=== PATIENT | female | born 1950 | race Caucasian/White ===

== ENCOUNTER → 2017-04-08 | Outpatient (CLI) | payer MEDICARE, OTHER ==
--- NOTE | 2017-04-12 07:10 | MM ---
Reason for exam: screening (asymptomatic). Last mammogram was performed 7 years and 8 months ago. History: Patient is postmenopausal. Family history of breast cancer in 2 aunts, breast cancer in grandmother, and breast cancer in mother at age 69. Benign right mammotome panel of the right breast, February 12, 2009. Benign excisional biopsy of the left breast, June 24, 2006. Took estrogen for 17 years beginning at age 35. Physical Findings: A clinical breast exam by your physician is recommended on an annual basis and results should be correlated with mammographic findings. MG 3D Screening Mammo W/Cad Bilateral CC and MLO view(s) were taken. Prior study comparison: August 15, 2009, bilateral diagnostic digital mammog. February 06, 2009, right breast diagnostic digital alyse. There are scattered fibroglandular densities. No significant changes when compared with prior studies. ASSESSMENT: Benign, BI-RAD 2 RECOMMENDATION: Routine screening mammogram of both breasts in 1 year.
== END | disposition home or self-care (01) ==
LOC: RADMAMWWP 09:29
PROVIDERS: ATTEND Family Medicine
DX: Z12.31 Encounter for screening mammogram for malignant neoplasm of breast (principal)
CPT/HCPCS: 77063; G0202

== ENCOUNTER → 2017-11-07 | Outpatient (CLI) | payer MEDICARE, OTHER | END | disposition home or self-care (01) | LOC: LABPAT 16:06 | PROVIDERS: ATTEND Surgery Plastic and Reconstructive Surgery | DX: Z01.812 Encounter for preprocedural laboratory examination (principal) | CPT/HCPCS: 36415; 84132; 86850; 86900; 86901 ==

== ENCOUNTER 2017-11-11 07:46 | Day surgery (SDC) | payer MEDICARE, OTHER ==
[2017-11-02 23:30] VITALS: BMI 41.0
[~2017-11-11 07:46] MED LIST: ACETAMINOPHEN IV (For NPO) 1,000 MG in EMPTY BAG 1 BAG IVPB ONE; DEXAMETHASONE SOD PHOSPHATE 10 MG/ML 1 ML VIAL IV ONE; HEPARIN SODIUM,PORCINE 5,000 UNIT/ML 1 ML VIAL SQ ONE; MIDAZOLAM 2 MG/2 ML VIAL IV PRN; MORPHINE SULFATE 4 MG/ML SYRINGE IV PRN; SCOPOLAMINE 1.5MG/72HR PATCH TRANSDERM ONE; ceFAZolin IN SWFI 2 GM/20 ML SYRINGE IVP ONE
--- NOTE | 2017-11-11 07:56 | P.GSHP ---
History of Present Illness H&P Date: 11/11/17 CHIEF COMPLAINT: History of intra-abdominal adhesions HISTORY OF PRESENT ILLNESS: Kala Mock is a 67 years-old female who had a protracted hospital course following an attempted ventral hernia repair, robotic, which was performed on March 11, 2016. She was hospitalized approximately 2.5 to 3 weeks, where she had to go back to the operating room for fear of bowel obstruction. The family reported that there was a potential of complete removal of all mesh, as she had a complete bowel obstruction. Since then, she has been in and out of the hospital several times in the past 12 months. She has baseline morbid obesity including COPD, as well as gastroesophageal reflux disease. She is a diet controlled diabetic. She is at least 100+ pounds over weight. Secondary to the chronic abdominal pain of the bilateral lower abdomen, she now presents for further evaluation and management. PAST MEDICAL HISTORY: Please see list. PAST SURGICAL HISTORY: Please see list. MEDICATIONS: Please see list. ALLERGIES: Please see list. SOCIAL HISTORY: No illicit drug use FAMILY HISTORY: No reports of Crohn disease or ulcerative colitis. REVIEW OF ORGAN SYSTEMS: Additionally reports: GI: Reports diarrhea verses constipation. There are no reports of blood in stools. History of gastroesophageal reflux disease. Constitutional: She is over 100+ pounds over weight. Respiratory: Dyspnea on exertion, including asthmatic. Musculoskeletal: Diffuse osteoarthritis. HEENT: Denies any trouble with vision, hearing or nosebleeds. No difficulty swallowing. LYMPHATIC: The patient denies any lumps and bumps around the neck. ENDOCRINE: Denies any thyroid disorders. Denies any blood sugar glucose intolerance. CARDIOVASCULAR: Denies any chest pain, palpitations, or recent heart attacks. GENITOURINARY: Denies any blood in urine or increased urinary frequency. NEUROLOGIC: Denies any numbness or tingling along the distal extremities. No seizure disorders or headaches. PSYCHIATRIC: Denies any depression or suicidal ideation. HEMATOLOGIC: Denies any abnormal bleeding or bruising. BREASTS: Denies any breast lumps, pain or nipple discharge. SKIN: No current skin cancer. No rash. PHYSICAL EXAM: VITAL SIGNS: Stable GENERAL: Well-developed pleasant and in no acute distress. HEENT: No scleral icterus. Extraocular movements grossly intact. Moist buccal mucosa. NECK: Supple without lymphadenopathy. CHEST: Unlabored respirations. Equal bilateral excursions. CARDIOVASCULAR: Regular rate and rhythm. Distal 2+ pulses. MUSCULOSKELETAL: No clubbing, cyanosis, or edema. Abdomen: Protuberant abdomen. Well-healed midline incision. Reducible umbilical hernia. She points to the bilateral lower abdomen without any palpable hernias. STUDIES: CT of the abdomen/pelvis was obtained on August of 2017, and compared to her January of 2016 films, were reviewed in detail along side the patient including family members. An approximately 3 cm wide mouth ventral hernia was identified, however repaired and resolved along with her more recent CT scan. A umbilical hernia is however identified, fat containing, without involvement of bowel. ASSESSMENT: 1. Diffuse abdominal pain. 2. History of multiple abdominal surgeries. 3. Intra-abdominal adhesions. PLAN: 1. Diagnostic laparoscopy with lysis of adhesions were described in detail including risk of injury to the intestine, need for further surgery, and open technique. 2. DVT prophylaxis. 3. Antibiotic prophylaxis. Past Medical History Past Medical History: Diabetes Mellitus, GERD/Reflux, Hyperlipidemia, Hypertension, Osteoarthritis (OA) Additional Past Medical History / Comment(s): DIET CONTROLLED DIABETES (CHECKS CBG DAILY), STATES ALLERGIES., BACK PAIN., STATES RECENT COLD SYMPTOMS ANTIBIOTIC AND STEROIDS TAKEN. History of Any Multi-Drug Resistant Organisms: None Reported Past Surgical History: Appendectomy, Breast Surgery, Section, Hernia Repair, Hysterectomy, Joint Replacement, Tonsillectomy Additional Past Surgical History / Comment(s): 06/17/15 Total L knee arthroplasty. Other SX: LT BREAST BIOPSY, POLYPS REMOVED FROM THROAT, ROBOTIC INCISIONAL HERNIA REPAIR, LYSIS OF ADHESIONS. Past Anesthesia/Blood Transfusion Reactions: No Reported Reaction Past Psychological History: Anxiety, Depression Additional Psychological History / Comment(s): . Smoking Status: Never smoker Past Alcohol Use History: Daily Additional Past Alcohol Use History / Comment(s): states drinks 24ounce can of beer per day. Past Drug Use History: Marijuana Additional Drug Use History / Comment(s): OCCASIONAL MARIJUANA USE. - Past Family History Father Family Medical History: Deep Vein Thrombosis (DVT), Pulmonary Embolus Mother Family Medical History: Cancer Medications and Allergies Home Medications Medication Instructions Recorded Confirmed Type Atorvastatin [Lipitor] 10 mg PO QAM 10/04/14 11/02/17 History FLUoxetine HCL 40 mg PO QAM 10/04/14 11/02/17 History Gabapentin 400 mg PO TID 10/04/14 11/02/17 History LORazepam [Lorazepam] 0.5 mg PO BID 10/04/14 11/02/17 History Loratadine 10 mg PO QAM 10/04/14 11/02/17 History Omeprazole 20 mg PO BID 10/04/14 11/02/17 History Cholecalciferol [Vitamin D3] 5,000 unit PO DAILY 06/12/15 11/02/17 History Folic Acid 1 mg PO DAILY 06/12/15 11/02/17 History Thiamine [Vitamin B-1] 100 mg PO DAILY 06/12/15 11/02/17 History Vitamin B Complex 1 cap PO DAILY 06/12/15 11/02/17 History Furosemide [Lasix] 20 mg PO Q48H 04/09/16 11/02/17 History Albuterol Nebulizer 1 dose INHALATION DAILY 11/02/17 History Albuterol Nebulizer 1 dose INHALATION Q4HR PRN 11/02/17 History Budesonide [Pulmicort Flexhaler] 2 puff INHALATION BID 11/02/17 11/02/17 History HYDROcodone/APAP 10-325MG [[place] 1 tab PO Q6H PRN 11/02/17 11/02/17 History 10-325] Potassium Chloride [Klor-Con 10] 10 meq PO Q48H 11/02/17 11/02/17 History amLODIPine BESYLATE [Norvasc] 10 mg PO DAILY 11/02/17 11/02/17 History Allergies Allergy/AdvReac Type Severity Reaction Status Date / Time codeine Allergy Rash/Hives Verified 11/02/17 15:51 nicotine Allergy Swelling Verified 11/02/17 15:51 Tetracyclines Allergy Rash/Hives Verified 11/02/17 15:51 venom-honey bee Allergy Anaphylaxis Verified 11/02/17 15:51 [bee venom (honey bee)]
[2017-11-11] MEDS: LACTATED RINGERS 1,000 ML IV SCH ×2 (08:16→08:42)
[2017-11-11 08:29] LABS: Glucose,Whole Blood 112 mg/dL (75-99)
[2017-11-11] MEDS ORDERED: LIDOCAINE 1% 20 ML VIAL (10MG/ML) FOR IV START INTRADERMA ONE ×2 (08:42→08:43)
[2017-11-11] MEDS: ONDANSETRON 4 MG/2 ML VIAL IVP ONE ×2 (08:57→12:30)
[2017-11-11] MEDS ORDERED: fentaNYL (PF) 50 MCG/ML 2 ML AMP ONE (09:30)
[2017-11-11] MEDS ORDERED: LIDOCAINE 1% INJ 10MG/ML (20 ML MDV) ONE (09:30)
[2017-11-11] MEDS ORDERED: GLYCOPYRROLATE 0.2 MG/ML 2 ML VIAL ONE (09:30)
[2017-11-11] MEDS ORDERED: PROPOFOL 10 MG/ML 20 ML VIAL IV ONE (09:30)
[2017-11-11] MEDS ORDERED: MIDAZOLAM 2 MG/2 ML VIAL ONE (09:30)
[2017-11-11] MEDS ORDERED: PHENYLEPHRINE-0.9% NACL SYG 1 MG/10 ML SYRINGE ONE (09:30)
[2017-11-11] MEDS ORDERED: ROCURONIUM BROMIDE 10 MG/ML 10 ML VIAL IV ONE (09:30)
[2017-11-11] MEDS ORDERED: SUCCINYLCHOLINE CHLORIDE VIAL 200 MG/10 ML VIAL IV ONE (09:30)
[2017-11-11] MEDS ORDERED: NEOSTIGMINE 1 MG/ML 10 ML VIAL ONE (09:30)
[2017-11-11] MEDS ORDERED: BUPIVACAINE (PF) 0.25% 30 ML VIAL SQ ONE ×2 (10:03→10:15)
[2017-11-11] MEDS ORDERED: LACTATED RINGERS 1,000 ML IV ONE (12:04)
[2017-11-11] MEDS ORDERED: ONDANSETRON 4 MG/2 ML VIAL IVP PRN (12:11)
[2017-11-11] MEDS ORDERED: HYDROcodone/APAP 5-325MG 1 EACH TAB PO PRN (12:11)
[2017-11-11] MEDS ORDERED: NALOXONE 0.4 MG/ML 1 ML VIAL IV PRN (12:11)
[2017-11-11 12:22] VITALS: TEMP 98.2
--- NOTE | 2017-11-11 12:45 | P.PCN ---
Date of Procedure: 11/11/17 Preoperative Diagnosis: Diffuse abdominal pain, history of multiple abdominal wall hernias Postoperative Diagnosis: Same, severe intra-abdominal adhesions diffuse, incarcerated hernia right upper abdomen Procedure(s) Performed: Robotic-assisted laparoscopic lysis of adhesions 2 hours, reduction and repair of incarcerated ventral hernia without mesh, 2 cm at right upper abdomen Anesthesia: AMINA, local Surgeon: Jadyn Correa Estimated Blood Loss (ml): 25 Pathology: none sent Condition: stable Disposition: observation Operative Findings: Diffuse intra-abdominal adhesions, area of pain was marked in the presurgical area. Left upper abdomen, incarcerated hernia 2 cm reduced and oversewn without mesh. Adhesions involving small bowel at the left upper abdomen address for pain. No enterotomies identified throughout the case.
[2017-11-11] MEDS ORDERED: HYDROcodone/APAP 10-325MG 1 EACH TAB PO ONE (13:52)
[2017-11-11 13:55] VITALS: RESP 20
[2017-11-11 14:36] VITALS: BP 128/71; PULSE 93
== END 2017-11-11 15:12 | disposition home or self-care (01) ==
LOC: OR 07:46
PROVIDERS: ATTEND Surgery Plastic and Reconstructive Surgery
DX: K43.6 Other and unspecified ventral hernia with obstruction, without gangrene (principal); K66.0 Peritoneal adhesions (postprocedural) (postinfection); I10 Essential (primary) hypertension; K21.9 Gastro-esophageal reflux disease without esophagitis; E78.5 Hyperlipidemia, unspecified; E11.9 Type 2 diabetes mellitus without complications; M19.90 Unspecified osteoarthritis, unspecified site; F41.9 Anxiety disorder, unspecified; F32.9 Major depressive disorder, single episode, unspecified; Z79.899 Other long term (current) drug therapy; Z79.51 Long term (current) use of inhaled steroids; Z88.1 Allergy status to other antibiotic agents; Z91.030 Bee allergy status; Z88.5 Allergy status to narcotic agent; Z91.09 Other allergy status, other than to drugs and biological substances
CPT/HCPCS: 49653; J2250; J0330; J2270; J1644; J1100; J2710; J0690; J2405; J2001; J3010; J0131; J2370; J2704; 86850; 86900; 86901

== ENCOUNTER 2018-10-26 09:50 | Day surgery (SDC) | payer MEDICARE, OTHER ==
[2018-10-25 09:22] VITALS: BMI 41.6
[~2018-10-26 09:50] MED LIST changes: -ACETAMINOPHEN IV (For NPO) 1,000 MG in EMPTY BAG 1 BAG IVPB ONE; -DEXAMETHASONE SOD PHOSPHATE 10 MG/ML 1 ML VIAL IV ONE; -MIDAZOLAM 2 MG/2 ML VIAL IV PRN; -MORPHINE SULFATE 4 MG/ML SYRINGE IV PRN; -SCOPOLAMINE 1.5MG/72HR PATCH TRANSDERM ONE
[2018-10-26] MEDS ORDERED: INDOCYANINE GREEN 25 MG VIAL IV STA (10:16)
[2018-10-26] MEDS ORDERED: ACETAMINOPHEN IV (For NPO) 1,000 MG in EMPTY BAG 1 BAG IVPB ONE (10:18)
--- NOTE | 2018-10-26 10:18 | P.GSHP ---
History of Present Illness H&P Date: 10/26/18 CHIEF COMPLAINT: Cholecystitis HISTORY OF PRESENT ILLNESS: The patient is a 68-year-old female who presents with history of epigastric including right upper quadrant abdominal pain. She underwent diagnostic studies for her gallbladder. Separately her clinical picture was consistent with cholecystitis. Now she presents for surgical intervention. PAST MEDICAL HISTORY: Please see list PAST SURGICAL HISTORY: Please see list MEDICATIONS: Please see list ALLERGIES: Denies. SOCIAL HISTORY: No illicit drug use or recent tobacco use FAMILY HISTORY: Pertinent for gallbladder disease REVIEW OF ORGAN SYSTEMS: CONSTITUTIONAL: No reports of fevers or chills. HEENT: Denies any troubles with the vision or hearing. RESPIRATORY: Recent pneumonias. CARDIOVASCULAR: Denies chest pain or palpitations GI: No blood in stools or constipation. MUSCULOSKELETAL: Has occasional joint pain including back pain. HEMATOLOGIC: No personal or family history of DVTs or pulmonary emboli. SKIN: No skin cancer. PHYSICAL EXAM: VITAL SIGNS: Afebrile vital signs stable GENERAL: Well-developed pleasant in no acute distress. HEENT: No scleral icterus. Extraocular movements grossly intact. Moist buccal mucosa. NECK: Supple without lymphadenopathy. CHEST: Unlabored respirations. Equal bilateral excursions. CARDIOVASCULAR: Regular rate regular rhythm rhythm. Distal 2+ pulses. ABDOMEN: Soft, nondistended. Tender along the epigastrium and right upper quadrant. MUSCULOSKELETAL: No clubbing, cyanosis, or edema. NEURO: Cranial nerves II to XII within normal limits. No focal or lateralizing signs. PSYCH: Alert and oriented to person, place and time. SKIN: Well-perfused good skin turgor. ASSESSMENT: 1. Epigastric and right upper quadrant abdominal pain 2. Chronic cholecystitis 3. Symptomatic gallstones. PLAN: 1. Will need a robotic cholecystectomy possible open. Benefits and risks were described. 2. Heparin for DVT prophylaxis 5000 units. 3. Antibiotic prophylaxis. Past Medical History Past Medical History: Asthma, Heart Failure, Diabetes Mellitus, GERD/Reflux, Hyperlipidemia, Hypertension, Osteoarthritis (OA) Additional Past Medical History / Comment(s): DIET CONTROLLED DIABETES, ALLERGIES., BACK PAIN., no longer needs BP med anymore per pt., recent stay @ [facility] for UTI, diverticulitis,colitis History of Any Multi-Drug Resistant Organisms: ESBL Date of last positivie culture/infection: 11/9/18 ESBL-E.coli MDRO Source:: Urine Past Surgical History: Appendectomy, Breast Surgery, Section, Hernia Repair, Hysterectomy, Joint Replacement, Tonsillectomy Additional Past Surgical History / Comment(s): 06/17/15 Total L knee arthroplasty & right knee replaced, left hip replaced, Other SX: LT BREAST BIOPSY, POLYPS REMOVED FROM THROAT, ROBOTIC INCISIONAL HERNIA REPAIR, LYSIS OF ADHESIONS. Past Anesthesia/Blood Transfusion Reactions: No Reported Reaction Smoking Status: Never smoker - Past Family History Father Family Medical History: Deep Vein Thrombosis (DVT), Pulmonary Embolus Mother Family Medical History: Cancer Medications and Allergies Home Medications Medication Instructions Recorded Confirmed Type FLUoxetine HCL 40 mg PO QAM 10/04/14 10/25/18 History Gabapentin 400 mg PO TID 10/04/14 10/25/18 History Loratadine 10 mg PO QAM 10/04/14 10/25/18 History Omeprazole 40 mg PO DAILY 10/04/14 10/25/18 History Folic Acid 1 mg PO DAILY 06/12/15 10/25/18 History Thiamine [Vitamin B-1] 100 mg PO DAILY 06/12/15 10/25/18 History Vitamin B Complex 1 cap PO DAILY 06/12/15 10/25/18 History Furosemide [Lasix] 20 mg PO DAILY 04/09/16 10/25/18 History HYDROcodone/APAP 10-325MG [[place] 1 tab PO Q6H PRN 11/02/17 10/25/18 History 10-325] Potassium Chloride [Klor-Con 10] 10 meq PO DAILY 11/02/17 10/25/18 History Acetaminophen [Tylenol Arthritis] 650 mg PO Q4H PRN 10/25/18 10/25/18 History Budesonide 1 mg INHALATION BID 10/25/18 10/25/18 History Ferrous Sulfate [Feosol] 325 mg PO DAILY 10/25/18 10/25/18 History Loperamide [Imodium] 2 mg PO Q6H 10/25/18 10/25/18 History Menthol [Biofreeze] 1 applic TOPICAL Q6H PRN 10/25/18 10/25/18 History Allergies Allergy/AdvReac Type Severity Reaction Status Date / Time codeine Allergy Rash/Hives Verified 10/25/18 08:32 nicotine Allergy Swelling Verified 10/25/18 08:32 Tetracyclines Allergy Rash/Hives Verified 10/25/18 08:32 venom-honey bee Allergy Anaphylaxis Verified 10/25/18 08:32 [bee venom (honey bee)]
[2018-10-26] MEDS ORDERED: ONDANSETRON 4 MG/2 ML VIAL IVP ONE (12:04)
[2018-10-26] MEDS ORDERED: LACTATED RINGERS 1,000 ML IV ONE ×2 (12:05→13:56)
[2018-10-26] MEDS ORDERED: DEXAMETHASONE SOD PHOSPHATE 10 MG/ML 1 ML VIAL IV ONE (12:05)
[2018-10-26 12:12] LABS: Anisocytosis Slight; Basophils % (A) 0 %; Eosinophils # (A) 0.3 k/uL (0-0.7); Eosinophils % (A) 4 %; HCT 33.3 % (34.0-46.0); HGB 10.6 gm/dL (11.4-16.0); Lymphocytes # (A) 2.8 k/uL (1.0-4.8); Lymphocytes % (A) 34 %; MCH 32.4 pg (25.0-35.0); MCHC 31.9 g/dL (31.0-37.0); MCV 101.6 fL (80.0-100.0); Macrocytosis Moderate; Mean Platelet Volume 6.8; Monocytes # (A) 0.3 k/uL (0-1.0); Monocytes % (A) 4 %; Neutrophils # (A) 4.6 k/uL (1.3-7.7); Neutrophils % (A) 56 %; Platelet Count 264 k/uL (150-450); RBC 3.28 m/uL (3.80-5.40); RDW 17.1 % (11.5-15.5); WBC 8.2 k/uL (3.8-10.6)
[2018-10-26] MEDS ORDERED: MIDAZOLAM 2 MG/2 ML VIAL IV ONE (12:18)
[2018-10-26 12:24] LABS: Albumin 3.1 g/dL (3.5-5.0); Anion Gap 7 mmol/L; Blood Urea Nitrogen 3 mg/dL (7-17); Calcium 8.8 mg/dL (8.4-10.2); Carbon Dioxide 24 mmol/L (22-30); Chloride 109 mmol/L (98-107); Glucose 92 mg/dL (74-99); Sodium 140 mmol/L (137-145); Total Bilirubin 1.3 mg/dL (0.2-1.3); Total Protein 8.2 g/dL (6.3-8.2)
[2018-10-26 12:34] LABS: ALT 21 U/L (9-52); AST 50 U/L (14-36); Alkaline Phosphatase 92 U/L (38-126); Potassium 3.1 mmol/L (3.5-5.1)
[2018-10-26] MEDS ORDERED: BUPIVACAIN-EPI 0.25%-1:200,000 30 ML VIAL SQ ONE ×2 (12:40→13:25)
[2018-10-26] MEDS ORDERED: GLYCOPYRROLATE 0.2 MG/ML 2 ML VIAL ONE (12:45)
[2018-10-26] MEDS ORDERED: MIDAZOLAM 2 MG/2 ML VIAL ONE (12:45)
[2018-10-26] MEDS ORDERED: SUCCINYLCHOLINE CHLORIDE 100 MG/5 ML SYR IV ONE (12:45)
[2018-10-26] MEDS ORDERED: HYDROmorphone (PF) 1 MG/ML ONE (12:45)
[2018-10-26] MEDS ORDERED: LIDOCAINE 1% INJ 10MG/ML (20 ML MDV) ONE (12:45)
[2018-10-26] MEDS ORDERED: KETOROLAC 30 MG/ML 1 ML VIAL ONE (12:45)
[2018-10-26] MEDS ORDERED: ROCURONIUM BROMIDE 10 MG/ML 10 ML VIAL IV ONE (12:45)
[2018-10-26] MEDS ORDERED: fentaNYL (PF) 50 MCG/ML 2 ML AMP ONE (12:45)
[2018-10-26] MEDS ORDERED: PROPOFOL 10 MG/ML 20 ML VIAL IV ONE (12:45)
[2018-10-26] MEDS ORDERED: NEOSTIGMINE 1 MG/ML 10 ML VIAL ONE (12:45)
[2018-10-26] MEDS ORDERED: SODIUM CHLORIDE 0.9% 50 ML with ceFAZolin 3,000 MG IV ONE ×2 (13:07)
--- NOTE | 2018-10-26 14:37 | P.OP ---
Date of Procedure: 10/26/18 Description of Procedure: SURGEON: JADYN CORREA MD PREOPERATIVE DIAGNOSES: 1. History of gallbladder sludge 2. Epigastric abdominal pain 3. Right upper quadrant abdominal pain 4. Chronic right-sided congestive heart failure 5. History of severe peritoneal adhesions 6. Morbid obesity due to excess calories, BMI 41.8 7. Chronic pain syndrome 8. Diabetes type 2, [id number] 9. Chronic obstructive pulmonary disease 10. Past history of alcohol abuse 11. Depressive disorder POSTOPERATIVE DIAGNOSES: 1. History of gallbladder sludge 2. Epigastric abdominal pain 3. Right upper quadrant abdominal pain 4. Chronic right-sided congestive heart failure 5. History of severe peritoneal adhesions 6. Morbid obesity due to excess calories, BMI 41.8 7. Chronic pain syndrome 8. Diabetes type 2, [id number] 9. Chronic obstructive pulmonary disease 10. Past history of alcohol abuse 11. Depressive disorder 12. Severe extensive peritoneal adhesions right-sided abdomen 13. Macronodular cirrhosis of the liver OPERATION: 1. Robotic-assisted da Dinorah Xi laparoscopic with lysis of adhesions ESTIMATED BLOOD LOSS: 5 mL. SPECIMENS REMOVED: None COMPLICATIONS: None. OPERATIVE FINDINGS: 1. Malignant severe peritoneal adhesions with frozen abdomen involving right upper and right lower quadrant of small bowel to abdominal wall 2. No evidence of bowel obstruction 3. Macronodular cirrhosis of the liver 4. Diffuse vascularization involving peritoneal adhesions and high risk of bleeding INDICATIONS: The patient is a 68-year-old female who presents with history of chronic abdominal pain including ultrasound findings of gallbladder sludge. Surgical intervention with cholecystectomy were described. Informed consent was obtained. Robotic assisted laparoscopic approach was described. Benefits and risks of the procedure including but not limited to bleeding, infection was described. Informed consent was obtained. DESCRIPTION OF PROCEDURE: Patient was brought to the operating room, placed in supine position. After general induction, the abdomen had been prepped and draped in standard sterile fashion. The robotic da Dinorah XI system was primed. After a timeout protocol was performed, the patient had been prepped and draped in standard sterile fashion. Along the left upper quadrant, 0 5 mmlaparoscopic trocar entry was performed and dense peritoneal adhesions were found involving the midline of the abdomen including complete obscurity of the right side of the abdominal wall. The small intestine was adherent to the abdominal wall prohibiting any view of the right side of the abdomen. The liver was cirrhotic with macronodular cirrhosis. With this finding, initial lysis of adhesions was opposed from left lateral abdominal wall. Next, two 8 mm robotic ports were placed along the left lateral abdominal wall. The camera 8-mm port was maintained along right mid-lateral abdomen. The 8 mm port was placed along the left upper abdominal wall was exchanged from the 5 mm port. Please note that the ports were placed at least 10 to 15 cm away from the target anatomy. The robot was docked along the left lateral abdomen. The patient was repositioned in with left side up. Using a grasper for arm 2, including scissor for arm 1, the robotic system was docked and primed as described. Instruments were interchanged by the political science research assistant. I had sat at the console. Carefully, a window was searched for at the adhesions of the right including lower quadrant of the abdomen. The adhesions were easily friable and well vascularized. The small bowel was cemented to the abdominal wall prohibiting any successful release of the small bowel from the abdominal wall. No evidence of small bowel obstruction was found. As a result of the malignant peritoneal adhesions including increased harm from progressing with the procedure as well as severe cirrhosis of the liver, cholecystectomy was abandoned. The risk of opening her abdomen for outweighs the benefit as she has known history of chronic abdominal pain despite the finding of gallbladder sludge. The robot was undocked. All pneumoperitoneum instruments were evacuated from the abdominal cavity. The incisions were reapproximated using 4-0 Monocryl in an interrupted subcuticular fashion. Please note along the trocar sites, local anesthetic was placed as a field block prior to insertion of all instruments. Exofin was applied to the rest of the incisions. At the end of the procedure needle, sponge, and instrument count had been verified correct by the roof service technician. The patient was transferred to postanesthesia care unit in stable condition. Plan - Discharge Summary New Discharge Prescriptions: No Action Omeprazole 40 mg PO DAILY Loratadine 10 mg PO QAM Gabapentin 400 mg PO TID FLUoxetine HCL 40 mg PO QAM Thiamine [Vitamin B-1] 100 mg PO DAILY Folic Acid 1 mg PO DAILY Vitamin B Complex 1 cap PO DAILY Furosemide [Lasix] 20 mg PO DAILY HYDROcodone/APAP 10-325MG [[place] 10-325] 1 tab PO Q6H PRN PRN Reason: Pain Potassium Chloride [Klor-Con 10] 10 meq PO DAILY Ferrous Sulfate [Feosol] 325 mg PO DAILY Menthol [Biofreeze] 1 applic TOPICAL Q6H PRN PRN Reason: right shoulder pain Loperamide [Imodium] 2 mg PO Q6H Budesonide 1 mg INHALATION BID Acetaminophen [Tylenol Arthritis] 650 mg PO Q4H PRN PRN Reason: Pain Discharge Medication List FLUoxetine HCL 40 mg PO QAM 10/04/14 [History] Gabapentin 400 mg PO TID 10/04/14 [History] Loratadine 10 mg PO QAM 10/04/14 [History] Omeprazole 40 mg PO DAILY 10/04/14 [History] Folic Acid 1 mg PO DAILY 06/12/15 [History] Thiamine [Vitamin B-1] 100 mg PO DAILY 06/12/15 [History] Vitamin B Complex 1 cap PO DAILY 06/12/15 [History] Furosemide [Lasix] 20 mg PO DAILY 04/09/16 [History] HYDROcodone/APAP 10-325MG [[place] 10-325] 1 tab PO Q6H PRN 11/02/17 [History] Potassium Chloride [Klor-Con 10] 10 meq PO DAILY 11/02/17 [History] Acetaminophen [Tylenol Arthritis] 650 mg PO Q4H PRN 10/25/18 [History] Budesonide 1 mg INHALATION BID 10/25/18 [History] Ferrous Sulfate [Feosol] 325 mg PO DAILY 10/25/18 [History] Loperamide [Imodium] 2 mg PO Q6H 10/25/18 [History] Menthol [Biofreeze] 1 applic TOPICAL Q6H PRN 10/25/18 [History] Follow up Appointment(s)/Referral(s): Jadyn Correa MD [STAFF PHYSICIAN] - 11/01/18 Patient Instructions/Handouts: Cirrhosis (DC), Lysis of Abdominal Adhesions (IP ), Liver Fibrosis (DC) Activity/Diet/Wound Care/Special Instructions: May shower. No bathtub soaks. No lifting over 4 pounds for 1 week. Take Tylenol for pain. Discharge Disposition: HOME SELF-CARE
[2018-10-26] MEDS ORDERED: HYDROmorphone 1 MG/ML 1 ML SYRINGE IVP ONE (14:39)
[2018-10-26] MEDS ORDERED: ALBUTEROL NEBULIZED 2.5 MG/3 ML INHALATION STA (15:24)
[2018-10-26] MEDS ORDERED: HYDROcodone/APAP 10-325MG 1 EACH TAB PO ONE (15:30)
[2018-10-26 15:52] VITALS: RESP 14
[2018-10-26] MEDS: FUROSEMIDE 10 MG/ML 2 ML VIAL IV ONE ×2 (16:00→16:06)
[2018-10-26 16:05] VITALS: PULSE 93; TEMP 9
[2018-10-26 16:22] LABS: Glucose,Whole Blood 154 mg/dL (75-99)
[2018-10-26 16:58] VITALS: BP 131/83
== END 2018-10-26 17:27 | disposition home or self-care (01) ==
LOC: OR 09:50
PROVIDERS: ATTEND Surgery Plastic and Reconstructive Surgery
DX: K66.0 Peritoneal adhesions (postprocedural) (postinfection) (principal); K74.69 Other cirrhosis of liver; E11.9 Type 2 diabetes mellitus without complications; I11.0 Hypertensive heart disease with heart failure; I50.9 Heart failure, unspecified; K21.9 Gastro-esophageal reflux disease without esophagitis; E78.5 Hyperlipidemia, unspecified; Z16.12 Extended spectrum beta lactamase (ESBL) resistance; I50.814 Right heart failure due to left heart failure; G89.4 Chronic pain syndrome; M17.10 Unilateral primary osteoarthritis, unspecified knee; R54 Age-related physical debility; F32.9 Major depressive disorder, single episode, unspecified; E66.01 Morbid (severe) obesity due to excess calories; Z68.41 Body mass index [BMI] 40.0-44.9, adult; J44.9 Chronic obstructive pulmonary disease, unspecified; Z88.1 Allergy status to other antibiotic agents; Z79.51 Long term (current) use of inhaled steroids; Z79.899 Other long term (current) drug therapy; Z91.030 Bee allergy status; Z88.5 Allergy status to narcotic agent; Z91.09 Other allergy status, other than to drugs and biological substances
CPT/HCPCS: 44180; 94640; 80053; 85025; J2250; J1644; J1100; J1940; J2710; J2405; J2001; J3010; J1885; J1170; J0690; J0131; J0330; J2704; 93005

== ENCOUNTER → 2019-01-11 | Outpatient (CLI) | payer MEDICARE, OTHER ==
--- NOTE | 2019-01-11 11:54 | BD ---
EXAMINATION TYPE: Axial Bone Density DATE OF EXAM: 01/11/2019 COMPARISON: 05.25.2006 CLINICAL HISTORY: 68 YR OLD FEMALE....ICD-10 CODE: M89.9 DISORDER OF BONE Height: 60.5 Weight: 210 FRAX RISK QUESTIONS: Glucocorticoids (More than 3mos): YES (Ex: prednisone, prednisolone, methylprednisolone, dexamethasone, and hydrocortisone). Secondary Osteoporosis: YES 3. Menopause before 45: YES IN HER 30's Rheumatoid Arthritis: YES RISK FACTORS HISTORY OF: Surgery LT HIP.....TOTAL HIP REPLACEMENT Family History of Osteoporosis: YES, HER MOTHER Diet low in dairy products/other sources of calcium: YES, LOW Postmenopausal woman: YES, TOTAL HYST IN HER 30'S Lost more than 2 inches in height since high school: YES Frequent falls: USES WALKER , TKR'S AND TOTAL LT HIP MEDICATIONS: Prednisone or other steroids: ALLERGIES AND BREATHING PROBLEMS, YES, STEROIDS How Long: FOR MANY YRS Additional Medications: BP MEDS, PROZAC, LORAZEPAM, REFLUX MEDS, STATINS FOR CHOLESTEROL, VIT D , CRISTINA N MEDS AND NSAIDS Additional History: DIET CONTROLLED DIABETIC AND HYPOGLYCEMIC?, [place] MANNER PATIENT, BILAT TOTAL K NEES, OSTEO AND RHEUMATOID ARTHRITIS, SLOW MOVING, USING WALKER, EXAM MEASUREMENTS: Bone mineral densitometry was performed using the Sonocine System. Bone mineral density as measured about the Lumbar spine is: ----- L1-L4(G/cm2): 1.094 T Score Values are as follows: ----- L1: -0.9 ----- L2: -1.3 ----- L3: -0.5 ----- L4: -0.5 ----- L1-L4: -0.7 Bone mineral density has: Increased 11.5% since study of: 05.25.2006 Bone mineral density about the R hip (g/cm2): 0.986 T Score values are as follows: -----R Neck: -1.0 -----R Total: -0.2 Bone mineral density has: Decreased -3.0% since study of: 05.25.2006 FRAX%s: THERE IS A 5.1% CHANCE FOR A MAJOR OSTEOPOROTIC FX AND A 04.% FOR HIP....PROBABILITY OF FX IN 10 YRS TIME IMPRESSION: Normal (Values between +1 and -1 indicate normal bone mass). Consider repeating this study in 5 year s or sooner if there is some new clinical indication. NOTE: T-SCORE=SD OF THE YOUNG ADULT MEAN.
== END | disposition home or self-care (01) ==
LOC: RADBDWWP 09:36
PROVIDERS: ATTEND Family Medicine
DX: M89.9 Disorder of bone, unspecified (principal)
CPT/HCPCS: 77080

== ENCOUNTER → 2019-02-22 | Day surgery (SDC) | payer MEDICARE, OTHER ==
[2019-02-19 11:11] VITALS: BMI 37.1
[~2019-02-22] MED LIST changes: +GLYCOPYRROLATE 0.2 MG/ML 2 ML VIAL ONE; -HEPARIN SODIUM,PORCINE 5,000 UNIT/ML 1 ML VIAL SQ ONE; +KETAMINE 10 MG/ML 20 ML VIAL ONE; +LACTATED RINGERS 1,000 ML IV SCH; +LIDOCAINE 1% 20 ML VIAL (10MG/ML) FOR IV START INTRADERMA PRN; +LIDOCAINE 1% INJ 10MG/ML (20 ML MDV) ONE; +PROPOFOL 10 MG/ML 20 ML VIAL IV ONE; -ceFAZolin IN SWFI 2 GM/20 ML SYRINGE IVP ONE
[2019-02-22 08:38] VITALS: TEMP 97.6
[2019-02-22 08:43] LABS: Glucose,Whole Blood 75 mg/dL (75-99)
--- NOTE | 2019-02-22 10:35 | P.PCN ---
Date of Procedure: 02/22/19 Description of Procedure: Brief history: 68-year-old female with multiple medical comorbidities including COPD, CHF, hypertension and recently diagnosed cirrhosis who was recently hospitalized with complaints of chest pain. At that time the patient had complained of pill- induced dysphagia. The patient also reports a remote history of colonoscopy approximately 7 years ago. Labs significant for iron deficiency anemia. Procedure performed: Esophagogastroduodenoscopy with biopsy Colonoscopy Estimated blood loss: Minimal. Preoperative diagnosis: Iron deficiency anemia, esophageal dysphagia Anesthesia: MAC Procedure: After informed consent was obtained from the patient was brought into the endoscopy unit and IV sedation was administered by anesthesia under continuous monitoring. Initially upper endoscopy was done. The Olympus GF 190 video endoscope was inserted inserted into the mouth and esophagus intubated which was difficult due to external compression of the proximal esophagus this was carefully traversed and the scope was then gradually advanced into the stomach and duodenum and carefully examined. The bulb and second part of the duodenum appeared normal. The scope was then withdrawn into the stomach adequately insufflated with air and upon careful examination the antrum and body, cardia and fundus appeared normal except for some mild scattered erythema in the antrum and body suggestive of mild gastritis which was biopsied. A large hiatal hernia was noted. The scope was then withdrawn into the esophagus. The GE junction was located at 37 cm to the incisors. There was a small area of ulceration in the distal esophagus which was not bleeding when initially seen however was then noted to be oozing a small amount of blood after manipulation of the scope. However on reexamination the bleeding had stopped on its own. Patient tolerated the procedure well. At this time the patient continued to remain sedation. Initial digital rectal examination was normal. Olympus CF 190 video colonoscope was then inserted into the rectum and gradually advanced to the cecum without any difficulty. Careful examination was performed as the scope was gradually being withdrawn. The prep was excellent. The cecum, ascending colon, transverse colon, descending colon, sigmoid colon and rectum appeared normal. Mild scattered diverticulosis was noted in the left colon. Moderate internal hemorrhoids were noted. Retroflexion was performed in the rectum and no lesions were noted. Patient tolerated the procedure well. Impression: 1. Narrowing of the proximal esophagus. Distal esophageal ulcer. Mild gastritis antrum and body, biopsied. Duodenal biopsies. Hiatal hernia. 2. Mild diverticulosis. Moderate internal hemorrhoids. Recommendations: Findings of this examination were discussed with the patient as well as her sister. At this time would recommend continuing twice daily omeprazole therapy. Continue to monitor hemoglobin and iron supplementation as needed. Low-sodium diet. Will discuss initiation of Inderal therapy with patient on follow-up appointment. Patient and sister told to return to the hospital if any signs or symptoms of GI bleeding occur.
[2019-02-22 11:01] VITALS: RESP 18
[2019-02-22 11:18] VITALS: BP 113/77; PULSE 89
== END | disposition home or self-care (01) ==
LOC: ORWHC2ENDO 08:05
PROVIDERS: ATTEND Internal Medicine
DX: K22.10 Ulcer of esophagus without bleeding (principal); K29.50 Unspecified chronic gastritis without bleeding; R13.14 Dysphagia, pharyngoesophageal phase; K29.70 Gastritis, unspecified, without bleeding; K44.9 Diaphragmatic hernia without obstruction or gangrene; K57.90 Diverticulosis of intestine, part unspecified, without perforation or abscess without bleeding; K64.8 Other hemorrhoids; Z88.1 Allergy status to other antibiotic agents; Z88.5 Allergy status to narcotic agent; Z88.8 Allergy status to other drugs, medicaments and biological substances; I11.0 Hypertensive heart disease with heart failure; I50.9 Heart failure, unspecified; E78.5 Hyperlipidemia, unspecified; J44.9 Chronic obstructive pulmonary disease, unspecified; Z79.899 Other long term (current) drug therapy
CPT/HCPCS: 88305; 45378; 43239; J2001; J2704

== ENCOUNTER 2019-08-21 09:06 | Emergency (ER) | payer MEDICARE, OTHER ==
[2019-08-21 09:14] VITALS: TEMP 99
[2019-08-21] MEDS ORDERED: LORazepam 2 MG/ML INJ IV STA (10:28)
[2019-08-21] MEDS ORDERED: ONDANSETRON 4 MG/2 ML VIAL IVP STA (10:28)
[2019-08-21] MEDS ORDERED: SODIUM CHLORIDE 0.9% 1,000 ML IV STA ×2 (10:28)
--- NOTE | 2019-08-21 10:31 | ED ---
Anxiety HPI - General Chief Complaint: Anxiety Stated Complaint: Anxiety Time Seen by Provider: 08/21/19 09:41 Source: EMS, RN notes reviewed, old records reviewed - History of Present Illness Initial Comments: Patient is a 69-year-old female with a history of anxiety. She states that she has been out of her anxiety and pain medicine she's been taking more frequently due to worsening anxiety attacks over the past month. Patient states that she also is having some chronic abdominal pain. She states that today. She also complains of sinus congestion. Patient denies any specific fevers or chills. - Related Data Home Medications: Home Medications Medication Instructions Recorded Confirmed FLUoxetine HCL 40 mg PO QAM 10/04/14 08/21/19 Gabapentin 400 mg PO TID 10/04/14 08/21/19 Loratadine 10 mg PO QAM 10/04/14 08/21/19 Omeprazole 20 mg PO BID 10/04/14 08/21/19 Folic Acid 1 mg PO DAILY 06/12/15 08/21/19 Vitamin B Complex 1 cap PO DAILY 06/12/15 08/21/19 HYDROcodone/APAP 10-325MG [[place] 1 tab PO Q8H PRN 11/02/17 08/21/19 10-325] Acetaminophen [Tylenol Arthritis] 1,300 mg PO Q8H PRN 10/25/18 08/21/19 Ferrous Sulfate [Feosol] 325 mg PO DAILY 10/25/18 08/21/19 Atorvastatin [Lipitor] 10 mg PO HS 02/19/19 08/21/19 Magnesium Oxide [Mag-Ox] 400 mg PO DAILY 02/19/19 08/21/19 Azelastine HCl 2 spray EA NOSTRIL BID 08/21/19 08/21/19 Dicyclomine [Bentyl] 20 mg PO QID 08/21/19 08/21/19 Furosemide [Lasix] 20 mg PO DAILY 08/21/19 08/21/19 LORazepam [Ativan] 0.5 mg PO BID PRN 08/21/19 08/21/19 Lisinopril [Zestril] 10 mg PO DAILY 08/21/19 08/21/19 Loperamide [Imodium] 2 mg PO QID PRN 08/21/19 08/21/19 Nystatin 100,000 Unit/gm Powd 1 applic TOPICAL BID 08/21/19 08/21/19 [Mycostatin Powder] Potassium Chloride [Klor-Con 10] 10 meq PO BID 08/21/19 08/21/19 Sodium Bicarbonate Tab 650 mg PO DAILY 08/21/19 08/21/19 amLODIPine [Norvasc] 10 mg PO DAILY 08/21/19 08/21/19 Previous Rx's Medication Instructions Recorded Acetaminophen Tab [Tylenol Tab] 500 mg PO Q4H #20 tablet 08/21/19 Nystatin [Nystop] 1 applic TOPICAL BID #60 gm 08/21/19 Allergies/Adverse Reactions: Allergies Allergy/AdvReac Type Severity Reaction Status Date / Time codeine Allergy Rash/Hives Verified 08/21/19 11:34 nicotine Allergy Swelling Verified 08/21/19 11:34 Tetracyclines Allergy Rash/Hives Verified 08/21/19 11:34 venom-honey bee Allergy Anaphylaxis Verified 08/21/19 11:34 [bee venom (honey bee)] Review of Systems ROS Statement: Those systems with pertinent positive or pertinent negative responses have been documented in the HPI. ROS Other: All systems not noted in ROS Statement are negative. Past Medical History Past Medical History: Asthma, Chest Pain / Angina, Heart Failure, COPD, Diabetes Mellitus, GERD/Reflux, Hyperlipidemia, Hypertension, Osteoarthritis (OA) Additional Past Medical History / Comment(s): DIET CONTROLLED DIABETES, BACK PAIN, diverticulitis,colitis, just d/c Tuesday from [facility] for CP that pt. says is "muscle around heart", had low magnesium & potassium also, dysphagia w/meds, diarrhea for 4 months-started on cholestyramine-now constipation History of Any Multi-Drug Resistant Organisms: ESBL Date of last positivie culture/infection: 09/08/18 ESBL-E.coli MDRO Source:: Urine Past Surgical History: Appendectomy, Bowel Resection, Breast Surgery, Section, Hernia Repair, Hysterectomy, Joint Replacement, Tonsillectomy Additional Past Surgical History / Comment(s): 06/17/15 Total L knee arthroplasty & right knee replaced, left hip replaced, Other SX: LT BREAST BIOPSY, POLYPS REMOVED FROM THROAT, ROBOTIC INCISIONAL HERNIA REPAIR, LYSIS OF ADHESIONS. Past Anesthesia/Blood Transfusion Reactions: No Reported Reaction Past Psychological History: Anxiety, Depression Smoking Status: Never smoker Past Alcohol Use History: Daily Past Drug Use History: Marijuana - Past Family History Father Family Medical History: Deep Vein Thrombosis (DVT), Pulmonary Embolus Mother Family Medical History: Cancer General Exam Limitations: no limitations Course Vital Signs 08/21/19 09:08 Temperature 99.0 F Pulse Rate 61 Respiratory 20 Rate Blood Pressure 142/63 O2 Sat by Pulse 97 Oximetry Medical Decision Making - Medical Decision Making Patient's a 69-year-old female multiple complaints, main complaint of being out of her anxiety and pain medicine. Complaining of chronic abdominal pain. Patient appeared to be quite anxious, having a panic attack upon my entering the room. She is given 1 mg of Ativan, complains of abdominal pain. Patient's labwork was reviewed and unremarkable. Did check a TSH is mildly low. I discussed the Patient is have this reevaluated by her primary care doctor. Vital signs are stable. She also complains of a small rash on her bottom. There is evidence of an Nilda intertrigo. We'll put the Patient on nystatin cream. She also requested a prescription for Tylenol. I discussed the Patient is follow-up with her primary care doctor and return parameters were discussed. Patient is agreeable to this plan. She will have her anxiety and narcotic pain medicines filled by her PCP. - Lab Data Result diagrams: 08/21/19 10:13 08/21/19 10:13 Lab Results 08/21/19 08/21/19 08/21/19 Range/Units 10:13 10:13 10:13 WBC 4.6 (3.8-10.6) k/uL RBC 3.82 (3.80-5.40) m/uL Hgb 12.4 (11.4-16.0) gm/dL Hct 38.7 (34.0-46.0) % MCV 101.3 H (80.0-100.0) fL MCH 32.4 (25.0-35.0) pg MCHC 31.9 (31.0-37.0) g/dL RDW 18.6 H (11.5-15.5) % Plt Count 236 (150-450) k/uL Neutrophils % 61 % Lymphocytes % 26 % Monocytes % 7 % Eosinophils % 2 % Basophils % 1 % Neutrophils # 2.8 (1.3-7.7) k/uL Lymphocytes # 1.2 (1.0-4.8) k/uL Monocytes # 0.3 (0-1.0) k/uL Eosinophils # 0.1 (0-0.7) k/uL Basophils # 0.0 (0-0.2) k/uL Hypochromasia Slight Anisocytosis Slight Macrocytosis Moderate Sodium 139 (137-145) mmol/L Potassium 5.3 H (3.5-5.1) mmol/L Chloride 107 (98-107) mmol/L Carbon Dioxide 22 (22-30) mmol/L Anion Gap 10 mmol/L BUN 7 (7-17) mg/dL Creatinine 0.62 (0.52-1.04) mg/dL Est GFR (CKD-EPI)AfAm >90 (>60 ml/min/1.73 sqM) Est GFR (CKD-EPI)NonAf >90 (>60 ml/min/1.73 sqM) Glucose 98 (74-99) mg/dL Calcium 10.2 (8.4-10.2) mg/dL Total Bilirubin 1.2 (0.2-1.3) mg/dL AST 59 H (14-36) U/L ALT 24 (9-52) U/L Alkaline Phosphatase 159 H (38-126) U/L Troponin I <0.012 (0.000-0.034) ng/mL Total Protein 9.3 H (6.3-8.2) g/dL Albumin 4.4 (3.5-5.0) g/dL TSH 0.193 L (0.465-4.680) mIU/L Urine Color Urine Appearance (Clear) Urine pH (5.0-8.0) Ur Specific [place] (1.001-1.035) Urine Protein (Negative) Urine Glucose (UA) (Negative) Urine Ketones (Negative) Urine Blood (Negative) Urine Nitrite (Negative) Urine Bilirubin (Negative) Urine Urobilinogen (<2.0) mg/dL Ur Leukocyte Esterase (Negative) 08/21/19 Range/Units 11:16 WBC (3.8-10.6) k/uL RBC (3.80-5.40) m/uL Hgb (11.4-16.0) gm/dL Hct (34.0-46.0) % MCV (80.0-100.0) fL MCH (25.0-35.0) pg MCHC (31.0-37.0) g/dL RDW (11.5-15.5) % Plt Count (150-450) k/uL Neutrophils % % Lymphocytes % % Monocytes % % Eosinophils % % Basophils % % Neutrophils # (1.3-7.7) k/uL Lymphocytes # (1.0-4.8) k/uL Monocytes # (0-1.0) k/uL Eosinophils # (0-0.7) k/uL Basophils # (0-0.2) k/uL Hypochromasia Anisocytosis Macrocytosis Sodium (137-145) mmol/L Potassium (3.5-5.1) mmol/L Chloride (98-107) mmol/L Carbon Dioxide (22-30) mmol/L Anion Gap mmol/L BUN (7-17) mg/dL Creatinine (0.52-1.04) mg/dL Est GFR (CKD-EPI)AfAm (>60 ml/min/1.73 sqM) Est GFR (CKD-EPI)NonAf (>60 ml/min/1.73 sqM) Glucose (74-99) mg/dL Calcium (8.4-10.2) mg/dL Total Bilirubin (0.2-1.3) mg/dL AST (14-36) U/L ALT (9-52) U/L Alkaline Phosphatase (38-126) U/L Troponin I (0.000-0.034) ng/mL Total Protein (6.3-8.2) g/dL Albumin (3.5-5.0) g/dL TSH (0.465-4.680) mIU/L Urine Color Light Yellow Urine Appearance Clear (Clear) Urine pH 8.5 H (5.0-8.0) Ur Specific [place] 1.008 (1.001-1.035) Urine Protein Negative (Negative) Urine Glucose (UA) Negative (Negative) Urine Ketones Trace H (Negative) Urine Blood Negative (Negative) Urine Nitrite Negative (Negative) Urine Bilirubin Negative (Negative) Urine Urobilinogen <2.0 (<2.0) mg/dL Ur Leukocyte Esterase Negative (Negative) 08/21/19 12:12 EKG shows sinus bradycardia with sinus arrhythmia otherwise normal EKG. Ventricular rate 49 bpm. Verbal 164 ms. Frustration is 80 ms. QT QTc is 454/410 ms. - Radiology Data Radiology results: report reviewed X-ray shows chronic changes without any acute cardiopulmonary process. Abdominal x-ray shows non obstructive instructed bowel gas pattern. Disposition Clinical Impression: Anxiety, Chronic abdominal pain, Candidal intertrigo, Abnormal TSH Disposition: HOME SELF-CARE Condition: Good Instructions (If sedation given, give patient instructions): Generalized Anxiety Disorder (ED), Skin Yeast Infection (ED) Additional Instructions: Patient advised to follow-up with your primary care doctor. Recommending getting her TSH level rechecked. Patient can use the outer between the buttocks to help heal the sore. Patient should return to the emergency department if any alarming signs or symptoms occur. Patient should have anxiety and pain medications refilled by PCP. Prescriptions: Nystatin [Nystop] 1 applic TOPICAL BID #60 gm Acetaminophen Tab [Tylenol Tab] 500 mg PO Q4H #20 tablet Is patient prescribed a controlled substance at d/c from ED?: No Referrals: Inocencio Hoyt DO [Primary Care Provider] - 1-2 days Time of Disposition: 12:24
[2019-08-21 11:06] LABS: Anisocytosis Slight; Basophils % (A) 1 %; Eosinophils # (A) 0.1 k/uL (0-0.7); Eosinophils % (A) 2 %; HCT 38.7 % (34.0-46.0); HGB 12.4 gm/dL (11.4-16.0); Hypochromasia Slight; Lymphocytes # (A) 1.2 k/uL (1.0-4.8); Lymphocytes % (A) 26 %; MCH 32.4 pg (25.0-35.0); MCHC 31.9 g/dL (31.0-37.0); MCV 101.3 fL (80.0-100.0); Macrocytosis Moderate; Mean Platelet Volume 5.7; Monocytes # (A) 0.3 k/uL (0-1.0); Monocytes % (A) 7 %; Neutrophils # (A) 2.8 k/uL (1.3-7.7); Neutrophils % (A) 61 %; Platelet Count 236 k/uL (150-450); RBC 3.82 m/uL (3.80-5.40); RDW 18.6 % (11.5-15.5); WBC 4.6 k/uL (3.8-10.6)
[2019-08-21 11:20] LABS: ALT 24 U/L (9-52); AST 59 U/L (14-36); African American GFR (CKD) >90 (>60 ml/min/1.73 sqM); Albumin 4.4 g/dL (3.5-5.0); Alkaline Phosphatase 159 U/L (38-126); Anion Gap 10 mmol/L; Blood Urea Nitrogen 7 mg/dL (7-17); Calcium 10.2 mg/dL (8.4-10.2); Carbon Dioxide 22 mmol/L (22-30); Chloride 107 mmol/L (98-107); Glucose 98 mg/dL (74-99); Sodium 139 mmol/L (137-145); Total Bilirubin 1.2 mg/dL (0.2-1.3); Total Protein 9.3 g/dL (6.3-8.2)
[2019-08-21 11:21] LABS: Potassium 5.3 mmol/L (3.5-5.1)
[2019-08-21 11:25] LABS: Appearance,Urine Clear (Clear); Bilirubin,Urine Negative (Negative); Blood,Urine Negative (Negative); Color,Urine Light Yellow; Glucose,Urine (UA) Negative (Negative); Ketones,Urine Trace (Negative); Leukocyte Esterase,Urine Negative (Negative); Nitrite,Urine Negative (Negative); PH, Urine 8.5 (5.0-8.0); Protein,Urine Negative (Negative); Specific Gravity,Urine 1.008 (1.001-1.035); Urobilinogen,Urine <2.0 mg/dL (<2.0)
--- NOTE | 2019-08-21 11:37 | XR ---
EXAMINATION TYPE: XR chest 2V DATE OF EXAM: 08/21/2019 COMPARISON: 04/09/2016 HISTORY: Chest pain TECHNIQUE: Frontal and lateral views of the chest are obtained. FINDINGS: There is no focal air space opacity, pleural effusion, or pneumothorax seen. Slight right hemidiaphragm elevation is similar to the prior. The cardiac silhouette size is upper limits of norm al and stable. The osseous structures are intact. IMPRESSION: Chronic changes with no acute process.
--- NOTE | 2019-08-21 11:39 | XR ---
EXAMINATION TYPE: XR KUB DATE OF EXAM: 08/21/2019 11:23 AM CLINICAL HISTORY: Abdominal pain and cough TECHNIQUE: Single upright image of the abdomen is obtained. COMPARISON: 03/17/2016. FINDINGS: Left hip arthroplasty is present. Air and stool are seen within the nondilated large bowel. Air is seen within nondilated small bowel. No pneumoperitoneum. Lung bases are well aerated. No susp icious ossification in the abdomen or pelvis. IMPRESSION: Nonobstructive bowel gas pattern.
[2019-08-21] MEDS ORDERED: ACETAMINOPHEN TAB 500 MG TAB PO STA (12:25)
[2019-08-21 13:22] VITALS: BP 140/69; PULSE 81; RESP 18
== END 2019-08-21 13:21 | disposition home or self-care (01) ==
LOC: EC 09:06
DX: F41.9 Anxiety disorder, unspecified (principal); B37.2 Candidiasis of skin and nail; R79.89 Other specified abnormal findings of blood chemistry; G89.29 Other chronic pain; R10.9 Unspecified abdominal pain; F41.0 Panic disorder [episodic paroxysmal anxiety]; R71.8 Other abnormality of red blood cells; D75.89 Other specified diseases of blood and blood-forming organs; F32.9 Major depressive disorder, single episode, unspecified; I25.2 Old myocardial infarction; E11.9 Type 2 diabetes mellitus without complications; E78.5 Hyperlipidemia, unspecified; I11.0 Hypertensive heart disease with heart failure; I50.9 Heart failure, unspecified; K21.9 Gastro-esophageal reflux disease without esophagitis; M19.90 Unspecified osteoarthritis, unspecified site; Z79.899 Other long term (current) drug therapy; Z88.5 Allergy status to narcotic agent; Z88.1 Allergy status to other antibiotic agents; Z91.030 Bee allergy status; Z91.048 Other nonmedicinal substance allergy status; Z87.19 Personal history of other diseases of the digestive system; Z96.653 Presence of artificial knee joint, bilateral; Z96.642 Presence of left artificial hip joint
CPT/HCPCS: 99284; 96374; 96375; 96361 ×2; 36415; 93005; 80053; 84443; 84484; 85025; 81003; 71046; 74018; J2060; J2405

== ENCOUNTER 2019-12-25 16:44 | Inpatient (IN) | payer MEDICARE, OTHER ==
[2019-12-25] MEDS: LACTATED RINGERS 1,000 ML IV SCH (21:15)
[2019-12-25] MEDS: ACETAMINOPHEN TAB 500 MG TAB PO SCH (22:36)
[2019-12-25] MEDS: POTASSIUM CHLORIDE ER 10 MEQ TAB.ER.PRT PO SCH (22:37)
[2019-12-25] MEDS: DICYCLOMINE 20 MG TAB PO SCH (22:37)
[2019-12-25] MEDS: AZELASTINE 137MCG/SPRAY EA NOSTRIL SCH (22:37)
[2019-12-26] MEDS: HYDROcodone/APAP 10-325MG 1 EACH TAB PO PRN ×3 (06:44→21:04)
[2019-12-26] MEDS ORDERED: PANTOPRAZOLE 40 MG TABLET PO SCH (07:30)
[2019-12-26] MEDS: LISINOPRIL 10 MG TAB PO SCH (07:43)
[2019-12-26] MEDS: POTASSIUM CHLORIDE ER 10 MEQ TAB.ER.PRT PO SCH ×2 (07:43→17:23)
[2019-12-26] MEDS: ATORVASTATIN 10 MG TAB PO SCH (07:43)
[2019-12-26] MEDS: ACETAMINOPHEN TAB 500 MG TAB PO SCH ×2 (07:44→21:02)
[2019-12-26] MEDS: FERROUS SULFATE 325 MG TAB PO SCH (07:44)
[2019-12-26] MEDS: FOLIC ACID 1 MG TAB PO SCH (07:44)
[2019-12-26] MEDS: DICYCLOMINE 20 MG TAB PO SCH ×4 (07:45→21:04)
[2019-12-26] MEDS: MAGNESIUM OXIDE 400 MG TAB PO SCH (07:45)
[2019-12-26] MEDS: ALBUTEROL NEBULIZED 2.5 MG/3 ML INHALATION SCH ×2 (08:44→08:52)
[2019-12-26] MEDS ORDERED: FLUoxetine HCL 20 MG CAP PO SCH (09:00)
[2019-12-26] MEDS ORDERED: NON FORMULARY DRUG (Vitamin B Complex [Vitamin B Complex] 1 CAP) PO SCH (09:00)
[2019-12-26] MEDS ORDERED: LORATADINE 10 MG TAB PO SCH (09:00)
[2019-12-26] MEDS: AZELASTINE 137MCG/SPRAY EA NOSTRIL SCH ×2 (09:53→21:09)
[2019-12-26] MEDS: FUROSEMIDE 20 MG TAB PO SCH (09:56)
[2019-12-26] MEDS: SODIUM BICARBONATE TAB 650 MG TAB PO SCH (09:57)
[2019-12-26] MEDS: ALBUTEROL NEBULIZED 2.5 MG/3 ML INHALATION PRN ×2 (11:56→16:41)
[2019-12-26 12:58] LABS: ALT 47 U/L (4-34); African American GFR (CKD) >90 (>60 ml/min/1.73 sqM); Albumin 4.1 g/dL (3.5-5.0); Amylase 78 U/L (30-110); Anion Gap 9 mmol/L; Blood Urea Nitrogen 9 mg/dL (7-17); Calcium 9.1 mg/dL (8.4-10.2); Carbon Dioxide 20 mmol/L (22-30); Chloride 100 mmol/L (98-107); Glucose 83 mg/dL (74-99); Non-African American GFR(CKD) >90 (>60 ml/min/1.73 sqM); Sodium 129 mmol/L (137-145); Total Protein 8.2 g/dL (6.3-8.2)
[2019-12-26 13:04] LABS: AST 108 U/L (14-36); Alkaline Phosphatase 140 U/L (38-126); Potassium 4.4 mmol/L (3.5-5.1)
[2019-12-26 13:12] LABS: Basophils % (A) 0 %; Eosinophils # (A) 0.3 k/uL (0-0.7); Eosinophils % (A) 5 %; HCT 34.6 % (34.0-46.0); HGB 11.7 gm/dL (11.4-16.0); Lymphocytes # (A) 1.7 k/uL (1.0-4.8); Lymphocytes % (A) 28 %; MCHC 33.8 g/dL (31.0-37.0); MCV 106.5 fL (80.0-100.0); Macrocytosis Moderate; Mean Platelet Volume 7.5; Monocytes # (A) 0.4 k/uL (0-1.0); Monocytes % (A) 6 %; Neutrophils # (A) 3.7 k/uL (1.3-7.7); Neutrophils % (A) 59 %; Platelet Count 223 k/uL (150-450); RBC 3.25 m/uL (3.80-5.40); RDW 15.1 % (11.5-15.5); WBC 6.3 k/uL (3.8-10.6)
--- NOTE | 2019-12-26 13:49 | P.GSCN ---
<Zaira Lopez - Last Filed: 12/26/19 13:49> History of Present Illness Consult date: 12/26/19 Reason for Consult: abdominal pain Requesting physician: Irish Coles History of present illness: CHIEF COMPLAINT: Abdominal pain HISTORY OF PRESENT ILLNESS: 69 year old female who presented to the ER with a chief complaint of abdominal pain. Patient is a history of EGD and colonoscopy performed in January [address] Jones revealing narrowing of the proximal esophagus. Distal esophageal ulcer. Mild gastritis antrum and body. Hiatal hernia. Mild diverticulosis. Moderate internal hemorrhoids. Patient also has a history of gallbladder sludge. She underwent attempted cholecystectomy with Dr. 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 Patient reports shortly after her attempted cholecystectomy she was evaluated by Dr. Sheehan at [facility] who also told her he would be unable to perform her surgery. She states she has been managing her pain with [place]. She states her PCP has been weaning her down on her [place] and is currently prescribed to [place] tablets a day. She states she was having days where 2 tablets was not enough and was taking an extra pain pill. She reports running out of her prescription before she was due for a another refill which increased the severity of her pain over the past few days. She reports an episode of diarrhea at home. She also reports having some nausea and vomiting which has resolved at the time of my examination. PAST MEDICAL HISTORY: See list. PAST SURGICAL HISTORY: See list. MEDICATIONS: See list. ALLERGIES: See list. SOCIAL HISTORY: No illicit drug use. REVIEW OF SYSTEMS: CONSTITUTIONAL: Denies fever or chills. HEENT: Denies blurred vision, vision changes, or eye pain. Denies hemoptysis ENDOCRINE: Denies heat or cold intolerance. CARDIOVASCULAR: Denies chest pain or pressure. RESPIRATORY: No shortness of breath. GASTROINTESTINAL: See HPI for pertinent findings NEURO: Denies history of seizures. PSYCH: Reports depression and suicidal ideation HEMATOLOGIC: Denies bleeding disorders. LYMPHATIC: The patient denies any lumps and bumps around the neck. GENITOURINARY: Denies any blood in urine or increased urinary frequency. MUSCULOSKELETAL: Denies myalgias. Denies joint swelling. Denies decreased range of motion beyond patients baseline. SKIN: Denies pruitis. Denies rash. PHYSICAL EXAM: VITAL SIGNS: Reviewed GENERAL: Well-developed in no acute distress. HEENT: No sclera icterus. Extraocular movements grossly intact. Moist buccal mucosa. Head is atraumatic, normocephalic. Hears conversational speech. No nasal drainage. NECK: Supple without lymphadenopathy. CHEST: Non-labored respirations and equal bilateral excursions. CARDIOVASCULAR: Regular rate with regular rhythm. Palpable 2+ radial pulses. ABDOMEN: Soft. Nondistended. Mild diffuse tenderness, worse on the right. Old healed scars noted. MUSCULOSKELETAL: No clubbing, cyanosis or edema. NEUROLOGIC: No focal or lateralizing signs. Cranial nerves II through XII grossly intact. PSYCH: Appropriate affect. Alert and oriented to person, place and time. SKIN: Well perfused. Good skin turgor. LABORATORY DATA: WBC 6.3. Hemoglobin 11.7. Platelet count 223. Sodium 129. Potassium 4.4. BUN 9. Creatinine 0.54. Bilirubin 1.0. AST 108. ALT 647. Alkaline phosphatase 140. IMAGING: CT abdomen and pelvis completed at outside facility revealing gastric wall thickening that could relate to hypertrophic gastritis which is a change compared to last exam. Gallbladder is normal size. Bile ducts are nondilated. Colonic diverticulosis without diverticulitis. ASSESSMENT: 1. Abdominal pain 2. Suicidal ideation 3. Nausea and vomiting, possible withdrawal from [place] as patient reports taking more than prescribed daily and running out early 4. 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 5. History of EGD and colonoscopy performed in January [address] Jones revealing narrowing of the proximal esophagus. Distal esophageal ulcer. Mild gastritis antrum and body. Hiatal hernia. Mild diverticulosis. Moderate internal hemorrhoids PLAN: -GI on consult. Abdominal US ordered per GI service. Await results -Advance diet to full liquid/low fat -No surgical intervention recommended at this time. We will continue to follow and make recommendations pending patient clinical course Nurse practitioner note has been reviewed by physician. Signing provider agrees with the documented findings, assessment, and plan of care. Past Medical History Past Medical History: Asthma, Chest Pain / Angina, Heart Failure, COPD, Diabetes Mellitus, GERD/Reflux, Hyperlipidemia, Hypertension, Osteoarthritis (OA), Rheumatoid Arthritis (RA) Additional Past Medical History / Comment(s): DIET CONTROLLED DIABETES, BACK PAIN, diverticulitis,colitis, just d/c Tuesday from [facility] for CP that pt. 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 Past Anesthesia/Blood Transfusion Reactions: No Reported Reaction Past Psychological History: Anxiety, Depression Additional Psychological History / Comment(s): . Smoking Status: Never smoker Past Alcohol Use History: Daily Additional Past Alcohol Use History / Comment(s): used to drink 24ounce can of beer per day, hasn't drank in several months Past Drug Use History: Marijuana Additional Drug Use History / Comment(s): doesn't use anymore-quit several years ago - Past Family History Father Family Medical History: Deep Vein Thrombosis (DVT), Pulmonary Embolus Mother Family Medical History: Cancer Medications and Allergies Home Medications Medication Instructions Recorded Confirmed Type FLUoxetine HCL 40 mg PO DAILY 10/04/14 12/25/19 History Loratadine 10 mg PO DAILY 10/04/14 12/25/19 History Omeprazole 20 mg PO BID 10/04/14 12/25/19 History Folic Acid 1 mg PO DAILY 06/12/15 12/25/19 History Vitamin B Complex 1 cap PO DAILY 06/12/15 12/25/19 History HYDROcodone/APAP 10-325MG [[place] 1 tab PO Q8H PRN 11/02/17 12/25/19 History 10-325] Ferrous Sulfate [Feosol] 325 mg PO DAILY 10/25/18 12/25/19 History Atorvastatin [Lipitor] 10 mg PO DAILY 02/19/19 12/25/19 History Magnesium Oxide [Mag-Ox] 400 mg PO DAILY 02/19/19 12/25/19 History Azelastine HCl 2 spray EA NOSTRIL BID 08/21/19 12/25/19 History Dicyclomine [Bentyl] 20 mg PO TID 08/21/19 12/26/19 History Furosemide [Lasix] 20 mg PO DAILY 08/21/19 12/25/19 History LORazepam [Ativan] 0.5 mg PO BID PRN 08/21/19 12/25/19 History Lisinopril [Zestril] 10 mg PO DAILY 08/21/19 12/25/19 History Potassium Chloride [Klor-Con 10] 10 meq PO BID-W/MEALS 08/21/19 12/25/19 History Sodium Bicarbonate Tab 650 mg PO DAILY 08/21/19 12/25/19 History Acetaminophen [Tylenol Extra 1,000 mg PO BID 12/25/19 12/25/19 History Strength] Albuterol Nebulized [Ventolin 2.5 mg INHALATION RT-TID 12/25/19 12/26/19 History Nebulized] Budesonide [Pulmicort] 0.5 mg INHALATION Q48H 12/26/19 12/26/19 History Allergies Allergy/AdvReac Type Severity Reaction Status Date / Time codeine Allergy Rash/Hives Verified 12/25/19 20:35 nicotine Allergy Swelling Verified 12/25/19 20:35 Tetracyclines Allergy Rash/Hives Verified 12/25/19 20:35 venom-honey bee Allergy Anaphylaxis Verified 12/25/19 20:35 [bee venom (honey bee)] Surgical - Exam Vital Signs Temp Pulse Resp BP Pulse Ox 97.9 F 103 H 17 115/69 97 12/25/19 18:59 12/25/19 18:59 12/25/19 18:59 12/25/19 18:59 12/25/19 18:59 Results - Labs 12/26/19 12:20 12/26/19 12:20 <Jadyn Correa N - Last Filed: 12/26/19 18:38> History of Present Illness History of present illness: Patient is seen and evaluated. She reports doing well for the past year without any abdominal pain until she had Meals on Wheels and had mash potatoes and gravy. After having mashed potatoes and gravy she then had an acute onset right upper quadrant abdominal pain. 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 Separately, patient was deemed high risk for any surgical intervention. I personally reviewed her ultrasound of the gallbladder without features of acute cholecystitis. Gallbladder wall within normal limits less than 3 mm in size. Small amount of sludge identified. Overall, recommend conservative management. Her abdominal pain has improved. Low-fat diet advised. Should her abdominal pain worsened, recommend HIDA scan to evaluate for acute cholecystitis. Separately, with features of liver cirrhosis, would recommend transfer to tertiary care center for acute cholecystitis with cirrhosis. Surgical - Exam Vital Signs Temp Pulse Resp BP Pulse Ox 97.9 F 103 H 17 115/69 97 12/25/19 18:59 12/25/19 18:59 12/25/19 18:59 12/25/19 18:59 12/25/19 18:59 Results - Labs 12/26/19 12:20 12/26/19 12:20 Abnormal Lab Results - Last 24 Hours (Table) 12/26/19 12/26/19 Range/Units 12:20 12:20 RBC 3.25 L (3.80-5.40) m/uL MCV 106.5 H (80.0-100.0) fL MCH 36.0 H (25.0-35.0) pg Sodium 129 L (137-145) mmol/L Carbon Dioxide 20 L (22-30) mmol/L AST 108 H (14-36) U/L ALT 47 H (4-34) U/L Alkaline Phosphatase 140 H (38-126) U/L Diabetes panel 12/26/19 Range/Units 12:20 Sodium 129 L (137-145) mmol/L Potassium 4.4 (3.5-5.1) mmol/L Chloride 100 (98-107) mmol/L Carbon Dioxide 20 L (22-30) mmol/L BUN 9 (7-17) mg/dL Creatinine 0.54 (0.52-1.04) mg/dL Glucose 83 (74-99) mg/dL Calcium 9.1 (8.4-10.2) mg/dL AST 108 H (14-36) U/L ALT 47 H (4-34) U/L Alkaline Phosphatase 140 H (38-126) U/L Total Protein 8.2 (6.3-8.2) g/dL Albumin 4.1 (3.5-5.0) g/dL Calcium panel 12/26/19 Range/Units 12:20 Calcium 9.1 (8.4-10.2) mg/dL Albumin 4.1 (3.5-5.0) g/dL Pituitary panel 12/26/19 Range/Units 12:20 Sodium 129 L (137-145) mmol/L Potassium 4.4 (3.5-5.1) mmol/L Chloride 100 (98-107) mmol/L Carbon Dioxide 20 L (22-30) mmol/L BUN 9 (7-17) mg/dL Creatinine 0.54 (0.52-1.04) mg/dL Glucose 83 (74-99) mg/dL Calcium 9.1 (8.4-10.2) mg/dL Adrenal panel 12/26/19 Range/Units 12:20 Sodium 129 L (137-145) mmol/L Potassium 4.4 (3.5-5.1) mmol/L Chloride 100 (98-107) mmol/L Carbon Dioxide 20 L (22-30) mmol/L BUN 9 (7-17) mg/dL Creatinine 0.54 (0.52-1.04) mg/dL Glucose 83 (74-99) mg/dL Calcium 9.1 (8.4-10.2) mg/dL Total Bilirubin 1.0 (0.2-1.3) mg/dL AST 108 H (14-36) U/L ALT 47 H (4-34) U/L Alkaline Phosphatase 140 H (38-126) U/L Total Protein 8.2 (6.3-8.2) g/dL Albumin 4.1 (3.5-5.0) g/dL Assessment and Plan (1) Right upper quadrant abdominal pain Current Visit: Yes Status: Acute Code(s): R10.11 - RIGHT UPPER QUADRANT PAIN SNOMED Code(s): 097753221 (2) Gallbladder disorder Current Visit: Yes Status: Acute Code(s): K82.9 - DISEASE OF GALLBLADDER, UNSPECIFIED SNOMED Code(s): 81445501 (3) Depression with suicidal ideation Current Visit: Yes Status: Acute Code(s): F32.9 - MAJOR DEPRESSIVE DISORDER, SINGLE EPISODE, UNSPECIFIED; R45.851 - SUICIDAL IDEATIONS SNOMED Code(s): 96244290 (4) History of cirrhosis Current Visit: Yes Status: Acute Code(s): Z87.19 - PERSONAL HISTORY OF OTHER DISEASES OF THE DIGESTIVE SYSTEM SNOMED Code(s): 009138500 (5) Peritoneal adhesions Current Visit: Yes Status: Acute Code(s): K66.0 - PERITONEAL ADHESIONS (POSTPROCEDURAL) (POSTINFECTION) SNOMED Code(s): 62653043 (6) Diabetes mellitus type 2 in obese Current Visit: No Status: Chronic Code(s): E11.9 - TYPE 2 DIABETES MELLITUS WITHOUT COMPLICATIONS SNOMED Code(s): 90312838
--- NOTE | 2019-12-26 13:56 | US ---
EXAMINATION TYPE: US abdomen complete DATE OF EXAM: 12/26/2019 COMPARISON: CLINICAL HISTORY: abdominal pain. Pain. EXAM MEASUREMENTS: Liver Length: 16.7 cm Gallbladder Wall: 0.2 cm CBD: 0.3 cm Spleen: 10.2 cm Right Kidney: 8.1 x 4.7 x 4.1 cm Left Kidney: 9.4 x 3.9 x 4.3 cm Limited due to overlying bowel gas Pancreas: Main pancreatic duct = 1.9 mm Liver: wnl Gallbladder: Sludge visualized Evidence for sonographic Mac's sign: neg CBD: wnl Spleen: wnl Right Kidney: No hydronephrosis or masses seen Left Kidney: No hydronephrosis or masses seen, suboptimal visualization of mid pole Upper IVC: wnl Abd Aorta: Distal obscured by overlying bowel gas The liver is homogenous. The intrahepatic portion of the IVC and proximal abdominal aorta are within normal limits. There is no evidence of cholelithiasis. Common bile duct is unremarkable. The visu alized portions of the pancreas are homogenous. The spleen is unremarkable. Kidneys are symmetric a nd free of hydronephrosis. No renal lesions are seen. IMPRESSION: #1 gallbladder sludge otherwise unremarkable study
[2019-12-26] MEDS: LORazepam 0.5 MG TAB PO PRN (14:21)
--- NOTE | 2019-12-26 15:01 | P.CN ---
Psychiatric Consult - . Consult date: 12/26/19 Consult:: 12/26/19 14:47 IDENTIFYING DATA: This patient is a 69-year-old -[place] female who currently lives alone has 1 son and 3 grandkids and lives in a retirement apartment. HISTORY OF PRESENT ILLNESS: The patient presented to the hospital as a transfer from [facility] for decrease in appetite nausea vomiting. Patient was found to be depressed anxious and having suicidal ideations. Patient had a ultrasound of her abdomen And It Showed Gallbladder Sludge and surgery has been following. Psychiatry was consulted for suicidal ideations and depression. Patient was seen at the bedside and appeared to be anxious and trembling at times with her hands. Patient was complaining of ongoing pain in her abdomen feeling sick and taking "too many meds". Patient spoke about the difficulties in finding a surgeon that will help her with her gallbladder. Patient had racing thoughts with tangential/circumstantial and appeared to be anxious/nervous during conversation. She endorsed ongoing depression and suicidal ideations for the past 2 weeks. She states that she is struggling with her latter-day and claims that suicide is a "sin". She admits to elevated anxiety and poor sleep. At this time patient admits to fleeting thoughts of suicidal ideations however no intent or plan and denies any homical ideations, intent or plan. Patient denies any auditory, visual hallucinations and denies any paranoia or delusions. Patients denies any recreational substance use and denies any cigarette use. PAST PSYCHIATRIC HISTORY: Patient admits to history of depression and anxiety and has been on Prozac 40 mg. She denies any outpatient psychiatric follow-up. She admits to one suicide attempt in the 70s claiming that she almost jumped off a bridge.. PAST MEDICAL HISTORY: Asthma, chest pain, COPD, diabetes mellitus, GERD, hy perlipidemia, hypertension, prostatitis, rule out rheumatoid arthritis. ALLERGIES: as per EMR. CHEMICAL DEPENDENCY HISTORY: as per HPI. FAMILY PSYCHIATRIC/SUBSTANCE USE HISTORY: denies SOCIAL HISTORY: That she is born and raised in [facility] and has one son and 3 grandkids. 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 She currently lives alone in a retirement apartment. MENTAL STATUS EXAM: General Appearance: Patient appears to be stated age is alert, anxious and attempt to cooperate. Patient appears to have fair hygiene and grooming wearing hospital gown with intense eye contact. Behavior: Patient is calmly lying in bed without any agitated behavior. Appears to be anxious. Speech: Patient's speech is fluent and nonpressured. Hesitant Mood/Affect: Patient reports their mood is "depressed", affect is congruent and anxious Suicidality/Homicidality: Patient denies having any suicidal or homicidal ideation intent or plan. Perceptions: Patient denies any visual hallucinations and denies any auditory hallucinations Though content/process: Patient rambles and is tangential/circumstantial. Rac ing thoughts. Memory and concentration: AOX3, grossly intact for the purposes of this session. Can spell "WORLD" backwards Judgment and insight: Limited IMPRESSIONS: Depressive disorder unspecified Anxiety disorder unspecified rule out generalized anxiety disorder PLAN: -At this time we'll continue to follow patient's case to see if patient will meet criteria for inpatient psychiatric admission. -Continue with adequate pain control and medical management of underlying comorbidities as this is liekly contributing to patient's anxiety and likely depression. -Would recommend the following medication changes/additions: Discontinue Prozac at this time and switched to Effexor XR 37.5 mg daily for mood/anxiety. Started patient on melatonin 3 mg daily at bedtime for sleep. -Continue 1:1 sitter for safety -Will continue to follow along -please contact with any questions. 12/26/19 14:49 12/26/19 14:53
[2019-12-26] MEDS: VENLAFAXINE HCL ER 37.5 MG CAP PO SCH (15:23)
--- NOTE | 2019-12-26 16:06 | P.HPIM ---
History of Present Illness H&P Date: 12/26/19 Chief Complaint: Severe depression and suicidal History of presenting complaint: This is a pleasant 69-year-old patient of Dr. luna. Chronic stable medical conditions include asthma, diabetes, hypertension, Jerry arthritis, rheumatoid arthritis, chronic low back pain, chronic diarrhea anywhere from 4-6 bowel movements a day. Patient's gradually being weaned off her narcotics by her family doctor. Patient has chronic abdominal pain. In September 2018 she had a attempted gallbladder removal by Dr. Herrera. Found to have severe adhesions hence procedure was abandoned. Patient continues to have chronic abdominal pain. Patient had presented to [facility] with the same abdominal pain nausea. Patient also had been becoming very anxious depressed suicidal. Very tearful. Because no psychiatry care was available at the hospital patient was transferred here by me. Patient has a sitter. We'll GI and Dr. Herrera were consulted. So psychiatry. Today patient feels a bit better. The still very depressed. Patient's daughter is visiting. Review of systems: GEN.: Tired EYES: None HEENT: None NECK: None RESPIRATORY: None CARDIOVASCULAR: None GASTROINTESTINAL: As above GENITOURINARY: None MUSCULOSKELETAL: Chronic low back pain LYMPHATICS: None HEMATOLOGICAL: None PSYCHIATRY: Very depressed anxious NEUROLOGICAL: None Past medical history to include: Asthma, severe intra-abdominal adhesions, cirrhosis, asthma, diabetes, GERD, hyperlipidemia, hypertension, osteoarthritis, chronic diarrhea chronic abdominal pain, depression and anxiety Social history: No smoking. Was drinking a 24 ounce can appear per day up to several months ago. Marijuana occasionally. Lives in a intermediate. Uses a walker Physical examination: VITAL SIGNS: 97.9, 103, 17, 115/69, 97% room air GENERAL: BMI 30.8, sitting up in a chair, awake anxious. EYES: Pupils equal. Conjunctiva normal. HEENT: External appearance of nose and ears normal, oral cavity grossly normal. NECK: JVD not raised; masses not palpable. HEART: First and second heart sounds are normal; no edema. LUNGS: Respiratory rate normal; decreased breath sounds. ABDOMEN: Soft, tender, no guarding or rigidity, liver spleen not palpable, no masses palpable. PSYCH: Alert and oriented x3; mood and affect anxiousl. NEUROLOGICAL: Cranial nerves grossly intact; no facial asymmetry, power and sensation grossly intact. LYMPHATICS: No lymph nodes palpable in the axilla and neck INVESTIGATIONS, reviewed in the clinical context: White count 6.3 hemoglobin 11.7 platelets 223 Sodium 129 potassium 4.4 creatinine 0.54 AST ALT 47 Assessment: -Major depression recurrent with suicidal ideation and severe anxiety and controlled -Intubated asthma -Obesity BMI 30.8 -Chronic medical debility uses a walker -Cirrhosis, idiopathic -Chronic abdominal pain from severe adhesions -Chronic gallbladder dyskinesia causing chronic diarrhea -Essential hypertension -Hyperlipidemia -Primary Jerry arthritis Plan: Consultation suspected GI, Dr. Herrera and psychiatry. Home medications r esumed. It seems patient's most of the problems are acute on chronic including her GI symptoms. Will use Tums and PPI. Keep the patient on a soft 4 liquid diet. Care was discussed with the patient. Consider the bedside. Discussed with GI. Past Medical History Past Medical History: Asthma, Chest Pain / Angina, Heart Failure, COPD, Diabetes Mellitus, GERD/Reflux, Hyperlipidemia, Hypertension, Osteoarthritis (OA), Rheumatoid Arthritis (RA) Additional Past Medical History / Comment(s): DIET CONTROLLED DIABETES, BACK PAIN, diverticulitis,colitis, just d/c Tuesday from [facility] for CP that pt. says is "muscle around heart", had low magnesium & potassium also, dysphagia w/meds, diarrhea for 4 months-started on cholestyramine-now constipation History of Any Multi-Drug Resistant Organisms: ESBL Date of last positivie culture/infection: 09/08/18 ESBL-E.coli MDRO Source:: Urine Past Surgical History: Appendectomy, Bowel Resection, Breast Surgery, Section, Hernia Repair, Hysterectomy, Joint Replacement, Tonsillectomy Additional Past Surgical History / Comment(s): 06/17/15 Total L knee art hroplasty & right knee replaced, left hip replaced, Other SX: LT BREAST BIOPSY, POLYPS REMOVED FROM THROAT, ROBOTIC INCISIONAL HERNIA REPAIR, LYSIS OF ADHESIONS. Past Anesthesia/Blood Transfusion Reactions: No Reported Reaction Past Psychological History: Anxiety, Depression Additional Psychological History / Comment(s): . Smoking Status: Never smoker Past Alcohol Use History: Daily Additional Past Alcohol Use History / Comment(s): used to drink 24ounce can of beer per day, hasn't drank in several months Past Drug Use History: Marijuana Additional Drug Use History / Comment(s): doesn't use anymore-quit several years ago - Past Family History Father Family Medical History: Deep Vein Thrombosis (DVT), Pulmonary Embolus Mother Family Medical History: Cancer Medications and Allergies Home Medications Medication Instructions Recorded Confirmed Type FLUoxetine HCL 40 mg PO DAILY 10/04/14 12/25/19 History Loratadine 10 mg PO DAILY 10/04/14 12/25/19 History Omeprazole 20 mg PO BID 10/04/14 12/25/19 History Folic Acid 1 mg PO DAILY 06/12/15 12/25/19 History Vitamin B Complex 1 cap PO DAILY 06/12/15 12/25/19 History HYDROcodone/APAP 10-325MG [[place] 1 tab PO Q8H PRN 11/02/17 12/25/19 History 10-325] Ferrous Sulfate [Feosol] 325 mg PO DAILY 10/25/18 12/25/19 History Atorvastatin [Lipitor] 10 mg PO DAILY 02/19/19 12/25/19 History Magnesium Oxide [Mag-Ox] 400 mg PO DAILY 02/19/19 12/25/19 History Azelastine HCl 2 spray EA NOSTRIL BID 08/21/19 12/25/19 History Dicyclomine [Bentyl] 20 mg PO TID 08/21/19 12/26/19 History Furosemide [Lasix] 20 mg PO DAILY 08/21/19 12/25/19 History LORazepam [Ativan] 0.5 mg PO BID PRN 08/21/19 12/25/19 History Lisinopril [Zestril] 10 mg PO DAILY 08/21/19 12/25/19 History Potassium Chloride [Klor-Con 10] 10 meq PO BID-W/MEALS 08/21/19 12/25/19 History Sodium Bicarbonate Tab 650 mg PO DAILY 08/21/19 12/25/19 History Acetaminophen [Tylenol Extra 1,000 mg PO BID 12/25/19 12/25/19 History Strength] Albuterol Nebulized [Ventolin 2.5 mg INHALATION RT-TID 12/25/19 12/26/19 History Nebulized] Budesonide [Pulmicort] 0.5 mg INHALATION Q48H 12/26/19 12/26/19 History Allergies Allergy/AdvReac Type Severity Reaction Status Date / Time codeine Allergy Rash/Hives Verified 12/25/19 20:35 nicotine Allergy Swelling Verified 12/25/19 20:35 Tetracyclines Allergy Rash/Hives Verified 12/25/19 20:35 venom-honey bee Allergy Anaphylaxis Verified 12/25/19 20:35 [bee venom (honey bee)] Physical Exam Vitals: Vital Signs Temp Pulse Resp BP Pulse Ox 12/26/19 05:00 98.3 F 71 18 105/70 99 12/25/19 20:56 98.0 F 97 16 116/70 95 12/25/19 18:59 97.9 F 103 H 17 115/69 97 Intake and Output 12/25/19 12/26/19 12/26/19 22:59 06:59 14:59 Intake Total 35 870 Balance 35 870 Intake: Intake, IV Titration 35 280 Amount Lactated Ringers 1,000 ml 35 280 @ 35 mls/hr IV .Q24H [facility] Rx#:[id number] Oral 590 Other: Voiding Method Bedside Commode Bedside Commode # Voids 2 2 Weight 73 kg 74 kg Results CBC & Chem 7: 12/26/19 12:20 12/26/19 12:20 Thrombosis Risk Factor Assmnt - Choose All That Apply Any of the Below Risk Factors Present?: Yes Each Factor Represents 1 point: Abnormal pulmonary function (COPD), Obesity (BMI >25) Each Risk Factor Represents 2 Points: Age 61-74 years Other congenital or acquired thrombophilia - If yes, enter type in comment: No Thrombosis Risk Factor Assessment Total Risk Factor Score: 4 Thrombosis Risk Factor Assessment Level: Moderate Risk
[2019-12-26] MEDS: PANTOPRAZOLE 40 MG TABLET PO SCH (17:23)
[2019-12-26] MEDS: ENOXAPARIN 40 MG/0.4 ML SYRINGE SQ SCH (17:23)
[2019-12-26] MEDS: CALCIUM CARBONATE LIQUID 500 MG/5 ML CUP PO SCH (20:59)
[2019-12-26] MEDS: MELATONIN 3 MG TABLET PO SCH (21:04)
[2019-12-27] MEDS ORDERED: LORazepam 0.5 MG TAB ONE (05:00)
[2019-12-27] MEDS ORDERED: HYDROcodone/APAP 10-325MG 1 EACH TAB ONE (05:00)
[2019-12-27] MEDS: ALBUTEROL NEBULIZED 2.5 MG/3 ML INHALATION PRN ×2 (07:52→11:11)
[2019-12-27] MEDS ORDERED: BUDESONIDE 0.5 MG/2 ML NEBU INHALATION SCH (08:00)
--- NOTE | 2019-12-27 08:30 | P.CONS ---
History of Present Illness - Reason for Consult Consult date: 12/27/19 Abdominal pain Requesting physician: Dion Foster - Chief Complaint Suicidal ideation - History of Present Illness 69-year-old female with multiple medical comorbidities including asthma, diabetes mellitus, hypertension, osteoarthritis, rheumatoid arthritis, chronic lower back pain, chronic diarrhea who was transferred from [facility] due to evaluation of suicidal ideation. The patient has a history of chronic abdominal pain. Previously she had been taken for cholecystectomy in September 2018 which was abandoned due to severe adhesions. She has followed up with [facility] but was not deemed a good surgical candidate. She continues to have epigastric and right upper quadrant abdominal pain with associated nausea and vomiting. She reports alternating constipation and diarrhea. No NSAID use but the patient does take omeprazole for GERD as well as Bentyl for abdominal pain. No change in the quality of her bowel movements which have been dark while she has been on iron therapy. She underwent EGD and colonoscopy for investigation in 01/2019 with findings of gastritis, esophageal narrowing and diverticulosis and hemorrhoids on colonoscopy. Review of Systems REVIEW OF SYSTEMS: CONSTITUTIONAL: Denies any fevers, chills, weight change or fatigue. CARDIOVASCULAR: Denies any chest pain, palpitations high or low blood pressures RESPIRATORY: Denies any shortness of breath, hemoptysis or cough. GENITOURINARY: No dysuria or hematuria. MUSCULOSKELETAL: No weakness reported. SKIN: Denies any new rashes or lesions, jaundice or pallor. PSYCHIATRIC: Depression and suicidal ideation, currently under the care of a psychiatrist. NEUROLOGY: Denies headache, denies any new focal deficits. EARS/NOSE/THROAT: No recent hearing change, congestion, nasal discharge or sore throat. EYES: No pain in eyes, discharge or change in vision. GASTROINTESTINAL: As per HPI. Past Medical History Past Medical History: Asthma, Chest Pain / Angina, Heart Failure, COPD, Diabetes Mellitus, GERD/Reflux, Hyperlipidemia, Hypertension, Osteoarthritis (OA), Rheumatoid Arthritis (RA) Additional Past Medical History / Comment(s): DIET CONTROLLED DIABETES, BACK PAIN, diverticulitis,colitis, just d/c Tuesday from [facility] for CP that pt. says is "muscle around heart", had low magnesium & potassium also, dysphagia w/meds, diarrhea for 4 months-started on cholestyramine-now constipation History of Any Multi-Drug Resistant Organisms: ESBL Year Discovered:: 09/08/18 ESBL-E.coli MDRO Source:: Urine Past Surgical History: Appendectomy, Bowel Resection, Breast Surgery, Section, Hernia Repair, Hysterectomy, Joint Replacement, Tonsillectomy Additional Past Surgical History / Comment(s): 06/17/15 Total L knee arthroplasty & right knee replaced, left hip replaced, Other SX: LT BREAST BIOPSY, POLYPS REMOVED FROM THROAT, ROBOTIC INCISIONAL HERNIA REPAIR, LYSIS OF ADHESIONS. Past Anesthesia/Blood Transfusion Reactions: No Reported Reaction Past Psychological History: Anxiety, Depression Additional Psychological History / Comment(s): . Smoking Status: Never smoker Past Alcohol Use History: Daily Additional Past Alcohol Use History / Comment(s): used to drink 24ounce can of beer per day, hasn't drank in several months Past Drug Use History: Marijuana Additional Drug Use History / Comment(s): doesn't use anymore-quit several years ago - Past Family History Father Family Medical History: Deep Vein Thrombosis (DVT), Pulmonary Embolus Mother Family Medical History: Cancer Medications and Allergies Home Medications Medication Instructions Recorded Confirmed Type FLUoxetine HCL 40 mg PO DAILY 10/04/14 12/25/19 History Loratadine 10 mg PO DAILY 10/04/14 12/25/19 History Omeprazole 20 mg PO BID 10/04/14 12/25/19 History Folic Acid 1 mg PO DAILY 06/12/15 12/25/19 History Vitamin B Complex 1 cap PO DAILY 06/12/15 12/25/19 History HYDROcodone/APAP 10-325MG [[place] 1 tab PO Q8H PRN 11/02/17 12/25/19 History 10-325] Ferrous Sulfate [Feosol] 325 mg PO DAILY 10/25/18 12/25/19 History Atorvastatin [Lipitor] 10 mg PO DAILY 02/19/19 12/25/19 History Magnesium Oxide [Mag-Ox] 400 mg PO DAILY 02/19/19 12/25/19 History Azelastine HCl 2 spray EA NOSTRIL BID 08/21/19 12/25/19 History Dicyclomine [Bentyl] 20 mg PO TID 08/21/19 12/26/19 History Furosemide [Lasix] 20 mg PO DAILY 08/21/19 12/25/19 History LORazepam [Ativan] 0.5 mg PO BID PRN 08/21/19 12/25/19 History Lisinopril [Zestril] 10 mg PO DAILY 08/21/19 12/25/19 History Potassium Chloride [Klor-Con 10] 10 meq PO BID-W/MEALS 08/21/19 12/25/19 History Sodium Bicarbonate Tab 650 mg PO DAILY 08/21/19 12/25/19 History Acetaminophen [Tylenol Extra 1,000 mg PO BID 12/25/19 12/25/19 History Strength] Albuterol Nebulized [Ventolin 2.5 mg INHALATION RT-TID 12/25/19 12/26/19 History Nebulized] Budesonide [Pulmicort] 0.5 mg INHALATION Q48H 12/26/19 12/26/19 History Allergies Allergy/AdvReac Type Severity Reaction Status Date / Time codeine Allergy Rash/Hives Verified 12/25/19 20:35 nicotine Allergy Swelling Verified 12/25/19 20:35 Tetracyclines Allergy Rash/Hives Verified 12/25/19 20:35 venom-honey bee Allergy Anaphylaxis Verified 12/25/19 20:35 [bee venom (honey bee)] Physical Exam Vitals: Vital Signs Temp Pulse Pulse Resp BP Pulse Ox 12/26/19 12:05 76 12/26/19 11:59 68 12/26/19 11:40 97.7 F 68 18 113/71 98 12/26/19 05:00 98.3 F 71 18 105/70 99 12/25/19 20:56 98.0 F 97 16 116/70 95 12/25/19 18:59 97.9 F 103 H 17 115/69 97 Intake and Output 12/25/19 12/26/19 12/26/19 22:59 06:59 14:59 Intake Total 35 870 900 Balance 35 870 900 Intake: Intake, IV Titration 35 280 420 Amount Lactated Ringers 1,000 ml 35 280 420 @ 35 mls/hr IV .Q24H [facility] Rx#:[id number] Oral 590 480 Other: Voiding Method Bedside Commode Bedside Commode # Voids 2 1 Weight 73 kg 74 kg On physical examination, patient appears comfortable in no apparent distress. HEAD: Normocephalic, atraumatic. EYES: No scleral icterus. No conjunctival injection. MOUTH: No lesions, tongue midline. NECK: Trachea midline, no gross abnormalities. CHEST: Clear to auscultation with no wheezing or rhonchi appreciated. HEART: Regular rate and rhythm. ABDOMEN: Soft, obese. Bowel sounds are positive. No organomegaly. No guarding or rigidity. EXTREMITIES: No pedal edema. SKIN: No rashes, no jaundice. NEUROLOGIC: Alert and oriented x3. No focal deficits. Results CBC & Chem 7: 12/26/19 12:20 12/26/19 12:20 Labs: Abnormal Lab Results - Last 24 Hours (Table) 12/26/19 12/26/19 Range/Units 12:20 12:20 RBC 3.25 L (3.80-5.40) m/uL MCV 106.5 H (80.0-100.0) fL MCH 36.0 H (25.0-35.0) pg Sodium 129 L (137-145) mmol/L Carbon Dioxide 20 L (22-30) mmol/L AST 108 H (14-36) U/L ALT 47 H (4-34) U/L Alkaline Phosphatase 140 H (38-126) U/L US - abdomen: report reviewed (Ultrasound of the abdomen significant for gallbladder sludge) Assessment and Plan (1) Abdominal pain Narrative/Plan: 69-year-old female with multiple medical comorbidities transferred to [facility] from [facility] due to depression and suicidal ideations. The patient has chronic epigastric and right upper quadrant abdominal pain. She has a known history of gallbladder disorder and slightly previously cholecystectomy was attempted but abandoned due to severe adhesions. The patient suffers from alternating constipation and diarrhea. She uses Bentyl 3 times a day as needed for her abdominal pain and control of her diarrhea. She has undergone colonoscopic evaluation in 01/2019 with findings of diverticulosis and hemorrhoids as well as EGD which showed gastritis, esophagitis with ulceration and an esophageal narrowing from external compression. Current Visit: Yes Status: Acute Code(s): R10.9 - UNSPECIFIED ABDOMINAL PAIN SNOMED Code(s): 71093098 (2) GERD (gastroesophageal reflux disease) Current Visit: Yes Status: Acute Code(s): K21.9 - GASTRO-ESOPHAGEAL REFLUX DISEASE WITHOUT ESOPHAGITIS SNOMED Code(s): 798864156 (3) Gallbladder disorder Current Visit: Yes Status: Acute Code(s): K82.9 - DISEASE OF GALLBLADDER, UNSPECIFIED SNOMED Code(s): 44504851 Plan: Supportive care Soft diet as tolerated Continue Bentyl therapy and Protonix 40 mg twice daily added Ultrasound abdomen ordered Surgical consult placed Continue to manage medically Thank you for allowing us to participate in the care of this patient
[2019-12-27] MEDS ORDERED: VENLAFAXINE HCL ER 37.5 MG CAP PO SCH (09:00)
[2019-12-27] MEDS: ENOXAPARIN 40 MG/0.4 ML SYRINGE SQ SCH (09:25)
[2019-12-27] MEDS: FUROSEMIDE 20 MG TAB PO SCH (09:26)
[2019-12-27] MEDS: DICYCLOMINE 20 MG TAB PO SCH ×4 (09:26→21:45)
[2019-12-27] MEDS: PANTOPRAZOLE 40 MG TABLET PO SCH ×2 (09:26→17:29)
[2019-12-27] MEDS: SODIUM BICARBONATE TAB 650 MG TAB PO SCH (09:26)
[2019-12-27] MEDS: POTASSIUM CHLORIDE ER 10 MEQ TAB.ER.PRT PO SCH ×2 (09:26→17:29)
[2019-12-27] MEDS: CALCIUM CARBONATE LIQUID 500 MG/5 ML CUP PO SCH ×3 (09:26→17:29)
[2019-12-27] MEDS: ACETAMINOPHEN TAB 500 MG TAB PO SCH ×2 (09:27→21:45)
[2019-12-27] MEDS: LISINOPRIL 10 MG TAB PO SCH (09:28)
[2019-12-27] MEDS: MAGNESIUM OXIDE 400 MG TAB PO SCH (09:28)
[2019-12-27] MEDS: FOLIC ACID 1 MG TAB PO SCH (09:28)
[2019-12-27] MEDS: FERROUS SULFATE 325 MG TAB PO SCH (09:28)
[2019-12-27] MEDS: VENLAFAXINE HCL ER 37.5 MG CAP PO SCH (09:29)
[2019-12-27] MEDS: ATORVASTATIN 10 MG TAB PO SCH (09:30)
[2019-12-27] MEDS: AZELASTINE 137MCG/SPRAY EA NOSTRIL SCH ×2 (09:30→21:44)
--- NOTE | 2019-12-27 10:20 | CDI ---
Documentation Clarification Form Date: 12/27/2019 09:58:38 AM From: Liliam Engle RN CCDS Admit Date: 12/25/2019 06:59:00 PM Patient Name: Kala Mock Visit Number: [id number] Discharge Date: ATTENTION: The Clinical Documentation Specialists (CDI) and [facility] Coding Staff appreciate your assistance in clarifying documentation. Please respond to the clarification below the line at the bottom and electronically sign. The CDI & [facility] Coding staff will review the response and follow-up if needed. Please note: Queries are made part of the Legal Health Record. If you have any questions, please contact the author of this message via ITS. Dr. Dion Foster Heart Failure is documented in the past medical history in the H & P 12/26 History/Risk Factors: 69-year-old female presents to [facility] with suicidal ideation with abdominal pain as a transfer from [facility]. In 2017 she had an attempted gallbladder removal but was found to have severe adhesions and the procedure was abandoned. Medical History Asthma, HTN, DM, Anxiety and Depression. Clinical Indicators: VS/Pulse OX: 115/69 103 97.9 17 97% ra Echocardiogram Results: No recent Echo available Treatment: 12/26 Lasix 20mg po Daily. Lisinopril 10mg po Daily In your professional opinion, can you please clarify the acuity and type of CHF if known? * Chronic Systolic Heart Failure * Chronic Diastolic Heart Failure * Chronic Systolic & Diastolic Heart Failure * Heart Failure Ruled Out * Unable to Determine * Other, please specify (Last Revision: January 2018) No-congestive heart failure MTDD
[2019-12-27 11:43] LABS: ALT 39 U/L (4-34); AST 74 U/L (14-36); African American GFR (CKD) >90 (>60 ml/min/1.73 sqM); Albumin 3.5 g/dL (3.5-5.0); Alkaline Phosphatase 140 U/L (38-126); Anion Gap 7 mmol/L; Blood Urea Nitrogen 8 mg/dL (7-17); Carbon Dioxide 21 mmol/L (22-30); Chloride 100 mmol/L (98-107); Glucose 98 mg/dL (74-99); Non-African American GFR(CKD) >90 (>60 ml/min/1.73 sqM); Potassium 4.1 mmol/L (3.5-5.1); Sodium 128 mmol/L (137-145); Total Bilirubin 0.5 mg/dL (0.2-1.3); Total Protein 7.3 g/dL (6.3-8.2)
[2019-12-27] MEDS: LACTATED RINGERS 1,000 ML IV SCH ×2 (11:43→21:45)
[2019-12-27] MEDS: LORazepam 0.5 MG TAB PO PRN (12:33)
--- NOTE | 2019-12-27 13:49 | P.PN ---
<Zaira Lopez - Last Filed: 12/27/19 13:49> Subjective Progress Note Date: 12/27/19 CHIEF COMPLAINT: Abdominal pain HISTORY OF PRESENT ILLNESS: Patient examined this morning at the bedside. She reports abdominal pain during examination. She states her IV went bad this morning and she feels that contributed to her abdominal pain. She also reports getting a pill stuck in her throat this morning and had an episode of emesis. She believes she threw up her [place] as well, which is the reason she states she is having so much abdominal pain. She denies further episodes of vomiting since this morning. She is passing flatus. Tolerating diet. PHYSICAL EXAM: VITAL SIGNS: Reviewed GENERAL: Well-developed in no acute distress. HEENT: No sclera icterus. Extraocular movements grossly intact. Moist buccal mucosa. Head is atraumatic, normocephalic. Hears conversational speech. No nasal drainage. NECK: Supple without lymphadenopathy. CHEST: Non-labored respirations and equal bilateral excursions. CARDIOVASCULAR: Regular rate with regular rhythm. Palpable 2+ radial pulses. ABDOMEN: Soft. Nondistended. Mild diffuse tenderness, worse on the right. Old healed scars noted. MUSCULOSKELETAL: No clubbing, cyanosis or edema. NEUROLOGIC: No focal or lateralizing signs. Cranial nerves II through XII grossly intact. PSYCH: Appropriate affect. Alert and oriented to person, place and time. SKIN: Well perfused. Good skin turgor. ASSESSMENT: 1. Abdominal pain 2. Suicidal ideation 3. Nausea and vomiting, possible withdrawal from [place] as patient reports taking more than prescribed daily and running out early 4. 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 5. History of EGD and colonoscopy performed in January [address] Jones revealing narrowing of the proximal esophagus. Distal esophageal ulcer. Mild gastritis antrum and body. Hiatal hernia. Mild diverticulosis. Moderate internal hemorrhoids PLAN: -GI on consult and following patient during hospitalization. CT ordered per GI secondary to dysphagia -Continue diet as tolerated. Continue low fat diet -Continue antiemetics -Pain management per internal medicine -Continue with conservative management. No surgical intervention recommended at this time. If patient requires any surgical intervention, recommend transfer to tertiary care center Nurse practitioner note has been reviewed by physician. Signing provider agrees with the documented findings, assessment, and plan of care. Objective - Vital Signs Vital signs: Vital Signs Temp 97.9 F 12/27/19 11:16 Pulse 84 12/27/19 11:22 Resp 16 12/27/19 11:16 BP 109/69 12/27/19 11:16 Pulse Ox 100 12/27/19 11:16 Intake & Output 12/26/19 12/27/19 12/27/19 18:59 06:59 18:59 Intake Total 900 310 Balance 900 310 Weight 83.1 kg Intake: Intake, IV Titration 420 70 Amount Lactated Ringers 1,000 ml 420 70 @ 35 mls/hr IV .Q24H [facility] Rx#:[id number] Oral 480 240 Other: Voiding Method Bedside Commode Toilet Toilet Diaper Diaper # Voids 1 1 1 - Labs CBC & Chem 7: 12/26/19 12:20 12/27/19 10:58 Labs: Abnormal Lab Results - Last 24 Hours (Table) 12/27/19 Range/Units 10:58 Sodium 128 L (137-145) mmol/L Carbon Dioxide 21 L (22-30) mmol/L AST 74 H (14-36) U/L ALT 39 H (4-34) U/L Alkaline Phosphatase 140 H (38-126) U/L <Jadyn Correa N - Last Filed: 12/27/19 20:33> Subjective Patient seen and evaluated. Patient very high risk for any surgical intervention. At this time, recommend low fat diet. Should she have any other abdominal pain, HIDA scan advised. For any surgical intervention, recommend transfer to tertiary care center. Objective - Vital Signs Vital signs: Vital Signs Temp 97.9 F 12/27/19 11:16 Pulse 84 12/27/19 11:22 Resp 12/27/19 11:16 BP 109/69 12/27/19 11:16 Pulse Ox 100 12/27/19 11:16 Intake & Output 12/27/19 12/27/19 12/28/19 06:59 18:59 06:59 Intake Total 310 Balance 310 Weight 83.1 kg Intake: Intake, IV Titration 70 Amount Lactated Ringers 1,000 ml 70 @ 35 mls/hr IV .Q24H [facility] Rx#:[id number] Oral 240 Other: Voiding Method Toilet Toilet Diaper Diaper # Voids 1 2 - Labs CBC & Chem 7: 12/26/19 12:20 12/27/19 10:58 Labs: Abnormal Lab Results - Last 24 Hours (Table) 12/27/19 Range/Units 10:58 Sodium 128 L (137-145) mmol/L Carbon Dioxide 21 L (22-30) mmol/L AST 74 H (14-36) U/L ALT 39 H (4-34) U/L Alkaline Phosphatase 140 H (38-126) U/L Assessment and Plan (1) Right upper quadrant abdominal pain Current Visit: Yes Status: Acute Code(s): R10.11 - RIGHT UPPER QUADRANT PAIN SNOMED Code(s): 943933454 (2) Gallbladder disorder Current Visit: Yes Status: Acute Code(s): K82.9 - DISEASE OF GALLBLADDER, UNSPECIFIED SNOMED Code(s): 01558776 (3) Depression with suicidal ideation Current Visit: Yes Status: Acute Code(s): F32.9 - MAJOR DEPRESSIVE DISORDER, SINGLE EPISODE, UNSPECIFIED; R45.851 - SUICIDAL IDEATIONS SNOMED Code(s): 24777634 (4) History of cirrhosis Current Visit: Yes Status: Acute Code(s): Z87.19 - PERSONAL HISTORY OF OTHER DISEASES OF THE DIGESTIVE SYSTEM SNOMED Code(s): 444325758 (5) Peritoneal adhesions Current Visit: Yes Status: Acute Code(s): K66.0 - PERITONEAL ADHESIONS (POSTPROCEDURAL) (POSTINFECTION) SNOMED Code(s): 60791631 (6) Diabetes mellitus type 2 in obese Current Visit: No Status: Chronic Code(s): E11.9 - TYPE 2 DIABETES MELLITUS WITHOUT COMPLICATIONS SNOMED Code(s): 13471304
[2019-12-27] MEDS: HYDROcodone/APAP 10-325MG 1 EACH TAB PO PRN ×2 (14:04→21:54)
--- NOTE | 2019-12-27 14:49 | P.PN ---
Progress Note - Text Progress Note Date: 12/27/19 Interval History: Patient was seen today for follow-up regarding suicidal ideations and depression along with anxiety. Patient was started on Effexor 37.5 mg yesterday and received dose today. Patient continues to be anxious and was somatically preoccupied during conversation with mortgage underwriter. She spoke about having troubles with her IV and also having significant pain and appeared to be easily frustrated with everything. She spoke about having to do a scope either today or tomorrow as she was having dysphagia and trouble swallowing her pills. She claims that she was disappointed and feels depressed today and does not know if she actually swallowed her pills. She claims to on going suicidal ideations however no intent and states "I'm tired of fighting this bottle". She did endorse sleeping well last night on the melatonin. At this time patient denies any homical ideations, intent or plan. Patient denies any auditory, visual hallucinations and denies any paranoia or delusions. Patient denies any side effects from the medications and has been compliant with meds. Mental Status Exam: General Appearance: Patient appears to be stated age is alert, anxious and attempts to cooperate. Patient appears to have fair hygiene and grooming wearing hospital gown with intense eye contact. Behavior: Patient is calmly lying in bed without any agitated behavior. Appears to be anxious. Speech: Patient's speech is fluent and nonpressured. Mood/Affect: Patient reports their mood is "depressed", affect is congruent and anxious Suicidality/Homicidality: Patient denies having any suicidal or homicidal ideation intent or plan. Perceptions: Patient denies any visual hallucinations and denies any auditory hallucinations Though content/process: Patient rambles and is tangential/circumstantial. Racing thoughts, mildly improving. Memory and concentration: AOX3, grossly intact for the purposes of this session. Judgment and insight: Limited Assessment Depressive disorder unspecified Anxiety disorder unspecified rule out generalized anxiety disorder PLAN: -At this time we'll continue to follow patient's case to see if patient will meet criteria for inpatient psychiatric admission. At this time patient is not medically cleared and having trouble swallowing her pills and will be undergoing a EGD. Primary team to continue working on pain control and medical management of underlying comorbidities. Patient's sodium decreased. -Patient's medical condition and pain are liekly contributing significantly to patient's anxiety and depression. -Would recommend the following medication changes/additions: Increased Effexor XR 75 mg daily for mood/anxiety. Continue with melatonin 3 mg daily at bedtime for sleep. -Continue 1:1 sitter for safety -Will continue to follow along -please contact with any questions.
--- NOTE | 2019-12-27 15:36 | CT ---
EXAMINATION TYPE: CT brain wo con DATE OF EXAM: 12/27/2019 COMPARISON: None INDICATION: Dysphagia. DLP: 936.6 mGycm, Automated exposure control for dose reduction was used. CONTRAST: None CT of the brain is performed utilizing 3 mm thick sections through the posterior fossa and 3 mm thick sections through the remaining calvarium. Study is performed within 24 hours of arrival to the hosp [facility]. No abnormal hyperdensity is present to suggest an acute intracranial hemorrhage. No mass lesion is evident. No acute infarcts are evident. Ventricles and sulci are appropriate for the patient age. Paranasal sinuses and mastoid air cells within the [id number] are clear. IMPRESSIONS: 1. Normal CT Brain
--- NOTE | 2019-12-27 15:53 | CT ---
EXAMINATION TYPE: CT soft tissue neck w con DATE OF EXAM: 12/27/2019 HISTORY: Dysphagia. COMPARISON: NONE CT DLP: 368.4 mGycm. Automated Exposure Control for Dose Reduction was Utilized. TECHNIQUE: CT scan of the neck is performed with IV Contrast, patient injected with 100ml mL of Isov ue 300, axial images are obtained, coronal and sagittal reformatted images are reviewed. FINDINGS: Airway: Nasopharyngeal and oropharyngeal airways are patent. Some epiglottis and valleculae following within normal limits. Hypopharyngeal airway hyoid bone shows nonaerated area could reflect product o f swallowing. No obvious mass. Proximal trachea appears within normal limits. Thyroid gland upper kelly its of normal in size. Visualized upper lungs are clear. Parotid/submandibular glands: No gross abnormality seen. Carotid/Vascular Structures: Tortuous medial course to the mid to distal common carotid arteries is i dentified bilaterally. There is prominent calcified plaque right carotid bulb extending into proximal internal carotid artery likely causing stenosis greater than 50% axial image 42 where courses horizo ntally. Osseous Structures: Levoconvex scoliotic curvature centered upper thoracic spine. Grade 1 anterolisth esis C3 on C4. Moderate multilevel disc space narrowing mid to lower cervical levels greatest at C7-T 1 level. Other: No definitive greater than 1 cm neck adenopathy. IMPRESSION: 1. Source of dysphagia not clearly identified. No obvious mass or adenopathy noted. 2. Tortuous course to the carotid vessels bilaterally with prominent calcified focal plaque right car otid bulb into proximal internal carotid artery causing stenosis measured 60-70%. Consider carotid ul trasound follow-up to confirm.
--- NOTE | 2019-12-27 19:07 | P.PN ---
Progress Note - Text Progress Note Date: 12/27/19 Chief Complaint: Severe depression and suicidal History of presenting complaint: This is a pleasant 69-year-old patient of Dr. luna. Chronic stable medical conditions include asthma, diabetes, hypertension, Jerry arthritis, rheumatoid arthritis, chronic low back pain, chronic diarrhea anywhere from 4-6 bowel movements a day. Patient's gradually being weaned off her narcotics by her family doctor. Patient has chronic abdominal pain. In September 2018 she had a attempted gallbladder removal by Dr. Herrera. Found to have severe adhesions hence procedure was abandoned. Patient continues to have chronic abdominal pain. Patient had presented to [facility] with the same abdominal pain nausea. Patient also had been becoming very anxious depressed suicidal. Very tearful. Because no psychiatry care was available at the hospital patient was transferred here by me. Patient has a sitter. We'll GI and Dr. Herrera were consulted. So psychiatry. Today patient feels a bit better. The still very depressed. Patient's daughter is visiting. Admitted with-major depression with suicidal ideation. Acute on chronic GI symptoms. Patient has chronic gallbladder dyskinesia and chronic diarrhea. Today-this morning patient's IV came out and she was bleeding she started having a panic attack. Was given a pleasant not able to swallow the same. Feeling more settled when I saw her. Bit more relaxed. She has been reading a Bible feeling stronger. Review of systems: Was done for constitutional, cardiovascular, GI, pulmonary. relevant finding as above Active Medications Acetaminophen (Tylenol Tab) 1,000 mg PO BID [facility] Last Admin: 12/27/19 09:27 Dose: 1,000 mg Documented by: Hydrocodone Bitart/Acetaminophen ([place] 10) 1 each PO Q8H PRN PRN Reason: Pain Last Admin: 12/27/19 14:04 Dose: 1 each Documented by: Albuterol Sulfate (Ventolin Nebulized) 2.5 mg INHALATION RT-Q4H PRN PRN Reason: Shortness Of Breath Or Wheezing Last Admin: 12/27/19 11:11 Dose: 2.5 mg Documented by: Atorvastatin Calcium (Lipitor) 10 mg PO DAILY [facility] Last Admin: 12/27/19 09:30 Dose: 10 mg Documented by: Azelastine HCl (Astepro) 2 spray EA NOSTRIL BID [facility] Last Admin: 12/27/19 09:30 Dose: 2 spray Documented by: Budesonide (Pulmicort) 0.5 mg INHALATION Q48H [facility] Last Admin: 12/27/19 07:52 Dose: 0.5 mg Documented by: Calcium Carbonate/Glycine (Tums Liquid) 500 mg PO TID-W/MEALS [facility] Last Admin: 12/27/19 17:29 Dose: 500 mg Documented by: Dicyclomine HCl (Bentyl) 20 mg PO QID [facility] Last Admin: 12/27/19 17:29 Dose: 20 mg Documented by: Enoxaparin Sodium (Lovenox) 40 mg SQ DAILY [facility] Last Admin: 12/27/19 09:25 Dose: 40 mg Documented by: Ferrous Sulfate (Feosol) 325 mg PO DAILY [facility] Last Admin: 12/27/19 09:28 Dose: 325 mg Documented by: Folic Acid (Folic Acid) 1 mg PO DAILY [facility] Last Admin: 12/27/19 09:28 Dose: 1 mg Documented by: Furosemide (Lasix) 20 mg PO DAILY [facility] Last Admin: 12/27/19 09:26 Dose: 20 mg Documented by: Lactated Ringer's (Lactated Ringers) 1,000 mls @ 35 mls/hr IV .Q24H [facility] Last Admin: 12/27/19 11:43 Dose: Not Given Documented by: Lisinopril (Zestril) 10 mg PO DAILY [facility] Last Admin: 12/27/19 09:28 Dose: 10 mg Documented by: Lorazepam (Ativan) 0.5 mg PO BID PRN PRN Reason: Anxiety Last Admin: 12/27/19 12:33 Dose: 0.5 mg Documented by: Magnesium Oxide (Mag-Ox) 400 mg PO DAILY [facility] Last Admin: 12/27/19 09:28 Dose: 400 mg Documented by: Melatonin (Melatonin) 3 mg PO HS [facility] Last Admin: 12/26/19 21:04 Dose: 3 mg Documented by: Pantoprazole Sodium (Protonix) 40 mg PO AC-BID [facility] Last Admin: 12/27/19 17:29 Dose: 40 mg Documented by: Potassium Chloride (K-Dur 10) 10 meq PO BID-W/MEALS [facility] Last Admin: 12/27/19 17:29 Dose: 10 meq Documented by: Sodium Bicarbonate (Sodium Bicarbonate Tab) 650 mg PO DAILY [facility] Last Admin: 12/27/19 09:26 Dose: 650 mg Documented by: Venlafaxine HCl (Effexor Xr) 75 mg PO DAILY [facility] Physical examination: VITAL SIGNS: 97.9, 66, 16, 109/69, 100% on room air GENERAL: BMI 30.8, propped up in bed, but anxious EYES: Pupils equal. Conjunctiva normal. HEENT: External appearance of nose and ears normal, oral cavity grossly normal. NECK: JVD not raised; masses not palpable. HEART: First and second heart sounds are normal; no edema. LUNGS: Respiratory rate normal; decreased breath sounds. ABDOMEN: Soft, tender, no guarding or rigidity, liver spleen not palpable, no masses palpable. PSYCH: Alert and oriented x3; mood and affect anxiousl. INVESTIGATIONS, reviewed in the clinical context: Sodium 128 potassium 4.1 creatinine 0.[address]-unremarkable Computed tomography scan brain-negative Previous testing White count 6.3 hemoglobin 11.7 platelets 223 Sodium 129 potassium 4.4 creatinine 0.54 AST ALT 47 Assessment: -Major depression recurrent with suicidal ideation and severe anxiety and controlled -This morning episode of panic attack from seeing bleeding from of arms leading to temporary dysphagia with the medication pills -Intermittent asthma -Obesity BMI 30.8 -Chronic medical debility uses a walker -Cirrhosis, idiopathic -Chronic abdominal pain from severe adhesions -Chronic gallbladder dyskinesia causing chronic diarrhea -Essential hypertension -Hyperlipidemia -Primary Jerry arthritis Plan: Patient not in any further testing the present time. Her GI symptoms are chronic. She definitely needs her psychiatry condition to be better controlled. We'll check with psychiatrist about the same. Will discuss with GI and surgery.
[2019-12-27] MEDS: MELATONIN 3 MG TABLET PO SCH (21:44)
--- NOTE | 2019-12-28 00:01 | P.PN ---
Subjective Progress Note Date: 12/27/19 Principal diagnosis: Abdominal pain, esophageal dysphagia Patient is seen lying in bed. She reports difficulty swallowing a pill today. No nausea or vomiting. Continues to report abdominal pain. Objective - Vital Signs Vital signs: Vital Signs Temp 97.9 F 12/27/19 11:16 Pulse 84 12/27/19 11:22 Resp 16 12/27/19 11:16 BP 109/69 12/27/19 11:16 Pulse Ox 100 12/27/19 11:16 Intake & Output 12/27/19 12/27/19 12/28/19 06:59 18:59 06:59 Intake Total 310 Balance 310 Weight 83.1 kg Intake: Intake, IV Titration 70 Amount Lactated Ringers 1,000 ml 70 @ 35 mls/hr IV .Q24H [facility] Rx#:[id number] Oral 240 Other: Voiding Method Toilet Toilet Diaper Diaper # Voids 1 2 - Exam On physical examination, patient appears comfortable in no apparent distress. HEAD: Normocephalic, atraumatic. EYES: No scleral icterus. No conjunctival injection. MOUTH: No lesions, tongue midline. NECK: Trachea midline, no gross abnormalities. ABDOMEN: Soft, obese and mildly tender to palpation. Bowel sounds are positive. No organomegaly. No guarding or rigidity. EXTREMITIES: No pedal edema. SKIN: No rashes, no jaundice. NEUROLOGIC: Alert and oriented x3. No focal deficits. - Labs CBC & Chem 7: 12/26/19 12:20 12/27/19 10:58 Labs: Abnormal Lab Results - Last 24 Hours (Table) 12/27/19 Range/Units 10:58 Sodium 128 L (137-145) mmol/L Carbon Dioxide 21 L (22-30) mmol/L AST 74 H (14-36) U/L ALT 39 H (4-34) U/L Alkaline Phosphatase 140 H (38-126) U/L Assessment and Plan (1) Abdominal pain Narrative/Plan: 69-year-old female with multiple medical comorbidities transferred to [facility] from [facility] due to depression and suicidal ideations. The patient has chronic epigastric and right upper quadrant abdominal pain. She has a known history of gallbladder disorder and slightly previously cholecystectomy was attempted but abandoned due to severe adhesions. The patient suffers from alternating constipation and diarrhea. She uses Bentyl 3 times a day as needed for her abdominal pain and control of her diarrhea. She has undergone colonoscopic evaluation in 01/2019 with findings of diverticulosis and h emorrhoids as well as EGD which showed gastritis, esophagitis with ulceration and an esophageal narrowing from external compression. Current Visit: Yes Status: Acute Code(s): R10.9 - UNSPECIFIED ABDOMINAL PAIN SNOMED Code(s): 16134573 (2) GERD (gastroesophageal reflux disease) Current Visit: Yes Status: Acute Code(s): K21.9 - GASTRO-ESOPHAGEAL REFLUX DISEASE WITHOUT ESOPHAGITIS SNOMED Code(s): 727697757 (3) Gallbladder disorder Current Visit: Yes Status: Acute Code(s): K82.9 - DISEASE OF GALLBLADDER, UNSPECIFIED SNOMED Code(s): 96368243 Plan: Supportive care Soft diet as tolerated Continue Bentyl therapy and Protonix 40 mg twice daily added Continue to manage medically Thank you for allowing us to participate in the care of this patient
[2019-12-28] MEDS: LORazepam 0.5 MG TAB PO PRN (04:16)
[2019-12-28] MEDS: HYDROcodone/APAP 10-325MG 1 EACH TAB PO PRN ×2 (06:03→15:03)
[2019-12-28] MEDS: ACETAMINOPHEN TAB 500 MG TAB PO SCH (07:16)
[2019-12-28] MEDS: SODIUM BICARBONATE TAB 650 MG TAB PO SCH (07:16)
[2019-12-28] MEDS: FERROUS SULFATE 325 MG TAB PO SCH (07:17)
[2019-12-28] MEDS: ATORVASTATIN 10 MG TAB PO SCH (07:17)
[2019-12-28] MEDS: AZELASTINE 137MCG/SPRAY EA NOSTRIL SCH (07:18)
[2019-12-28] MEDS: CALCIUM CARBONATE LIQUID 500 MG/5 ML CUP PO SCH ×2 (07:18→12:16)
[2019-12-28] MEDS: MAGNESIUM OXIDE 400 MG TAB PO SCH (07:18)
[2019-12-28] MEDS: LISINOPRIL 10 MG TAB PO SCH (07:18)
[2019-12-28] MEDS: PANTOPRAZOLE 40 MG TABLET PO SCH (07:18)
[2019-12-28] MEDS: FOLIC ACID 1 MG TAB PO SCH (07:18)
[2019-12-28] MEDS: DICYCLOMINE 20 MG TAB PO SCH ×2 (07:18→12:15)
[2019-12-28] MEDS: ENOXAPARIN 40 MG/0.4 ML SYRINGE SQ SCH (07:19)
[2019-12-28] MEDS: FUROSEMIDE 20 MG TAB PO SCH (07:22)
[2019-12-28] MEDS: POTASSIUM CHLORIDE ER 10 MEQ TAB.ER.PRT PO SCH (07:22)
[2019-12-28] MEDS ORDERED: VENLAFAXINE HCL ER 75 MG CAP PO SCH (09:00)
[2019-12-28] MEDS ORDERED: POLYETHYLENE GLYCOL 3350 17 GM POWD.PACK PO SCH (10:00)
[2019-12-28] MEDS ORDERED: busPIRone HCl 10 MG TAB PO SCH (12:00)
--- NOTE | 2019-12-28 12:01 | P.PN ---
Progress Note - Text Progress Note Date: 12/28/19 Psychiatric progress note: Interval History: Patient was seen today for follow-up regarding depression along with anxiety. Patient's Effexor was increased to 75 mg daily starting today and patient states that she took her medication this morning. Was seen at the bedside sitting on the chair with her sister in the room and conversation happily. Patient states that she is feeling better and has been taking her medications and swallowing the pills okay this morning. She states that she needed to take the pills with applesauce in order for it to go down. She claims that her mood has gotten better and also states that her anxiety is improved as well on the medications. She spoke about her support of her sister who lives close to her. Patient also spoke about having to deal with the divorce from her ex- and spoke about how he is back in the [place] and has remarried. Patient also spoke about wanting to go to [facility] before going back home. Patient also spoke about possibly not going back home as she is having difficulty caring for herself. Patient was less tearful today and did not endorse any suicidal ideations intent or plan. She mentioned wanting to live for her grandchildren and her children and also for God. She claims that she reads the Bible regularly which is helping her. She did endorse sleeping well last night on the melatonin. At this time patient denies any homical ideations, intent or plan. Patient denies any au ditory, visual hallucinations and denies any paranoia or delusions. Patient denies any side effects from the medications and has been compliant with meds. Mental Status Exam: General Appearance: Patient appears to be stated age is alert, more directable and attempts to cooperate. Patient appears to have fair hygiene and grooming wearing hospital gown. Behavior: Patient is calmly lying in bed without any agitated behavior. Less anxious today. Speech: Patient's speech is fluent and nonpressured. Mood/Affect: Patient reports their mood is "better", affect is congruent Suicidality/Homicidality: Patient denies having any suicidal or homicidal ideation intent or plan. Perceptions: Patient denies any visual hallucinations and denies any auditory hallucinations Though content/process: Patient rambles and is tangential/circumstantial. Memory and concentration: AOX3, grossly intact for the purposes of this session. Judgment and insight: Improving Assessment Depressive disorder unspecified Anxiety disorder unspecified rule out generalized anxiety disorder PLAN: -At this time patient does not meet criteria for inpatient psychiatric admission. Patient would be more suitable for discharge to subacute rehab. -Patient's medical condition and pain are liekly contributing significantly to patient's anxiety and depression. -Final medication changes/additions: Continue with Effexor XR 75 mg daily for mood/anxiety. Increased melatonin 5 mg daily at bedtime for sleep. Added BuSpar 10 mg twice a day for anxiety with 1 dose given now prior to discharge. -Can discontinue 1:1 sitter at this time. -Psychiatry will sign off at this time
[2019-12-28 12:06] VITALS: BP 114/74; PULSE 69; RESP 16; TEMP 98.1
--- NOTE | 2019-12-28 13:55 | P.DS ---
Providers Date of admission: 12/25/19 18:59 Expected date of discharge: 12/28/19 Attending physician: Dion Jarviskash Consults: 12/25/19 21:05 Consult Physician Routine Consulting Provider: Inocencio Givens Consult Reason/Comments: suicidal ideation Do you want consulting provider notified?: Yes 12/26/19 11:17 Consult Physician Routine Consulting Provider: Jas Jones Consult Reason/Comments: abdominal pain Do you want consulting provider notified?: Yes Primary care physician: [facility] Course: Chief Complaint: Severe depression and suicidal History of presenting complaint: This is a pleasant 69-year-old patient of Dr. hoyt. Chronic stable medical conditions include asthma, diabetes, hypertension, Jerry arthritis, rheumatoid arthritis, chronic low back pain, chronic diarrhea anywhere from 4-6 bowel movements a day. Patient's gradually being weaned off her narcotics by her family doctor. Patient has chronic abdominal pain. In September 2018 she had a attempted gallbladder removal by Dr. Herrera. Found to have severe adhesions hence procedure was abandoned. Patient continues to have chronic abdominal pain. Patient had presented to [facility] with the same abdominal pain nausea. Patient also had been becoming very anxious depressed suicidal. Very tearful. Because no psychiatry care was available at the hospital patient was transferred here by me. Patient has a sitter. We'll GI and Dr. Herrera were consulted. So psychiatry. Today patient feels a bit better. The still very depressed. Patient's daughter is visiting. Admitted with-major depression with suicidal ideation. Acute on chronic GI symptoms. Patient has chronic gallbladder dyskinesia and chronic diarrhea. Patient was seen both by GI Dr. Plaza and Dr. Herrera from surgery. Patient's symptoms are chronic. Sometimes the symptoms are worsened but anxiety. She was also seen by psychiatrist . Medication adjusted. Today-overall feeling much better. Smiling. Looking for to go to rehab. Cleared by psychiatry and GI. Tolerating diet. Consultation: Dr. Givens from psychiatry Dr. Herrera from general surgery Dr. Plaza from GI Physical examination: VITAL SIGNS: 98.3, 56, 18, 105/68, 99% on room air GENERAL: BMI 30.8, propped up in bed, but anxious EYES: Pupils equal. Conjunctiva normal. HEENT: External appearance of nose and ears normal, oral cavity grossly normal. NECK: JVD not raised; masses not palpable. HEART: First and second heart sounds are normal; no edema. LUNGS: Respiratory rate normal; decreased breath sounds. ABDOMEN: Soft, tender, no guarding or rigidity, liver spleen not palpable, no masses palpable. PSYCH: Alert and oriented x3; mood and affect normal. INVESTIGATIONS, reviewed in the clinical context: Sodium 128 potassium 4.1 creatinine 0.[address]-unremarkable Computed tomography scan brain-negative Previous testing White count 6.3 hemoglobin 11.7 platelets 223 Sodium 129 potassium 4.4 creatinine 0.54 AST ALT 47 Assessment: -Major depression recurrent with suicidal ideation and severe anxiety and controlled -This morning episode of panic attack from seeing bleeding from of arms leading to temporary dysphagia with the medication pills -Intermittent asthma -Obesity BMI 30.8 -Chronic medical debility uses a walker -Cirrhosis, idiopathic -Acute on Chronic abdominal pain from severe adhesions -Chronic gallbladder dyskinesia causing chronic diarrhea -Essential hypertension -Hyperlipidemia -Primary osteoarthritis Disposition: ECF/[facility] off [place] Patient Condition at Discharge: Stable Plan - Discharge Summary New Discharge Prescriptions: New busPIRone HCl [Buspar] 10 mg PO BID tab Venlafaxine HCl ER [Effexor XR] 75 mg PO DAILY cap.er.24h Melatonin 5 mg PO HS tablet Psyllium Husk (with Sugar) [Metamucil Powder] 0 gm PO DAILY #30 gm Continue Omeprazole 20 mg PO BID Folic Acid 1 mg PO DAILY Vitamin B Complex 1 cap PO DAILY Ferrous Sulfate [Iron (65 MG Elemental)] 325 mg PO DAILY Atorvastatin [Lipitor] 10 mg PO DAILY Magnesium Oxide [Mag-Ox] 400 mg PO DAILY Furosemide [Lasix] 20 mg PO DAILY Potassium Chloride [Klor-Con 10] 10 meq PO BID-W/MEALS Azelastine HCl 2 spray EA NOSTRIL BID Sodium Bicarbonate Tab 650 mg PO DAILY Lisinopril [Zestril] 10 mg PO DAILY Dicyclomine [Bentyl] 20 mg PO TID Acetaminophen [Tylenol Extra Strength] 1,000 mg PO BID Albuterol Nebulized [Ventolin Nebulized] 2.5 mg INHALATION RT-TID Budesonide [Pulmicort] 0.5 mg INHALATION Q48H LORazepam [Ativan] 0.5 mg PO BID PRN #6 tab PRN Reason: Anxiety HYDROcodone/APAP 10-325MG [[place] 10-325] 1 tab PO Q8H PRN #9 tab PRN Reason: Pain Discontinued Loratadine 10 mg PO DAILY FLUoxetine HCL 40 mg PO DAILY Discharge Medication List Omeprazole 20 mg PO BID 10/04/14 [History] Folic Acid 1 mg PO DAILY 06/12/15 [History] Vitamin B Complex 1 cap PO DAILY 06/12/15 [History] Ferrous Sulfate [Iron (65 MG Elemental)] 325 mg PO DAILY 10/25/18 [History] Atorvastatin [Lipitor] 10 mg PO DAILY 02/19/19 [History] Magnesium Oxide [Mag-Ox] 400 mg PO DAILY 02/19/19 [History] Azelastine HCl 2 spray EA NOSTRIL BID 08/21/19 [History] Dicyclomine [Bentyl] 20 mg PO TID 08/21/19 [History] Furosemide [Lasix] 20 mg PO DAILY 08/21/19 [History] Lisinopril [Zestril] 10 mg PO DAILY 08/21/19 [History] Potassium Chloride [Klor-Con 10] 10 meq PO BID-W/MEALS 08/21/19 [History] Sodium Bicarbonate Tab 650 mg PO DAILY 08/21/19 [History] Acetaminophen [Tylenol Extra Strength] 1,000 mg PO BID 12/25/19 [History] Albuterol Nebulized [Ventolin Nebulized] 2.5 mg INHALATION RT-TID 12/25/19 [History] Budesonide [Pulmicort] 0.5 mg INHALATION Q48H 12/26/19 [History] HYDROcodone/APAP 10-325MG [[place] 10-325] 1 tab PO Q8H PRN #9 tab 12/28/19 [Rx] LORazepam [Ativan] 0.5 mg PO BID PRN #6 tab 12/28/19 [Rx] Melatonin 5 mg PO HS tablet 12/28/19 [Rx] Psyllium Husk (with Sugar) [Metamucil Powder] 0 gm PO DAILY #30 gm 12/28/19 [Rx] Venlafaxine HCl ER [Effexor XR] 75 mg PO DAILY cap.er.24h 12/28/19 [Rx] busPIRone HCl [Buspar] 10 mg PO BID tab 12/28/19 [Rx] Follow up Appointment(s)/Referral(s): Inocencio Hoyt DO [STAFF PHYSICIAN] - 1 Week
[2019-12-28] MEDS ORDERED: MELATONIN 5 MG TABLET PO SCH (21:00)
--- NOTE | 2019-12-29 15:44 | P.PN ---
Subjective Progress Note Date: 12/29/19 Principal diagnosis: Abdominal pain, esophageal dysphagia Patient is seen sitting bedside today. If she is tolerated diet. Results of her computed tomography scan discussed. Objective - Vital Signs Vital signs: Vital Signs Temp 98.1 F 12/28/19 12:06 Pulse 69 12/28/19 12:06 Resp 16 12/28/19 12:06 BP 114/74 12/28/19 12:06 Pulse Ox 97 12/28/19 12:06 Intake & Output 12/27/19 12/28/19 12/28/19 18:59 06:59 18:59 Intake Total 1999 Balance 1999 Weight 83.1 kg 83 kg Intake: Intake, IV Titration 420 Amount Lactated Ringers 1,000 ml 420 @ 35 mls/hr IV .Q24H [facility] Rx#:[id number] Oral 1580 Other: Voiding Method Toilet Toilet Toilet Diaper Diaper Diaper Incontinent # Voids 2 3 3 - Exam On physical examination, patient appears comfortable in no apparent distress. HEAD: Normocephalic, atraumatic. EYES: No scleral icterus. No conjunctival injection. MOUTH: No lesions, tongue midline. NECK: Trachea midline, no gross abnormalities. ABDOMEN: Soft, obese and mildly tender to palpation. Bowel sounds are positive. No organomegaly. No guarding or rigidity. EXTREMITIES: No pedal edema. SKIN: No rashes, no jaundice. NEUROLOGIC: Alert and oriented x3. No focal deficits. - Labs CBC & Chem 7: 12/26/19 12:20 12/27/19 10:58 Assessment and Plan (1) Abdominal pain Narrative/Plan: 69-year-old female with multiple medical comorbidities transferred to [facility] from [facility] due to depression and suicidal ideations. The patient has chronic epigastric and right upper quadrant abdominal pain. She has a known history of gallbladder disorder and slightly previously cholecystectomy was attempted but abandoned due to severe adhesions. The patient suffers from alternating constipation and diarrhea. She uses Bentyl 3 times a day as needed for her abdominal pain and control of her diarrhea. She has undergone colonoscopic evaluation in 01/2019 with findings of diverticulosis and hemorrhoids as well as EGD which showed gastritis, esophagitis with ulceration and an esophageal narrowing from external compression although no abnormalities noted on computed tomography scan of the head and neck. Status: Acute Code(s): R10.9 - UNSPECIFIED ABDOMINAL PAIN SNOMED Code(s): 65365667 (2) GERD (gastroesophageal reflux disease) Status: Acute Code(s): K21.9 - GASTRO-ESOPHAGEAL REFLUX DISEASE WITHOUT ESOPHAGITIS SNOMED Code(s): 808115203 (3) Gallbladder disorder Status: Acute Code(s): K82.9 - DISEASE OF GALLBLADDER, UNSPECIFIED SNOMED Code(s): 80224489 Plan: Supportive care Soft diet as tolerated Continue Bentyl therapy and Protonix 40 mg twice daily added Continue to manage medically Results of computed tomography scan of the head and neck discussed with the patient and essentially normal Thank you for allowing us to participate in the care of this patient
== END 2019-12-28 15:55 | DRG 880 ==
LOC: 5NMEDONC 18:59
PROVIDERS: ADMIT Hospitalist; ATTEND Hospitalist
DX: F41.1 Generalized anxiety disorder (principal); F33.9 Major depressive disorder, recurrent, unspecified; R45.851 Suicidal ideations; K22.10 Ulcer of esophagus without bleeding; R13.14 Dysphagia, pharyngoesophageal phase; K76.0 Fatty (change of) liver, not elsewhere classified; K74.69 Other cirrhosis of liver; K57.30 Diverticulosis of large intestine without perforation or abscess without bleeding; K66.0 Peritoneal adhesions (postprocedural) (postinfection); K82.8 Other specified diseases of gallbladder; K29.70 Gastritis, unspecified, without bleeding; E66.9 Obesity, unspecified; G89.29 Other chronic pain; I10 Essential (primary) hypertension; E78.5 Hyperlipidemia, unspecified; M19.91 Primary osteoarthritis, unspecified site; M06.9 Rheumatoid arthritis, unspecified; K21.9 Gastro-esophageal reflux disease without esophagitis; J44.9 Chronic obstructive pulmonary disease, unspecified; E11.9 Type 2 diabetes mellitus without complications; K44.9 Diaphragmatic hernia without obstruction or gangrene; K64.8 Other hemorrhoids; K52.9 Noninfective gastroenteritis and colitis, unspecified; J45.20 Mild intermittent asthma, uncomplicated; K59.00 Constipation, unspecified; F45.41 Pain disorder exclusively related to psychological factors; Z68.30 Body mass index [BMI] 30.0-30.9, adult; Z79.899 Other long term (current) drug therapy; Z87.19 Personal history of other diseases of the digestive system; Z90.49 Acquired absence of other specified parts of digestive tract; Z98.890 Other specified postprocedural states; Z90.710 Acquired absence of both cervix and uterus; Z96.653 Presence of artificial knee joint, bilateral; Z96.642 Presence of left artificial hip joint; Z88.1 Allergy status to other antibiotic agents; Z91.030 Bee allergy status; Z88.5 Allergy status to narcotic agent; Z91.048 Other nonmedicinal substance allergy status; Z83.2 Family history of diseases of the blood and blood-forming organs and certain disorders involving the immune mechanism; Z80.9 Family history of malignant neoplasm, unspecified
CPT/HCPCS: 70450; 70491; 76700; 80053; 82150; 83690; 85025; 94640

== ENCOUNTER 2020-02-06 17:51 | Emergency (ER) | payer MEDICARE, OTHER ==
[2020-02-06 18:18] VITALS: BP 149/89; PULSE 85; RESP 18; TEMP 98.7
--- NOTE | 2020-02-06 19:36 | ED ---
General Adult HPI - General Source: patient, police, EMS, RN notes reviewed, old records reviewed Mode of arrival: EMS Limitations: no limitations <Pedrito Ellington - Last Filed: 02/06/20 19:47> <Phan Mathew - Last Filed: 02/06/20 22:08> - General Chief complaint: Psychiatric Symptoms Stated complaint: SOB/Cough Time Seen by Provider: 02/06/20 17:56 - History of Present Illness Initial comments: 69-year-old female patient past history significant for asthma, hypertension hyperlipidemia type 2 diabetes this ED for psychiatric evaluation. Patient was seen at [facility] for cough and shortness of breath last 3 weeks. States that some or sputum was dark possibly dark blood. Patient had extensive investigations at this facility, prior to her discharge patient camps out with nursing, eloped from the emergency department. Patient did leave with a needle in her arm. Patient reportedly then called her family making suicidal statements. Patient reports that she wishes that she was not alive anymore. Denies anything to hurt herself. Denies any other acute complaints. Systemic: Pt denies fatigue, fever/chills, rash. Pt denies weakness, night sweats, weight loss. Neuro: Pt denies headache, visual disturbances, syncope or pre-syncope. HEENT: Pt denies ocular discharge or irritation, otalgia, rhinorrhea, pharyngitis or notable lymphadenopathy. Cardiopulmonary: Pt denies heart palpitations, dyspnea on exertion. Abdominal/GI: Pt denies abdominal pain, n/v/d. : Pt denies dysuria, burning w/ urination, frequency/urgency. Denies new onset urinary or bowel incontinence. MSK: Pt denies myalgia, loss of strength or function in extremities. Neuro: Pt denies new onset weakness, paresthesias. (Pedrito Ellington) - Related Data Home Medications Medication Instructions Recorded Confirmed Omeprazole 20 mg PO BID 10/04/14 12/25/19 Folic Acid 1 mg PO DAILY 06/12/15 12/25/19 Vitamin B Complex 1 cap PO DAILY 06/12/15 12/25/19 Ferrous Sulfate [Iron (65 MG 325 mg PO DAILY 10/25/18 12/25/19 Elemental)] Atorvastatin [Lipitor] 10 mg PO DAILY 02/19/19 12/25/19 Magnesium Oxide [Mag-Ox] 400 mg PO DAILY 02/19/19 12/25/19 Azelastine HCl 2 spray EA NOSTRIL BID 08/21/19 12/25/19 Dicyclomine [Bentyl] 20 mg PO TID 08/21/19 12/26/19 Furosemide [Lasix] 20 mg PO DAILY 08/21/19 12/25/19 Lisinopril [Zestril] 10 mg PO DAILY 08/21/19 12/25/19 Potassium Chloride [Klor-Con 10] 10 meq PO BID-W/MEALS 08/21/19 12/25/19 Sodium Bicarbonate Tab 650 mg PO DAILY 08/21/19 12/25/19 Acetaminophen [Tylenol Extra 1,000 mg PO BID 12/25/19 12/25/19 Strength] Albuterol Nebulized [Ventolin 2.5 mg INHALATION RT-TID 12/25/19 12/26/19 Nebulized] Budesonide [Pulmicort] 0.5 mg INHALATION Q48H 12/26/19 12/26/19 Previous Rx's Medication Instructions Recorded HYDROcodone/APAP 10-325MG [[place] 1 tab PO Q8H PRN #9 tab 12/28/19 10-325] LORazepam [Ativan] 0.5 mg PO BID PRN #6 tab 12/28/19 Melatonin 5 mg PO HS tablet 12/28/19 Psyllium Husk (with Sugar) 0 gm PO DAILY #30 gm 12/28/19 [Metamucil Powder] Venlafaxine HCl ER [Effexor XR] 75 mg PO DAILY cap.er.24h 12/28/19 busPIRone HCl [Buspar] 10 mg PO BID tab 12/28/19 Allergies Allergy/AdvReac Type Severity Reaction Status Date / Time codeine Allergy Rash/Hives Verified 12/25/19 20:35 nicotine Allergy Swelling Verified 12/25/19 20:35 Tetracyclines Allergy Rash/Hives Verified 12/25/19 20:35 venom-honey bee Allergy Anaphylaxis Verified 12/25/19 20:35 [bee venom (honey bee)] Review of Systems ROS Other: All systems not noted in ROS Statement are negative. <Pedrito Ellington - Last Filed: 02/06/20 19:47> ROS Other: All systems not noted in ROS Statement are negative. <Helmreich,Phan N - Last Filed: 02/06/20 22:08> ROS Statement: Those systems with pertinent positive or pertinent negative responses have been documented in the HPI. Past Medical History Past Medical History: Asthma, Chest Pain / Angina, Heart Failure, COPD, Diabetes Mellitus, GERD/Reflux, Hyperlipidemia, Hypertension, Osteoarthritis (OA), Rheumatoid Arthritis (RA) Additional Past Medical History / Comment(s): DIET CONTROLLED DIABETES, BACK PAIN, diverticulitis,colitis, just d/c Tuesday from [facility] for CP that pt. says is "muscle around heart", had low magnesium & potassium also, dysphagia w/meds, diarrhea for 4 months-started on cholestyramine-now constipation History of Any Multi-Drug Resistant Organisms: ESBL Date of last positivie culture/infection: 09/08/18 ESBL-E.coli MDRO Source:: Urine Past Surgical History: Appendectomy, Bowel Resection, Breast Surgery, Section, Hernia Repair, Hysterectomy, Joint Replacement, Tonsillectomy Additional Past Surgical History / Comment(s): 06/17/15 Total L knee arthroplasty & right knee replaced, left hip replaced, Other SX: LT BREAST BIOPSY, POLYPS REMOVED FROM THROAT, ROBOTIC INCISIONAL HERNIA REPAIR, LYSIS OF ADHESIONS. Past Anesthesia/Blood Transfusion Reactions: No Reported Reaction Past Psychological History: Anxiety, Depression, PTSD Smoking Status: Never smoker Past Alcohol Use History: Daily Past Drug Use History: Marijuana - Past Family History Father Family Medical History: Deep Vein Thrombosis (DVT), Pulmonary Embolus Mother Family Medical History: Cancer <Pedrito Ellington - Last Filed: 02/06/20 19:47> General Exam Limitations: no limitations <Pedrito Ellington - Last Filed: 02/06/20 19:47> - General Exam Comments Initial Comments: Constitutional: NAD, AOX3, Pt has pleasant affect. HEENT: NC/AT, trachea midline, neck supple, no lymphadenopathy. Posterior pharynx non erythematous, without exudates. External ears appear normal, without discharge. Mucous membranes moist. Eyes PERRLA, EOM intact. There is no scleral icterus. No pallor noted. Cardiopulmonary: RRR, no murmurs, rubs or gallops, no JVD noted. Lungs CTAB in anterior and posterior cevallos. No peripheral edema. Neuro: CN II-XII grossly intact. No nuchal rigidity. No raccon eyes, no lindsey sign, no hemotympanum. No cervical spinal tenderness. MSK: No posterior calf tenderness bilaterally, homans sign negative bilaterally. Posterior tibialis and radial pulse +2 bilaterally. Sensation intact in upper and lower extremities. Full active ROM in upper and lower extremities, 5/5 stregnth. (Pedrito Ellington) Course Vital Signs 02/06/20 18:04 Temperature 98.7 F Pulse Rate 85 Respiratory 18 Rate Blood Pressure 149/89 O2 Sat by Pulse 95 Oximetry Medical Decision Making - EKG Data -: EKG Interpreted by Me (and Dr Mathew ) <Pedrito Ellington - Last Filed: 02/06/20 19:47> <Phan Mathew - Last Filed: 02/06/20 22:08> - Medical Decision Making Patient has ED for psychiatric evaluation after making suicidal statements. Patient had extensive investigations at [facility]. These are reviewed. The troponin is negative. BNP is within normal limits. LDH is within normal limits. Ferritin is within normal limits. Free T4 within normal limits. Mild hyponatremia 130. Lactic acid was 2.3. CRP negative. Troponin negative. Correlation says within normal limits. White blood cell count of 5.2. Hemoglobin of 10.8. Chest x-ray correlate for bronchitis. Patient alcohol level is elevated, pending psychiatric evaluation. Physical exam did not display acute pathology. Case signed out to Dr. Mathew. (Pedrito Ellington) Patient presenting with chief complaint of suicidal statements and suicidal thoughts. She had just been seen at outside hospital had a workup for cough and dyspnea which was essentially normal. Patient is well-appearing with stable vitals. She is evaluated by EPS and cleared for discharge. She is no longer suicidal. She has signed a safety plan and has close outpatient follow-up. Patient agreeable with discharge. (Phan Mathew) - Lab Data Lab Results 02/06/20 Range/Units Unknown Urine Opiates Screen Detected H (NotDetected) Ur Oxycodone Screen Not Detected (NotDetected) Urine Methadone Screen Not Detected (NotDetected) Ur Propoxyphene Screen Not Detected (NotDetected) Ur Barbiturates Screen Not Detected (NotDetected) U Tricyclic Antidepress Not Detected (NotDetected) Ur Phencyclidine Scrn Not Detected (NotDetected) Ur Amphetamines Screen Not Detected (NotDetected) U Methamphetamines Scrn Not Detected (NotDetected) U Benzodiazepines Scrn Not Detected (NotDetected) Urine Cocaine Screen Not Detected (NotDetected) U Marijuana (THC) Screen Not Detected (NotDetected) - EKG Data EKG Comments: Ventricular headache Actually 166, QRS 84, QT/QTC 366/442. NSR Normal EKG, no concern for acute ischemia. (Pedrito Ellington) Disposition <Pedrito Ellington - Last Filed: 02/06/20 19:47> Is patient prescribed a controlled substance at d/c from ED?: No Time of Disposition: 22:08 <Phan Mathew - Last Filed: 02/06/20 22:08> Clinical Impression: Depression Disposition: HOME SELF-CARE Condition: Good Instructions (If sedation given, give patient instructions): Depression (ED) Additional Instructions: Please follow up with community mental health, please return with worsening or changing symptoms. Referrals: Inocencio Hoyt DO [Primary Care Provider] - 1-2 days
[2020-02-06 20:09] LABS: Amphetamine Screen,Urine Not Detected (NotDetected); Barbiturate Screen,Urine Not Detected (NotDetected); Benzodiazepines Screen,Urine Not Detected (NotDetected); Cocaine Screen,Urine Not Detected (NotDetected); Methadone Screen, Urine Not Detected (NotDetected); Opiate Screen,Urine Detected (NotDetected); Oxycodone Screen, Urine Not Detected (NotDetected); Phencyclidine Screen,Urine Not Detected (NotDetected); Tricyclic Antidepressant,Urine Not Detected (NotDetected); Urn Cannabinoid Scrn Not Detected (NotDetected)
== END 2020-02-06 22:13 | disposition home or self-care (01) ==
LOC: EC 17:51
DX: F32.9 Major depressive disorder, single episode, unspecified (principal); E87.1 Hypo-osmolality and hyponatremia; I11.0 Hypertensive heart disease with heart failure; I50.9 Heart failure, unspecified; E11.9 Type 2 diabetes mellitus without complications; E78.5 Hyperlipidemia, unspecified; J44.9 Chronic obstructive pulmonary disease, unspecified; K21.9 Gastro-esophageal reflux disease without esophagitis; M19.90 Unspecified osteoarthritis, unspecified site; Z79.899 Other long term (current) drug therapy; Z79.51 Long term (current) use of inhaled steroids; Z88.5 Allergy status to narcotic agent; Z88.8 Allergy status to other drugs, medicaments and biological substances; Z88.1 Allergy status to other antibiotic agents; Z91.030 Bee allergy status; Z96.653 Presence of artificial knee joint, bilateral; Z96.642 Presence of left artificial hip joint
CPT/HCPCS: 80306; 82075; 93005; 99285

== ENCOUNTER → 2020-05-23 | Outpatient (CLI) | payer MEDICARE, OTHER ==
[2020-05-23 14:01] LABS: Basophils # (A) 0.1 k/uL (0-0.2); Basophils % (A) 1 %; Eosinophils # (A) 0.2 k/uL (0-0.7); Eosinophils % (A) 3 %; HCT 40.3 % (34.0-46.0); HGB 12.6 gm/dL (11.4-16.0); Lymphocytes # (A) 2.1 k/uL (1.0-4.8); Lymphocytes % (A) 35 %; MCH 35.5 pg (25.0-35.0); MCHC 31.2 g/dL (31.0-37.0); MCV 113.6 fL (80.0-100.0); Macrocytosis Marked; Mean Platelet Volume 7.1; Monocytes # (A) 0.3 k/uL (0-1.0); Monocytes % (A) 5 %; Neutrophils # (A) 3.2 k/uL (1.3-7.7); Neutrophils % (A) 54 %; Platelet Count 228 k/uL (150-450); RBC 3.55 m/uL (3.80-5.40); RDW 14.5 % (11.5-15.5)
[2020-05-23 19:46] LABS: Hepatitis C IgG Antibody Reactive (Non-Reactive)
[2020-05-23 20:05] LABS: ALT 39 U/L (8-44); AST 91 U/L (13-35); African American GFR (CKD) 109.3 (60.0-200.0); Albumin/Globulin Ratio 1.05 (1.60-3.17); Alkaline Phosphatase 177 U/L (41-126); BUN/Creat Ratio 13.33 Ratio (12.00-20.00); C Reactive Protein <0.4 mg/dL (0.0-0.8); Calcium 9.6 mg/dL (8.7-10.3); Carbon Dioxide 24.6 mmol/L (21.6-31.8); Chloride 93 mmol/L (96-109); Chol/HDL Ratio 1.64; Cholesterol 172 mg/dL (0-200); Glucose 88 mg/dL (70-110); LDL Cholesterol,Calculated 55.8 mg/dL (0.0-131.0); Non-African American GFR(CKD) 94.3 (60.0-200.0); Potassium 4.7 mmol/L (3.5-5.5); Rheumatoid Factor, Qnt 7 IU/mL (0-15); Sodium 127 mmol/L (135-145); Total Bilirubin 0.9 mg/dL (0.3-1.2); Total Protein 8.2 g/dL (6.2-8.2)
[2020-05-23 20:56] LABS: Erythrocyte Sedimentation Rate 44 mm/Hr (0-30)
[2020-05-23 22:09] LABS: Hemoglobin A1C 4.9 % (4.0-6.0)
== END | disposition home or self-care (01) ==
LOC: LABWHC1 11:28
PROVIDERS: ATTEND Nurse Practitioner Family
DX: I10 Essential (primary) hypertension (principal); E11.9 Type 2 diabetes mellitus without complications; M25.511 Pain in right shoulder; G89.29 Other chronic pain
CPT/HCPCS: 36415; 80053; 80061; 82306; 83036; 84436; 84443; 85025; 85652; 86038; 86039; 86140; 86431; 86803

== ENCOUNTER → 2020-11-26 | Outpatient (CLI) | payer MEDICARE, OTHER | END | disposition home or self-care (01) | LOC: LABWHC1 10:27 | PROVIDERS: ATTEND Nurse Practitioner | DX: K74.60 Unspecified cirrhosis of liver (principal); Z86.19 Personal history of other infectious and parasitic diseases | CPT/HCPCS: 36415; 87522 ==

== ENCOUNTER → 2021-03-20 | Outpatient (CLI) | payer MEDICARE, OTHER ==
--- NOTE | 2021-03-20 15:35 | US ---
EXAMINATION TYPE: US liver DATE OF EXAM: 03/20/2021 COMPARISON: 12/26/2019 CLINICAL HISTORY: B18.2 CHR VIRAL HEP C. Hep C EXAM MEASUREMENTS: Liver Length: 13.6 cm Gallbladder Wall: .2 cm CBD: .3 cm Right Kidney: 8.5 x 3.9 x 4.3 cm Pancreas: Tail obscured by overlying bowel gas Liver: wnl Gallbladder: Possible sludge vs. Small stones Evidence for sonographic Mac's sign: No CBD: wnl Right Kidney: wnl IMPRESSION: 1. Possible sludge versus small gallstones within the gallbladder. No gallbladder wall thickening or pericholecystic fluid. Mac's sign is negative. 2. The pancreatic tail is obscured by overlying bowel gas.
== END | disposition home or self-care (01) ==
LOC: RADUSWWP 08:48
PROVIDERS: ATTEND Internal Medicine Gastroenterology
DX: B18.2 Chronic viral hepatitis C (principal)
CPT/HCPCS: 76705

== ENCOUNTER 2021-11-11 11:52 | Inpatient (IN) | payer MEDICARE, OTHER ==
[2021-11-11] MEDS ORDERED: MORPHINE SULFATE 4 MG/ML SYRINGE IV STA (12:05)
[2021-11-11] MEDS: SODIUM CHLORIDE 0.9% 1,000 ML IV STA ×2 (12:40→15:15)
[2021-11-11 12:48] LABS: ALT 21 U/L (4-34); AST 66 U/L (14-36); African American GFR (CKD) >90 (>60 ml/min/1.73 sqM); Albumin 2.9 g/dL (3.5-5.0); Alkaline Phosphatase 143 U/L (38-126); Amylase 43 U/L (30-110); Anion Gap 15 mmol/L; Blood Urea Nitrogen 3 mg/dL (7-17); Calcium 8.3 mg/dL (8.4-10.2); Carbon Dioxide 17 mmol/L (22-30); Chloride 96 mmol/L (98-107); Glucose 101 mg/dL (74-99); Lipase 30 U/L (23-300); Non-African American GFR(CKD) >90 (>60 ml/min/1.73 sqM); Potassium 3.2 mmol/L (3.5-5.1); Sodium 128 mmol/L (137-145); Total Bilirubin 2.6 mg/dL (0.2-1.3); Total Protein 7.5 g/dL (6.3-8.2)
[2021-11-11 13:15] LABS: Anisocytosis Slight; Basophils % (A) 0 %; Eosinophils # (A) 0.1 k/uL (0-0.7); Eosinophils % (A) 1 %; HCT 30.3 % (34.0-46.0); HGB 9.9 gm/dL (11.4-16.0); Lymphocytes # (A) 3.7 k/uL (1.0-4.8); Lymphocytes % (A) 37 %; MCH 32.5 pg (25.0-35.0); MCHC 32.8 g/dL (31.0-37.0); MCV 99.1 fL (80.0-100.0); Macrocytosis Slight; Mean Platelet Volume 6.6; Monocytes # (A) 0.4 k/uL (0-1.0); Monocytes % (A) 4 %; Neutrophils # (A) 5.7 k/uL (1.3-7.7); Neutrophils % (A) 56 %; Platelet Count 156 k/uL (150-450); RBC 3.06 m/uL (3.80-5.40); RDW 17.3 % (11.5-15.5); WBC 10.1 k/uL (3.8-10.6)
[2021-11-11 14:00] LABS: Appearance,Urine Clear (Clear); Bacteria,Urine Rare /hpf; Bilirubin,Urine Negative (Negative); Blood,Urine Negative (Negative); Color,Urine Yellow; Glucose,Urine (UA) Negative (Negative); Ketones,Urine Negative (Negative); Leukocyte Esterase,Urine Trace (Negative); Mucus,Urine Occasional /hpf; Nitrite,Urine Negative (Negative); PH, Urine 5.5 (5.0-8.0); Protein,Urine Negative (Negative); RBC,Urine <1 /hpf (0-5); Specific Gravity,Urine 1.013 (1.001-1.035); Squamous Epithelial Cell,Urine 4 /hpf (0-4); Urobilinogen,Urine <2.0 mg/dL (<2.0); WBC,Urine 2 /hpf (0-5)
--- NOTE | 2021-11-11 14:04 | CT ---
EXAMINATION TYPE: CT abdomen pelvis w con DATE OF EXAM: 11/11/2021 COMPARISON: 09/02/2017 HISTORY: Abdominal pain CT DLP: 1011.2 mGycm Automated exposure control for dose reduction was used. CONTRAST: CT scan of the abdomen pelvis is performed with IV Contrast, patient injected with 100 ml mL of Isovu e 300. FINDINGS- LUNG BASES-subsegmental consolidation the lungs suggestive of atelectasis. 5 mm peripheral left lung nodule left lung base stable.. LIVER/DT-idj-tqyinqqzdlp of the liver can be associated with hepatic steatosis or hepatocellular dise ase. Multiple gallstones are seen.. PANCREAS- No gross abnormality is seen. SPLEEN- No gross abnormality is seen. ADRENALS- No gross abnormality is seen. KIDNEYS/BLADDER- no hydronephrosis nephrolithiasis or renal mass. BOWEL-diverticulosis. Small segment of small bowel contained within the anterior abdominal wall herni a. No obstruction.. Normal appendix. Stomach is nondistended and limited in evaluation. Small hiatal hernia noted. A few mildly prominent fluid-filled small bowel loops. LYMPH NODES- No greater than 1cm abdominal or pelvic lymph nodes areappreciated. OSSEOUS STRUCTURES-postsurgical change left hip. Arthropathy right hip with multilevel hypertrophic a nd degenerative changes of the spine. Severe compression deformity T12. Sclerosis of the bilateral pa rs of L5 without evidence of discrete defect. OTHER- there is a anterior abdominal wall hernia containing segment of bowel but no evidence of stru ctural. Moderate ascites is seen. There is evidence of intra-abdominal varices. Soft tissue calcifica tions incidentally noted. Mild subcutaneous edema. Correlate for mild anasarca. IMPRESSION- 1. Heterogeneous enhancement of the liver with the findings suggestive of hepatocellular disease. Int ra-abdominal varices also suggestive of hepatocellular disease correlate clinically. There is a moder ate amount of ascites. 2. There is a small anterior abdominal wall hernia containing a segment of small bowel but no obstruc tion. 3. Cholelithiasis. 4. Pancreas is somewhat low in attenuation recommend correlation with serum pancreatic enzymes studie s to exclude pancreatitis. Intra-abdominal fluid limits assessment for peripancreatic inflammation. 5. Chronic is nondistended but there does appear to be wall thickening. This could be related to inco mplete distention rather than gastritis however correlation clinically is suggested. 6. There are couple small bowel fluid-filled prominent loops in mid to left abdomen. No definite porras sition suspected ileus rather than an enteritis or partial obstruction correlate clinically 7. Age-indeterminate compression deformity which
[2021-11-11] MEDS ORDERED: NALOXONE 0.4 MG/ML 1 ML VIAL IV PRN ×2 (14:20→14:58)
--- NOTE | 2021-11-11 14:27 | ED ---
GI Bleed HPI - General Chief complaint: GI Bleed Stated complaint: Abd Pain, poss GI BLeed Source: patient, RN notes reviewed Mode of arrival: EMS Limitations: no limitations - History of Present Illness Initial comments: She is a 71-year-old female that presents to the emergency department complaining of bright red blood per rectum and abdominal distention. She notes she does have a pretty significant past history involving several abdominal procedures. She notes she does have congestive heart failure. Patient otherwise stated that her abdomen is tender to the touch in distended with one usual. Patient was otherwise in good spirits in no apparent distress. She noted that she had 3 bouts of diarrhea with bright red blood. She denied any chest pain shortness of breath headache nausea vomiting constipation fever fatigue chills. - Related Data Home Medications Medication Instructions Recorded Confirmed Omeprazole 20 mg PO BID 10/04/14 12/25/19 Folic Acid 1 mg PO DAILY 06/12/15 12/25/19 Vitamin B Complex 1 cap PO DAILY 06/12/15 12/25/19 Ferrous Sulfate [Iron (65 MG 325 mg PO DAILY 10/25/18 12/25/19 Elemental)] Atorvastatin [Lipitor] 10 mg PO DAILY 02/19/19 12/25/19 Magnesium Oxide [Mag-Ox] 400 mg PO DAILY 02/19/19 12/25/19 Azelastine HCl 2 spray EA NOSTRIL BID 08/21/19 12/25/19 Dicyclomine [Bentyl] 20 mg PO TID 08/21/19 12/26/19 Furosemide [Lasix] 20 mg PO DAILY 08/21/19 12/25/19 Potassium Chloride [Klor-Con 10 ER] 10 meq PO BID-W/MEALS 08/21/19 12/25/19 Sodium Bicarbonate Tab 650 mg PO DAILY 08/21/19 12/25/19 lisinopriL [Zestril] 10 mg PO DAILY 08/21/19 12/25/19 Acetaminophen [Tylenol Extra 1,000 mg PO BID 12/25/19 12/25/19 Strength] Albuterol Nebulized [Ventolin 2.5 mg INHALATION RT-TID 12/25/19 12/26/19 Nebulized] Budesonide [Pulmicort] 0.5 mg INHALATION Q48H 12/26/19 12/26/19 Previous Rx's Medication Instructions Recorded HYDROcodone/APAP 10-325MG [[place] 1 tab PO Q8H PRN #9 tab 12/28/19 10-325] LORazepam [Ativan] 0.5 mg PO BID PRN #6 tab 12/28/19 Melatonin 5 mg PO HS tablet 12/28/19 Psyllium Husk (with Sugar) 0 gm PO DAILY #30 gm 12/28/19 [Metamucil Powder] Venlafaxine HCl ER [Effexor XR] 75 mg PO DAILY cap.er.24h 12/28/19 busPIRone HCl [Buspar] 10 mg PO BID tab 12/28/19 Allergies Allergy/AdvReac Type Severity Reaction Status Date / Time codeine Allergy Rash/Hives Verified 11/11/21 12:11 nicotine Allergy Swelling Verified 11/11/21 12:11 Tetracyclines Allergy Rash/Hives Verified 11/11/21 12:11 venom-honey bee Allergy Anaphylaxis Verified 11/11/21 12:11 [bee venom (honey bee)] Review of Systems ROS Statement: Those systems with pertinent positive or pertinent negative responses have been documented in the HPI. ROS Other: All systems not noted in ROS Statement are negative. Past Medical History Past Medical History: Asthma, Chest Pain / Angina, Heart Failure, COPD, Diabetes Mellitus, GERD/Reflux, Hyperlipidemia, Hypertension, Osteoarthritis (OA), Rheumatoid Arthritis (RA) Additional Past Medical History / Comment(s): DIET CONTROLLED DIABETES, BACK PAIN, diverticulitis,colitis, just d/c Tuesday from [facility] for CP that pt. says is "muscle around heart", had low magnesium & potassium also, dysphagia w/ meds, diarrhea for 4 months-started on cholestyramine-now constipation History of Any Multi-Drug Resistant Organisms: ESBL Date of last positivie culture/infection: 09/08/18 ESBL-E.coli MDRO Source:: Urine Past Surgical History: Appendectomy, Bowel Resection, Breast Surgery, Section, Hernia Repair, Hysterectomy, Joint Replacement, Tonsillectomy Additional Past Surgical History / Comment(s): 06/17/15 Total L knee arthroplasty & right knee replaced, left hip replaced, Other SX: LT BREAST BIOPSY, POLYPS REMOVED FROM THROAT, ROBOTIC INCISIONAL HERNIA REPAIR, LYSIS OF ADHESIONS. Past Anesthesia/Blood Transfusion Reactions: No Reported Reaction Past Psychological History: Anxiety, Depression, PTSD Past Alcohol Use History: Daily Past Drug Use History: Marijuana - Past Family History Father Family Medical History: Deep Vein Thrombosis (DVT), Pulmonary Embolus Mother Family Medical History: Cancer General Exam Limitations: no limitations General appearance: alert, in no apparent distress Head exam: Present: atraumatic, normocephalic, normal inspection Eye exam: Present: normal appearance, PERRL, EOMI. Absent: scleral icterus, conjunctival injection, periorbital swelling ENT exam: Present: normal exam, mucous membranes moist Neck exam: Present: normal inspection Respiratory exam: Present: normal lung sounds bilaterally. Absent: respiratory distress, wheezes, rales, rhonchi, stridor Cardiovascular Exam: Present: regular rate, normal rhythm, normal heart sounds. Absent: systolic murmur, diastolic murmur, rubs, gallop, clicks GI/Abdominal exam: Present: soft, distended, tenderness (Exquisitely), normal bowel sounds. Absent: guarding, rebound, rigid Rectal exam: Present: hemorrhoids (external) Extremities exam: Present: normal inspection, full ROM, normal capillary refill. Absent: tenderness, pedal edema, joint swelling, calf tenderness Neurological exam: Present: alert, oriented X3 Psychiatric exam: Present: normal affect, normal mood Skin exam: Present: warm, dry, intact, normal color. Absent: rash Course Vital Signs 11/11/21 12:03 Temperature 98.3 F Pulse Rate 93 Respiratory 18 Rate Blood Pressure 130/69 Procedures - [place] Protocol (Time Out) Nurse: Anam Gonzales Medical Decision Making - Medical Decision Making 71-year-old female complaining of abdominal distention and GI bleed. Labs, occult blood test, CT of the abdomen and pelvis, 4 mg of morphine ordered. Labs: CBC unremarkable, CMP shows hyponatremia, lactic acid of 4.4. Urinalysis negative. Computed tomography scan shows moderate amount of ascites, cholelithiasis. Given patient's labs and imaging findings patient be admitted with interventional radiology and a GI on consult. Case discussed with Dr. Iniguez. Dr. Mantilla consulted and will accept the admit. - Lab Data Result diagrams: 11/11/21 12:12 11/11/21 12:12 Lab Results 11/11/21 11/11/21 11/11/21 Range/Units 12:12 12:12 12:12 WBC 10.1 (3.8-10.6) k/uL RBC 3.06 L (3.80-5.40) m/uL Hgb 9.9 L (11.4-16.0) gm/dL Hct 30.3 L (34.0-46.0) % MCV 99.1 (80.0-100.0) fL MCH 32.5 (25.0-35.0) pg MCHC 32.8 (31.0-37.0) g/dL RDW 17.3 H (11.5-15.5) % Plt Count 156 (150-450) k/uL MPV 6.6 Neutrophils % 56 % Lymphocytes % 37 % Monocytes % 4 % Eosinophils % 1 % Basophils % 0 % Neutrophils # 5.7 (1.3-7.7) k/uL Lymphocytes # 3.7 (1.0-4.8) k/uL Monocytes # 0.4 (0-1.0) k/uL Eosinophils # 0.1 (0-0.7) k/uL Basophils # 0.0 (0-0.2) k/uL Anisocytosis Slight Macrocytosis Slight Sodium 128 L (137-145) mmol/L Potassium 3.2 L (3.5-5.1) mmol/L Chloride 96 L (98-107) mmol/L Carbon Dioxide 17 L (22-30) mmol/L Anion Gap 15 mmol/L BUN 3 L (7-17) mg/dL Creatinine 0.48 L (0.52-1.04) mg/dL Est GFR (CKD-EPI)AfAm >90 (>60 ml/min/1.73 sqM) Est GFR (CKD-EPI)NonAf >90 (>60 ml/min/1.73 sqM) Glucose 101 H (74-99) mg/dL Plasma Lactic Acid Walt 4.4 H* (0.7-2.0) mmol/L Calcium 8.3 L (8.4-10.2) mg/dL Total Bilirubin 2.6 H (0.2-1.3) mg/dL AST 66 H (14-36) U/L ALT 21 (4-34) U/L Alkaline Phosphatase 143 H (38-126) U/L Total Protein 7.5 (6.3-8.2) g/dL Albumin 2.9 L (3.5-5.0) g/dL Amylase 43 (30-110) U/L Lipase 30 (23-300) U/L Urine Color Urine Appearance (Clear) Urine pH (5.0-8.0) Ur Specific [place] (1.001-1.035) Urine Protein (Negative) Urine Glucose (UA) (Negative) Urine Ketones (Negative) Urine Blood (Negative) Urine Nitrite (Negative) Urine Bilirubin (Negative) Urine Urobilinogen (<2.0) mg/dL Ur Leukocyte Esterase (Negative) Urine RBC (0-5) /hpf Urine WBC (0-5) /hpf Ur Squamous Epith Cells (0-4) /hpf Urine Bacteria (None) /hpf Urine Mucus (None) /hpf 11/11/21 Range/Units 13:21 WBC (3.8-10.6) k/uL RBC (3.80-5.40) m/uL Hgb (11.4-16.0) gm/dL Hct (34.0-46.0) % MCV (80.0-100.0) fL MCH (25.0-35.0) pg MCHC (31.0-37.0) g/dL RDW (11.5-15.5) % Plt Count (150-450) k/uL MPV Neutrophils % % Lymphocytes % % Monocytes % % Eosinophils % % Basophils % % Neutrophils # (1.3-7.7) k/uL Lymphocytes # (1.0-4.8) k/uL Monocytes # (0-1.0) k/uL Eosinophils # (0-0.7) k/uL Basophils # (0-0.2) k/uL Anisocytosis Macrocytosis Sodium (137-145) mmol/L Potassium (3.5-5.1) mmol/L Chloride (98-107) mmol/L Carbon Dioxide (22-30) mmol/L Anion Gap mmol/L BUN (7-17) mg/dL Creatinine (0.52-1.04) mg/dL Est GFR (CKD-EPI)AfAm (>60 ml/min/1.73 sqM) Est GFR (CKD-EPI)NonAf (>60 ml/min/1.73 sqM) Glucose (74-99) mg/dL Plasma Lactic Acid Walt (0.7-2.0) mmol/L Calcium (8.4-10.2) mg/dL Total Bilirubin (0.2-1.3) mg/dL AST (14-36) U/L ALT (4-34) U/L Alkaline Phosphatase (38-126) U/L Total Protein (6.3-8.2) g/dL Albumin (3.5-5.0) g/dL Amylase (30-110) U/L Lipase (23-300) U/L Urine Color Yellow Urine Appearance Clear (Clear) Urine pH 5.5 (5.0-8.0) Ur Specific [place] 1.013 (1.001-1.035) Urine Protein Negative (Negative) Urine Glucose (UA) Negative (Negative) Urine Ketones Negative (Negative) Urine Blood Negative (Negative) Urine Nitrite Negative (Negative) Urine Bilirubin Negative (Negative) Urine Urobilinogen <2.0 (<2.0) mg/dL Ur Leukocyte Esterase Trace H (Negative) Urine RBC <1 (0-5) /hpf Urine WBC 2 (0-5) /hpf Ur Squamous Epith Cells 4 (0-4) /hpf Urine Bacteria Rare H (None) /hpf Urine Mucus Occasional H (None) /hpf - Radiology Data Radiology results: report reviewed, image reviewed CT of the abdomen and pelvis: Heterogeneous enhancement of the liver with findings suggestive of hepatocellular disease. Intra-abdominal varices also suggestive of hepatocellular disease. There is a moderate amount of ascites. There is a small anterior abdominal wall hernia containing a segment of small bowel but no obstruction. Cholelithiasis. Pancreas is somewhat low in attenuation recommend correlation with serum pancreatic enzymes. Chronic nondistended but there does appear to be wall thickening. This could be related incomplete distention rather than gastritis. There are couple small bowel fluid filled prominent loops in the mid to left upper abdomen. Disposition Clinical Impression: Hematochezia, Hyponatremia, Ascites Disposition: ADMITTED IP TO THIS HOSP Condition: Stable Is patient prescribed a controlled substance at d/c from ED?: No Referrals: Shahla Lambert MD [Primary Care Provider] - 1-2 days Time of Disposition: 14:29
[2021-11-11] MEDS ORDERED: SODIUM CHLORIDE 0.9% 1,000 ML IV SCH (14:30)
--- NOTE | 2021-11-11 14:31 | XR ---
EXAMINATION TYPE: XR chest 2V DATE OF EXAM: 11/11/2021 COMPARISON: Chest x-ray August 21, 2019 HISTORY: CHF and pain. TECHNIQUE: Frontal and lateral views of the chest are obtained. FINDINGS: There is elevated right hemidiaphragm with anterior right basilar linear scarring and/or a telectasis redemonstrated. Diminished inspiration on current study. Left lung remains clear. The car diac silhouette size remains upper limits of normal. The osseous structures are intact. IMPRESSION: Chronic changes and diminished inspiration without new suspicious acute process.
[2021-11-11] MEDS ORDERED: POTASSIUM CHLORIDE ER 20 MEQ TAB.ER PO STA (15:01)
[2021-11-11] MEDS ORDERED: ACETAMINOPHEN TAB 325 MG TAB PO PRN (16:55)
[2021-11-11] MEDS ORDERED: ALBUTEROL HFA INHALER INHALATION PRN (16:55)
[2021-11-11 17:14] LABS: INR 1.4 (<1.2); Prothrombin Time 14.5 sec (9.0-12.0)
[2021-11-11] MEDS: ATORVASTATIN 10 MG TAB PO SCH (18:12)
--- NOTE | 2021-11-11 18:17 | HP ---
HISTORY AND PHYSICAL DATE OF SERVICE: 11/11/2021 CHIEF COMPLAINTS: Abdominal pain and distention as well as possible GI bleed. HISTORY OF PRESENT ILLNESS: This 71-year-old woman with a past medical history of multiple medical problems, including asthma, chest pain, history of CHF, COPD, diabetes mellitus, GERD, hypertension, hyperlipidemia, history of DJD, history of rheumatoid arthritis, being followed by Dr. Shahla Lambert in the outpatient setting, is complaining of abdominal pain, suspected to have some lower GI bleeding also. The patient had multiple abdominal procedures, including section. The patient also has some CHF. The patient was taking alcohol in large quantities again, one beer, according to her. There is no history of any fever, rigors or chills. No history of headache, loss of consciousness. The patient also had 3 bouts of diarrhea with some bright red blood. Patient is admitted for further evaluation and treatment. Hemoglobin showed 9.9 and sodium is 128, potassium 3.2. The patient has multiple other laboratory abnormalities: Lactic acid 4.4, bilirubin is 2.6 and albumin is 2.9. Chronic liver disease is strongly suspected. COVID-19 is negative. Stool OB was found to be negative. The patient also had a CT scan of the abdomen and pelvis that was reviewed personally and showed a couple of fluid-filled prominent bowel loops. The patient is admitted for further evaluation and treatment. There is no history of any fever, rigors or chills. No history of headache, loss of consciousness, seizures. PAST MEDICAL HISTORY: History of asthma, COPD, CHF, diabetes mellitus, GERD, hypertension, hyperlipidemia. HOME MEDICATIONS: Albuterol, supplement, Ultram, Protonix, Cozaar, B complex, Metamucil, Lipitor, BuSpar, Lasix. Doses and other medications are reviewed. ALLERGIES: CODEINE, ECOTRIN, TETRACYCLINE, LISINOPRIL, FAMILY HISTORY: History of DVT and pulmonary embolism in the family. SOCIAL HISTORY: History of alcohol, as mentioned earlier. No history of smoking, but history of THC. REVIEW OF SYSTEMS: ENT: No diminished hearing. No diminished vision. CARDIOVASCULAR SYSTEM: No angina, palpitations. RESPIRATORY SYSTEM: As mentioned earlier. GI: As mentioned earlier. : No dysuria. NERVOUS SYSTEM: No numbness, weakness. ALLERGY/IMMUNOLOGY: As mentioned earlier. MUSCULOSKELETAL: As mentioned earlier. HEMATOLOGY/ONCOLOGY: No history of anemia. ENDOCRINE: As mentioned earlier. CONSTITUTIONAL: As mentioned earlier. DERMATOLOGY: Negative. RHEUMATOLOGY: Negative. PSYCHIATRY: As mentioned earlier. PHYSICAL EXAMINATION: Patient alert and oriented x3. Pulse is 93, blood pressure 130/69, respiration 18, temperature 98.3, pulse ox 98% on room air. HEENT: Conjunctivae pale. NECK: No jugular venous distention. CARDIOVASCULAR: S1, S2 muffled. RESPIRATION: Breath sounds diminished at the bases. A few scattered rhonchi. ABDOMEN: Soft. Tense. Diffuse distention and ascites present. Fluid thrill present. section in the midline. LEGS: Minimal bilateral leg edema. NERVOUS SYSTEM: Higher functions as mentioned earlier. Moves all 4 limbs. No focal motor or sensory deficit. LYMPHATICS: No lymph node palpable in neck, axillae or groin. SKIN: No ulcer, rash, bleeding. JOINTS: No active deforming arthropathy. LABS: WBC is 10.3, hemoglobin 9.9, sodium 128, potassium 3.2. Other labs are noted. ASSESSMENT: 1. Abdominal pain and lower gastrointestinal bleeding for evaluation. 2. Tense ascites, possibly secondary to cirrhosis of the liver. 3. Cirrhosis of the liver and chronic liver disease secondary to alcoholic cirrhosis. 4. Hyponatremia. 5. Hypokalemia. 6. Acute metabolic acidosis. 7. Elevated plasma lactic acid. Rule out sepsis and spontaneous bacterial peritonitis. 8. Elevated bilirubin and AST, possibly alcoholic hepatitis and cirrhosis of the liver. 9. Hypoalbuminemia with mild protein-calorie malnutrition. 10.Anemia, normocytic anemia secondary to cirrhosis of the liver. 11.History of asthma, chronic intermittent. 12.History of chest pain. 13.History of congestive heart failure. 14.Chronic obstructive pulmonary disease. 15.Diabetes mellitus, type 2. 16.Gastroesophageal reflux disease. 17.Hypertension. 18.Hyperlipidemia. 19.History of degenerative joint disease. 20.History of rheumatoid arthritis. 21.History of diet-controlled diabetes mellitus. 22.History of diverticulitis. 23.History of colitis. 24.History of diarrhea. 25.History of ESBL Escherichia coli. 26.History of bowel resection. 27.Anxiety, depression, posttraumatic stress disorder. 28.History of ETOH. 29.History of marijuana. 30.Mild protein-calorie malnutrition. 31.FULL CODE. RECOMMENDATIONS AND DISCUSSION: In this 71-year-old woman who presented with multiple complex medical issues, we will monitor the patient closely, continue symptomatic treatment. Otherwise, we will consult Gastroenterology for further evaluation. Also recommend interventional radiology for possible ascitic tap. Other than that, I would also recommend symptomatic treatment. Resume the home medications. Empiric antibiotics. Follow the cultures. Closely follow. Prognosis extremely guarded because of multiple complex medical conditions. Further recommendations to follow. A copy of this dictation is being forwarded to Dr. Shahla Lambert, who is the primary physician. MMODL / IJN: [id number] / MTDD
[2021-11-11] MEDS: traMADol 50 MG TAB PO PRN (18:19)
[2021-11-11] MEDS: BUDESONIDE 0.5 MG/2 ML NEBU INHALATION SCH (20:27)
[2021-11-11] MEDS: MORPHINE SULFATE 4 MG/ML SYRINGE IV PRN (21:04)
[2021-11-11] MEDS: DICYCLOMINE 20 MG TAB PO SCH (21:05)
[2021-11-11] MEDS: MELATONIN 5 MG TABLET PO PRN (21:05)
[2021-11-11] MEDS: busPIRone HCl 10 MG TAB PO SCH (21:05)
[2021-11-11] MEDS: AZELASTINE 137MCG/SPRAY EA NOSTRIL SCH (21:11)
[2021-11-12] MEDS: ONDANSETRON 4 MG/2 ML VIAL IVP PRN (04:12)
[2021-11-12] MEDS: MORPHINE SULFATE 4 MG/ML SYRINGE IV PRN (04:12)
[2021-11-12] MEDS: ATORVASTATIN 10 MG TAB PO SCH (07:43)
[2021-11-12] MEDS: PANTOPRAZOLE 40 MG TABLET PO SCH (07:43)
[2021-11-12] MEDS: VENLAFAXINE HCL ER 75 MG CAP PO SCH (07:44)
[2021-11-12] MEDS: DICYCLOMINE 20 MG TAB PO SCH ×2 (07:44→20:51)
[2021-11-12] MEDS: MAGNESIUM OXIDE 400 MG TAB PO SCH (07:44)
[2021-11-12] MEDS: FOLIC ACID 1 MG TAB PO SCH (07:44)
[2021-11-12] MEDS: busPIRone HCl 10 MG TAB PO SCH ×2 (07:44→20:51)
[2021-11-12] MEDS: FERROUS SULFATE 325 MG TAB PO SCH (07:44)
[2021-11-12] MEDS: LOSARTAN 50 MG TAB PO SCH (07:45)
[2021-11-12] MEDS: SODIUM BICARBONATE TAB 650 MG TAB PO SCH (07:45)
[2021-11-12] MEDS: AZELASTINE 137MCG/SPRAY EA NOSTRIL SCH ×2 (07:56→20:52)
[2021-11-12] MEDS: BUDESONIDE 0.5 MG/2 ML NEBU INHALATION SCH ×2 (07:59→20:19)
[2021-11-12] MEDS ORDERED: NON FORMULARY DRUG (Vitamin B Complex [Vitamin B Complex] 1 EACH Capsule) PO SCH (09:00)
--- NOTE | 2021-11-12 12:01 | US ---
Ultrasound-guided paracentesis. DATE OF EXAM: 11/12/2021 CLINICAL HISTORY: Ascites The procedure was discussed with the patient. The risks, complications, benefits, and alternatives we re discussed and any questions were answered. Informed consent was obtained. The patient was placed s upine on the ultrasound table and prepped and draped in the usual sterile fashion. All elements of maximal barrier technique were utilized. Under ultrasound guidance, access into the right lower quadrant was obtained, via the paracentesis catheter system and direct ultrasound guidanc e. Approximately 1.8 liters of straw-colored fluid was removed. The patient was stable throughout the pr ocedure and remained stable upon discharge from Department of Radiology. IMPRESSION: Successful paracentesis under ultrasound guidance.
[2021-11-12 12:50] LABS: Anisocytosis Slight; Basophils % (A) 0 %; Eosinophils # (A) 0.1 k/uL (0-0.7); Eosinophils % (A) 2 %; HCT 32.1 % (34.0-46.0); HGB 10.2 gm/dL (11.4-16.0); Hypochromasia Slight; Lymphocytes # (A) 1.6 k/uL (1.0-4.8); Lymphocytes % (A) 26 %; MCH 32.7 pg (25.0-35.0); MCHC 31.6 g/dL (31.0-37.0); MCV 103.4 fL (80.0-100.0); Macrocytosis Moderate; Monocytes # (A) 0.2 k/uL (0-1.0); Monocytes % (A) 3 %; Neutrophils # (A) 4.3 k/uL (1.3-7.7); Neutrophils % (A) 67 %; Platelet Count 160 k/uL (150-450); RBC 3.11 m/uL (3.80-5.40); RDW 17.4 % (11.5-15.5); WBC 6.4 k/uL (3.8-10.6)
[2021-11-12] MEDS: SPIRONOLACTONE 25 MG TAB PO SCH ×2 (12:51→20:51)
[2021-11-12] MEDS: FUROSEMIDE 10 MG/ML 4 ML VIAL IV SCH ×2 (12:51→20:50)
[2021-11-12 13:00] LABS: African American GFR (CKD) >90 (>60 ml/min/1.73 sqM); Anion Gap 5 mmol/L; Blood Urea Nitrogen 5 mg/dL (7-17); Calcium 8.4 mg/dL (8.4-10.2); Carbon Dioxide 24 mmol/L (22-30); Chloride 100 mmol/L (98-107); Glucose 111 mg/dL (74-99); Non-African American GFR(CKD) >90 (>60 ml/min/1.73 sqM); Potassium 3.8 mmol/L (3.5-5.1); Sodium 129 mmol/L (137-145)
[2021-11-12] MEDS: traMADol 50 MG TAB PO PRN ×2 (13:05→20:50)
--- NOTE | 2021-11-12 14:54 | P.CONS ---
History of Present Illness - Reason for Consult Consult date: 11/12/21 Acities, GI bleed Requesting physician: Renny Dukes - Chief Complaint Rectal bleeding - History of Present Illness This is 71-year-old female with multiple comorbidities and multiple abdominal surgeries in the past. Past medical history includes asthma, heart failure C OPD, diabetes mellitus GERD, hyperlipidemia, hypertension, osteoarthritis, rheumatoid arthritis and diverticulitis. She is status post appendectomy, bowel resection, section hernia repair hysterectomy and attempted cholecystectomy however had too many adhesions and the procedure was aborted. The patient presented to the emergency department yesterday afternoon with complaints of bright red blood per rectum following a bowel movement as well as abdominal distention. Patient has a long-standing history of chronic constipation alternating with diarrhea. States she was straining yesterday having a bowel movement a few solid letha when she noticed that she had some preliminary blood on the toilet tissue as well as in the toilet. She denied any further bleeding after that. Denied any associated abdominal pain or cramping. She is having some abdominal discomfort however related to distention. Patient does have a history of alcoholic cirrhosis of the liver but does not follow up with gastroenterology. The patient is not on any anticoagulation. She's had history of iron deficiency anemia in the past with some bleeding and underwent an EGD and colonoscopy on 02/22/2019 with with findings of narrowing of the proximal esophagus, esophageal ulcer without any active bleeding, mild gastritis in the antrum and a hiatal hernia. Colonoscopy revealed mild divertic ulosis and moderate internal hemorrhoids. A CT of the abdomen and pelvis revealed heterogeneous enhancement of the liver with findings suggestive of hepatocellular disease. Intra-abdominal varices also suggestive of hepatocellular disease correlate clinically. There is moderate amount of ascites. There is a small anterior abdominal hernia containing segment of small bowel but no obstruction. Cholelithiasis. Pancreas somewhat low in attenuation recommend correlation with serum pancreatic enzymes to exclude pancreatitis. A couple small bowel fluid filled prominent loops in mid to left abdomen no definite transition suspected ileus rather than enteritis or partial obstruction. Patient denies any previous history of ascites or paracentesis. Patient was on Lasix 20 mg daily at home. WBC 6.4 hemoglobin 10.2 hematocrit 32 platelet count 160,000 total bilirubin 2.6 AST 66 ALT 21 alkaline phosphatase 143 amylase 43 lipase 30 stool occult blood negative Strange virus PCR not detected. Patient states that she has a long-standing history of alcohol use in her past. States that she started drinking wine at the age of 15. That she often drinks beer daily. States that she was recently told that she was not supposed to be drinking anymore in the last 2-3 months by her PCP. However she states she did have a beer the other day. Review of Systems REVIEW OF SYSTEMS: CARDIOPULMONARY: No chest pain or shortness of breath. Gastrointestinal: Abdominal distention. No nausea or vomiting. No hematemesis, coffee-ground emesis. Constipation with straining. Bright red blood per rectum with bowel movement. GENITOURINARY: No dysuria or hematuria. MUSCULOSKELETAL: Reports normal range of motion., Joint pain. SKIN: No rashes. No jaundice. ENDOCRINE: No chills, fevers. No excessive weight gain or loss. No polydipsia or polyuria. PSYCHIATRIC: Unremarkable. NEUROLOGY: No change in mental status. Denies dizziness, headache. ENT: Vision unremarkable. CONSTITUTIONAL: No recent weight loss. No fever, chills, night sweats. Past Medical History Past Medical History: Asthma, Chest Pain / Angina, Heart Failure, COPD, Diabetes Mellitus, GERD/Reflux, Hyperlipidemia, Hypertension, Osteoarthritis (OA), Rheumatoid Arthritis (RA) Additional Past Medical History / Comment(s): DIET CONTROLLED DIABETES, BACK PAIN, diverticulitis,colitis, just d/c Tuesday from [facility] for CP that pt. says is "muscle around heart", had low magnesium & potassium also, dysphagia w/meds, diarrhea for 4 months-started on cholestyramine-now constipation History of Any Multi-Drug Resistant Organisms: ESBL Year Discovered:: 09/08/18 ESBL-E.coli MDRO Source:: Urine Past Surgical History: Appendectomy, Bowel Resection, Breast Surgery, Section, Hernia Repair, Hysterectomy, Joint Replacement, Tonsillectomy Additional Past Surgical History / Comment(s): 06/17/15 Total L knee arthroplasty & right knee replaced, left hip replaced, Other SX: LT BREAST BIOPSY, POLYPS REMOVED FROM THROAT, ROBOTIC INCISIONAL HERNIA REPAIR, LYSIS OF ADHESIONS. Past Anesthesia/Blood Transfusion Reactions: No Reported Reaction Past Psychological History: Anxiety, Depression, PTSD Additional Psychological History / Comment(s): . Smoking Status: Never smoker Past Alcohol Use History: Daily Additional Past Alcohol Use History / Comment(s): used to drink 24ounce can of beer per day, hasn't drank in several months Past Drug Use History: Marijuana Additional Drug Use History / Comment(s): doesn't use anymore-quit several years ago - Past Family History Father Family Medical History: Deep Vein Thrombosis (DVT), Pulmonary Embolus Mother Family Medical History: Cancer Medications and Allergies Home Medications Medication Instructions Recorded Confirmed Type Folic Acid 1 mg PO DAILY 06/12/15 11/11/21 History Vitamin B Complex 1 cap PO DAILY 06/12/15 11/11/21 History Ferrous Sulfate [Iron (65 MG 325 mg PO DAILY 10/25/18 11/11/21 History Elemental)] Atorvastatin [Lipitor] 10 mg PO DAILY 02/19/19 11/11/21 History Magnesium Oxide [Mag-Ox] 400 mg PO DAILY 02/19/19 11/11/21 History Azelastine HCl 2 spray EA NOSTRIL BID 08/21/19 11/11/21 History Dicyclomine [Bentyl] 20 mg PO BID 08/21/19 11/11/21 History Furosemide [Lasix] 20 mg PO DAILY 08/21/19 11/11/21 History Budesonide [Pulmicort] 0.5 mg INHALATION RT-BID 12/26/19 11/11/21 History Venlafaxine HCl ER [Effexor XR] 75 mg PO DAILY cap.er.24h 12/28/19 11/11/21 Rx busPIRone HCl [Buspar] 10 mg PO BID tab 12/28/19 11/11/21 Rx Acetaminophen Tab [Tylenol] 650 mg PO Q4H PRN 11/11/21 11/11/21 History Albuterol Sulfate [Albuterol 2 puff INHALATION RT-Q6H PRN 11/11/21 11/11/21 History Sulfate Hfa] Losartan [Cozaar] 50 mg PO DAILY 11/11/21 11/11/21 History Melatonin 5 mg PO HS PRN 11/11/21 11/11/21 History Pantoprazole Sodium [Protonix] 40 mg PO DAILY 11/11/21 11/11/21 History Psyllium Husk (with Sugar) 1 dose PO DAILY 11/11/21 11/11/21 History [Metamucil Powder] Sodium Bicarbonate 325 mg PO DAILY 11/11/21 11/11/21 History traMADol HCL [Ultram] 50 mg PO TID PRN 11/11/21 11/11/21 History Allergies Allergy/AdvReac Type Severity Reaction Status Date / Time codeine Allergy Rash/Hives Verified 11/11/21 15:23 nicotine Allergy Swelling Verified 11/11/21 15:23 Tetracyclines Allergy Rash/Hives Verified 11/11/21 15:23 venom-honey bee Allergy Anaphylaxis Verified 11/11/21 15:23 [bee venom (honey bee)] lisinopril AdvReac Cough Verified 11/11/21 15:23 oxycodone AdvReac gi upset Verified 11/11/21 15:23 Physical Exam Vitals: Vital Signs Temp Pulse Pulse Resp BP Pulse Ox 11/12/21 12:00 97.7 F 70 24 121/68 100 11/12/21 11:05 81 16 111/61 97 11/12/21 10:45 83 16 115/60 98 11/12/21 10:15 86 18 118/56 98 11/12/21 08:10 76 11/12/21 08:00 76 11/12/21 04:17 97.9 F 79 16 100/57 96 11/11/21 21:30 98.1 F 86 20 106/68 98 11/11/21 20:35 78 11/11/21 20:27 77 11/11/21 18:20 98.4 F 77 16 124/76 98 Intake and Output 11/11/21 11/12/21 11/12/21 22:59 06:59 14:59 Intake Total 100 Output Total 600 Balance -500 Intake: Oral 100 Output: Urine 600 Other: Weight 66.678 kg General appearance: The patient is alert, oriented, appears in no acute distress. HET: Head is normocephalic and atraumatic. Conjunctiva pink. Sclera anicteric. Neck: Supple without lymphadenopathy. Trachea midline. Heart: S1 S2. Regular rate and rhythm. Lungs: Clear to auscultation. Abdomen: Soft, mild tenderness to palpation, distended. Abdominal scarring noted No guarding or rigidity. Skin: No rashes. No jaundice. Extremities: Normal skin color and turgor. No pedal edema. Neurological: No focal deficits. Alert and oriented x3. Results CBC & Chem 7: 11/12/21 12:09 01/13/22 12:09 Labs: Abnormal Lab Results - Last 24 Hours (Table) 11/11/21 11/11/21 11/11/21 Range/Units 12:12 13:21 14:58 RBC 3.06 L (3.80-5.40) m/uL Hgb 9.9 L (11.4-16.0) gm/dL Hct 30.3 L (34.0-46.0) % MCV (80.0-100.0) fL RDW 17.3 H (11.5-15.5) % PT (9.0-12.0) sec INR (<1.2) Sodium (137-145) mmol/L BUN (7-17) mg/dL Glucose (74-99) mg/dL Plasma Lactic Acid Walt 4.1 H* (0.7-2.0) mmol/L Ur Leukocyte Esterase Trace H (Negative) Urine Bacteria Rare H (None) /hpf Urine Mucus Occasional H (None) /hpf 11/11/21 11/11/21 11/12/21 Range/Units 15:32 19:33 12:09 RBC 3.11 L (3.80-5.40) m/uL Hgb 10.2 L (11.4-16.0) gm/dL Hct 32.1 L (34.0-46.0) % MCV 103.4 H (80.0-100.0) fL RDW 17.4 H (11.5-15.5) % PT 14.5 H (9.0-12.0) sec INR 1.4 H (<1.2) Sodium (137-145) mmol/L BUN (7-17) mg/dL Glucose (74-99) mg/dL Plasma Lactic Acid Walt 3.4 H* (0.7-2.0) mmol/L Ur Leukocyte Esterase (Negative) Urine Bacteria (None) /hpf Urine Mucus (None) /hpf 11/12/21 Range/Units 12:09 RBC (3.80-5.40) m/uL Hgb (11.4-16.0) gm/dL Hct (34.0-46.0) % MCV (80.0-100.0) fL RDW (11.5-15.5) % PT (9.0-12.0) sec INR (<1.2) Sodium 129 L (137-145) mmol/L BUN 5 L (7-17) mg/dL Glucose 111 H (74-99) mg/dL Plasma Lactic Acid Walt (0.7-2.0) mmol/L Ur Leukocyte Esterase (Negative) Urine Bacteria (None) /hpf Urine Mucus (None) /hpf Comments: A CT of the abdomen and pelvis revealed heterogeneous enhancement of the liver with findings suggestive of hepatocellular disease. Intra-abdominal varices also suggestive of hepatocellular disease correlate clinically. There is moderate amount of ascites. There is a small anterior abdominal hernia containing segment of small bowel but no obstruction. Cholelithiasis. Pancreas somewhat low in attenuation recommend correlation with serum pancreatic enzymes to exclude pancreatitis. CT scan - abdomen: report reviewed Assessment and Plan (1) Alcoholic cirrhosis of liver with ascites Narrative/Plan: 11-year-old female with a history of alcoholic cirrhosis of the liver who presented to the emergency department with complaints of rectal bleeding. Patient does have a history of iron deficiency anemia and constipation. She underwent an EGD and colonoscopy in 2019 as part of workup for GI bleed and iron deficiency anemia. Findings included narrowing of the esophagus with a distal esophageal ulcer. Colonoscopy revealed mild diverticulosis with moderate internal hemorrhoids. The patient states she was having a hard small "pellet" all movement and following she noticed some bright red blood on the toilet tissue and some in the toilet. She had no further bleeding. She also was complaining of some abdominal distention. She was noted to have a CT of the abdomen and pelvis with ascites. She underwent a paracentesis with 1.8 L of fluid removed today. States she does have some improvement in her distention. She denies any previous history of ascites. She did not follow with anybody for her cirrhosis of the liver. Patient states she was told to 3 months ago to quit drinking and states that she did have a period recently. Paracentesis completed with fluid studies. Will continue on Lasix and Aldactone ordered by primary medicine team. Current Visit: Yes Status: Acute Code(s): K70.31 - ALCOHOLIC CIRRHOSIS OF LIVER WITH ASCITES SNOMED Code(s): 603674898 (2) Rectal bleeding Narrative/Plan: Patient with history of constipation with moderate internal hemorrhoids as seen on colonoscopy in 2019. Likely we are dealing with hemorrhoidal bleeding. Hemoglobin is stable at 10.2. No plans on endoscopic evaluation. Current Visit: Yes Status: Acute Code(s): K62.5 - HEMORRHAGE OF ANUS AND RECTUM SNOMED Code(s): 85220688 (3) Internal hemorrhoid Current Visit: Yes Status: Acute Code(s): K64.8 - OTHER HEMORRHOIDS SNOMED Code(s): 18843309 (4) Ascites Current Visit: Yes Status: Acute Code(s): R18.8 - OTHER ASCITES SNOMED Code(s): 973020761 (5) History of gastroesophageal reflux (GERD) Current Visit: No Status: Chronic Code(s): Z87.19 - PERSONAL HISTORY OF OTHER DISEASES OF THE DIGESTIVE SYSTEM SNOMED Code(s): 37077619678229 Plan: 1. Continue symptomatic and supportive care 2. Low-sodium diet, this was discussed with patient 3. Agree with increasing Lasix to 20 mg twice a day and adding Aldactone 4. Agree with paracentesis with fluid studies 5. Recommend Alcohol abstinence 6. Recommend MiraLAX daily 7. Hemorrhoidal suppositories ordered 8. No plans on endoscopic evaluation 9. Recommend outpatient follow-up with gastroenterology, discussed importance of this with the patient, and she has decompensated cirrhosis of the liver. Thank you for this consultation, we will continue to follow. Dr. Ioana Gaviria I agree with the dictator's note, documented as a scribe by Irish Gaona.
[2021-11-12 16:06] VITALS: BMI 27.8
--- NOTE | 2021-11-12 16:17 | P.PN ---
Subjective Progress Note Date: 11/12/21 This is a 71-year-old female who was recently admitted with terminal pain with possible suspected lower GI bleeding and is being closely monitored. GI evaluated the patient with no plans for endoscopic intervention at this time. Most likely dealing with hemorrhoids and has ordered Anusol cream and will continue to monitor for any further signs of worsening bleeding and continue with close monitoring of labs. Hemoglobin is 10.2 today with no bleeding noted. Patient has history of drinking and underwent ultrasound-guided paracentesis with approximately 1.8 L removed and fluid was sent for analysis. Patient will be started on IV Lasix along with Aldactone being resumed and continued on fluid restrictions 1000 mL's per day and repeat labs. PT/OT to evaluate the patient and social work also consulted for possible ECF. She denies any chest pain or palpitations. Patient is afebrile. Patient is tolerating diet and will continue with low-sodium fluid restrictions. labs: WBC is 6.4, hemoglobin is 10.2, platelets are 160, sodium is 129, potassium is 3.8, BUN is 5, creatinine is 0.61, calcium is 8.4 Review of systems: Constitutional: no reports of fatigue, no reports of fever, or chills Cardiovascular: No reports of chest pain or palpitations Respiratory: No reports of shortness of breath or cough GI: No reports of nausea, vomiting, or diarrhea : No reports of dysuria or retention Neurovascular: Reports generalized weakness All medications have been reviewed Active Medications Acetaminophen (Acetaminophen Tab 325 Mg Tab) 650 mg PO Q4H PRN PRN Reason: Pain or Fever > 100.5 Albuterol Sulfate (Albuterol Hfa Inhaler) 2 puff INHALATION RT-Q6H PRN PRN Reason: Shortness Of Breath Last Admin: 11/12/21 08:00 Dose: 2 puff Documented by: Atorvastatin Calcium (Atorvastatin 10 Mg Tab) 10 mg PO DAILY [facility] Last Admin: 11/12/21 07:43 Dose: 10 mg Documented by: Azelastine HCl (Azelastine 137mcg/[place]) 2 spray EA NOSTRIL BID [facility] Last Admin: 11/12/21 07:56 Dose: 2 spray Documented by: Budesonide (Budesonide 0.5 Mg/2 Ml Nebu) 0.5 mg INHALATION RT-BID [facility] Last Admin: 11/12/21 07:59 Dose: 0.5 mg Documented by: Buspirone HCl (Buspirone Hcl 10 Mg Tab) 10 mg PO BID [facility] Last Admin: 11/12/21 07:44 Dose: 10 mg Documented by: Dicyclomine HCl (Dicyclomine 20 Mg Tab) 20 mg PO BID [facility] Last Admin: 11/12/21 07:44 Dose: 20 mg Documented by: Ferrous Sulfate (Ferrous Sulfate 325 Mg Tab) 325 mg PO DAILY [facility] Last Admin: 11/12/21 07:44 Dose: 325 mg Documented by: Folic Acid (Folic Acid 1 Mg Tab) 1 mg PO DAILY [facility] Last Admin: 11/12/21 07:44 Dose: 1 mg Documented by: Furosemide (Furosemide 10 Mg/Ml 4 Ml Vial) 40 mg IV Q12HR [facility] Last Admin: 11/12/21 12:51 Dose: 40 mg Documented by: Hydrocortisone Acetate (Hydrocortisone Suppository 25 Mg Supp) 25 mg RECTAL DAILY [facility] Ceftriaxone Sodium 1 gm/ (Sodium Chloride) 50 mls @ 100 mls/hr IVPB Q24HR [facility] Last Admin: 11/12/21 07:44 Dose: 100 mls/hr Documented by: Losartan Potassium (Losartan 50 Mg Tab) 50 mg PO DAILY [facility] Last Admin: 11/12/21 07:45 Dose: 50 mg Documented by: Magnesium Oxide (Magnesium Oxide 400 Mg Tab) 400 mg PO DAILY [facility] Last Admin: 11/12/21 07:44 Dose: 400 mg Documented by: Melatonin (Melatonin 5 Mg Tablet) 5 mg PO HS PRN PRN Reason: Insomnia Last Admin: 11/11/21 21:05 Dose: 5 mg Documented by: Morphine Sulfate (Morphine Sulfate 4 Mg/Ml Syringe) 4 mg IV Q4HR PRN PRN Reason: Severe Pain Last Admin: 11/12/21 04:12 Dose: 4 mg Documented by: Naloxone HCl (Naloxone 0.4 Mg/Ml 1 Ml Vial) 0.2 mg IV Q2M PRN PRN Reason: Opioid Reversal Ondansetron HCl (Ondansetron 4 Mg/2 Ml Vial) 4 mg IVP Q8HR PRN PRN Reason: Nausea And Vomiting Last Admin: 11/12/21 04:12 Dose: 4 mg Documented by: Pantoprazole Sodium (Pantoprazole 40 Mg Tablet) 40 mg PO DAILY@0730 [facility] Last Admin: 11/12/21 07:43 Dose: 40 mg Documented by: Polyethylene Glycol (Polyethylene Glycol 3350 17 Gm Powd.Pack) 17 gm PO DAILY [facility] Sodium Bicarbonate (Sodium Bicarbonate Tab 650 Mg Tab) 325 mg PO DAILY [facility] Last Admin: 11/12/21 07:45 Dose: 325 mg Documented by: Spironolactone (Spironolactone 25 Mg Tab) 50 mg PO BID [facility] Last Admin: 11/12/21 12:51 Dose: 50 mg Documented by: Tramadol HCl (Tramadol 50 Mg Tab) 50 mg PO TID PRN PRN Reason: Pain Last Admin: 11/12/21 13:05 Dose: 50 mg Documented by: Venlafaxine HCl (Venlafaxine Hcl Er 75 Mg Cap) 75 mg PO DAILY [facility] Last Admin: 11/12/21 07:44 Dose: 75 mg Documented by: Physical exam: Gen: This is a 40-year-old male awake, and oriented 3. Temp is 97.7F, pulse is 70, respirations are 24, blood pressure is 121/68, oxygen saturation is 100% on room air HEENT: Head is atraumatic, normocephalic. Pupils equal, round. Sclerae is anicteric. NECK: Supple. No JVD. No lymphadenopathy. No thyromegaly. LUNGS: Diminished breath sounds bilaterally with a few scattered rhonchi and crackles noted. No intercostal retractions. HEART: S1, S2 are muffled ABDOMEN: Soft. Bowel sounds are present. No masses. No tenderness. EXTREMITIES: No pedal edema. No calf tenderness. NEUROLOGICAL: Patient is awake, alert and oriented 3, diffuse weakness noted skin: No rashes or lesions noted Assessment: Abdominal pain and lower gastrointestinal bleeding for evaluation Tense ascites, possibly secondary to cirrhosis of the liver Cirrhosis of the liver and chronic liver disease secondary to alcoholic cirrhosis Hyponatremia Hypokalemia acute metabolic acidosis Elevated plasma lactic acid. rule out sepsis and spontaneous bacterial peritonitis Elevated bilirubin and AST, possibly alcoholic hepatitis and cirrhosis of the liver Hypoalbuminemia with mild protein calorie malnutrition Anemia, normocytic anemia secondary to cirrhosis of the liver history of asthma, chronic intermittent History chest pain history of congestive heart failure Chronic obstructive pulmonary disease Diabetes mellitus type 2 Gastroesophageal reflux disease Hypertension Hyperlipidemia history of degenerative joint disease History of rheumatoid arthritis History of diet controlled diabetes mellitus History of diverticulitis history of colitis history of diarrhea history of ESBL E. coli History of bowel resection Anxiety, depression, post traumatic stress disorder History of EtOH history of marijuana Mild protein calorie malnutrition Full code Plan: Recommend to continue with current medications and management. GI following the patient recently underwent ultrasound-guided paracentesis with approximately 1.8 L removed and fluid analysis was sent. Will Add IV Lasix twice a day and Aldactone and repeat a.m. labs. Patient to continue with fluid restrictions of 1000 mL's per day and will repeat labs. Recommend continue with low-sodium diet as well. Patient is weak and will have physical therapy evaluate patient and social work consulted as ECF is being planned. Patient is to continue Due to multiple complex medical issues, prognosis is guarded. Objective - Vital Signs Vital signs: Vital Signs Temp 97.7 F 11/12/21 12:00 Pulse 70 11/12/21 12:00 Resp 24 11/12/21 12:00 BP 121/68 11/12/21 12:00 Pulse Ox 100 11/12/21 12:00 Intake & Output 11/11/21 11/12/21 11/12/21 18:59 06:59 18:59 Intake Total 100 Output Total 600 Balance -500 Weight 66.678 kg Intake: Oral 100 Output: Urine 600 - Labs CBC & Chem 7: 11/12/21 12:09 11/12/21 12:09 Labs: Abnormal Lab Results - Last 24 Hours (Table) 11/11/21 11/11/21 11/11/21 Range/Units 14:58 15:32 19:33 RBC (3.80-5.40) m/uL Hgb (11.4-16.0) gm/dL Hct (34.0-46.0) % MCV (80.0-100.0) fL RDW (11.5-15.5) % PT 14.5 H (9.0-12.0) sec INR 1.4 H (<1.2) Sodium (137-145) mmol/L BUN (7-17) mg/dL Glucose (74-99) mg/dL Plasma Lactic Acid Walt 4.1 H* 3.4 H* (0.7-2.0) mmol/L 11/12/21 11/12/21 Range/Units 12:09 12:09 RBC 3.11 L (3.80-5.40) m/uL Hgb 10.2 L (11.4-16.0) gm/dL Hct 32.1 L (34.0-46.0) % MCV 103.4 H (80.0-100.0) fL RDW 17.4 H (11.5-15.5) % PT (9.0-12.0) sec INR (<1.2) Sodium 129 L (137-145) mmol/L BUN 5 L (7-17) mg/dL Glucose 111 H (74-99) mg/dL Plasma Lactic Acid Walt (0.7-2.0) mmol/L
[2021-11-12 19:58] LABS: Appearance,BF Clear
[2021-11-12] MEDS: MELATONIN 5 MG TABLET PO PRN (20:50)
[2021-11-13 06:31] LABS: Total Protein, Body Fluid 727 mg/dL
[2021-11-13] MEDS: SODIUM BICARBONATE TAB 650 MG TAB PO SCH (07:18)
[2021-11-13] MEDS: ATORVASTATIN 10 MG TAB PO SCH (07:18)
[2021-11-13] MEDS: VENLAFAXINE HCL ER 75 MG CAP PO SCH (07:18)
[2021-11-13] MEDS: FERROUS SULFATE 325 MG TAB PO SCH (07:18)
[2021-11-13] MEDS: SPIRONOLACTONE 25 MG TAB PO SCH (07:19)
[2021-11-13] MEDS: MAGNESIUM OXIDE 400 MG TAB PO SCH (07:19)
[2021-11-13] MEDS: AZELASTINE 137MCG/SPRAY EA NOSTRIL SCH (07:20)
[2021-11-13] MEDS: DICYCLOMINE 20 MG TAB PO SCH (07:20)
[2021-11-13] MEDS: PANTOPRAZOLE 40 MG TABLET PO SCH (07:20)
[2021-11-13] MEDS: busPIRone HCl 10 MG TAB PO SCH (07:20)
[2021-11-13] MEDS: FOLIC ACID 1 MG TAB PO SCH (07:20)
[2021-11-13] MEDS: LOSARTAN 50 MG TAB PO SCH (07:20)
[2021-11-13] MEDS: FUROSEMIDE 10 MG/ML 4 ML VIAL IV SCH (07:21)
[2021-11-13] MEDS: traMADol 50 MG TAB PO PRN (07:31)
[2021-11-13 07:34] LABS: Albumin, Fluid Source Ascites
[2021-11-13] MEDS: BUDESONIDE 0.5 MG/2 ML NEBU INHALATION SCH (07:44)
[2021-11-13 08:26] LABS: Anisocytosis Slight; HCT 30.3 % (34.0-46.0); HGB 9.7 gm/dL (11.4-16.0); Hypochromasia Slight; MCH 32.9 pg (25.0-35.0); MCHC 31.8 g/dL (31.0-37.0); MCV 103.3 fL (80.0-100.0); Macrocytosis Moderate; Mean Platelet Volume 7.4; Platelet Count 127 k/uL (150-450); RBC 2.94 m/uL (3.80-5.40); RDW 16.7 % (11.5-15.5); WBC 5.7 k/uL (3.8-10.6)
[2021-11-13] MEDS ORDERED: HYDROCORTISONE SUPPOSITORY 25 MG SUPP RECTAL SCH (09:00)
[2021-11-13] MEDS ORDERED: polyethylene glycoL 3350 17 GM POWD.PACK PO SCH (09:00)
[2021-11-13 10:46] LABS: African American GFR (CKD) 107.8 (60.0-200.0); Albumin 2.4 g/dL (3.8-4.9); Albumin/Globulin Ratio 0.69 (1.60-3.17); BUN/Creat Ratio 8.67 Ratio (12.00-20.00); Blood Urea Nitrogen 5.2 mg/dL (9.0-27.0); Calcium 7.9 mg/dL (8.7-10.3); Globulin 3.5 g/dL (1.6-3.3); Potassium 3.5 mmol/L (3.5-5.5); Total Bilirubin 1.3 mg/dL (0.30-1.20); Total Protein 5.9 g/dL (6.2-8.2)
[2021-11-13] MEDS: MORPHINE SULFATE 4 MG/ML SYRINGE IV PRN (11:07)
[2021-11-13] MEDS: ONDANSETRON 4 MG/2 ML VIAL IVP PRN (11:08)
[2021-11-13 12:43] VITALS: BP 88/52; PULSE 82; RESP 16; TEMP 97.5
[2021-11-13] MEDS ORDERED: LACTULOSE 20 GM/30 ML CUP PO SCH (13:00)
--- NOTE | 2021-11-13 13:09 | P.DS ---
Providers Date of admission: 11/11/21 15:24 Expected date of discharge: 11/13/21 Attending physician: Gabino Mantilla Consults: 11/11/21 14:21 Consult Physician Urgent Consulting Provider: Juana Gaviria Consult Reason/Comments: ascites/GI bleed Do you want consulting provider notified?: Yes Primary care physician: [facility] Course: Final diagnosis Abdominal pain and lower gastrointestinal bleeding for evaluation Internal and external hemorrhoids Tense ascites, possibly secondary to cirrhosis of the liver Cirrhosis of the liver and chronic liver disease secondary to alcoholic cirrhosis Hyponatremia Hypokalemia acute metabolic acidosis Elevated plasma lactic acid. rule out sepsis and spontaneous bacterial peritonitis Elevated bilirubin and AST, possibly alcoholic hepatitis and cirrhosis of the liver Hypoalbuminemia with mild protein calorie malnutrition Anemia, normocytic anemia secondary to cirrhosis of the liver history of asthma, chronic intermittent History chest pain history of congestive heart failure Chronic obstructive pulmonary disease Diabetes mellitus type 2 Gastroesophageal reflux disease Hypertension Hyperlipidemia history of degenerative joint disease History of rheumatoid arthritis History of diet controlled diabetes mellitus History of diverticulitis history of colitis history of diarrhea history of ESBL E. coli History of bowel resection Anxiety, depression, post traumatic stress disorder History of EtOH history of marijuana Mild protein calorie malnutrition Full code Discharge disposition Patient is being discharged in a stable condition with guarded prognosis to [facility] for continued PT/OT therapy. Patient will follow-up with Dr. Lambert in the outpatient setting upon discharge. Patient is to follow-up [facility] GI in one week as discussed. Recommend repeat labs in 2-3 days to monitor CBC and BMP. Total time taken is greater than 35 minutes. Hospital course This is a 71-year-old female who was recently admitted with abdominal pain with possible suspected lower GI bleeding and being closely monitored. Patient was evaluated by GI and underwent ultrasound-guided paracentesis with approximately 1.8 L removed and specimen was sent for analysis and pending at this time. Patient is to follow-up with GI in the outpatient setting in 1 week to discuss results. Patient with internal and extra no hemorrhoids and has been started on Anusol suppositories may continue and also use Anusol cream twice daily. Patient will continue on Lasix 40 mg twice daily along with Aldactone 50 mg twice daily upon discharge. Patient with continued abdominal discomfort and constipation and started on lactulose 3-4 times daily until bowel movement and then make continue with twice daily as needed for constipation. Patient's sodium on the lower side although improving and recommend fluid restriction to 1000 mL per day and follow low-sodium 2000 mg consistent carb heart healthy diet. She continues with weakness and evaluated by physical therapy recommending rehab for continued strength and mobility. Currently no reports of chest pain, shortness of breath, or palpitations. Patient is afebrile. No reports of nausea or vomiting and patient is tolerating diet. Patient will be discharged today to [facility]. Guarded prognosis. On exam vital signs are stable. Cardio S1, S2 are muffled. Respiratory system shows diminished breath sounds at the bases with no wheezing or rhonchi noted. Abdomen is soft and obese, and nontender. Nervous system shows diffuse weakness. Please refer to medication reconciliation sheet for a list of medications. Patient Condition at Discharge: Stable Plan - Discharge Summary Discharge Rx Participant: Yes New Discharge Prescriptions: New Hydrocortisone Suppository [Anusol-Hc] 25 mg RECTAL DAILY #30 supp Lactulose [Cephulac] 30 gm PO QID ml Ondansetron [Zofran] 4 mg PO Q8HR PRN #4 tab PRN Reason: Nausea Spironolactone [Aldactone] 50 mg PO BID 30 Days #60 tab Continue Folic Acid 1 mg PO DAILY Vitamin B Complex 1 cap PO DAILY Ferrous Sulfate [Iron (65 MG Elemental)] 325 mg PO DAILY Atorvastatin [Lipitor] 10 mg PO DAILY Magnesium Oxide [Mag-Ox] 400 mg PO DAILY Azelastine HCl 2 spray EA NOSTRIL BID Dicyclomine [Bentyl] 20 mg PO BID Budesonide [Pulmicort] 0.5 mg INHALATION RT-BID busPIRone HCl [Buspar] 10 mg PO BID tab Melatonin 5 mg PO HS PRN PRN Reason: Insomnia Losartan [Cozaar] 50 mg PO DAILY Venlafaxine HCl ER [Effexor XR] 75 mg PO DAILY #3 cap traMADol HCL [Ultram] 50 mg PO TID PRN #6 tab PRN Reason: Pain Albuterol Sulfate [Albuterol Sulfate Hfa] 2 puff INHALATION RT-Q6H PRN PRN Reason: Shortness Of Breath Psyllium Husk (with Sugar) [Metamucil Powder] 1 dose PO DAILY Acetaminophen Tab [Tylenol] 650 mg PO Q4H PRN PRN Reason: Pain Or Fever > 100.5 Sodium Bicarbonate 325 mg PO DAILY Pantoprazole Sodium [Protonix] 40 mg PO DAILY Changed Furosemide [Lasix] 40 mg PO BID #0 Discharge Medication List Folic Acid 1 mg PO DAILY 06/12/15 [History] Vitamin B Complex 1 cap PO DAILY 06/12/15 [History] Ferrous Sulfate [Iron (65 MG Elemental)] 325 mg PO DAILY 10/25/18 [History] Atorvastatin [Lipitor] 10 mg PO DAILY 02/19/19 [History] Magnesium Oxide [Mag-Ox] 400 mg PO DAILY 02/19/19 [History] Azelastine HCl 2 spray EA NOSTRIL BID 08/21/19 [History] Dicyclomine [Bentyl] 20 mg PO BID 08/21/19 [History] Budesonide [Pulmicort] 0.5 mg INHALATION RT-BID 12/26/19 [History] busPIRone HCl [Buspar] 10 mg PO BID tab 12/28/19 [Rx] Acetaminophen Tab [Tylenol] 650 mg PO Q4H PRN 11/11/21 [History] Albuterol Sulfate [Albuterol Sulfate Hfa] 2 puff INHALATION RT-Q6H PRN 11/11/21 [History] Losartan [Cozaar] 50 mg PO DAILY 11/11/21 [History] Melatonin 5 mg PO HS PRN 11/11/21 [History] Pantoprazole Sodium [Protonix] 40 mg PO DAILY 11/11/21 [History] Psyllium Husk (with Sugar) [Metamucil Powder] 1 dose PO DAILY 11/11/21 [History] Sodium Bicarbonate 325 mg PO DAILY 11/11/21 [History] Furosemide [Lasix] 40 mg PO BID #0 11/13/21 [Rx] Hydrocortisone Suppository [Anusol-Hc] 25 mg RECTAL DAILY #30 supp 11/13/21 [Rx] Lactulose [Cephulac] 30 gm PO QID ml 11/13/21 [Rx] Ondansetron [Zofran] 4 mg PO Q8HR PRN #4 tab 11/13/21 [Rx] Spironolactone [Aldactone] 50 mg PO BID 30 Days #60 tab 11/13/21 [Rx] Venlafaxine HCl ER [Effexor XR] 75 mg PO DAILY #3 cap 11/13/21 [Rx] traMADol HCL [Ultram] 50 mg PO TID PRN #6 tab 11/13/21 [Rx] Follow up Appointment(s)/Referral(s): Shahla Lambert MD [Primary Care Provider] - 1-2 days Rosa Maria Lazar FNPBC [REFERRING] - 1 Week Ambulatory/Diagnostic Orders: Complete Blood Count w/diff [LAB.AMB] Time Frame: 3 Days, Location: None Selected Activity/Diet/Wound Care/Special Instructions: She is going to [facility] Activity as tolerated Continue taking medications as prescribed Follow-up outpatient with GI for test results Continue with fluid restrictions of 1000 mL per day Recommend repeat labs of CBC and BMP in 2-3 days Follow-up primary care provider on discharge Continue heart healthy fluid restriction and low sodium 2000 mg daily diet Continue ensure compact chocolate with breakfast Continue with lactulose 3-4 times daily until bowel movement and then continue twice daily as needed for constipation Discharge Disposition: TRANSFER TO SNF/ECF
--- NOTE | 2021-11-13 15:01 | P.PN ---
Subjective Progress Note Date: 11/13/21 Principal diagnosis: GI bleed, cirrhosis of the liver This is 71-year-old female with multiple comorbidities and multiple abdominal surgeries in the past. Past medical history includes asthma, heart failure COPD, diabetes mellitus GERD, hyperlipidemia, hypertension, osteoarthritis, rheumatoid arthritis and diverticulitis. She is status post appendectomy, bowel resection, section hernia repair hysterectomy and attempted cholecystectomy however had too many adhesions and the procedure was aborted. The patient presented to the emergency department yesterday afternoon with complaints of bright red blood per rectum following a bowel movement as well as abdominal distention. Patient has a long-standing history of chronic constipation alternating with diarrhea. States she was straining yesterday having a bowel movement a few solid letha when she noticed that she had some preliminary blood on the toilet tissue as well as in the toilet. She denied any further bleeding after that. Denied any associated abdominal pain or cramping. She is having some abdominal discomfort however related to distention. Patient does have a history of alcoholic cirrhosis of the liver but does not follow up with gastroenterology. The patient is not on any anticoagulation. She's had history of iron deficiency anemia in the past with some bleeding and underwent an EGD and colonoscopy on 02/22/2019 with with findings of narrowing of the proximal esophagus, esophageal ulcer without any active bleeding, mild gastritis in the antrum and a hiatal hernia. Colonoscopy revealed mild diverticulosis and moderate internal hemorrhoids. A CT of the abdomen and pel vis revealed heterogeneous enhancement of the liver with findings suggestive of hepatocellular disease. Intra-abdominal varices also suggestive of hepatocellular disease correlate clinically. There is moderate amount of ascites. There is a small anterior abdominal hernia containing segment of small bowel but no obstruction. Cholelithiasis. Pancreas somewhat low in attenuation recommend correlation with serum pancreatic enzymes to exclude pancreatitis. A couple small bowel fluid filled prominent loops in mid to left abdomen no definite transition suspected ileus rather than enteritis or partial obstruction. Patient denies any previous history of ascites or paracentesis. Patient was on Lasix 20 mg daily at home. WBC 6.4 hemoglobin 10.2 hematocrit 32 platelet count 160,000 total bilirubin 2.6 AST 66 ALT 21 alkaline phosphatase 143 amylase 43 lipase 30 stool occult blood negative Strange virus PCR not detected. Patient states that she has a long-standing history of alcohol use in her past. States that she started drinking wine at the age of 15. That she often drinks beer daily. States that she was recently told that she was not supposed to be drinking anymore in the last 2-3 months by her PCP. However she states she did have a beer the other day. 11/13/2021 patient is seen and evaluated as follow-up. She denies any further bowel movement or rectal bleeding. States abdominal distention has improved. She is status post paracentesis yesterday 1.8 L of fluid removed. She denies any nausea, vomiting, abdominal pain, fevers or chills. WBC 5.7 hemoglobin 9.7 hematocrit 30 platelet count 127,000 total bilirubin 1.3 AST 37 ALT 16 alkaline phosphatase 117. Objective - Vital Signs Vital signs: Vital Signs Temp 97.7 F 11/13/21 04:49 Pulse 68 11/13/21 07:51 Resp 18 11/13/21 04:49 BP 111/71 11/13/21 04:49 Pulse Ox 99 11/13/21 04:49 Intake & Output 11/12/21 11/13/21 11/13/21 18:59 06:59 18:59 Intake Total 110 Output Total 900 Balance 110 -900 Weight 66.678 kg Intake: Intake, IV Titration 50 Amount cefTRIAXone 1 gm In 50 Sodium Chloride 0.9% 50 ml @ 100 mls/hr IVPB Q24HR [facility] Rx#:[id number] Oral 60 Output: Urine 900 Other: Voiding Method Bedside Commode External Catheter # Voids 5 1 - Exam General appearance: The patient is alert, oriented, appears in no acute distress. HET: Head is normocephalic and atraumatic. Conjunctiva pink. Sclera anicteric. Neck: Supple without lymphadenopathy. Abdomen: Soft, nontender, nondistended with bowel sounds. No guarding or rigidity. Extremities: Normal skin color and turgor. No pedal edema Skin: No rashes, no jaundice Neurological: No focal deficits. Alert and oriented -3. - Labs CBC & Chem 7: 11/13/21 07:03 11/13/21 07:03 Labs: Abnormal Lab Results - Last 24 Hours (Table) 11/12/21 11/12/21 11/13/21 Range/Units 12:09 12:09 07:03 RBC 3.11 L 2.94 L (3.80-5.40) m/uL Hgb 10.2 L 9.7 L (11.4-16.0) gm/dL Hct 32.1 L 30.3 L (34.0-46.0) % MCV 103.4 H 103.3 H (80.0-100.0) fL RDW 17.4 H 16.7 H (11.5-15.5) % Plt Count 127 L (150-450) k/uL Sodium 129 L (137-145) mmol/L BUN 5 L (7-17) mg/dL Glucose 111 H (74-99) mg/dL Microbiology - Last 24 Hours (Table) 11/11/21 17:05 Blood Culture - Preliminary Blood No Growth after 24 hours Assessment and Plan (1) Alcoholic cirrhosis of liver with ascites Narrative/Plan: 11-year-old female with a history of alcoholic cirrhosis of the liver who presented to the emergency department with complaints of rectal bleeding. Patient does have a history of iron deficiency anemia and constipation. She underwent an EGD and colonoscopy in 2019 as part of workup for GI bleed and iron deficiency anemia. Findings included narrowing of the esophagus with a distal esophageal ulcer. Colonoscopy revealed mild diverticulosis with moderate internal hemorrhoids. The patient states she was having a hard small "pellet" all movement and following she noticed some bright red blood on the toilet tissue and some in the toilet. She had no further bleeding. She also was complaining of some abdominal distention. She was noted to have a CT of the abdomen and pelvis with ascites. She underwent a paracentesis with 1.8 L of fluid removed today. States she does have some improvement in her distention. She denies any previous history of ascites. She did not follow with anybody for her cirrhosis of the liver. Patient states she was told to 3 months ago to quit drinking and states that she did have a period recently. Paracentesis completed with fluid studies. Will continue on Lasix and Aldactone ordered by primary medicine team. Patient is status post paracentesis with 1.8 L of fluid removed. Current Visit: Yes Status: Acute Code(s): K70.31 - ALCOHOLIC CIRRHOSIS OF LIVER WITH ASCITES SNOMED Code(s): 676981178 (2) Rectal bleeding Narrative/Plan: Patient with history of constipation with moderate internal hemorrhoids as seen on colonoscopy in 2019. Likely we are dealing with hemorrhoidal bleeding. Hemoglobin is stable at 10.2. No plans on endoscopic evaluation. Current Visit: Yes Status: Acute Code(s): K62.5 - HEMORRHAGE OF ANUS AND RECTUM SNOMED Code(s): 51781969 (3) Internal hemorrhoid Current Visit: Yes Status: Acute Code(s): K64.8 - OTHER HEMORRHOIDS SNOMED Code(s): 50503055 (4) Ascites Current Visit: Yes Status: Acute Code(s): R18.8 - OTHER ASCITES SNOMED Code(s): 817677246 (5) History of gastroesophageal reflux (GERD) Current Visit: No Status: Chronic Code(s): Z87.19 - PERSONAL HISTORY OF OTHER DISEASES OF THE DIGESTIVE SYSTEM SNOMED Code(s): 19714185259459 Plan: 1. Continue symptomatic and supportive care 2. Low-sodium diet, this was discussed with patient 3. Lasix 40 mg and Aldactone 100 mg daily 4. Recommend Alcohol abstinence 5. Recommend MiraLAX daily to make titrate as needed for daily bowel movement 6. Hemorrhoidal suppositories as needed 7. No plans on endoscopic evaluation 8. Recommend outpatient follow-up with gastroenterology, discussed importance of this with the patient, and she has decompensated cirrhosis of the liver. The patient is cleared by gastroenterology for discharge. We will sign off at this time. Dr. Ioana Gaviria I agree with the dictator's note, documented as a scribe by Irish Gaona.
== END 2021-11-13 16:00 | DRG 433 ==
LOC: EC 11:52 → 5NMEDONC 15:24
PROVIDERS: ADMIT Hospitalist; ATTEND Hospitalist
PROC: 0W9G3ZZ Drainage of Peritoneal Cavity, Percutaneous Approach (ICD-10-PCS; principal; 2021-11-12)
DX: K70.31 Alcoholic cirrhosis of liver with ascites (principal); K92.2 Gastrointestinal hemorrhage, unspecified; E44.1 Mild protein-calorie malnutrition; E87.1 Hypo-osmolality and hyponatremia; E87.2 Acidosis; D53.9 Nutritional anemia, unspecified; D63.8 Anemia in other chronic diseases classified elsewhere; Z20.822 Contact with and (suspected) exposure to COVID-19; E11.9 Type 2 diabetes mellitus without complications; E78.5 Hyperlipidemia, unspecified; Z96.653 Presence of artificial knee joint, bilateral; Z90.710 Acquired absence of both cervix and uterus; Z90.49 Acquired absence of other specified parts of digestive tract; Z87.19 Personal history of other diseases of the digestive system; Z86.19 Personal history of other infectious and parasitic diseases; Z79.899 Other long term (current) drug therapy; E66.9 Obesity, unspecified; E87.6 Hypokalemia; F32.A Depression, unspecified; F43.10 Post-traumatic stress disorder, unspecified; I11.0 Hypertensive heart disease with heart failure; I50.9 Heart failure, unspecified; J44.9 Chronic obstructive pulmonary disease, unspecified; K21.9 Gastro-esophageal reflux disease without esophagitis; K57.90 Diverticulosis of intestine, part unspecified, without perforation or abscess without bleeding; K46.9 Unspecified abdominal hernia without obstruction or gangrene; K64.4 Residual hemorrhoidal skin tags; K64.8 Other hemorrhoids; Z96.642 Presence of left artificial hip joint; M06.9 Rheumatoid arthritis, unspecified; K80.20 Calculus of gallbladder without cholecystitis without obstruction
CPT/HCPCS: 36415; 49083; 71046; 74177; 80048; 80053; 81001; 82042; 82150; 82272; 83605; 83690; 84157; 85025; 85027; 85610; 85730; 87040; 87635; 88108; 88305; 89050; 94640; 96374; 99285

== ENCOUNTER → 2022-04-05 | Outpatient (CLI) | payer MEDICARE, OTHER ==
--- NOTE | 2022-04-05 18:53 | US ---
EXAMINATION TYPE: US thyroid st tissue head/neck DATE OF EXAM: 04/05/2022 COMPARISON: None CLINICAL HISTORY: 71-year-old female R22.1 LUMP ON NECK. Visible bulge and junction of left neck and medial shoulder/upper chest. No palpable- soft to touch. Patient states sometimes it gets hard and painful. Technique: Area of concern scanned at the patient's palpable site in the area of visible bulge, junct ion of the left neck and upper neck. FINDINGS: Door Frame Builder notes: No prominent masses or lesions identified by ultrasound. Contralateral images karine en. IMPRESSION: No discrete sonographic abnormality of the superficial tissues at the patient's palpable site.
--- NOTE | 2022-04-06 19:36 | MM ---
Reason for Exam: Screening (asymptomatic). Last mammogram was performed 5 year(s) and 0 month(s) ago. Patient History: Menarche at age 17. First Full-Term at age 21. Left ovary removed at age 35. Right ovary removed at age 35. Hysterectomy at age 35. Postmenopausal. Estrogen for 17 years from age 35 until age 52. 06/24/2006, Benign Excisional Biopsy on the left side. 02/12/2009, Benign Core Biopsy on the right side. Maternal grandmother had breast cancer. Maternal aunt had breast cancer. Maternal aunt had breast cancer. Mother had breast cancer, age 69. Risk Values: Cristina 5 year model risk: 4.4%. NCI Lifetime model risk: 13.0%. Prior Study Comparison: 02/06/2009 Right Diagnostic Mammogram, [facility]. 08/15/2009 Bilateral Diagnostic Mammogram, [facility]. 04/08/2017 Bilateral Screening Mammogram, [facility]. Tissue Density: There are scattered fibroglandular densities. Findings: Analyzed By CAD. Benign bilateral vascular calcifications. Microclip lateral right breast from previous biopsy. Low axillary tail lymph node on the left is unchanged. No significant change from prior exams. Overall Assessment: Benign, BI-RAD 2 Management: Screening Mammogram of both breasts in 1 year. A clinical breast exam by your physician is recommended on an annual basis and results should be correlated with mammographic findings. Also, the patient should continue monthly self breast exams. Electronically signed and approved by: Elena Malik M.D. Radiologist
== END | disposition home or self-care (01) ==
LOC: RADMAMWWP 11:25
PROVIDERS: ATTEND Family Medicine
DX: Z12.31 Encounter for screening mammogram for malignant neoplasm of breast (principal); R22.1 Localized swelling, mass and lump, neck; Z78.0 Asymptomatic menopausal state; Z80.3 Family history of malignant neoplasm of breast
CPT/HCPCS: 76536; 77063; 77067

== ENCOUNTER → 2022-06-17 | Outpatient (CLI) | payer MEDICARE, OTHER ==
--- NOTE | 2022-06-17 10:59 | USB ---
Reason for Exam: Clinical finding. Patient History: Menarche at age 17. First Full-Term at age 21. Left ovary removed at age 35. Right ovary removed at age 35. Hysterectomy at age 35. Postmenopausal. Estrogen for 17 years from age 35 until age 52. 06/24/2006, Benign Excisional Biopsy on the left side. 02/12/2009, Benign Core Biopsy on the right side. Maternal grandmother had breast cancer. Maternal aunt had breast cancer. Maternal aunt had breast cancer. Mother had breast cancer, age 69. Risk Values: Cristina 5 year model risk: 4.4%. NCI Lifetime model risk: 12.4%. Prior Study Comparison: 08/15/2009 Bilateral Diagnostic Mammogram, [facility]. 04/08/2017 Bilateral Screening Mammogram, [facility]. 04/05/2022 Bilateral MG 3D screening mammo w/cad, [facility]. Findings: The whole breast of the right breast, the axilla of the right breast and the retroareolar of the right breast were scanned. Right breast 1100 5 cfn palpable= 1.4 x 1.0 x 0.9 cm Right breast 1100 5 cfn= 0.5 x 0.5 x 0.5 cm Right breast 1000 5 cfn = 0.7 x 0.7 x 0.2 cm These areas likely reflect a hematoma. Short-term follow-up study is recommended. . Overall Assessment: Probably benign, BI-RAD 3 Management: Diagnostic Breast Ultrasound of the right breast in 3 months. A clinical breast exam by your physician is recommended on an annual basis and results should be correlated with mammographic findings. Electronically signed and approved by: Wally Yip M.D. Radiologis
== END | disposition home or self-care (01) ==
LOC: RADUSWWP 10:17
PROVIDERS: ATTEND Family Medicine
DX: N63.13 Unspecified lump in the right breast, lower outer quadrant (principal); Z80.3 Family history of malignant neoplasm of breast

== ENCOUNTER → 2022-09-20 | Outpatient (CLI) | payer MEDICARE, OTHER ==
--- NOTE | 2022-09-21 09:26 | USB ---
Reason for Exam: Follow-up at short interval from prior study. Patient History: Menarche at age 17. First Full-Term at age 21. Left ovary removed at age 35. Right ovary removed at age 35. Hysterectomy at age 35. Postmenopausal. Estrogen for 17 years from age 35 until age 52. 06/24/2006, Benign Excisional Biopsy on the left side. 02/12/2009, Benign Core Biopsy on the right side. Maternal grandmother had breast cancer. Maternal aunt had breast cancer. Maternal aunt had breast cancer. Mother had breast cancer, age 69. Risk Values: Cristina 5 year model risk: 4.4%. NCI Lifetime model risk: 12.4%. Technique: Method: Whole Breast Handheld. Prior Study Comparison: 08/15/2009 Bilateral Diagnostic Mammogram, [facility]. 04/08/2017 Bilateral Screening Mammogram, [facility]. 04/05/2022 Bilateral MG 3D screening mammo w/cad, [facility]. Findings: The whole breast of the right breast, the axilla of the right breast and the retroareolar of the right breast were scanned. A single simple cyst remains at this time at the 10:00 position measuring 6 x 6 mm. Overall Assessment: Benign, BI-RAD 2 Management: Special View Mammogram of both breasts in 8 months. A clinical breast exam by your physician is recommended on an annual basis and results should be correlated with mammographic findings. This exam should not preclude additional follow-up of suspicious palpable abnormalities. Results were given to the patient verbally at the time of exam. Electronically signed and approved by: Wally Yip M.D. Radiologis
== END | disposition home or self-care (01) ==
LOC: RADUSWWP 09:34
PROVIDERS: ATTEND Family Medicine
DX: N63.14 Unspecified lump in the right breast, lower inner quadrant (principal); N64.4 Mastodynia; Z78.0 Asymptomatic menopausal state; Z80.3 Family history of malignant neoplasm of breast; Z90.721 Acquired absence of ovaries, unilateral

== ENCOUNTER 2023-06-17 06:58 | Day surgery (SDC) | payer MEDICARE, OTHER ==
[2023-06-17] MEDS ORDERED: LACTATED RINGERS 1,000 ML IV SCH (07:25)
[2023-06-17] MEDS ORDERED: LIDOCAINE 1% (10MG/ML) FOR IV START INTRADERMA PRN (07:25)
[2023-06-17 07:33] VITALS: TEMP 97.3
[2023-06-17 07:49] LABS: Glucose,Whole Blood 92 mg/dL (70-110)
[2023-06-17] MEDS ORDERED: LIDOCAINE 2% INJ 20 MG/ML (2 ML VIAL) ONE (08:23)
[2023-06-17] MEDS ORDERED: PROPOFOL 10 MG/ML 20 ML VIAL IV ONE (08:23)
--- NOTE | 2023-06-17 08:33 | P.PCN ---
Date of Procedure: 06/17/23 Procedure(s) Performed: BRIEF HISTORY: Patient is a 73-year-old, pleasant, white female with history of liver cirrhosis related to chronic hepatitis C and alcohol use in the past is scheduled for an upper endoscopy as a part of screening for esophageal varices. PROCEDURE PERFORMED: Esophagogastroduodenoscopy. PREOPERATIVE DIAGNOSIS: History of liver cirrhosis/screening for esophageal varices. IV sedation per anesthesia. PROCEDURE: After informed consent was obtained, the patient was brought into the endoscopy unit. IV sedation was administered by Anesthesia under continuous monitoring. Initially the Olympus GIF-140 video endoscope was inserted into the mouth. Esophagus intubated without any difficulty. It was gradually advanced into the stomach and duodenum and carefully examined. The bulb and the second part of the duodenum appeared normal. The scope at this time was withdrawn to the stomach, adequately insufflated with air, and upon careful examination, mucosa of the antrum, appeared normal. Mucosa of the body, cardia and the fundus had changes consistent with mild to moderate portal hypertensive gastropathy. No gastric varices identified. The scope was then withdrawn into the esophagus. Small hiatal hernia. The GE junction was located at 39 cm from the incisors. There was small distal esophageal varices identified. The esophagus appeared normal. There were no erosions or ulcerations seen and the patient tolerated the procedure well. IMPRESSION: 1. Mild portal hypertensive gastropathy 2. Small distal esophageal varices but no evidence of gastric varices 3. small hiatal hernia. RECOMMENDATIONS: The findings of this examination were discussed with the patient as well as a family. She was advised to have a repeat upper endoscopy in 2-3 years.
[2023-06-17] MEDS ORDERED: IV FLUID CONTINUATION 1,000 ML IV ONE ×2 (08:39)
[2023-06-17 08:47] VITALS: RESP 18
[2023-06-17 09:07] VITALS: BP 162/97; PULSE 72
== END 2023-06-17 09:24 | disposition home or self-care (01) ==
LOC: ORWHC2ENDO 06:58
PROVIDERS: ATTEND Internal Medicine Gastroenterology
DX: K76.6 Portal hypertension (principal); K31.89 Other diseases of stomach and duodenum; K44.9 Diaphragmatic hernia without obstruction or gangrene; I85.00 Esophageal varices without bleeding; I11.0 Hypertensive heart disease with heart failure; I50.9 Heart failure, unspecified; M06.9 Rheumatoid arthritis, unspecified; M19.90 Unspecified osteoarthritis, unspecified site; I25.10 Atherosclerotic heart disease of native coronary artery without angina pectoris; E78.5 Hyperlipidemia, unspecified; J44.9 Chronic obstructive pulmonary disease, unspecified; E11.9 Type 2 diabetes mellitus without complications; Z79.84 Long term (current) use of oral hypoglycemic drugs; Z79.899 Other long term (current) drug therapy; Z87.19 Personal history of other diseases of the digestive system; Z79.51 Long term (current) use of inhaled steroids; Z88.1 Allergy status to other antibiotic agents; Z88.8 Allergy status to other drugs, medicaments and biological substances
CPT/HCPCS: 43235; J2704; J2001

== ENCOUNTER → 2023-12-13 | Outpatient (CLI) | payer MEDICARE, OTHER ==
--- NOTE | 2023-12-13 14:44 | US ---
EXAMINATION TYPE: US liver DATE OF EXAM: 12/13/2023 COMPARISON: None CLINICAL INDICATION: Female, 73 years old with history of K74.60 UNSPECIFIED CIRRHOSIS OF LIVER; Cons umed multiple alcoholic beverages when she was younger. Hx GB stones. TECHNIQUE: Multiple sonographic images of the right upper quadrant are obtained. FINDINGS: EXAM MEASUREMENTS: Liver Length: 14.1 cm Gallbladder Wall: 0.1 cm CBD: 0.3 cm Right Kidney: 8.1 x 4.4 x 5.0 cm Pancreas: Echogenic in appearance, tail obscured by overlying bowel gas Liver: Coarse, nodular and echogenic. No focal lesion seen. Gallbladder: Tiny layering, mobile stones, no wall thickening Evidence for sonographic Mac's sign: neg CBD: wnl, limited visualization Right Kidney: No hydronephrosis or masses seen IMPRESSION: 1. Cirrhotic morphology of the liver. No sonographic evidence for hepatoma. 2. Small layering gallstones. 3. No biliary ductal dilatation.
== END | disposition home or self-care (01) ==
LOC: RADUSWWP 08:07
PROVIDERS: ATTEND Internal Medicine Gastroenterology
DX: K74.60 Unspecified cirrhosis of liver (principal); K80.20 Calculus of gallbladder without cholecystitis without obstruction
CPT/HCPCS: 76705

== ENCOUNTER → 2024-05-18 | Outpatient (CLI) | payer MEDICARE, OTHER ==
--- NOTE | 2024-05-18 20:18 | BD ---
EXAMINATION TYPE: Axial Bone Density DATE OF EXAM: 05/18/2024 CLINICAL HISTORY: 73 years old Female. ICD-10 CODE: Z78.0 ASYMPTOMATIC MENOPAUSAL Height: 60.25 Weight: 169.0 FRAX RISK QUESTIONS: Alcohol (3 or more units per day): no Family History (Parent hip fracture): no Glucocorticoids (More than 3mos): no (Ex: prednisone, prednisolone, methylprednisolone, dexamethasone, and hydrocortisone). History of Fracture in Adulthood: no Secondary Osteoporosis: 1. Type 1 Diabetes: no 2. Hyperthyroidism: no 3. Menopause before 45: yes 4. Malnutrition: no 5. Chronic liver disease: yes Rheumatoid Arthritis: no Current Tobacco Use: no RISK FACTORS HISTORY OF: Hip Fracture (Right/Left): no Spine Fracture: no History of Wrist Fracture: no Surgery to Spine/Hip(right/left)/Wrist (right/left): Lt Hip replaced When: age 50 MEDICATIONS: Thyroid Medications: no Osteoporosis Medications: no EXAM MEASUREMENTS: Bone mineral densitometry was performed using the [employer] System. Bone mineral density as measured about the Lumbar spine is: ----- L1-L4(G/cm2): 1.056 T Score Values are as follows: ----- L1: -1.7 ----- L2: -1.2 ----- L3: -2.0 ----- L4: 0.4 ----- L1-L4: -1.0 Z Score Values are as follows: ----- L1: -1.0 ----- L2: -0.6 ----- L3: -1.3 ----- L4: 1.0 ----- L1-L4: -0.4 Baseline Study Bone mineral density about the R hip (g/cm2): 0.789 T Score values are as follows: -----R Neck: -1.8 -----R Total: -0.6 Z Score values are as follows: -----R Neck: -1.2 -----R Total: -0.3 Baseline Study FRAX%s: The graph provided illustrates a 4.8% chance for a major osteoporotic fx and a 0.9% chance fo r the hips probability for fx in 10 years time. IMPRESSION: Osteopenia (T Score between -2.5 and -1). There is slightly increased risk of fracture and the patient may be considered for treatment. Re-Screen 2-5 years. NOTE: T-SCORE=SD OF THE YOUNG ADULT MEAN.
--- NOTE | 2024-05-18 20:33 | XR ---
EXAMINATION TYPE: XR lumbosacral spine 5 views DATE OF EXAM: 05/18/2024 Comparison: CT 11/11/2021 Clinical History: 73-year-old female M54.42 LUMBAGO WITH SCIATICA LEFT SIDE Findings: 5 lumbar type vertebral bodies. Hypertrophic facet arthropathy mid to lower lumbar spine. T here is apparent endplate destruction/erosion at L4-L5 and hypertrophic facet arthropathy with a grad e 1 anterolisthesis at this level. There is vertebral compression collapse at T12 with mild retropuls ion into the ventral spinal canal. Remaining vertebral body heights are preserved and alignment is ot herwise maintained. Impression: 1. At L4-L5, there is either endplate destruction related to discitis osteomyelitis versus endplate e rosion from severe degenerative disc disease. Recommend further MRI evaluation along with laboratory assessment including WBC and inflammatory markers. 2. Severe vertebral compression collapse of T12, possible acute/subacute on chronic injury as approxi mately 50% height loss was seen on 11/11/2021. Mild retropulsion into the ventral spinal canal. Correl ate for any focal pain here. 3. Advanced hypertrophic facet arthropathy mid to lower lumbar spine with degenerative grade 1 evonne listhesis L4-L5.
--- NOTE | 2024-05-20 14:57 | MM ---
Reason for Exam: Screening (asymptomatic). Last screening mammogram was performed 12 month(s) ago. Patient History: Menarche at age 17. First Full-Term at age 21. Left ovary removed at age 35. Right ovary removed at age 35. Hysterectomy at age 35. Postmenopausal. Estrogen for 17 years from age 35 until age 52. 06/24/2006, Benign Excisional Biopsy on the left side. 02/12/2009, Benign Core Biopsy on the right side. Maternal grandmother had breast cancer. Maternal aunt had breast cancer. Maternal aunt had breast cancer. Mother had breast cancer, age 69. Risk Values: Cristina 5 year model risk: 2.3%. NCI Lifetime model risk: 6.1%. Prior Study Comparison: 04/08/2017 Bilateral Screening Mammogram, [facility]. 04/05/2022 Bilateral MG 3D screening mammo w/cad, [facility]. 05/23/2023 Bilateral MG 3D screening mammo w/cad, [facility]. Tissue Density: There are scattered areas of fibroglandular density. Findings: Analyzed By CAD. The pattern is symmetrical. Benign vascular calcifications present bilaterally. No suspicious groups of microcalcifications, spiculated or lobular masses, architectural distortion or other secondary signs of malignancy are mammographically apparent. Overall Assessment: Benign, BI-RAD 2 Management: Screening Mammogram of both breasts in 1 year. A negative mammogram report should not preclude additional follow up of suspicious palpable abnormalities. Patient should continue monthly self breast exam. A clinical breast exam by your physician is recommended on an annual basis and results should be correlated with mammographic findings. Note on Cristina scores and lifetime risk: 1. A Cristina score greater than 3% is considered moderate risk. If this is the case, consider specialist referral to assess eligibility for a risk reducing agent. 2. If overall lifetime risk for the development of breast cancer is 20% or higher, the patient may qualify for future screening with alternating mammogram and breast MRI. Electronically signed and approved by: Inocencio Mueller D.O. Radiologis
== END | disposition home or self-care (01) ==
LOC: RADMAMWWP 09:15
PROVIDERS: ATTEND Family Medicine
DX: Z12.31 Encounter for screening mammogram for malignant neoplasm of breast (principal); M85.89 Other specified disorders of bone density and structure, multiple sites; M43.16 Spondylolisthesis, lumbar region; M47.816 Spondylosis without myelopathy or radiculopathy, lumbar region; M51.36 Other intervertebral disc degeneration, lumbar region; Z78.0 Asymptomatic menopausal state
CPT/HCPCS: 72110; 77063; 77067; 77080

== ENCOUNTER 2024-05-30 10:11 | Inpatient (IN) | payer MEDICARE, OTHER ==
--- NOTE | 2024-05-30 11:06 | CT ---
EXAMINATION TYPE: CT lumbar spine wo con CT DLP: 846.5 mGycm, Automated exposure control for dose reduction was used. DATE OF EXAM: 05/30/2024 10:49 AM COMPARISON: Lumbosacral spine radiographs 05/18/2024, CT abdomen and pelvis 11/11/2021. CLINICAL INDICATION:Female, 73 years old with history of Abnormal outpatient x-ray, pain,possible inf ection; PHH, Abnormal outpatient x-ray TECHNIQUE: Multiple axial images were obtained from the midportion of T11 through the sacroiliac annie nts. Soft tissue and bone windows in coronal and sagittal planes were obtained and reviewed. Contrast used: none. Oral contrast used: none. FINDINGS: Alignment: There are 5 lumbar type vertebral bodies. Grade 1 anterolisthesis of L4 on L5 redemonstrat ed without pars defects from most recent x-ray but is new from prior CT 2021. Bone: There is again severe vertebral compression collapse of the T12 vertebral body with internal ga s identified. Complete height loss centrally. Approximately 3 mm of retropulsion at this level. Left total hip arthroplasty identified on the ship yard electrical person radiograph. Bilateral SI joint degenerative changes wi th vacuum disc disease is identified. Osseous erosive changes involving the inferior endplate of the L4 vertebral body and superior endplate of the L5 vertebral body. Single focus of gas identified with in the inferior aspect of the L4 vertebral body. Sclerosis involving the inferior aspect of the L4 ve rtebral body superior aspect of L5 vertebral body. Gas is identified within the bilateral L5-S1 facet joints and within the right L4-L5 facet joint. Paravertebral soft tissue swelling at L4-L5 and L5-S1 . Discs: Gas is identified within the L4-L5 and L5-S1 vertebral bodies. There is a single focus of gas identified within the spinal canal abutting the disc at the L5-S1 level. T12-L1: Retropulsion of approximately 3 mm of the posterior endplate of the T12 vertebral body result ing in mild central canal stenosis. No significant disc pathology identified. No neural foraminal rhianna nosis. L1-L2: No spinal canal or neural foraminal stenosis is identified. L2-L3: No spinal canal or neural foraminal stenosis is identified. L3-L4: No spinal canal or neural foraminal stenosis is identified. L4-L5: Grade 1 anterolisthesis with uncovering of the disc. Broad-based disc bulge with bilateral fac et arthropathy and ligamentum flavum buckling resulting in mild central canal stenosis. Moderate bila teral neural foraminal stenosis. L5-S1: Broad-based disc bulge with mild effacement of the anterior thecal sac. Bilateral facet arthro ekaterina with mild bilateral neural foraminal stenosis. Other: Layering gallstones identified within the visualized portion of the gallbladder. Mild atherosc lerotic calcification of the visualized aorta and its branches. IMPRESSION: 1. Findings highly concerning for discitis/osteomyelitis involving the L4-L5 vertebral bodies and add itional discitis involving the L5-S1 disc space. Additionally there is gas identified within the bila teral L5-S1 facet joints and the right L4-L5 facet joint which may represent also infectious process versus degenerative change. 2. Redemonstration of severe vertebral compression fracture of the T12 vertebral body. Favored to be subacute to chronic. This is progressed from 2021 exam. Approximately 3 mm retropulsion resulting in mild central canal stenosis at this level. 3. Multilevel degenerative disc disease at L4-S1 with redemonstration of grade 1 anterolisthesis at L 4 on L5 which is new from 2021 exam. Mild central canal stenosis at this level with moderate bilatera l neural foraminal stenosis. 4.Cholelithiasis.
[2024-05-30 11:16] LABS: ALT 23 U/L (4-34); AST 55 U/L (14-36); African American GFR (CKD) >90 (>60 ml/min/1.73 sqM); Albumin 4.3 g/dL (3.5-5.0); Alkaline Phosphatase 71 U/L (38-126); Anion Gap 13 mmol/L; Anisocytosis Slight; Basophils % (A) 0 %; Blood Urea Nitrogen 9 mg/dL (7-17); Calcium 8.4 mg/dL (8.4-10.2); Carbon Dioxide 17 mmol/L (22-30); Chloride 109 mmol/L (98-107); Eosinophils # (A) 0.1 k/uL (0-0.7); Eosinophils % (A) 2 %; Glucose 105 mg/dL (74-99); HCT 37.5 % (34.0-46.0); HGB 12.3 gm/dL (11.4-16.0); Hypochromasia Slight; Lymphocytes # (A) 1.3 k/uL (1.0-4.8); Lymphocytes % (A) 30 %; MCH 37.1 pg (25.0-35.0); MCHC 32.9 g/dL (31.0-37.0); MCV 112.8 fL (80.0-100.0); Macrocytosis Marked; Mean Platelet Volume 7.4; Monocytes # (A) 0.2 k/uL (0-1.0); Monocytes % (A) 5 %; Neutrophils # (A) 2.8 k/uL (1.3-7.7); Neutrophils % (A) 62 %; Non-African American GFR(CKD) >90 (>60 ml/min/1.73 sqM); Platelet Count 213 k/uL (150-450); Potassium 3.4 mmol/L (3.5-5.1); RBC 3.32 m/uL (3.80-5.40); RDW 16.5 % (11.5-15.5); Sodium 139 mmol/L (137-145); Total Bilirubin 0.9 mg/dL (0.2-1.3); Total Protein 7.8 g/dL (6.3-8.2); WBC 4.5 k/uL (3.8-10.6)
[2024-05-30] MEDS ORDERED: VANCOMYCIN IV PER PHARMACY 1 EACH MISC MISCELLANE PRN (12:06)
[2024-05-30] MEDS ORDERED: NALOXONE 0.4 MG/ML 1 ML VIAL IV PRN (12:35)
--- NOTE | 2024-05-30 12:35 | ED ---
General Adult HPI - General Chief complaint: Back Pain/Injury Stated complaint: abn labs Time Seen by Provider: 05/30/24 10:14 Source: patient, RN notes reviewed Mode of arrival: ambulatory Limitations: no limitations - History of Present Illness Initial comments: 73-year-old female presents emergency department from PCPs office chief complaint low back pain. She states that she has been having increasing back pain last for the last 4 months. Patient states that she has had prior surgeries on her knees, left hip by Dr. Oneil. Patient states that she had some x-rays by her PCP in which they were concerned about some abnormalities. Patient denies any fever chills night sweats denies any IV treatment use. Denies a prior back surgeries. Patient denies any abdominal pain patient states that she is getting to the point where she has to use a walker to get around because of pain and symptoms have been worsening. - Related Data Home Medications Medication Instructions Recorded Confirmed Azelastine HCl [Astelin Nasal 2 spray EA NOSTRIL BID 08/21/19 05/30/24 [place]] Pantoprazole Sodium [Protonix] 40 mg PO DAILY 11/11/21 05/30/24 Furosemide [Lasix] 20 mg PO DAILY 06/14/23 05/30/24 Acetaminophen Tab [Tylenol Tab] 1,500 mg PO TID 05/30/24 05/30/24 Loratadine [Claritin] 10 mg PO DAILY 05/30/24 05/30/24 Losartan Potassium 100 mg PO DAILY 05/30/24 05/30/24 Venlafaxine HCl [Effexor XR] 150 mg PO HS 05/30/24 05/30/24 busPIRone HCl [Buspar] 10 mg PO DAILY 05/30/24 05/30/24 Allergies Allergy/AdvReac Type Severity Reaction Status Date / Time codeine Allergy Rash/Hives Verified 05/30/24 13:16 nicotine Allergy Swelling Verified 05/30/24 13:16 Tetracyclines Allergy Rash/Hives Verified 05/30/24 13:16 venom-honey bee Allergy Anaphylaxis Verified 05/30/24 13:16 [bee venom (honey bee)] lisinopril AdvReac Cough Verified 05/30/24 13:16 oxycodone AdvReac gi upset Verified 05/30/24 13:16 Review of Systems ROS Statement: Those systems with pertinent positive or pertinent negative responses have been documented in the HPI. ROS Other: All systems not noted in ROS Statement are negative. Past Medical History Past Medical History: Asthma, Chest Pain / Angina, Heart Failure, COPD, Diabetes Mellitus, GERD/Reflux, Hyperlipidemia, Hypertension, Liver Disease, Osteoarthritis (OA), Rheumatoid Arthritis (RA) Additional Past Medical History / Comment(s): DIET CONTROLLED DIABETES, BACK PAIN, diverticulitis,colitis, had low magnesium & potassium also, hx dysphagia w/meds, intermittent diarrhea" r/t gall stones " then constipation. a pt unaware of COPD DX. ? cirrohsis History of Any Multi-Drug Resistant Organisms: ESBL Date of last positivie culture/infection: 09/08/18 ESBL-E.coli MDRO Source:: Urine Past Surgical History: Appendectomy, Bowel Resection, Breast Surgery, Section, Hernia Repair, Hysterectomy, Joint Replacement, Tonsillectomy Additional Past Surgical History / Comment(s): 06/17/15 Total L knee arthroplasty & right knee replaced, left hip replaced, Other SX: LT BREAST BIOPSY, POLYPS REMOVED FROM THROAT, ROBOTIC INCISIONAL HERNIA REPAIR, LYSIS OF ADHESIONS. Past Anesthesia/Blood Transfusion Reactions: No Reported Reaction Additional Past Anesthesia/Blood Transfusion Reaction / Comment(s): one blood transfusion - no issues. Past Psychological History: Anxiety, Depression, PTSD Smoking Status: Never smoker Past Alcohol Use History: None Reported Past Drug Use History: None Reported - Past Family History Father Family Medical History: Deep Vein Thrombosis (DVT), Pulmonary Embolus Mother Family Medical History: Cancer Additional Family Medical History / Comment(s): breast General Exam Limitations: no limitations General appearance: alert, in no apparent distress Head exam: Present: atraumatic, normocephalic, normal inspection Neck exam: Present: normal inspection, full ROM. Absent: tenderness, meningismus, lymphadenopathy Respiratory exam: Present: normal lung sounds bilaterally. Absent: respiratory distress, wheezes, rales, rhonchi, stridor Cardiovascular Exam: Present: regular rate, normal rhythm, normal heart sounds. Absent: systolic murmur, diastolic murmur, rubs, gallop, clicks GI/Abdominal exam: Present: soft, normal bowel sounds. Absent: distended, tenderness, guarding, rebound, rigid Extremities exam: Present: other (Lower extremity strength equal bilaterally neurovascular intact) Back exam: Present: full ROM, tenderness, paraspinal tenderness, vertebral tenderness Neurological exam: Present: reflexes normal. Absent: motor sensory deficit Course Vital Signs 05/30/24 10:26 Temperature 97.9 F Pulse Rate 88 Respiratory 18 Rate Blood Pressure 138/83 O2 Sat by Pulse 98 Oximetry Medical Decision Making - Medical Decision Making Was pt. sent in by a medical professional or institution (, [employer], PLANT PROTECTION SUPERINTENDENT, urgent care, hospital, or [place] health care facility...) When possible be specific @ -PCP Did you speak to anyone other than the patient for history (EMS, parent, family, police, friend...)? What history was obtained from this source @ -No Did you review nursing and triage notes (agree or disagree)? Why? @ -I reviewed and agree with nursing and triage notes Were old charts reviewed (outside hosp., previous admission, EMS record, old EKG, old radiological studies, urgent care reports/EKG's, [place] health care facility records)? Report findings @ -Viewed outpatient lumbar x-ray Differential Diagnosis (chest pain, altered mental status, abdominal pain women, abdominal pain men, vaginal bleeding, weakness, fever, dyspnea, syncope, headache, dizziness, GI bleed, back pain, seizure, CVA, palpatations, mental health, musculoskeletal)? @ -Differential Back Pain: Strain, zoster, cauda equina syndrome, epidural abscess, vertebral osteomyelitis, discitis, fracture, subluxation, disc herniation, DJD, spinal stenosis, dissection, AAA, pancreatitis, peptic ulcer disease, pyelonephritis, kidney stone, this is not meant to be an all-inclusive list. EKG interpreted by me (3pts min.). @ -None X-rays interpreted by me (1pt min.). @ -None done CT interpreted by me (1pt min.). @ -CT lumbar spine showing degenerative changes, concerning changes for osteomyelitis, discitis U/S interpreted by me (1pt. min.). @ -None done What testing was considered but not performed or refused? (CT, X-rays, U/S, labs)? Why? @ -None What meds were considered but not given or refused? Why? @ -None Did you discuss the management of the patient with other professionals (professionals i.e. , [employer], PLANT PROTECTION SUPERINTENDENT, lab, RT, psych nurse, social science professor, boxing and pressing supervisor, teacher, credit administration officer, home health care case manager)? Give summary @ -Dr. Colindres PCP who sent the patient regarding x-ray and concerns. Dr. Amado for admission Was smoking cessation discussed for >3mins.? @ -No Was critical care preformed (if so, how long)? @ -No Were there social determinants of health that impacted care today? How? (Homelessness, low income, unemployed, alcoholism, drug addiction, transportation, low edu. Level, literacy, decrease access to med. care, fpc, rehab)? @ -No Was there de-escalation of care discussed even if they declined (Discuss DNR or withdrawal of care, Hospice)? DNR status @ -No What co-morbidities impacted this encounter? (DM, HTN, Smoking, COPD, CAD, Cancer, CVA, ARF, Chemo, Hep., AIDS, mental health diagnosis, sleep apnea, mo rbid obesity)? @ -None Was patient admitted / discharged? Hospital course, mention meds given and ro diomede, prescriptions, significant lab abnormalities, going to OR and other pertinent info. @ -Admitted patient was sent in for increasing back pain. CT shows concerning areas of osteomyelitis, discitis. Patient was started on vancomycin, cefepime blood cultures were ordered CRP ESR. Patient will have consult to ID and orthopedic spine patient is established with [facility]. Patient rem itted with analgesics and further evaluation. Undiagnosed new problem with uncertain prognosis? @ -No Drug Therapy requiring intensive monitoring for toxicity (Heparin, Nitro, Insulin, Cardizem)? @ -No Were any procedures done? @ -No Diagnosis/symptom? @ -Osteomyelitis, discitis lumbar Acute, or Chronic, or Acute on Chronic? @ -Acute Uncomplicated (without systemic symptoms) or Complicated (systemic symptoms)? @ -Complicated Side effects of treatment? @ -No Exacerbation, Progression, or Severe Exacerbation? @ -No Poses a threat to life or bodily function? How? (Chest pain, [place], [place], pneumonia, PE, COPD, DKA, ARF, appy, cholecystitis, CVA, Diverticulitis, Homicidal, Suicidal, threat to staff... and all critical care pts) @ -yes Sepsis, endorgan failure - Lab Data Result diagrams: 05/30/24 10:35 05/30/24 10:35 Lab Results 05/30/24 05/30/24 05/30/24 Range/Units 10:35 10:35 10:35 WBC 4.5 (3.8-10.6) k/uL RBC 3.32 L (3.80-5.40) m/uL Hgb 12.3 (11.4-16.0) gm/dL Hct 37.5 (34.0-46.0) % MCV 112.8 H (80.0-100.0) fL MCH 37.1 H (25.0-35.0) pg MCHC 32.9 (31.0-37.0) g/dL RDW 16.5 H (11.5-15.5) % Plt Count 213 (150-450) k/uL MPV 7.4 Neutrophils % 62 % Lymphocytes % 30 % Monocytes % 5 % Eosinophils % 2 % Basophils % 0 % Neutrophils # 2.8 (1.3-7.7) k/uL Lymphocytes # 1.3 (1.0-4.8) k/uL Monocytes # 0.2 (0-1.0) k/uL Eosinophils # 0.1 (0-0.7) k/uL Basophils # 0.0 (0-0.2) k/uL Manual Slide Review Performed Hypochromasia Slight Anisocytosis Slight Macrocytosis Marked A Sodium 139 (137-145) mmol/L Potassium 3.4 L (3.5-5.1) mmol/L Chloride 109 H (98-107) mmol/L Carbon Dioxide 17 L (22-30) mmol/L Anion Gap 13 mmol/L BUN 9 (7-17) mg/dL Creatinine 0.58 (0.52-1.04) mg/dL Est GFR (CKD-EPI)AfAm >90 (>60 ml/min/1.73 sqM) Est GFR (CKD-EPI)NonAf >90 (>60 ml/min/1.73 sqM) Glucose 105 H (74-99) mg/dL Plasma Lactic Acid Walt 0.9 (0.7-2.0) mmol/L Calcium 8.4 (8.4-10.2) mg/dL Total Bilirubin 0.9 (0.2-1.3) mg/dL AST 55 H (14-36) U/L ALT 23 (4-34) U/L Alkaline Phosphatase 71 (38-126) U/L Total Protein 7.8 (6.3-8.2) g/dL Albumin 4.3 (3.5-5.0) g/dL Disposition Clinical Impression: Osteomyelitis of lumbar spine, Discitis Disposition: ADMITTED IP TO THIS HOSP Condition: Poor Time of Disposition: 12:34
[2024-05-30] MEDS: CEFEPIME 2 GM in SODIUM CHLORIDE 0.9% 100 ML IVPB STA (13:13)
[2024-05-30] MEDS: ONDANSETRON 4 MG/2 ML VIAL IVP PRN (13:13)
[2024-05-30] MEDS: HYDROmorphone 0.5 MG/0.5 ML SYRINGE IVP PRN (13:13)
[2024-05-30] MEDS: VANCOMYCIN 1,500 MG in SODIUM CHLORIDE 0.9% 500 ML 500 ML IVPB ONE (14:10)
[2024-05-30 16:18] LABS: Erythrocyte Sedimentation Rate 77 mm/Hr (0-30)
--- NOTE | 2024-05-30 16:56 | MR ---
EXAMINATION TYPE: MR tspine/lspine wo con DATE OF EXAM: 05/30/2024 4:19 PM CLINICAL INDICATION:Female, 73 years old with history of osteomyelitis/discitis; PHH, Osteomyelitis/d iscitis, COMPARISON: None TECHNIQUE: Multi planar, multi sequence imaging was performed utilizing: T1-weighted, T2-weighted, a nd turbo inversion recovery imaging of the thoracic and lumbar spine. IV Contrast: cc . None. FINDINGS: Alignment: The thoracic and lumbar vertebral bodies have preserved heights and alignment. Grade 1 an terolisthesis of L4 and L5. Cord: The conus medullaris and the distal spinal cord appear unremarkable with regards to their signa l intensity and morphology. Bones/Discs: Severe degeneration changes throughout the spine worse at L4-L5 with mild adjacent bony edema. There is endplate sclerosis and gas within the disc space. There is compression fracture of th e T12 vertebral body with 50% height loss and retropulsion up to 4 mm. Multilevel degeneration change s with facet joint arthropathy and mild osteophyte formation present. THORACIC: No evidence significant spinal canal or neural foraminal stenosis. Spinal cord is within no rmal limits. Scattered disc bulging throughout the thoracic spine no evidence for high-grade spinal c anal stenosis. Multilevel mild neural foraminal stenosis. LUMBAR: T12-L1: No evidence of significant spinal canal stenosis or neural foraminal stenosis. L1-L2: No evidence of significant spinal canal stenosis. Facet joint arthropathy mild to moderate doc ateral neural foraminal stenosis. L2-L3: No evidence of significant spinal canal stenosis. Facet joint arthropathy mild to moderate doc ateral neural foraminal stenosis. L3-L4: Disc bulge and facet joint arthropathy result in mild spinal canal and moderate bilateral neur al foraminal stenosis. L4-L5: Disc uncovering from grade 1 anterolisthesis and facet joint arthropathy with moderate spinal canal stenosis and severe bilateral neural foraminal stenosis. L5-S1: The disc is rounded posterior morphology without significant spinal canal stenosis. Facet join t arthropathy with severe neural foraminal stenosis. Left facet joint effusion. Other findings: None. IMPRESSION: 1. No evidence for a osteomyelitis/discitis. Severe degeneration changes at L4-L5 with endplate scle rosis gas present. 2. Grade 1 anterolisthesis of L4 and L5 with severe bilateral neural foraminal stenosis. Degeneratio n changes with severe L5-S1 neural foraminal stenosis. 3. No evidence for significant spinal canal stenosis of the thoracic spine. No evidence for signific ant neural foraminal stenosis in the thoracic spine.\
[2024-05-30] MEDS: POTASSIUM CHLORIDE ER 20 MEQ TAB.ER PO STA (17:07)
[2024-05-30] MEDS: CEFEPIME 2 GM in SODIUM CHLORIDE 0.9% 100 ML IVPB SCH (20:07)
[2024-05-30] MEDS: VENLAFAXINE HCL ER 150 MG CAP PO SCH (20:07)
[2024-05-31] MEDS: VANCOMYCIN 1,500 MG in SODIUM CHLORIDE 0.9% 500 ML 500 ML IVPB SCH (01:30)
--- NOTE | 2024-05-31 01:57 | P.HPIM ---
History of Present Illness H&P Date: 05/30/24 Chief Complaint: Back pain This is a very pleasant 73-year-old female who follows with Dr. Reggie Mantilla in the outpatient setting with a past medical history of asthma, angina, heart failure, COPD, diabetes mellitus, GERD, hyperlipidemia, hypertension, liver disease, osteoarthritis, rheumatoid arthritis and chronic back pain. Patient also does have some anxiety and depression with PTSD. Patient denies smoking although reports to occasionally drinking and denies any other illicit drugs. Patient has been having increased back pain and difficulty ambulation requiring a walker. Patient has been havin back pain and shooting down pain down the legs mainly towards left lower leg. She has been absent for the past 4 weeks. She was seen by her PCP Dr. Gale as an outpatient. X-ray showed possible osteomyelitis. She was referred to ER for further management. Patient reports she does live home alone and orthopedics has been consulted with concerns of abnormal findings and initially thoughts of osteomyelitis. Infectious disease following and patient is maintained on antibiotics. Plans for surgical intervention on 05/31/2024. Attempted to contact the cardiology o ffice for recent echo. Chest x-ray showing no acute process and EKG normal sinus. Review of Systems Constitutional: Patient denies any fever or chills . No generalized weakness or weight loss. Abdomen: Patient denied nausea vomiting and diarrhea and abdominal pain. Cardiovascular: Patient denies any chest pain or short of breath no palpitations. Respiratory: patient denied any cough or sputum production. No shortness of breath Neurologic: Patient denied any numbness or tingling. no headache. Musculoskeletal: Patient denies any complaints of joint swelling or deformity. Lower back pain and shooting down pain back down the left lower extremity Skin: Negative Psychiatric: Negative Endocrine: No heat or cold intolerance. No recent weight gain. Genitourinary: No dysuria or hematuria. All other 14 point ROS negative except the above Past Medical History Past Medical History: Asthma, Chest Pain / Angina, Heart Failure, COPD, Diabetes Mellitus, GERD/Reflux, Hyperlipidemia, Hypertension, Liver Disease, Osteoarthritis (OA), Rheumatoid Arthritis (RA) Additional Past Medical History / Comment(s): DIET CONTROLLED DIABETES, BACK PAIN, diverticulitis,colitis, had low magnesium & potassium also, hx dysphagia w/meds, intermittent diarrhea" r/t gall stones " then constipation. a pt unaware of COPD DX. ? cirrohsis History of Any Multi-Drug Resistant Organisms: ESBL Date of last positivie culture/infection: 09/08/18 ESBL-E.coli MDRO Source:: Urine Past Surgical History: Appendectomy, Bowel Resection, Breast Surgery, Section, Hernia Repair, Hysterectomy, Joint Replacement, Tonsillectomy Additional Past Surgical History / Comment(s): 06/17/15 Total L knee a rthroplasty & right knee replaced, left hip replaced, Other SX: LT BREAST BIOPSY, POLYPS REMOVED FROM THROAT, ROBOTIC INCISIONAL HERNIA REPAIR, LYSIS OF ADHESIONS. Past Anesthesia/Blood Transfusion Reactions: No Reported Reaction Additional Past Anesthesia/Blood Transfusion Reaction / Comment(s): one blood transfusion - no issues. Past Psychological History: Anxiety, Depression, PTSD Smoking Status: Never smoker Past Alcohol Use History: None Reported Past Drug Use History: None Reported - Past Family History Father Family Medical History: Deep Vein Thrombosis (DVT), Pulmonary Embolus Mother Family Medical History: Cancer Additional Family Medical History / Comment(s): breast Medications and Allergies Home Medications Medication Instructions Recorded Confirmed Type Azelastine HCl [Astelin Nasal 2 spray EA NOSTRIL BID 08/21/19 05/30/24 History [place]] Pantoprazole Sodium [Protonix] 40 mg PO DAILY 11/11/21 05/30/24 History Furosemide [Lasix] 20 mg PO DAILY 06/14/23 05/30/24 History Acetaminophen Tab [Tylenol Tab] 1,500 mg PO TID 05/30/24 05/30/24 History Loratadine [Claritin] 10 mg PO DAILY 05/30/24 05/30/24 History Losartan Potassium 100 mg PO DAILY 05/30/24 05/30/24 History Venlafaxine HCl [Effexor XR] 150 mg PO HS 05/30/24 05/30/24 History busPIRone HCl [Buspar] 10 mg PO DAILY 05/30/24 05/30/24 History Allergies Allergy/AdvReac Type Severity Reaction Status Date / Time codeine Allergy Rash/Hives Verified 05/30/24 13:16 nicotine Allergy Swelling Verified 05/30/24 13:16 Tetracyclines Allergy Rash/Hives Verified 05/30/24 13:16 venom-honey bee Allergy Anaphylaxis Verified 05/30/24 13:16 [bee venom (honey bee)] lisinopril AdvReac Cough Verified 05/30/24 13:16 oxycodone AdvReac gi upset Verified 05/30/24 13:16 Physical Exam Vitals: Vital Signs Temp Pulse Resp BP Pulse Ox 05/30/24 15:06 98.4 F 86 18 118/78 95 05/30/24 14:18 98.7 F 97 18 122/79 96 05/30/24 10:26 97.9 F 88 18 138/83 98 Intake and Output 05/30/24 05/30/24 05/30/24 06:59 14:59 22:59 Other: Weight 76.657 kg PHYSICAL EXAMINATION: Patient is lying in the bed comfortably, no acute distress, awake alert and oriented.. HEENT: Normocephalic. Neck is supple. Pupils reactive. Nostrils clear. Oral cavity is moist. Neck reveals no JVD, carotid bruits, or thyromegaly. CHEST EXAMINATION: Trachea is central. Symmetrical expansion. Lung cevallos clear to auscultation and percussion. CARDIAC: Normal S1, S2 with no gallops. No murmurs ABDOMEN: Soft. Bowel sounds normal. No organomegaly. No abdominal bruits. Extremities: reveal no edema. No clubbing or cyanosis Neurologically awake, alert, oriented x3 with well-coordinated movements. No focal deficits noted Skin: No rash or skin lesions. Psychiatric: Coperative. Nonsuicidal Musculoskeletal: No joint swelling or deformity. Normal range of motion. Results CBC & Chem 7: 06/01/24 06:55 06/01/24 12:14 Labs: Abnormal Lab Results - Last 24 Hours (Table) 05/30/24 05/30/24 Range/Units 10:35 10:35 RBC 3.32 L (3.80-5.40) m/uL MCV 112.8 H (80.0-100.0) fL MCH 37.1 H (25.0-35.0) pg RDW 16.5 H (11.5-15.5) % Macrocytosis Marked A Potassium 3.4 L (3.5-5.1) mmol/L Chloride 109 H (98-107) mmol/L Carbon Dioxide 17 L (22-30) mmol/L Glucose 105 H (74-99) mg/dL AST 55 H (14-36) U/L Thrombosis Risk Factor Assmnt - DVT/VTE Prophylaxis DVT/VTE Prophylaxis: Pharmacologic Prophylaxis ordered Assessment and Plan Assessment: Back pain, chronic sent in by PCP for x-ray abnormalities with concerns of osteomyelitis as per CT lumbar spine. History of chronic T12 vertebral compression fracture L4-S1 spondylosis with stenosis with lower extremity radiculopathy and gait dysfunction Obesity with a BMI of 31.9 History of alcohol use, reports frequently per patient but not daily, no active signs of withdrawing at this time History of asthma/COPD, not in exacerbation History of heart failure with unknown EF Hypertension Hyperlipidemia Osteoarthritis History of rheumatoid arthritis GI prophylaxis DVT prophylaxis Full code Plan: Patient will be continued on antibiotics vancomycin and cefepime. Follow-up b lood cultures. ID and orthopedic surgery was consulted. Continue with home medications and follow-up closely. Current with pain medications. Time with Patient: Greater than 30
[2024-05-31 07:32] LABS: African American GFR (CKD) >90 (>60 ml/min/1.73 sqM); Anion Gap 7 mmol/L; Blood Urea Nitrogen 8 mg/dL (7-17); Calcium 7.9 mg/dL (8.4-10.2); Carbon Dioxide 20 mmol/L (22-30); Chloride 112 mmol/L (98-107); Glucose 97 mg/dL (74-99); Non-African American GFR(CKD) >90 (>60 ml/min/1.73 sqM); Potassium 3.9 mmol/L (3.5-5.1); Sodium 139 mmol/L (137-145)
--- NOTE | 2024-05-31 08:05 | P.CONS ---
History of Present Illness - Reason for Consult Consult date: 05/30/24 Discitis, osteomyelitis Requesting physician: Iron Goodwin - Chief Complaint Worsening lower back pain x months - History of Present Illness Patient is a 73-year-old female with a past medical history significant for diabetes mellitus hypertension hyperlipidemia reflux COPD heart failure and rheumatoid arthritis presenting to the hospital concerning for lower back pain that apparently has been going on for almost 4 months patient noticed progressive worsening of this pain for the last few months patient describes the pain to be sharp almost 8-10 out of 10 without radiation patient denies having any weakness to the lower extremity and no bowel or bladder problem denies high- grade fever with the symptoms the patient has been evaluated on presentation to the hospital the patient was afebrile and no fever has been called subsequently patient was not tachycardic hypotensive or hypoxic patient did have a white count of 4.5 creatinine 0.58 potassium slightly low at 3.4 no enzymes AST mildly elevated patient did have a lumbar spine CT that was concerning for discitis osteomyelitis involving the L4-L5 vertebral bodies and discitis involving L5-S1 space and there was gas and fluid within the bilateral L5-S1 facet joints patient was started on vancomycin and cefepime infectious disease was consulted for further management of antibiotic therapy blood culture has been obtained Review of Systems Positive point and negatives has been mentioned in the HPI, complete review of systems was performed and all other systems are negative Past Medical History Past Medical History: Asthma, Chest Pain / Angina, Heart Failure, COPD, Diabetes Mellitus, GERD/Reflux, Hyperlipidemia, Hypertension, Liver Disease, Osteoarthritis (OA), Rheumatoid Arthritis (RA) Additional Past Medical History / Comment(s): DIET CONTROLLED DIABETES, BACK PAIN, diverticulitis,colitis, had low magnesium & potassium also, hx dysphagia w/meds, intermittent diarrhea" r/t gall stones " then constipation. a pt unaware of COPD DX. ? cirrohsis History of Any Multi-Drug Resistant Organisms: ESBL Year Discovered:: 09/08/18 ESBL-E.coli MDRO Source:: Urine Past Surgical History: Appendectomy, Bowel Resection, Breast Surgery, Section, Hernia Repair, Hysterectomy, Joint Replacement, Tonsillectomy Additional Past Surgical History / Comment(s): 06/17/15 Total L knee a rthroplasty & right knee replaced, left hip replaced, Other SX: LT BREAST BIOPSY, POLYPS REMOVED FROM THROAT, ROBOTIC INCISIONAL HERNIA REPAIR, LYSIS OF ADHESIONS. Past Anesthesia/Blood Transfusion Reactions: No Reported Reaction Additional Past Anesthesia/Blood Transfusion Reaction / Comm: one blood transfusion - no issues. Past Psychological History: Anxiety, Depression, PTSD Smoking Status: Never smoker Past Alcohol Use History: None Reported Past Drug Use History: None Reported - Past Family History Father Family Medical History: Deep Vein Thrombosis (DVT), Pulmonary Embolus Mother Family Medical History: Cancer Additional Family Medical History / Comment(s): breast Medications and Allergies Home Medications Medication Instructions Recorded Confirmed Type Azelastine HCl [Astelin Nasal 2 spray EA NOSTRIL BID 08/21/19 05/30/24 History [place]] Pantoprazole Sodium [Protonix] 40 mg PO DAILY 11/11/21 05/30/24 History Furosemide [Lasix] 20 mg PO DAILY 06/14/23 05/30/24 History Acetaminophen Tab [Tylenol Tab] 1,500 mg PO TID 05/30/24 05/30/24 History Loratadine [Claritin] 10 mg PO DAILY 05/30/24 05/30/24 History Losartan Potassium 100 mg PO DAILY 05/30/24 05/30/24 History Venlafaxine HCl [Effexor XR] 150 mg PO HS 05/30/24 05/30/24 History busPIRone HCl [Buspar] 10 mg PO DAILY 05/30/24 05/30/24 History Allergies Allergy/AdvReac Type Severity Reaction Status Date / Time codeine Allergy Rash/Hives Verified 05/30/24 13:16 nicotine Allergy Swelling Verified 05/30/24 13:16 Tetracyclines Allergy Rash/Hives Verified 05/30/24 13:16 venom-honey bee Allergy Anaphylaxis Verified 05/30/24 13:16 [bee venom (honey bee)] lisinopril AdvReac Cough Verified 05/30/24 13:16 oxycodone AdvReac gi upset Verified 05/30/24 13:16 Physical Exam Vitals: Vital Signs Temp Pulse Resp BP Pulse Ox 05/30/24 10:26 97.9 F 88 18 138/83 98 Intake and Output 05/29/24 05/30/24 05/30/24 22:59 06:59 14:59 Other: Weight 76.657 kg GENERAL DESCRIPTION: Elderly female lying in bed, no distress. No tachypnea or accessory muscle of respiration use. HEENT: Shows Pallor , no scleral icterus. Oral mucous membrane is dry. No pharyngeal erythema or thrush NECK: Trachea central, no thyromegaly. LUNGS: Unlabored breathing. Clear to auscultation anteriorly. No wheeze or crackle. HEART: S1, S2, regular rate and rhythm. No loud murmur ABDOMEN: Soft, no tenderness , guarding or rigidity, no organomegaly EXTREMITIES: No edema of feet. SKIN: No rash, no masses palpable. NEUROLOGICAL: The patient is awake, alert, oriented x3, mood and affect normal. Results CBC & Chem 7: 05/30/24 10:35 05/31/24 06:33 Labs: Abnormal Lab Results - Last 24 Hours (Table) 05/30/24 05/30/24 Range/Units 10:35 10:35 RBC 3.32 L (3.80-5.40) m/uL MCV 112.8 H (80.0-100.0) fL MCH 37.1 H (25.0-35.0) pg RDW 16.5 H (11.5-15.5) % Macrocytosis Marked A Potassium 3.4 L (3.5-5.1) mmol/L Chloride 109 H (98-107) mmol/L Carbon Dioxide 17 L (22-30) mmol/L Glucose 105 H (74-99) mg/dL AST 55 H (14-36) U/L Assessment and Plan (1) Discitis Current Visit: Yes Status: Acute Code(s): M46.40 - DISCITIS, UNSPECIFIED, SITE UNSPECIFIED SNOMED Code(s): 6734500 (2) Osteomyelitis of lumbar spine Current Visit: Yes Status: Acute Code(s): M46.26 - OSTEOMYELITIS OF VERTEBRA, LUMBAR REGION SNOMED Code(s): 787263654 Plan: 1patient presented to hospital worsening lower back pain that apparently has been getting worse over the last 4 months with no history of any trauma no history of back surgery or injection now with significant changes seen on the CT suspicious for discitis and osteomyelitis patient interestingly did not have any fever or elevated white count with a question of advanced osteoarthritis 2-await MRI of the thoracolumbar spine being ordered for better definition of abnormality seen on the CT 3-we will check inflammatory markers and follow-up on the blood culture 4-vancomycin pharmacy to dose target trough of 15 while watching kidney function and Vanco trough closely and cefepime empirically while waiting for the workup to be completed We will follow on clinical condition and cultures to further adjust medication if needed Thank you for this consultation we will follow the patient along with you Dictation was produced using [employer] dictation software. please excuse any grammatical, word or spelling errors. Time with Patient: Greater than 30
[2024-05-31] MEDS: HYDROcodone/APAP 5-325MG 1 EACH TAB PO PRN (08:21)
[2024-05-31] MEDS: busPIRone HCl 10 MG TAB PO SCH (08:21)
[2024-05-31] MEDS: PANTOPRAZOLE 40 MG TABLET PO SCH (08:21)
[2024-05-31] MEDS: LOSARTAN 50 MG TAB PO SCH (08:22)
--- NOTE | 2024-05-31 09:10 | P.CNOR ---
History of Present Illness - [facility] Consult date: 05/31/24 Requesting physician: Iron Goodwin Consult reason: other (Osteomyelitis) History of present illness: History of Presenting Illness Patient is a pleasant 73-year-old female who presented to the ER due to increased back pain. Our services were consulted for increased back pain and possible osteomyelitis. Patient reports that she has had chronic back pain but that it has been increasing over the last 4 months. Patient describes a severe sharp lumbar pain that radiates across her lumbar region and into the left buttock and groin into her left lower extremity, associated with intermittent numbness and tingling. Patient states that her symptoms are exacerbated with increased activity and prolonged ambulation. Patient denies any fevers, chills, nausea or vomiting, or chest pain. Patient states that she does live independently and utilizes a walker intermittently, but recently she has had to utilize this on a regular basis. CT of the lumbar spine taken on 05/30/2024 demonstrates concerns for discitis/osteomyelitis involving the L4-L5 vertebral bodies and additional discitis involving the L5-S1 disc space. Additionally there is gas identified within the bilateral L5-S1 facet joints in the right L4-L5 facet joint which may represent also infectious process versus degenerative change. There is redemonstration of severe vertebral compression fracture of the T12 vertebral body. There is multilevel degenerative disc disease at L4-S1 with rede monstration of a grade 1 anterolisthesis at L4 onto L5. There is mild central canal stenosis at this level with moderate bilateral neuroforaminal stenosis. MRI of the thoracolumbar spine taken on 05/30/2024 demonstrates no evidence for osteomyelitis/discitis. There is severe disc generation changes at L4-L5 with endplate sclerosis gas present. grade 1 anterolisthesis of L4 onto L5 with severe bilateral neuroforaminal stenosis severe L5-S1 neural foraminal stenosis.. There is no evidence for significant spinal canal stenosis of the thoracic spine. Review of Systems Pertinent positives and negatives as discussed in HPI, a complete review of systems was performed and all other systems are negative. Physical Examination General: The patient is awake and alert, in no acute distress Skin: Skin is warm and dry with no obvious rashes or lesions. Eye: Pupils are equal, round and reactive to light, extra-ocular movements are intact; there is normal conjunctiva bilaterally. Neck: The neck is supple, there is no tenderness and ROM intact. Cardiovascular: There is a regular rate and rhythm. No murmur, rub or gallop is appreciated. Respiratory: Respirations are non-labored, breath sounds are equal. Gastrointestinal: Soft, slightly distended, tender abdomen to palpation Back: There is no tenderness to palpation in the midline, paralumbar, parathoracic or buttocks region. There is no obvious deformity. Musculoskeletal: Right: Shoulder abduction 5/5, elbow flexors 5/5, wrist dorsiflexors 5/5. finger abductor 5/5, veneer glue jointer feedback 5/5, hip flexor 4/5, knee flexor 4/5, ankle dorsiflexor 4/5, ankle plantarflexion 4/5 and extensor hallucis 5/5. Left: Shoulder abduction 5/5, elbow flexors 5/5, wrist dorsiflexors 5/5. finger abductor 5/5, veneer glue jointer feedback 5/5, hip flexor 4-/5, knee flexor 4/5, ankle dorsiflexor 4/5, ankle plantarflexion 4/5 and extensor hallucis 5/5. Neurological: CN 2-12 intact. There are no obvious motor or sensory deficits. Movement and coordination equal and intact. Sensory exam to light touch intact C5-T1 and intact from L2-S1. Reflexes 2/4 in bilateral upper and lower extremities. Negative Hoffmans, babinski, and clonus signs. Psychiatric: Cooperative, appropriate mood & affect, normal judgment. Assessment and Plan Severe lumbar pain Chronic T12 vertebral compression fracture L4-S1 spondylosis with stenosis Grade 1 anterolisthesis L4 onto L5 Left lower extremity radiculopathy Bilateral lower extremity weakness Multiple medical comorbidities At this time we recommend L4-S1 decompression and fusion, Nonoperative treatment options have been discussed with patient. Patient would like to proceed with surgical intervention. Risks and benefits have been discussed. Patient will need medical clearance, discussed with DANISHA Townsend for Dr. Amado. Patient to be NPO at [place]. Patient may need LEOPOLDO at discharge. 2. Appreciate medical management 3. Pain management -Continue with IV dilaudid and [place] 4. GI prophylaxis -senna 5. DVT prophylaxis - mechanical, TEDS 6. PT/OT - weightbearing as tolerated with a walker as needed. 7. Appreciate consult I reviewed and discussed this case with my attending Dr. Zurita, whom has reviewed this chart and films and is in agreement with assessment and plan of ca re as outlined above. I have personally seen and examined the patient, performed the documentation and the assessment and plan as written. Number of minutes spent on the visit: 30m. Past Medical History Past Medical History: Asthma, Chest Pain / Angina, Heart Failure, COPD, Diabetes Mellitus, GERD/Reflux, Hyperlipidemia, Hypertension, Liver Disease, O steoarthritis (OA), Rheumatoid Arthritis (RA) Additional Past Medical History / Comment(s): DIET CONTROLLED DIABETES, BACK PAIN, diverticulitis,colitis, had low magnesium & potassium also, hx dysphagia w/meds, intermittent diarrhea" r/t gall stones " then constipation. a pt unaware of COPD DX. ? cirrohsis History of Any Multi-Drug Resistant Organisms: ESBL Year Discovered:: 09/08/18 ESBL-E.coli MDRO Source:: Urine Past Surgical History: Appendectomy, Bowel Resection, Breast Surgery, Section, Hernia Repair, Hysterectomy, Joint Replacement, Tonsillectomy Additional Past Surgical History / Comment(s): 06/17/15 Total L knee arthroplast y & right knee replaced, left hip replaced, Other SX: LT BREAST BIOPSY, POLYPS REMOVED FROM THROAT, ROBOTIC INCISIONAL HERNIA REPAIR, LYSIS OF ADHESIONS. Past Anesthesia/Blood Transfusion Reactions: No Reported Reaction Additional Past Anesthesia/Blood Transfusion Reaction / Comm: one blood transfusion - no issues. Past Psychological History: Anxiety, Depression, PTSD Smoking Status: Never smoker Past Alcohol Use History: None Reported Past Drug Use History: None Reported - Past Family History Father Family Medical History: Deep Vein Thrombosis (DVT), Pulmonary Embolus Mother Family Medical History: Cancer Additional Family Medical History / Comment(s): breast Medications and Allergies Home Medications Medication Instructions Recorded Confirmed Type Azelastine HCl [Astelin Nasal 2 spray EA NOSTRIL BID 08/21/19 05/30/24 History [place]] Pantoprazole Sodium [Protonix] 40 mg PO DAILY 11/11/21 05/30/24 History Furosemide [Lasix] 20 mg PO DAILY 06/14/23 05/30/24 History Acetaminophen Tab [Tylenol Tab] 1,500 mg PO TID 05/30/24 05/30/24 History Loratadine [Claritin] 10 mg PO DAILY 05/30/24 05/30/24 History Losartan Potassium 100 mg PO DAILY 05/30/24 05/30/24 History Venlafaxine HCl [Effexor XR] 150 mg PO HS 05/30/24 05/30/24 History busPIRone HCl [Buspar] 10 mg PO DAILY 05/30/24 05/30/24 History Allergies Allergy/AdvReac Type Severity Reaction Status Date / Time codeine Allergy Rash/Hives Verified 05/30/24 13:16 nicotine Allergy Swelling Verified 05/30/24 13:16 Tetracyclines Allergy Rash/Hives Verified 05/30/24 13:16 venom-honey bee Allergy Anaphylaxis Verified 05/30/24 13:16 [bee venom (honey bee)] lisinopril AdvReac Cough Verified 05/30/24 13:16 oxycodone AdvReac gi upset Verified 05/30/24 13:16 Results - Labs Labs: Abnormal Lab Results - Last 24 Hours (Table) 05/30/24 05/30/24 Range/Units 10:35 10:35 RBC 3.32 L (3.80-5.40) m/uL MCV 112.8 H (80.0-100.0) fL MCH 37.1 H (25.0-35.0) pg RDW 16.5 H (11.5-15.5) % Macrocytosis Marked A ESR 77 H (0-30) mm/Hr Potassium 3.4 L (3.5-5.1) mmol/L Chloride 109 H (98-107) mmol/L Carbon Dioxide 17 L (22-30) mmol/L Glucose 105 H (74-99) mg/dL AST 55 H (14-36) U/L H & H 05/30/24 Range/Units 10:35 Hgb 12.3 (11.4-16.0) gm/dL Hct 37.5 (34.0-46.0) % Result Diagrams: 05/30/24 10:35 05/31/24 06:33
[2024-05-31 10:47] LABS: HCT 34.4 % (37.2-46.3); HGB 11.4 g/dL (12.0-15.0); MCH 37.4 pg (27.0-32.0); MCHC 33.1 g/dL (32.0-37.0); MCV 112.8 FL (80.0-97.0); Mean Platelet Volume 9.3 FL (9.5-12.2); NRBC Per 100 WBC 0 X 10*3/uL (0.00-0.01); Platelet Count 173 X 10*3/uL (140-440); RBC 3.05 X 10*6/uL (4.10-5.20); RDW 16.7 % (11.5-14.5); WBC 4.64 X 10*3/uL (4.50-10.00)
[2024-05-31 11:37] LABS: Basophils # (A) 0.02 X 10*3/uL (0.00-0.10); Basophils % (A) 0.4 %; Eosinophils % (A) 2.2 %; Lymphocytes # (A) 1.17 X 10*3/uL (0.90-5.00); Lymphocytes % (A) 25.2 %; Macrocytosis (M) 3+; Monocytes # (A) 0.44 X 10*3/uL (0.20-1.00); Monocytes % (A) 9.5 %; Neutrophils # (A) 2.89 X 10*3/uL (1.80-7.70); Neutrophils % (A) 62.3 %
--- NOTE | 2024-05-31 14:32 | XR ---
EXAMINATION TYPE: XR chest 1V portable DATE OF EXAM: 05/31/2024 HISTORY: Shortness of breath. COMPARISON: 11/11/2021 TECHNIQUE: Single view of the chest is submitted. FINDINGS: Demonstrated are scattered senescent parenchymal change. There is no evidence for focal infiltrate. Chronic elevation right hemidiaphragm with right basilar p arenchymal scarring. The heart is stable. Hilar and mediastinal structures are within normal limits. Degenerative changes are seen of the dorsal spine. IMPRESSION: 1. Chronic changes without evidence for acute pulmonary disease.
--- NOTE | 2024-06-01 06:37 | P.PN ---
Subjective Progress Note Date: 05/31/24 This is a very pleasant 73-year-old female who follows with Dr. Reggie Mantilla in the outpatient setting with a past medical history of asthma, angina, heart failure, COPD, diabetes mellitus, GERD, hyperlipidemia, hypertension, liver disease, osteoarthritis, rheumatoid arthritis and chronic back pain. Patient also does have some anxiety and depression with PTSD. Patient denies smoking although reports to occasionally drinking and denies any other illicit drugs. Patient has been having increased back pain and difficulty ambulation requiring a walker. Patient reports she does live home alone and orthopedics has been consulted with concerns of abnormal findings and initially thoughts of osteomyelitis. Infectious disease following and patient is maintained on antibiotics. Plans for surgical intervention on 05/31/2024. Attempted to contact the cardiology office for recent echo. Chest x-ray showing no acute process and EKG normal sinus. Patient is considered low to moderate risk for surgical intervention although is willing to proceed with surgery to enhance quality of life as patient is normally independent and lives alone. Review of systems: Constitutional: No reports of fatigue, fever, or chills Cardiovascular: No reports of chest pain or palpitations Respiratory: No reports of shortness of breath or cough GI: reports of nausea, no reports of of vomiting, : No reports of dysuria or retention Neurovascular: reports of generalized weakness, and continued lower back pain All medications have been reviewed Active Medications Hydrocodone Bitart/Acetaminophen (Hydrocodone/Apap 5-325mg 1 Each Tab) 1 each PO Q4HR PRN PRN Reason: Moderate Pain (Scale 4 to 6) Last Admin: 06/01/24 06:05 Dose: 1 each Buspirone HCl (Buspirone Hcl 10 Mg Tab) 10 mg PO DAILY [facility] Last Admin: 05/31/24 08:21 Dose: 10 mg Hydromorphone HCl (Hydromorphone 0.5 Mg/0.5 Ml Syringe) 0.5 mg IVP Q3HR PRN PRN Reason: Moderate Pain (Scale 4 to 6) Last Admin: 06/01/24 02:25 Dose: 0.5 mg Vancomycin HCl 1,500 mg/ (Sodium Chloride) 500 mls @ 167 mls/hr IVPB Q12H [facility] Last Admin: 06/01/24 01:10 Dose: 167 mls/hr Cefepime HCl 2 gm/ Sodium (Chloride) 100 mls @ 25 mls/hr IVPB Q8H [facility]; Protocol Last Admin: 06/01/24 03:21 Dose: 25 mls/hr Tranexamic Acid/Sodium (Chloride 1,000 mg/ IV Solution) 100 mls @ 200 mls/hr IVPB Q2HR PRN; Protocol PRN Reason: Bleeding Stop: 06/01/24 09:07 Losartan Potassium (Losartan 50 Mg Tab) 100 mg PO DAILY [facility] Last Admin: 05/31/24 08:22 Dose: 100 mg Miscellaneous Information (Vancomycin Trough Due 1 Each Misc) 0 each MISCELLANE DIRECTED ONE Stop: 06/01/24 13:01 Naloxone HCl (Naloxone 0.4 Mg/Ml 1 Ml Vial) 0.2 mg IV Q2M PRN PRN Reason: Opioid Reversal Ondansetron HCl (Ondansetron 4 Mg/2 Ml Vial) 4 mg IVP Q8HR PRN PRN Reason: Nausea And Vomiting Last Admin: 06/01/24 06:20 Dose: 4 mg Pantoprazole Sodium (Pantoprazole 40 Mg Tablet) 40 mg PO DAILY [facility] Last Admin: 05/31/24 08:21 Dose: 40 mg Venlafaxine HCl (Venlafaxine Hcl Er 150 Mg Cap) 150 mg PO HS [facility] Last Admin: 05/31/24 20:17 Dose: 150 mg PHYSICAL EXAMINATION: GENERAL: The patient is alert and oriented x4, Well developed, well nourished. Elderly appearing, obese HEENT: Pupils are round and equally reacting to light. EOMI. no scleral icterus. No conjunctival pallor. Normocephalic, atraumatic. No pharyngeal erythema. No thyromegaly. CARDIOVASCULAR: S1 and S2 muffled PULMONARY: diminished breath sounds bilaterally with no wheezing or rhonchi noted. ABDOMEN: soft. Nontender on exam. obese. non-distended, normoactive bowel s ounds. No palpable organomegaly. MUSCULOSKELETAL: No joint swelling or deformity. EXTREMITIES: No cyanosis, clubbing, or pedal edema. NEUROLOGICAL: Gross neurological examination did not reveal any focal deficits. Diffuse weakness SKIN: No rashes. Assessment: Back pain, chronic sent in by PCP for x-ray abnormalities with concerns of osteomyelitis, osteomyelitis ruled out on MRI History of chronic T12 vertebral compression fracture L4-S1 spondylosis with stenosis with lower extremity radiculopathy and gait dysfunction Obesity with a BMI of 31.9 History of alcohol use, reports frequently per patient but not daily, no active signs of withdrawing at this time History of asthma/COPD, not in exacerbation History of heart failure with unknown EF Hypertension Hyperlipidemia Osteoarthritis History of rheumatoid arthritis GI prophylaxis DVT prophylaxis Full code Plan: Recommend to continue with current medications and management with infectious disease and orthopedics following. Patient will be n.p.o. at midnight and tentatively scheduled for orthopedic intervention with Dr. Zurita for spondylosis with stenosis as patient has been having continued back pain and difficulty with ambulating and weakness with radiculopathy of the lower extremities Patient does follow with Dr. Gaviria in the outpatient setting and reports had an echo in the office, records requested and pending at this time. EKG is normal sinus and chest x-ray done showing no acute process patient is considered low to moderate risk given comorbidities And risk versus benefits explained and patient willing to proceed with surgery. Patient lives alone and was independent prior to office and would recommend p roceeding with intervention to enhance quality of life Will follow-up on repeat labs and monitor closely. Will await surgical report Overall prognosis is guarded given significant comorbidities The impression and plan of care has been dictated by Cary Solorzano, nurse practitioner as directed. Dr. Aneudy MD I have performed a history and examination and MDM of this patient, discussed the same with the dictator, and agree with the dictator's assessment and plan as written ,documented as a scribe. Based on total visit time, I have performed more than 50% of the visit. Any additional findings or plans will be noted. Objective - Vital Signs Vital signs: Vital Signs Temp 98.6 F 06/01/24 02:00 Pulse 66 06/01/24 02:00 Resp 16 06/01/24 02:00 BP 144/81 06/01/24 02:00 Pulse Ox 96 06/01/24 02:00 FiO2 Intake & Output 05/31/24 05/31/24 06/01/24 06:59 18:59 06:59 Intake Total 240 Balance 240 Intake: Oral 240 Other: Voiding Method Toilet Toilet # Voids 2 10 3 # Bowel Movements 3 - Labs CBC & Chem 7: 05/31/24 06:33 05/31/24 06:33 Labs: Abnormal Lab Results - Last 24 Hours (Table) 05/31/24 05/31/24 Range/Units 06:33 06:33 RBC 3.05 L (4.10-5.20) X 10*6/uL Hgb 11.4 L (12.0-15.0) g/dL Hct 34.4 L (37.2-46.3) % MCV 112.8 H (80.0-97.0) FL MCH 37.4 H (27.0-32.0) pg RDW 16.7 H (11.5-14.5) % MPV 9.3 L (9.5-12.2) FL Macrocytosis (manual) 3+ A Chloride 112 H (98-107) mmol/L Carbon Dioxide 20 L (22-30) mmol/L Calcium 7.9 L (8.4-10.2) mg/dL Vitamin B12 1011.0 H (200.0-944.0) pg/mL Microbiology - Last 24 Hours (Table) 05/30/24 13:06 Blood Culture - Preliminary Blood 05/30/24 13:06 Blood Culture - Preliminary Blood
[2024-06-01] MEDS ORDERED: TRANEXAMIC 1,000 MG/100ML-NACL 1,000 MG in SALINE 1 100ML.BAG IVPB PRN (09:06)
[2024-06-01 10:50] LABS: Basophils # (A) 0.04 X 10*3/uL (0.00-0.10); Basophils % (A) 0.8 %; Eosinophils # (A) 0.21 X 10*3/uL (0.04-0.35); Eosinophils % (A) 4.1 %; HCT 35.8 % (37.2-46.3); HGB 11.7 g/dL (12.0-15.0); Lymphocytes # (A) 1.09 X 10*3/uL (0.90-5.00); Lymphocytes % (A) 21.2 %; MCH 37.1 pg (27.0-32.0); MCHC 32.7 g/dL (32.0-37.0); MCV 113.7 FL (80.0-97.0); Monocytes # (A) 0.44 X 10*3/uL (0.20-1.00); Monocytes % (A) 8.6 %; NRBC Per 100 WBC 0 X 10*3/uL (0.00-0.01); Neutrophils # (A) 3.33 X 10*3/uL (1.80-7.70); Neutrophils % (A) 64.9 %; Platelet Count 181 X 10*3/uL (140-440); RBC 3.15 X 10*6/uL (4.10-5.20); RDW 16.5 % (11.5-14.5); WBC 5.13 X 10*3/uL (4.50-10.00)
[2024-06-01] MEDS: VANCOMYCIN TROUGH DUE 1 EACH MISC MISCELLANE ONE (12:31)
[2024-06-01 12:58] LABS: African American GFR (CKD) >90 (>60 ml/min/1.73 sqM); Non-African American GFR(CKD) >90 (>60 ml/min/1.73 sqM)
[2024-06-01] MEDS: IV FLUID CONTINUATION 1,000 ML IV ONE ×4 (13:00→13:35)
[2024-06-01 13:15] LABS: Glucose,Whole Blood 86 mg/dL (70-110)
[2024-06-01] MEDS: DEXAMETHASONE SOD PHOSPHATE 4 MG/ML 1 ML VIAL IVP STA (13:25)
--- NOTE | 2024-06-01 13:38 | P.PN ---
Progress Note - Text Progress Note Date: 06/01/24 Spine Surgery Clinical and Risk Review Kala Mock is a 73 yo female presenting for evaluation of Severe and progressive low back pain with LLE weakness, progressive and RLE weakness with new paresthesias in LLE progressive inabilty to ambulate and perform ADLs seconday to pain and weakness. It was my pleasure to have seen and examined Kala Mock. In our visit today we have had a chance to go over subjective complaints, physical examination findings and treatments including the natural course history without intervention and various interventional options. The patients imaging demonstrates severe spondylotic changes of L4-5 and L5-S1 with severe and near complete collapse of L4-5 with Grade I unstable spondylolisthesis. There is question of likely osteodiscitis in this area due to bony endplate erosion, cyst formation and MRI findings suspicious of old discitis. At L5-S1 similar findings are present with vacuum disc phenom, collapse, severe, severe facet arthrosis along with listhesis. There is central and b/l foraminal stenosis related to this as well. No fractures of these lvels noted. Old fracture of T12 noted, VCF that is hlikely progressed over the years to near 100% collapse with local kyphosis. Minimal stenosis at this level noted. NO other lesions noted. On physical exam, Kala Mock demonstrates new onset b/l LE weakness with LLE severe paresthesias and radiculopathy that is progressing to her RLE as well. She is unable to ambulate at this time due to her pain and weakness in her LLE. She has severe back pain with any motion and this has prevented her from her ADLs for the past two weeks and part of what prompted her to come in. She states no numbness/tingling in the perineal region. She has no bowel or bladder issues at this time. she has 4-/5 strength in LLE all major muscle groups at this time with 4/5 strength in the RLE all major muscle groups. She has dermatomal deficit in L4-5 and L5-S1 LLE and starting in RLE now but to less extent. She is vascularly intact distally with 1+ edema in LE b/l. Neg medina's, neg clonus, neg babinski b/l. Tensioning noted of the LLE with +SLR. VSS at this time. I have explained to the patient that as their condition progresses it will cause further neurological deficits and eventual paralysis. Based on the patients imaging, physical exam, and the rapid progression and disabling nature of their symptoms, at this time I recommend surgery in the form or a: L4-S1 POSTEROLATERAL AND INTERBODY FUSION WITH DECOMPRESSION. I discussed the risk and benefits of this procedure at length with Kala Mock. The patient agreed to considered pursuing the procedure abovementioned. Prior to surgery, she should follow up with her PCP (Cardio, ID, IM etc) for clearance. Questions were invited and answered, and the patient wishes to proceed as outlined below. Currently, I am recommendin. L4-S1 POSTEROLATERAL AND INTERBODY FUSION WITH DECOMPRESSION 2. Follow up with PCP for surgical clearance 3. Review of surgical risks and benefits as well as an educational packet on the proposed surgical procedure. Risks: All surgical procedures come with inherent risks, including those related to positioning, anesthesia, intraoperative findings, and postoperative complications. It is important to understand that surgery does not come with any guarantee of a successful outcome as complications and adverse events are always possible. The patient was given a handout in office today discussing the surgical procedure and risks associated with the intervention, both of which were discussed with the patient. These risks include but are not limited to the following: * Experiencing same, different or even worse symptoms in back, neck, arms, or legs compared to before surgery. * Requiring further surgery or other forms of treatment presently or at some time in the future at same or other levels of the intended spine surgery. * On an extreme but fortunately relatively rare basis severe complication such as blindness, stroke, heart attack, temporary and/or permanent nerve injury, paralysis, coma, or may occur, sometimes without known explanation. * Surgical complications may include but are not limited to risk of infection, fluid accumulation in the surgical dissection site, including a seroma or hematoma, that requires additional surgery, wound drainage, bleeding, new numbness or weakness, vision changes/loss, spinal fluid leakage, non-healing and/or infected incision, headaches, difficulty or inability to swallow, hoarseness, hemopneumothorax, pneumothorax, impotence, retrograde ejaculation, vaginal dryness; injury to nerves, spinal cord, blood vessels, lymphatics or other vital organs (i.e., bowel injury, injury to the great vessels); heterotopic bone formation; complications related to the hardware such as screws, rods, cages including misplaced hardware, device failure, instrumentation at the wrong spine level, hardware fracture/breakage, or hardware loosening; vertebral failure of the spinal column above or below the newly placed hardware; retained surgical instrumentations or devices and the need for further surgery. * Medical risks of the planned spine surgery include but are not limited to generalized Infections to the whole body or local areas outside of the surgical site (sepsis), heart attack, bleeding, anaphylaxis, meningitis, seizure, epilepsy, hearing loss, burn velasco, laceration of the head or other areas of the body, bruising, hypersensitivity of the skin, bladder over distension; allergic reaction; shoulder injury related to positioning; fat, blood and air clots to other areas of the body like heart, lungs, brain; failure of internal organs such as lungs, kidneys, liver and excessive bleeding. If blood transfusions are necessary, note that transfusions may cause intolerance reactions such as anaphylaxis or other complex reactions. * Despite best efforts, the results of spine surgery might not heal in terms of bone, soft tissues such as skin, fascia, ligaments, and joints. Additionally, in order to achieve best possible results, spine surgery may be carried out beyond the initially planned levels and involve decompression, fusion including insertion of hardware at levels other than the original intended area of surgical interest change some portions of the procedure in order to ensure the best possible outcomes. * With spine surgery and spinal fusion, there are different off label uses of instrumentation (devices, implants and hardware) as well as biological substances (bone morphogenic proteins, demineralized bone matrix) as well as using extra bone from allograft sources (i.e. cadaver bone) or autograft (iliac crest bone, ribs, or the spine itself). The patient has been given information about these practices and their inherent risks and benefits. The patient has had a chance to review all the listed information, has been given print outs detailing this information, and has had all his/her questions answered to their satisfaction. It was my pleasure to have seen and examined Kala Mock. In our visit today we have had a chance to go over my understanding of our patient's current condition, the natural course history without intervention and various interventional options. Questions were invited and answered, and the patient wishes to proceed as outlined above. I have seen and examined the patient for 25 minutes and we have spent more than 50% of the time in repeat and detailed counseling about the patient's condition, its natural course history with out and as much as can be predicted with surgery and re-review of various surgical treatment options. In conclusion, Kala Mock and requested we proceed with the above suggested surgery and are willing to accept risks and limitations of the suggested surgery as nature of the disease process and our best attempts at treatment for the condition. Thank you again for allowing us to be part of your patient's care. Please don't hesitate to contact me if you have any further questions. Signed and authenticated by: [facility] [address] [facility], [address] [address]
[2024-06-01] MEDS ORDERED: SUCCINYLCHOLINE CHLORIDE 200 MG/10 ML VIAL IV ONE (13:39)
[2024-06-01] MEDS ORDERED: GLYCOPYRROLATE 0.2 MG/ML 2 ML VIAL ONE (13:39)
[2024-06-01] MEDS ORDERED: PHENYLEPHRINE 10 MG/ML VIAL ONE (13:39)
[2024-06-01] MEDS ORDERED: NEOSTIGMINE 1 MG/ML 10 ML VIAL ONE (13:39)
[2024-06-01] MEDS ORDERED: LABETALOL 5 MG/ML VIAL MDV ONE (13:39)
[2024-06-01] MEDS ORDERED: ePHEDrine 50 MG/ML 1 ML VIAL ONE (13:39)
[2024-06-01] MEDS ORDERED: TRANEXAMIC 1,000 MG/100ML-NACL PREMIX BAG ONE (13:39)
[2024-06-01] MEDS ORDERED: ROCURONIUM 10 MG/ML (5 ML VIAL) IV ONE (13:39)
[2024-06-01] MEDS ORDERED: KETAMINE HCL IN 0.9 % NACL 50 MG/5 ML SYRINGE ONE (13:39)
[2024-06-01] MEDS ORDERED: LIDOCAINE 1% INJ 10MG/ML (20 ML MDV) ONE (13:39)
[2024-06-01] MEDS ORDERED: fentaNYL (PF) 50 MCG/ML 2 ML AMP ONE (13:39)
[2024-06-01] MEDS ORDERED: MIDAZOLAM 2 MG/2 ML VIAL ONE (13:39)
[2024-06-01] MEDS ORDERED: PROPOFOL 10 MG/ML 20 ML VIAL IV ONE (13:39)
[2024-06-01] MEDS ORDERED: Magnesium Replacement Protocol 1 EACH MISC MISCELLANE PRN (13:50)
[2024-06-01] MEDS: VANCOMYCIN 1,250 MG in SODIUM CHLORIDE 0.9% 250 ML IVPB SCH (14:15)
[2024-06-01] MEDS: THROMBIN (BOVINE) 5,000 UNIT VIAL MISCELLANE ONE (14:28)
--- NOTE | 2024-06-01 15:56 | P.PN ---
Subjective Progress Note Date: 06/01/24 Principal diagnosis: Reason for follow-up is abnormal CT and question of discitis Patient is a 73-year-old female with a past medical history significant for diabetes mellitus hypertension hyperlipidemia reflux COPD heart failure and rheumatoid arthritis presenting to the hospital concerning for lower back pain patient did have CT of the lumbar spine suspicious for osteomyelitis/discitis of L4L5 as well as L5-S1 prompting this consultation. On today's evaluation that is 06/01/2024,the patient denies any fever or any chills, patient is breathing comfortably on room air, the patient denies chest pain shortness of breath and no significant cough, patient denies abdominal pain, no nausea vomiting or diarrhea. Patient pain to the lower back and slightly decreased in intensity currently waiting for surgery. Patient white count is 5.13 creatinine 0.49 Vanco trough was 23.8 Objective - Vital Signs Vital signs: Vital Signs Temp 98.4 F 06/01/24 12:37 Pulse 63 06/01/24 12:37 Resp 17 06/01/24 12:37 BP 142/84 06/01/24 12:37 Pulse Ox 95 06/01/24 12:37 FiO2 Intake & Output 05/31/24 06/01/24 06/01/24 18:59 06:59 18:59 Other: Voiding Method Toilet # Voids 10 3 # Bowel Movements 3 - Exam GENERAL DESCRIPTION: An elderly female lying in bed in no distress RESPIRATORY SYSTEM: Unlabored breathing , decreased breath sounds at bases HEART: S1 S2 regular rate and rhythm , ABDOMEN: Soft , no tenderness EXTREMITIES: No edema feet - Labs CBC & Chem 7: 06/01/24 06:55 06/01/24 12:14 Labs: Abnormal Lab Results - Last 24 Hours (Table) 06/01/24 06/01/24 06/01/24 Range/Units 06:55 06:55 12:14 RBC 3.15 L (4.10-5.20) X 10*6/uL Hgb 11.7 L (12.0-15.0) g/dL Hct 35.8 L (37.2-46.3) % MCV 113.7 H (80.0-97.0) FL MCH 37.1 H (27.0-32.0) pg RDW 16.5 H (11.5-14.5) % Creatinine 0.49 L (0.52-1.04) mg/dL Magnesium 0.4 A* (1.5-2.4) mg/dL Microbiology - Last 24 Hours (Table) 05/30/24 13:06 Blood Culture - Preliminary Blood 05/30/24 13:06 Blood Culture - Preliminary Blood Assessment and Plan (1) Discitis Current Visit: Yes Status: Acute Code(s): M46.40 - DISCITIS, UNSPECIFIED, SITE UNSPECIFIED SNOMED Code(s): 1877890 (2) Osteomyelitis of lumbar spine Current Visit: Yes Status: Acute Code(s): M46.26 - OSTEOMYELITIS OF VERTEBRA, LUMBAR REGION SNOMED Code(s): 711601940 Plan: 1patient presented to hospital worsening lower back pain that apparently has been getting worse over the last 4 months with no history of any trauma no history of back surgery or injection now with significant changes seen on the CT suspicious for discitis and osteomyelitis patient interestingly did not have any fever or elevated white count with a question of advanced osteoarthritis 2-patient did have MRI of the thoracolumbar spine mention advanced osteoarthritic changes and did not mention any discitis or osteomyelitis 3-patient did have elevated sed rate of 77 CRP is normal blood culture pending 4-patient is scheduled for surgery this afternoon with low clinical suspicious for infection we will go ahead and discontinue vancomycin to decrease risk of nephrotoxicity we will follow-up on any culture done at the time of surgery Dictation was produced using [email or web address] dictation software. please excuse any grammatical, word or spelling errors. Time with Patient: Less than 30
--- NOTE | 2024-06-01 15:56 | P.PN ---
Subjective Progress Note Date: 05/31/24 Principal diagnosis: Reason for follow-up is abnormal CT and question of discitis Patient is a 73-year-old female with a past medical history significant for diabetes mellitus hypertension hyperlipidemia reflux COPD heart failure and rheumatoid arthritis presenting to the hospital concerning for lower back pain patient did have CT of the lumbar spine suspicious for osteomyelitis/discitis of L4L5 as well as L5-S1 prompting this consultation. On today's evaluation that is 05/31/2024, Patient is afebrile this morning patient denies having any chest pain shortness of breath or cough, the patient is breathing comfortably and currently on room air, patient denies any abdominal pain no diarrhea no nausea no vomiting patient mention pain to the lower back and slightly decreased intensity. Patient white count is 4.64 creatinine is 0.52 sed rate is 77 CRP was normal patient did have MRI of the thoracolumbar spine mention no evidence of osteomyelitis discitis severe degenerative changes Objective - Vital Signs Vital signs: Vital Signs Temp 98.7 F 05/31/24 19:58 Pulse 75 05/31/24 19:58 Resp 16 05/31/24 19:58 BP 144/85 05/31/24 19:58 Pulse Ox 95 05/31/24 19:58 FiO2 Intake & Output 05/31/24 05/31/24 06/01/24 06:59 18:59 06:59 Intake Total 240 Balance 240 Intake: Oral 240 Other: Voiding Method Toilet # Voids 2 10 # Bowel Movements 3 - Exam GENERAL DESCRIPTION: An elderly female lying in bed in no distress RESPIRATORY SYSTEM: Unlabored breathing , decreased breath sounds at bases HEART: S1 S2 regular rate and rhythm , ABDOMEN: Soft , no tenderness EXTREMITIES: No edema feet - Labs CBC & Chem 7: 06/01/24 06:55 06/01/24 12:14 Labs: Abnormal Lab Results - Last 24 Hours (Table) 05/31/24 05/31/24 Range/Units 06:33 06:33 RBC 3.05 L (4.10-5.20) X 10*6/uL Hgb 11.4 L (12.0-15.0) g/dL Hct 34.4 L (37.2-46.3) % MCV 112.8 H (80.0-97.0) FL MCH 37.4 H (27.0-32.0) pg RDW 16.7 H (11.5-14.5) % MPV 9.3 L (9.5-12.2) FL Macrocytosis (manual) 3+ A Chloride 112 H (98-107) mmol/L Carbon Dioxide 20 L (22-30) mmol/L Calcium 7.9 L (8.4-10.2) mg/dL Vitamin B12 1011.0 H (200.0-944.0) pg/mL Assessment and Plan (1) Discitis Current Visit: Yes Status: Acute Code(s): M46.40 - DISCITIS, UNSPECIFIED, SITE UNSPECIFIED SNOMED Code(s): 6608335 (2) Osteomyelitis of lumbar spine Current Visit: Yes Status: Acute Code(s): M46.26 - OSTEOMYELITIS OF VERTEBRA, LUMBAR REGION SNOMED Code(s): 404190961 Plan: 1patient presented to hospital worsening lower back pain that apparently has been getting worse over the last 4 months with no history of any trauma no history of back surgery or injection now with significant changes seen on the CT suspicious for discitis and osteomyelitis patient interestingly did not have any fever or elevated white count with a question of advanced osteoarthritis 2-patient did have MRI of the thoracolumbar spine mention advanced osteo arthritic changes and did not mention any discitis or osteomyelitis 3-patient did have elevated sed rate of 77 CRP is normal blood culture pending 4-patient is currently covered with vancomycin and cefepime and orthopedic is planning for surgical intervention tomorrow Dictation was produced using [employer] dictation software. please excuse any grammatical, word or spelling errors. Time with Patient: Less than 30
[2024-06-01 17:11] LABS: ALT 18 U/L (4-34); AST 37 U/L (14-36); African American GFR (CKD) >90 (>60 ml/min/1.73 sqM); Albumin 3.7 g/dL (3.5-5.0); Albumin/Globulin Ratio 1.1; Alkaline Phosphatase 57 U/L (38-126); Anion Gap 11 mmol/L; Blood Urea Nitrogen 4 mg/dL (7-17); Calcium 7.3 mg/dL (8.4-10.2); Carbon Dioxide 17 mmol/L (22-30); Chloride 108 mmol/L (98-107); Globulin 3.4 g/dL; Glucose 81 mg/dL (74-99); Non-African American GFR(CKD) >90 (>60 ml/min/1.73 sqM); Potassium 3.4 mmol/L (3.5-5.1); Sodium 136 mmol/L (137-145); Total Bilirubin 0.9 mg/dL (0.2-1.3); Total Protein 7.1 g/dL (6.3-8.2)
[2024-06-01] MEDS: LACTATED RINGERS 1,000 ML IV ONE (17:23)
[2024-06-01] MEDS ORDERED: HYDROmorphone 0.5 MG/0.5 ML SYRINGE IVP PRN (17:33)
[2024-06-01] MEDS ORDERED: ONDANSETRON 4 MG/2 ML VIAL IVP PRN (17:38)
[2024-06-01] MEDS: HYDROmorphone 1 MG/ML 1 ML SYRINGE IVP STA (17:48)
[2024-06-01] MEDS ORDERED: fentaNYL (PF) 50 MCG/ML 2 ML AMP IV PRN (17:48)
[2024-06-01] MEDS: HYDROmorphone 0.5 MG/0.5 ML SYRINGE IVP STA (18:03)
[2024-06-01 18:06] LABS: Glucose,Whole Blood 143 mg/dL (70-110)
[2024-06-01] MEDS: MEPERIDINE 50 MG/ML SYRINGE IVP STA (18:12)
[2024-06-01] MEDS: droPERidol 5 MG/2 ML VIAL IVP ONE (18:32)
[2024-06-01] MEDS: LACTATED RINGERS 1,000 ML IV SCH (19:46)
[2024-06-01] MEDS: MAGNESIUM SULFATE-D5W PMX 1 GM in DEXTROSE/WATER 1 100ML.BAG IVPB SCH ×2 (19:51→20:08)
[2024-06-01] MEDS: ONDANSETRON 4 MG/2 ML VIAL IVP ONE (20:08)
--- NOTE | 2024-06-01 20:12 | P.OP ---
Date of Procedure: 06/01/24 Preoperative Diagnosis: Current Active Problems Facet arthropathy, lumbosacral (Acute) Facet arthropathy, lumbar (Acute) Spondylolisthesis at L4-L5 level (Acute) Radiculopathy with lower extremity symptoms (Acute) Spondylosis of lumbar joint (Acute) Spondylosis of lumbosacral joint (Acute) Discitis of lumbosacral region (Acute) Discitis of lumbar region (Acute) Osteomyelitis of lumbar spine (Acute) Discitis (Acute) Postoperative Diagnosis: Current Active Problems Facet arthropathy, lumbosacral (Acute) Facet arthropathy, lumbar (Acute) Spondylolisthesis at L4-L5 level (Acute) Radiculopathy with lower extremity symptoms (Acute) Spondylosis of lumbar joint (Acute) Spondylosis of lumbosacral joint (Acute) Discitis of lumbosacral region (Acute) Discitis of lumbar region (Acute) Osteomyelitis of lumbar spine (Acute) Discitis (Acute) Procedure(s) Performed: L4-5 INTRADISCAL 3 COLUMN OSTEOTOMY FOR DEFORMITY CORRECTION L5-S1 INTRADISCAL 3 COLUMN OSTEOTOMY FOR DEFORMITY CORRECTION L4-5 POSTEROLATERAL AND INTERBODY ARTHRODESIS L5-S1 POSTEROLATERAL AND INTERBODY ARTHRODESIS L4-S1 SEGMENTAL INSTRUMENTATION L4-5 AND L5-S1 LAMINECTOMY, FACETECTOMY AND FORAMINOTOMY INSERTION OF BIOMECHANICAL DEVICES X2, CAGES L4-5 AND L5-S1 USE OF [employer] NAVIGATION FOR SCREW PLACEMENT USE OF IONM ALL SCREWS TESTING > 19mA USE OF IO MICROSCOPE Implants: DRAKE EVEREST RODS AND SCREWS DRAKE TRITANIUM CAGES X2; 10MM SMALL, 11MM LONG MAGNATOS, VTOSS, DBM, AUTOGRAFT Anesthesia: GETA Surgeon: Jesus Zurita Household Worker #1: Hawa Kevin (was present and assisted with all aspects of the case from position to dressing placement) Estimated Blood Loss (ml): 200 IV fluids (ml): 2,200 Urine output (ml): 280 Pathology: none sent Condition: stable Disposition: PACU Indications for Procedure: Kala Mock is a 73 yo female presenting for evaluation of Severe and progressive low back pain with LLE weakness, progressive and RLE weakness with new paresthesias in LLE progressive inabilty to ambulate and perform ADLs seconday to pain and weakness. It was my pleasure to have seen and examined Kala Mock. In our visit today we have had a chance to go over subjective complaints, physical examination findings and treatments including the natural course history without intervention and various interventional options. The patients imaging demonstrates severe spondylotic changes of L4-5 and L5-S1 with severe and near complete collapse of L4-5 with Grade I unstable spondylol isthesis. There is question of likely osteodiscitis in this area due to bony endplate erosion, cyst formation and MRI findings suspicious of old discitis. At L5-S1 similar findings are present with vacuum disc phenom, collapse, severe, severe facet arthrosis along with listhesis. There is central and b/l foraminal stenosis related to this as well. No fractures of these lvels noted. Old fracture of T12 noted, VCF that is hlikely progressed over the years to near 100% collapse with local kyphosis. Minimal stenosis at this level noted. NO other lesions noted. On physical exam, Kala Mock demonstrates new onset b/l LE weakness with LLE severe paresthesias and radiculopathy that is progressing to her RLE as well. She is unable to ambulate at this time due to her pain and weakness in her LLE. She has severe back pain with any motion and this has prevented her from her ADLs for the past two weeks and part of what prompted her to come in. She states no numbness/tingling in the perineal region. She has no bowel or bladder issues at this time. she has 4-/5 strength in LLE all major muscle groups at this time with 4/5 strength in the RLE all major muscle groups. She has dermatomal deficit in L4-5 and L5-S1 LLE and starting in RLE now but to less extent. She is vascularly intact distally with 1+ edema in LE b/l. Neg medina's, neg clonus, neg babinski b/l. Tensioning noted of the LLE with +SLR. VSS at this time. I have explained to the patient that as their condition progresses it will cause further neurological deficits and eventual paralysis. Based on the patients imaging, physical exam, and the rapid progression and disabling nature of their symptoms, at this time I recommend surgery in the form or a: L4-S1 POSTEROLATERAL AND INTERBODY FUSION WITH DECOMPRESSION. I discussed the risk and benefits of this procedure at length with Kala Mock. The patient agreed to considered pursuing the procedure abovementioned. Prior to surgery, she should follow up with her PCP (Cardio, ID, IM etc) for clearance. Questions were invited and answered, and the patient wishes to proceed as outlined below. Currently, I am recommendin. L4-S1 POSTEROLATERAL AND INTERBODY FUSION WITH DECOMPRESSION Description of Procedure: L4-S1 MIS PLIBF, RAJENDRA (ANISA) The patient was seen and examined in the preoperative area. All preoperative protocols were followed. Informed consent was obtained, risks and benefits of the procedure were discussed at length. Risks including bleeding infection damage to the surrounding tissue and risk of reoperation were discussed with the patient. Risk of anesthesia up to and including was discussed with the patient. These are outlined in the risk review. They were willing to accept these risks and all the risks of surgery. The patient was given a weight-based dose of antibiotics in the form of 2 g Ancef. The patient was seen and evaluated by the anesthesia team who deemed them fit for surgery. The site was marked, the patient was willing to proceed with the procedure. The patient was transferred to the operative suite by the Department of anesthesia. They were then drifted off to sleep by the department anesthesia and GETA was performed. The patient tolerated this well. Em catheter was placed by nursing staff, a-traumatically. Once confirmation of lines and ventilation the patient was transferred to a prone Phong table very carefully. All bony prominences including wrists, elbows, axilla, chest, hips, and thighs, and feet were padded very well. Special attention was paid to the genitalia, and these were padded accordingly. SCDs were placed on bilateral lower extremities and were connected. Arms were well padded and placed on arm boards up and out in the 90/90 position. Once in position, again we confirmed good ventilation capabilities and that lines were running appropriately. The patients Lumbar spine was then exposed. 1010s were placed outlining the incision site. Standard alcohol was used to clean the incision site and allowed to dry. C-arm was used to needle localize the pedicles at L4-S1 and bio-aria the patient and confirm level for incision which was marked with a skin marker. Operative briefing was performed with all teams and everyone in agreement to proceed. The patient was then prepped and draped in a normal sterile fashion. Timeout was then performed, and all parties agreed with the procedure to be performed. Skin nicks were made over the PSIS to place pins for the tracking system for [employer] Navigation. Once pins had been placed and tracker registered a 3D Ziehm spin was obtained and registered. Once it was confirmed to be accurate, Navigated Jamshidi was used to plan screws from L4-S1 bilaterally. Once these were planned, skin incisions were made paramedian and a high speed navigated erica was used to create airplane pilot photogrammetry holes in the optimal starting points for screws L4-S1 bilateral. Then, the erica was used to decorticate the TPs PL and the facet joints using navigation. Then Navigated Jamshidi was introduced into the corridor which allowed for placement of wires. Wires were then visualized on AP and Lateral and were in good position. Right sided screws were then placed over wires removing the wire once the screw was at the back of the body and advancing to optimal position and purchase. Once screws were placed they were confirmed to be in good position using AP and Lateral fluoroscopy. Screws were tested and all tested above 20 mA. We then proceeded to decompression and cage placement. Attention was then turned to interbody fusion at L5-S1 and osteotomy for deformity correction. There was exuberant scar and osteophyte formation, deformity due to b/l pars defects and cystic formation around the neural elements. Sequential dilation was done for the tubular retractor system using navigation and Xray. Tube was placed and secured into position with a table arm. Microscope was then brought in for visualization. L:aminectomy, complete facetectomy and foraminotomy performed at L5-S1 using high speed erica and Kerrison rongeur. The ligamentum was removed and the dural sac decompressed. Exiting and traversing roots visualized and decompressed. Neural elements were then protected, and disc space accessed with an osteotome. Intradiscal, 3 column osteotomy, was performed under fluoroscopic guidance using an osteotome to remove the entire disc. Sequential shaving then done under lateral imaging and complete discectomy performed using bailey, pituitary and curette. Once good bleeding endplates accomplished and good height congregational with trials, a combination of autograft, allograft and synthetic placed anterior in the disc space. The cage was then selected and impacted into place under lateral imaging restoring height, lordosis and alignment. The cage was backfilled with bone graft through a funnel. The accelerator operator was removed and the area inspected. Good cage placement, stable cage and no injuries. Area was irrigated copiously, and meticulous hemostasis achieved. The tubular retractor was then removed under direct visualization and attention turned to L4-5. Attention was then turned to interbody fusion at L4-5. Again the tubular retractor was placed as described above. Laminectomy, complete facetectomy and foraminotomy performed at L4-5 using high speed erica and Kerrison rongeur. The ligamentum was removed and the dural sac decompressed. Exiting and traversing roots visualized and decompressed. Neural elements were then protected, and disc space accessed with an osteotome. Intradiscal, 3 column osteotomy, was performed under fluoroscopic guidance using an osteotome to remove the entire disc and for deformity correction. This level was extremely sclerotic and difficult to mobilize, but once osteotomy was done there was good mobilization and height congregational had started. Sequential shaving then done under lateral imaging and complete discectomy performed using bailey, pituitary and curette. Once good bleeding endplates accomplished and good height congregational with trials, a combination of autograft, allograft and synthetic placed anterior in the disc space. The cage was then selected and impacted into place under lateral imaging restoring height, lordosis and alignment. The cage was backfilled with bone graft through a funnel. The accelerator operator was removed and the area inspected. Good cage placement, stable cage and no injuries. Area was irrigated copiously, and meticulous hemostasis achieved. The wound and disc spaces were irrigated and meticulous hemostasis achieved. Rods were then sized and selected and placed subfacially into S1 screws b/l. Set screws locked these in place and then sequentially reduced into L4 and L5 b/l for alignment congregational. This was accomplished. Set screws were then all placed and finally tightened. The wound was irrigated copiously with NSS. Autograft and MagnatOs then placed in the posterolateral gutters and impacted into place. Final images confirmed good placement of hardware and good reduction of listhesis as well as congregational of height and lordosis. Fascia was then closed with 0 Vicryl; Deep subq closed with 0 Vicryl; Super ficial subq closed with 2-0 Vicryl and skin with 2-0 nylon in running fashion. Wound edges approximated very well. Wound was then cleaned with alcohol and dried. Wounds dressed with adaptic, 4x4 and tegaderm. The patient was then transferred off the table back to their hospital bed a- traumatically. They were extubated by the department of anesthesia. They were then transferred to PACU in stable condition having tolerated the procedure with no complications.
[2024-06-01] MEDS: HYDROcodone/APAP 10-325MG 1 EACH TAB PO PRN (20:29)
[2024-06-01] MEDS: HYDROmorphone 1 MG/ML 1 ML SYRINGE IVP PRN (23:27)
--- NOTE | 2024-06-02 00:45 | CT ---
EXAM: CT Lumbar Spine Without Intravenous Contrast CLINICAL HISTORY: ITS.REASON CT Reason: s/p L4-S1 MIS decompression and fusion TECHNIQUE: Axial computed tomography images of the lumbar spine without intravenous contrast. CTDI is 31.8 mGy and DLP is 913 mGy-cm. This CT exam was performed using one or more of the following dose reduction techniques: automated exposure control, adjustment of the mA and/or kV according to patient size, and/or use of iterative reconstruction technique. COMPARISON: Prior CT scan of the lumbar spine from May 30, 2024. FINDINGS: Vertebrae: Status post posterior and interbody fusion of L4, L5 and S1 with transpedicular screws and connecting rods in place. Metallic intervertebral body spacers in place. No acute fracture. There is a remote 2 column fracture of the T12 vertebral body. Diffuse osteopenia throughout the visualized bones. Discs/spinal canal/neural foramina: No acute findings. No spinal canal stenosis. Soft tissues: Unremarkable. IMPRESSION: Status post posterior and interbody fusion of L4-S1 with expected postsurgical changes.
[2024-06-02] MEDS: CYCLOBENZAPRINE 5 MG TAB PO PRN (02:11)
[2024-06-02 04:10] LABS: Anisocytosis Slight; Basophils % (A) 0 %; Eosinophils # (A) 0.1 k/uL (0-0.7); Eosinophils % (A) 1 %; HCT 32.6 % (34.0-46.0); HGB 10.6 gm/dL (11.4-16.0); Hypochromasia Slight; Lymphocytes # (A) 1.5 k/uL (1.0-4.8); Lymphocytes % (A) 15 %; MCH 37.1 pg (25.0-35.0); MCHC 32.6 g/dL (31.0-37.0); Macrocytosis Marked; Mean Platelet Volume 7.1; Monocytes % (A) 9 %; Neutrophils # (A) 7.8 k/uL (1.3-7.7); Neutrophils % (A) 73 %; Platelet Count 234 k/uL (150-450); RBC 2.87 m/uL (3.80-5.40); RDW 16.4 % (11.5-15.5); WBC 10.6 k/uL (3.8-10.6)
[2024-06-02 04:28] LABS: MCV 113.6 fL (80.0-100.0)
[2024-06-02 04:33] LABS: African American GFR (CKD) >90 (>60 ml/min/1.73 sqM); Anion Gap 11 mmol/L; Blood Urea Nitrogen 4 mg/dL (7-17); Calcium 7.3 mg/dL (8.4-10.2); Carbon Dioxide 18 mmol/L (22-30); Chloride 103 mmol/L (98-107); Glucose 128 mg/dL (74-99); Non-African American GFR(CKD) >90 (>60 ml/min/1.73 sqM); Sodium 132 mmol/L (137-145)
[2024-06-02 04:43] LABS: Potassium 3.5 mmol/L (3.5-5.1)
[2024-06-02] MEDS ORDERED: Potassium Replacement Protocol 1 EACH MISC MISCELLANE PRN (05:47)
[2024-06-02] MEDS ORDERED: Magnesium Replacement Protocol 1 EACH MISC MISCELLANE PRN (05:47)
[2024-06-02] MEDS: POTASSIUM CHLORIDE ER 20 MEQ TAB.ER PO SCH (06:24)
[2024-06-02] MEDS: MAGNESIUM SULFATE-D5W PMX 1 GM in DEXTROSE/WATER 1 100ML.BAG IVPB SCH (06:24)
--- NOTE | 2024-06-02 06:54 | P.PN ---
Subjective Progress Note Date: 06/01/24 This is a very pleasant 73-year-old female who follows with Dr. Reggie Mantilla in the outpatient setting with a past medical history of asthma, angina, heart failure, COPD, diabetes mellitus, GERD, hyperlipidemia, hypertension, liver disease, osteoarthritis, rheumatoid arthritis and chronic back pain. Patient also does have some anxiety and depression with PTSD. Patient denies smoking although reports to occasionally drinking and denies any other illicit drugs. Patient has been having increased back pain and difficulty ambulation requiring a walker. Patient reports she does live home alone and orthopedics has been consulted with concerns of abnormal findings and initially thoughts of osteomyelitis. Infectious disease following and patient is maintained on antibiotics. Plans for surgical intervention on 05/31/2024. Attempted to contact the cardiology office for recent echo. Chest x-ray showing no acute process and EKG normal sinus. Patient is considered low to moderate risk for surgical intervention although is willing to proceed with surgery to enhance quality of life as patient is normally independent and lives alone. 06/01/2024 Patient was seen and evaluated in the morning currently n.p.o. as patient is scheduled to undergo L4-S1 POSTEROLATERAL AND INTERBODY FUSION WITH DECOMPRE SSION with orthopedics today. Will await surgical report. A.m. labs pending and will follow-up. Patient is afebrile with no reports of chest pain or shortness of breath. Patient is agreeable to proceed with the procedure Review of systems: Constitutional: No reports of fatigue, fever, or chills Cardiovascular: No reports of chest pain or palpitations Respiratory: No reports of shortness of breath or cough GI: reports of nausea, no reports of of vomiting, : No reports of dysuria or retention Neurovascular: reports of generalized weakness, and continued lower back pain All medications have been reviewed PHYSICAL EXAMINATION: GENERAL: The patient is alert and oriented x4, Well developed, well nourished. Elderly appearing, obese HEENT: Pupils are round and equally reacting to light. EOMI. no scleral icterus. No conjunctival pallor. Normocephalic, atraumatic. No pharyngeal erythema. No thyromegaly. CARDIOVASCULAR: S1 and S2 muffled PULMONARY: diminished breath sounds bilaterally with no wheezing or rhonchi noted. ABDOMEN: soft. Nontender on exam. obese. non-distended, normoactive bowel sounds. No palpable organomegaly. MUSCULOSKELETAL: No joint swelling or deformity. EXTREMITIES: No cyanosis, clubbing, or pedal edema. NEUROLOGICAL: Gross neurological examination did not reveal any focal deficits. Diffuse weakness SKIN: No rashes. Assessment: Back pain, chronic sent in by PCP for x-ray abnormalities with concerns of osteomyelitis, osteomyelitis ruled out on MRI History of chronic T12 vertebral compression fracture L4-S1 spondylosis with stenosis with lower extremity radiculopathy and gait dysfunction Obesity with a BMI of 31.9 History of alcohol use, reports frequently per patient but not daily, no active signs of withdrawing at this time History of asthma/COPD, not in exacerbation History of heart failure with unknown EF Hypomagnesemia Hypertension Hyperlipidemia Osteoarthritis History of rheumatoid arthritis GI prophylaxis DVT prophylaxis Full code Plan: Recommend to continue with current medications and management with infectious disease and orthopedics following. Patient is currently n.p.o. as patient is scheduled for orthopedic intervention with Dr. Zurita for spondylosis with stenosis as patient has been having continued back pain and difficulty with ambulating and weakness with radiculopathy of the lower extremities. Will await surgical report Patient does follow with Dr. Gaviria in the outpatient setting and reports had an echo in the office, records requested and pending at this time. EKG is normal sinus and chest x-ray done showing no acute process patient is considered low to moderate risk given comorbidities risk versus benefits explained and patient willing to proceed with surgery. Patient lives alone and was independent prior to office and would recommend proceeding with intervention to enhance quality of life Recommend PT/OT therapy once cleared by orthopedics. Case management/social work consult for possible ECF for continued strength and mobility Will follow-up on repeat labs and monitor closely. Magnesium was found to be critically low at 0.4 and 4 g ordered. Will follow-up on repeat labs Overall prognosis is guarded given significant comorbidities The impression and plan of care has been dictated by Cary Solorzano, nurse practitioner as directed. Dr. Aneudy MD I have performed a history and examination and MDM of this patient, discussed the same with the dictator, and agree with the dictator's assessment and plan as written ,documented as a scribe. Based on total visit time, I have performed more than 50% of the visit. Any additional findings or plans will be noted. Objective - Vital Signs Vital signs: Vital Signs Temp 97.9 F 06/01/24 07:25 Pulse 57 L 06/01/24 07:25 Resp 16 06/01/24 07:25 BP 165/83 06/01/24 07:25 Pulse Ox 97 06/01/24 07:25 FiO2 Intake & Output 05/31/24 06/01/24 06/01/24 18:59 06:59 18:59 Other: Voiding Method Toilet # Voids 10 3 # Bowel Movements 3 - Labs CBC & Chem 7: 06/02/24 03:31 06/02/24 03:31 Labs: Abnormal Lab Results - Last 24 Hours (Table) 05/31/24 05/31/24 06/01/24 Range/Units 06:33 06:33 06:55 RBC 3.15 L (4.10-5.20) X 10*6/uL Hgb 11.7 L (12.0-15.0) g/dL Hct 35.8 L (37.2-46.3) % MCV 113.7 H (80.0-97.0) FL MCH 37.1 H (27.0-32.0) pg RDW 16.5 H (11.5-14.5) % Macrocytosis (manual) 3+ A Vitamin B12 1011.0 H (200.0-944.0) pg/mL Microbiology - Last 24 Hours (Table) 05/30/24 13:06 Blood Culture - Preliminary Blood 05/30/24 13:06 Blood Culture - Preliminary Blood
[2024-06-02] MEDS: THIAMINE 100 MG TAB PO SCH (08:27)
[2024-06-02] MEDS: HYDROcodone/APAP 10-325MG 1 EACH TAB PO PRN (08:27)
[2024-06-02] MEDS: CYCLOBENZAPRINE 5 MG TAB PO SCH (08:47)
[2024-06-02] MEDS: KETOROLAC 15 MG/ML 1 ML VIAL IVP SCH (10:38)
--- NOTE | 2024-06-02 10:52 | P.PN ---
Subjective Progress Note Date: 06/02/24 Principal diagnosis: Severe lumbar pain Chronic T12 vertebral compression fracture L4-S1 spondylosis with stenosis Grade 1 anterolisthesis L4 onto L5 Left lower extremity radiculopathy Bilateral lower extremity weakness Patient seen and examined this morning. Patient is resting comfortably in bed. She does report that her pain was not manage well overnight. Medications have been adjusted. RN was at bedside providing pain medication at that time. Patient states that she has not been out of bed since the procedure. Informed patient that physical therapy should begin to work with her today. We are expecting the patient to be up in chair for all meals. Surgical incisions to the posterior lumbar spine, dressings are clean dry and intact. Prescription for LSO brace has been provided. Patient will benefit from subacute rehab at discharge as she does live alone. Continue to encourage patient to increase her activity as tolerated and to use an incentive spirometer 10 times per hour while awake. Objective - Vital Signs Vital signs: Vital Signs Temp 99.1 F 06/02/24 08:00 Pulse 74 06/02/24 08:00 Resp 16 06/02/24 08:00 BP 111/64 06/02/24 08:00 Pulse Ox 95 06/02/24 08:00 FiO2 Intake & Output 06/01/24 06/02/24 06/02/24 18:59 06:59 18:59 Intake Total 1850 1620 Output Total 480 1900 Balance 1370 -280 Intake: IV 1600 Intake, IV Titration 250 Amount Magnesium Sulfate-D5w Pmx 200 1 gm In Dextrose/Water 1 100ml.bag @ 100 mls/hr IVPB Q1H [facility] Rx#: [id number] Vancomycin 1,250 mg In 50 Sodium Chloride 0.9% 250 ml @ 125 mls/hr IVPB Q12H [facility] Rx#:[id number] Oral 1620 Output: Urine 280 1900 Estimated Blood Loss 200 Other: Voiding Method Indwelling Catheter Indwelling Catheter # Voids 2 # Bowel Movements 2 - Exam Physical Examination General: The patient is awake and alert, in no acute distress Skin: Skin is warm and dry with no obvious rashes or lesions. Surgical incisions to the lumbar spine, dressings are clean dry and intact. Eye: Pupils are equal, round and reactive to light, extra-ocular movements are intact; there is normal conjunctiva bilaterally. Neck: The neck is supple, there is no tenderness and ROM intact. Cardiovascular: There is a regular rate and rhythm. No murmur, rub or gallop is appreciated. Respiratory: Lungs are clear to auscultation, respirations are non-labored, breath sounds are equal. Gastrointestinal: Soft, non-distended, non-tender abdomen. Back: There is no tenderness to palpation in the midline, paralumbar, parathoracic or buttocks region. There is no obvious deformity . Musculoskeletal: ROM limited secondary to pain and stiffness from surgical procedure. Muscle strength in all major muscle groups of bilateral upper extremities 5/5, right lower extremity 4/5, left lower extremity 4/5 Neurological: CN 2-12 intact. There are no obvious motor or sensory deficits. Movement and coordination equal and intact. Sensory exam to light touch intact C5-T1 and intact from L2-S1. Reflexes 2/4 in bilateral upper and lower extremities. Negative Hoffmans, babinski, and clonus signs. Psychiatric: Cooperative, appropriate mood & affect, normal judgment. - Labs CBC & Chem 7: 06/02/24 03:31 06/02/24 03:31 Labs: Abnormal Lab Results - Last 24 Hours (Table) 06/01/24 06/01/24 06/01/24 Range/Units 06:55 06:55 12:14 RBC 3.15 L (4.10-5.20) X 10*6/uL Hgb 11.7 L (12.0-15.0) g/dL Hct 35.8 L (37.2-46.3) % MCV 113.7 H (80.0-97.0) FL MCH 37.1 H (27.0-32.0) pg RDW 16.5 H (11.5-14.5) % Neutrophils # (1.3-7.7) k/uL Macrocytosis Sodium (137-145) mmol/L Potassium (3.5-5.1) mmol/L Chloride (98-107) mmol/L Carbon Dioxide (22-30) mmol/L BUN (7-17) mg/dL Creatinine 0.49 L (0.52-1.04) mg/dL Glucose (74-99) mg/dL POC Glucose (mg/dL) (70-110) mg/dL Calcium (8.4-10.2) mg/dL Magnesium 0.4 A* (1.5-2.4) mg/dL AST (14-36) U/L 06/01/24 06/01/24 06/01/24 Range/Units 12:14 18:05 21:20 RBC (4.10-5.20) X 10*6/uL Hgb (12.0-15.0) g/dL Hct (37.2-46.3) % MCV (80.0-97.0) FL MCH (27.0-32.0) pg RDW (11.5-14.5) % Neutrophils # (1.3-7.7) k/uL Macrocytosis Sodium 136 L (137-145) mmol/L Potassium 3.4 L (3.5-5.1) mmol/L Chloride 108 H (98-107) mmol/L Carbon Dioxide 17 L (22-30) mmol/L BUN 4 L (7-17) mg/dL Creatinine 0.48 L (0.52-1.04) mg/dL Glucose (74-99) mg/dL POC Glucose (mg/dL) 143 H (70-110) mg/dL Calcium 7.3 L (8.4-10.2) mg/dL Magnesium 1.1 L (1.5-2.4) mg/dL AST 37 H (14-36) U/L 06/02/24 06/02/24 06/02/24 Range/Units 03:31 03:31 03:31 RBC 2.87 L (4.10-5.20) X 10*6/uL Hgb 10.6 L (12.0-15.0) g/dL Hct 32.6 L (37.2-46.3) % MCV 113.6 H (80.0-97.0) FL MCH 37.1 H (27.0-32.0) pg RDW 16.4 H (11.5-14.5) % Neutrophils # 7.8 H (1.3-7.7) k/uL Macrocytosis Marked A Sodium 132 L (137-145) mmol/L Potassium (3.5-5.1) mmol/L Chloride (98-107) mmol/L Carbon Dioxide 18 L (22-30) mmol/L BUN 4 L (7-17) mg/dL Creatinine 0.50 L (0.52-1.04) mg/dL Glucose 128 H (74-99) mg/dL POC Glucose (mg/dL) (70-110) mg/dL Calcium 7.3 L (8.4-10.2) mg/dL Magnesium 1.3 L (1.5-2.4) mg/dL AST (14-36) U/L Microbiology - Last 24 Hours (Table) 05/30/24 13:06 Blood Culture - Preliminary Blood 05/30/24 13:06 Blood Culture - Preliminary Blood Assessment and Plan Assessment: Postop day 1: L4-S1 minimally invasive decompression and fusion Plan: -Appreciate bus info consultant and team management. -Activity: Ambulate QID, OOB all meals, up and about, limit lifting bending twisting to less than 5 lbs. Use walker or cane if needed for stability. -Daily PT/OT, increase ambulation strength and balance. -Brace when up and about, not needed in bed or chair -Patient does not need brace at this time to work with PT, may be up and about until delivered. -Pain control: Medications have been adjusted -Meds: reviewed -GI ppx: senna, Miralax -DC erazo when up and about, bedside commode if needed -DVT PPX: OK to restart Heparin tonight -Hygiene: Shower today. Maintain dressing clean and dry. Meticulous cleaning after BMs away from the incision site -Encourage IS 10x/hr -Dispo: Clinically pending *I reviewed and discussed this case with my attending Dr. Zurita, whom has reviewed this chart and films and is in agreement with assessment and plan of care as outlined above. I have personally seen and examined the patient, performed the documentation and the assessment and plan as written. Number of minutes spent on the visit: 20m.
[2024-06-02] MEDS: HYDROcodone/APAP 10-325MG 1 EACH TAB PO SCH (14:25)
[2024-06-02] MEDS: SODIUM CHLORIDE 0.9% 1,000 ML IV SCH (14:26)
--- NOTE | 2024-06-02 16:16 | P.PN ---
Subjective Progress Note Date: 06/02/24 Principal diagnosis: Reason for follow-up is abnormal CT and question of discitis Patient is a 73-year-old female with a past medical history significant for diabetes mellitus hypertension hyperlipidemia reflux COPD heart failure and rheumatoid arthritis presenting to the hospital concerning for lower back pain patient did have CT of the lumbar spine suspicious for osteomyelitis/discitis of L4L5 as well as L5-S1 prompting this consultation. On today's evaluation that is Patient is status post L4-S1 decompression and fusion completed on 06/01/2024 operative report did not mention any purulence and no cultures were done. On today's evaluation that is 06/02/2024,the patient remains to be afebrile, patient is on room air not requiring supplemental oxygen and denies any shor tness of breath no chest pain or cough.Patient denies having any nausea or vomiting, no abdominal pain has been complaining of some diarrhea stool for C. difficile requested by Ortho. Patient white count is 10.6, creatinine 0.50 Objective - Vital Signs Vital signs: Vital Signs Temp 98.9 F 06/02/24 13:21 Pulse 73 06/02/24 13:21 Resp 18 06/02/24 13:21 BP 97/66 06/02/24 13:21 Pulse Ox 93 L 06/02/24 13:21 FiO2 Intake & Output 06/01/24 06/02/24 06/02/24 18:59 06:59 18:59 Intake Total 1850 1620 Output Total 480 1900 Balance 1370 -280 Intake: IV 1600 Intake, IV Titration 250 Amount Magnesium Sulfate-D5w Pmx 200 1 gm In Dextrose/Water 1 100ml.bag @ 100 mls/hr IVPB Q1H [facility] Rx#: [id number] Vancomycin 1,250 mg In 50 Sodium Chloride 0.9% 250 ml @ 125 mls/hr IVPB Q12H [facility] Rx#:[id number] Oral 1620 Output: Urine 280 1900 Estimated Blood Loss 200 Other: Voiding Method Indwelling Catheter Indwelling Catheter # Voids 2 # Bowel Movements 2 - Exam GENERAL DESCRIPTION: An elderly female lying in bed in no distress RESPIRATORY SYSTEM: Unlabored breathing , decreased breath sounds at bases HEART: S1 S2 regular rate and rhythm , ABDOMEN: Soft , no tenderness EXTREMITIES: No edema feet - Labs CBC & Chem 7: 06/02/24 03:31 06/02/24 03:31 Labs: Abnormal Lab Results - Last 24 Hours (Table) 06/01/24 06/01/24 06/01/24 Range/Units 12:14 18:05 21:20 RBC (3.80-5.40) m/uL Hgb (11.4-16.0) gm/dL Hct (34.0-46.0) % MCV (80.0-100.0) fL MCH (25.0-35.0) pg RDW (11.5-15.5) % Neutrophils # (1.3-7.7) k/uL Macrocytosis Sodium 136 L (137-145) mmol/L Potassium 3.4 L (3.5-5.1) mmol/L Chloride 108 H (98-107) mmol/L Carbon Dioxide 17 L (22-30) mmol/L BUN 4 L (7-17) mg/dL Creatinine 0.48 L (0.52-1.04) mg/dL Glucose (74-99) mg/dL POC Glucose (mg/dL) 143 H (70-110) mg/dL Calcium 7.3 L (8.4-10.2) mg/dL Magnesium 1.1 L (1.6-2.3) mg/dL AST 37 H (14-36) U/L 06/02/24 06/02/24 06/02/24 Range/Units 03:31 03:31 03:31 RBC 2.87 L (3.80-5.40) m/uL Hgb 10.6 L (11.4-16.0) gm/dL Hct 32.6 L (34.0-46.0) % MCV 113.6 H (80.0-100.0) fL MCH 37.1 H (25.0-35.0) pg RDW 16.4 H (11.5-15.5) % Neutrophils # 7.8 H (1.3-7.7) k/uL Macrocytosis Marked A Sodium 132 L (137-145) mmol/L Potassium (3.5-5.1) mmol/L Chloride (98-107) mmol/L Carbon Dioxide 18 L (22-30) mmol/L BUN 4 L (7-17) mg/dL Creatinine 0.50 L (0.52-1.04) mg/dL Glucose 128 H (74-99) mg/dL POC Glucose (mg/dL) (70-110) mg/dL Calcium 7.3 L (8.4-10.2) mg/dL Magnesium 1.3 L (1.6-2.3) mg/dL AST (14-36) U/L Microbiology - Last 24 Hours (Table) 05/30/24 13:06 Blood Culture - Preliminary Blood 05/30/24 13:06 Blood Culture - Preliminary Blood Assessment and Plan (1) Discitis Current Visit: Yes Status: Acute Code(s): M46.40 - DISCITIS, UNSPECIFIED, SITE UNSPECIFIED SNOMED Code(s): 3513543 (2) Osteomyelitis of lumbar spine Current Visit: Yes Status: Acute Code(s): M46.26 - OSTEOMYELITIS OF VERTEBRA, LUMBAR REGION SNOMED Code(s): 630283718 Plan: 1patient presented to hospital worsening lower back pain that apparently has been getting worse over the last 4 months with no history of any trauma no hist ory of back surgery or injection now with significant changes seen on the CT suspicious for discitis and osteomyelitis patient interestingly did not have any fever or elevated white count with a question of advanced osteoarthritis 2-patient did have MRI of the thoracolumbar spine mention advanced o steoarthritic changes and did not mention any discitis or osteomyelitis 3-patient did have elevated sed rate of 77 CRP is normal blood culture pending 4-patient is status post L4-S1 decompression and fusion operative report did not mention any purulence and no culture done will discontinue cefepime and monitor the patient closely off antibiotic therapy Dictation was produced using [employer] dictation software. please excuse any grammatical, word or spelling errors. Time with Patient: Less than 30
[2024-06-02] MEDS: GABAPENTIN 300 MG CAP PO SCH (17:43)
--- NOTE | 2024-06-02 19:22 | XR ---
EXAMINATION TYPE: XR lumbar spine 3V, FL guidance operating room DATE OF EXAM: 06/01/2024 Comparison: 05/18/2024 Clinical History: LUMBAR OSTEOMYELITIS Findings: PLDF. 1404 Gycm2 DAP AND 93 SEC FL TIME WITH GOODMANSON. 3 IMAGES SCANNED INTO PACS
[2024-06-02] MEDS: HEPARIN SODIUM,PORCINE 5,000 UNIT/ML 1 ML VIAL SQ SCH (20:54)
[2024-06-03 04:41] LABS: African American GFR (CKD) 65 (>60 ml/min/1.73 sqM); Magnesium 2.5 mg/dL (1.6-2.3); Non-African American GFR(CKD) 56 (>60 ml/min/1.73 sqM)
--- NOTE | 2024-06-03 11:25 | P.PN ---
Subjective Progress Note Date: 06/03/24 Principal diagnosis: Severe lumbar pain Chronic T12 vertebral compression fracture L4-S1 spondylosis with stenosis Grade 1 anterolisthesis L4 onto L5 Left lower extremity radiculopathy Bilateral lower extremity weakness Patient seen and examined this morning. Patient is resting comfortably in bed. She does report that her pain is being managed on current regimen. Erazo cath may be discontinued today. Patient reports she did work with PT yesterday and is looking forward to getting up to the chair today. She does agree that she will need LEOPOLDO to regain her strength to be safe at home. LSO brace is at bedside. We are expecting the patient to be up in chair for all meals. Surgical incisions to the posterior lumbar spine, dressings are clean dry and intact. Continue to encourage patient to increase her activity as tolerated and to use an incentive spirometer 10 times per hour while awake. Objective - Vital Signs Vital signs: Vital Signs Temp 99.1 F 06/03/24 08:00 Pulse 80 06/03/24 08:00 Resp 15 06/03/24 08:00 BP 101/66 06/03/24 08:00 Pulse Ox 93 L 06/03/24 08:00 FiO2 Intake & Output 06/02/24 06/03/24 06/03/24 18:59 06:59 18:59 Intake Total 780 Output Total 400 325 Balance 380 -325 Intake: Oral 780 Output: Urine 400 325 Other: Voiding Method Indwelling Catheter Indwelling Catheter Toilet Bedside Commode - Exam Physical Examination General: The patient is awake and alert, in no acute distress Skin: Skin is warm and dry with no obvious rashes or lesions. Surgical incisions to the lumbar spine, dressings are clean dry and intact. Eye: Pupils are equal, round and reactive to light, extra-ocular movements are intact; there is normal conjunctiva bilaterally. Neck: The neck is supple, there is no tenderness and ROM intact. Cardiovascular: There is a regular rate and rhythm. No murmur, rub or gallop is appreciated. Respiratory: Lungs are clear to auscultation, respirations are non-labored, breath sounds are equal. Gastrointestinal: Soft, non-distended, non-tender abdomen. Back: There is no tenderness to palpation in the midline, paralumbar, parathoracic or buttocks region. There is no obvious deformity . Musculoskeletal: ROM limited secondary to pain and stiffness from surgical procedure. Muscle strength in all major muscle groups of bilateral upper extremities 5/5, right lower extremity 4/5, left lower extremity 4/5 Neurological: CN 2-12 intact. There are no obvious motor or sensory deficits. Movement and coordination equal and intact. Sensory exam to light touch intact C5-T1 and intact from L2-S1. Reflexes 2/4 in bilateral upper and lower extremities. Negative Hoffmans, babinski, and clonus signs. Psychiatric: Cooperative, appropriate mood & affect, normal judgment. - Labs CBC & Chem 7: 06/02/24 03:31 06/03/24 04:09 Labs: Abnormal Lab Results - Last 24 Hours (Table) 06/03/24 Range/Units 04:09 Magnesium 2.5 H (1.6-2.3) mg/dL Microbiology - Last 24 Hours (Table) 05/30/24 13:06 Blood Culture - Preliminary Blood 05/30/24 13:06 Blood Culture - Preliminary Blood Assessment and Plan Assessment: Postop day 2: L4-S1 minimally invasive decompression and fusion Plan: -Appreciate market consultant and team management. -Activity: Ambulate QID, OOB all meals, up and about, limit lifting bending twisting to less than 5 lbs. Use walker or cane if needed for stability. -Daily PT/OT, increase ambulation strength and balance. -Brace when up and about, not needed in bed or chair -Pain control: Medications have been adjusted -Meds: reviewed -GI ppx: senna, Miralax -DC erazo today. -DVT PPX: Heparin -Hygiene: Shower today. Maintain dressing clean and dry. Meticulous cleaning after BMs away from the incision site -Encourage IS 10x/hr -Dispo: Patient is cleared from an Orthopedic standpoint for discharge to [facility] when medically stable *I reviewed and discussed this case with my attending Dr. Zurita, whom has reviewed this chart and films and is in agreement with assessment and plan of care as outlined above. I have personally seen and examined the patient, performed the documentation and the assessment and plan as written. Number of minutes spent on the visit: 20m.
[2024-06-03 12:22] LABS: Anisocytosis Slight; Basophils % (A) 0 %; Eosinophils # (A) 0.3 k/uL (0-0.7); Eosinophils % (A) 3 %; HCT 29.8 % (34.0-46.0); HGB 9.6 gm/dL (11.4-16.0); Hypochromasia Moderate; Lymphocytes # (A) 1.2 k/uL (1.0-4.8); Lymphocytes % (A) 11 %; MCH 37.3 pg (25.0-35.0); MCHC 32.3 g/dL (31.0-37.0); MCV 115.5 fL (80.0-100.0); Macrocytosis Marked; Mean Platelet Volume 7.9; Monocytes # (A) 0.6 k/uL (0-1.0); Monocytes % (A) 6 %; Neutrophils # (A) 8.1 k/uL (1.3-7.7); Neutrophils % (A) 78 %; Platelet Count 170 k/uL (150-450); RBC 2.58 m/uL (3.80-5.40); RDW 16.7 % (11.5-15.5); WBC 10.4 k/uL (3.8-10.6)
[2024-06-03 12:28] LABS: African American GFR (CKD) 89 (>60 ml/min/1.73 sqM); Anion Gap 3 mmol/L; Blood Urea Nitrogen 8 mg/dL (7-17); Calcium 7.5 mg/dL (8.4-10.2); Carbon Dioxide 21 mmol/L (22-30); Chloride 104 mmol/L (98-107); Glucose 92 mg/dL (74-99); Non-African American GFR(CKD) 77 (>60 ml/min/1.73 sqM); Potassium 3.9 mmol/L (3.5-5.1); Sodium 128 mmol/L (137-145)
--- NOTE | 2024-06-03 14:53 | P.PN ---
Subjective Progress Note Date: 06/03/24 Principal diagnosis: Reason for follow-up is abnormal CT and question of discitis Patient is a 73-year-old female with a past medical history significant for diabetes mellitus hypertension hyperlipidemia reflux COPD heart failure and rheumatoid arthritis presenting to the hospital concerning for lower back pain patient did have CT of the lumbar spine suspicious for osteomyelitis/discitis of L4L5 as well as L5-S1 prompting this consultation. On today's evaluation that is Patient is status post L4-S1 decompression and fusion completed on 06/01/2024 operative report did not mention any purulence and no cultures were done. On today's evaluation that is 06/03/2024, the patient continues to be afebrile, the patient is on room air and breathing comfortably, the Pt denies having any chest pain or cough, the patient denies having any abdominal pain no vomiting or any diarrhea lower back pain has decreased in intensity mention feeling better. The patient white count is 10.4 creatinine 0.78 Objective - Vital Signs Vital signs: Vital Signs Temp 99.1 F 06/03/24 08:00 Pulse 80 06/03/24 08:00 Resp 15 06/03/24 08:00 BP 101/66 06/03/24 08:00 Pulse Ox 93 L 06/03/24 08:00 FiO2 Intake & Output 06/02/24 06/03/24 06/03/24 18:59 06:59 18:59 Intake Total 780 Output Total 400 325 Balance 380 -325 Intake: Oral 780 Output: Urine 400 325 Other: Voiding Method Indwelling Catheter Indwelling Catheter Toilet Bedside Commode - Exam GENERAL DESCRIPTION: An elderly female lying in bed in no distress RESPIRATORY SYSTEM: Unlabored breathing , decreased breath sounds at bases HEART: S1 S2 regular rate and rhythm , ABDOMEN: Soft , no tenderness EXTREMITIES: No edema feet - Labs CBC & Chem 7: 06/03/24 11:44 06/03/24 11:44 Labs: Abnormal Lab Results - Last 24 Hours (Table) 06/03/24 06/03/24 06/03/24 Range/Units 04:09 11:44 11:44 RBC 2.58 L (3.80-5.40) m/uL Hgb 9.6 L (11.4-16.0) gm/dL Hct 29.8 L (34.0-46.0) % MCV 115.5 H (80.0-100.0) fL MCH 37.3 H (25.0-35.0) pg RDW 16.7 H (11.5-15.5) % Neutrophils # 8.1 H (1.3-7.7) k/uL Macrocytosis Marked A Sodium 128 L (137-145) mmol/L Carbon Dioxide 21 L (22-30) mmol/L Calcium 7.5 L (8.4-10.2) mg/dL Magnesium 2.5 H (1.6-2.3) mg/dL Microbiology - Last 24 Hours (Table) 05/30/24 13:06 Blood Culture - Preliminary Blood 05/30/24 13:06 Blood Culture - Preliminary Blood Assessment and Plan (1) Discitis Current Visit: Yes Status: Acute Code(s): M46.40 - DISCITIS, UNSPECIFIED, SITE UNSPECIFIED SNOMED Code(s): 8070345 (2) Osteomyelitis of lumbar spine Current Visit: Yes Status: Acute Code(s): M46.26 - OSTEOMYELITIS OF UMA TEBRA, LUMBAR REGION SNOMED Code(s): 535029116 Plan: 1patient presented to hospital worsening lower back pain that apparently has been getting worse over the last 4 months with no history of any trauma no history of back surgery or injection now with significant changes seen on the CT suspicious for discitis and osteomyelitis patient interestingly did not have any fever or elevated white count with a question of advanced osteoarthritis 2-patient did have MRI of the thoracolumbar spine mention advanced osteoarthritic changes and did not mention any discitis or osteomyelitis 3-patient did have elevated sed rate of 77 CRP is normal blood culture pending 4-patient is status post L4-S1 decompression and fusion operative report did not mention any purulence and no culture done, patient antibiotic has been discontinued as of 06/02/2024 and will monitor the patient closely off antibiotic Dictation was produced using [employer] dictation software. please excuse any grammatical, word or spelling errors. Time with Patient: Less than 30
--- NOTE | 2024-06-03 16:43 | P.PN ---
Subjective Progress Note Date: 06/02/24 This is a very pleasant 73-year-old female who follows with Dr. Reggie Mantilla in the outpatient setting with a past medical history of asthma, angina, heart failure, COPD, diabetes mellitus, GERD, hyperlipidemia, hypertension, liver disease, osteoarthritis, rheumatoid arthritis and chronic back pain. Patient also does have some anxiety and depression with PTSD. Patient denies smoking although reports to occasionally drinking and denies any other illicit drugs. Patient has been having increased back pain and difficulty ambulation requiring a walker. Patient reports she does live home alone and orthopedics has been consulted with concerns of abnormal findings and initially thoughts of osteomyelitis. Infectious disease following and patient is maintained on antibiotics. Plans for surgical intervention on 05/31/2024. Attempted to contact the cardiology office for recent echo. Chest x-ray showing no acute process and EKG normal sinus. Patient is considered low to moderate risk for surgical in tervention although is willing to proceed with surgery to enhance quality of life as patient is normally independent and lives alone. 06/01/2024 Patient was seen and evaluated in the morning currently n.p.o. as patient is scheduled to undergo L4-S1 POSTEROLATERAL AND INTERBODY FUSION WITH DECOMPRESS ION with orthopedics today. Will await surgical report. A.m. labs pending and will follow-up. Patient is afebrile with no reports of chest pain or shortness of breath. Patient is agreeable to proceed with the procedure 06/02/2024 Patient is eval today in follow-up on the medical floor. Patient is postoperative L4-S1 interbody fusion and decompression secondary to with concern for osteomyelitis and discitis. Patient does report back pain postoperatively states that has been controlled with the medication so far she has been resting in bed. She has been trying to use her incentive spirometer. Her labs today reveal a white blood cell count of 10.6, hemoglobin 10.6, sodium 132, BUN of 4, creatinine of 0.50, magnesium of 1.3. Review of systems: Constitutional: No reports of fatigue, fever, or chills Cardiovascular: No reports of chest pain or palpitations Respiratory: No reports of shortness of breath or cough GI: reports of nausea, no reports of of vomiting, : No reports of dysuria or retention Neurovascular: reports of generalized weakness, and continued lower back pain All medications have been reviewed PHYSICAL EXAMINATION: GENERAL: The patient is alert and oriented x4, Well developed, well nourished. Elderly appearing, obese HEENT: Pupils are round and equally reacting to light. EOMI. no scleral icterus. No conjunctival pallor. Normocephalic, atraumatic. No pharyngeal erythema. No thyromegaly. CARDIOVASCULAR: S1 and S2 muffled PULMONARY: diminished breath sounds bilaterally with no wheezing or rhonchi noted. ABDOMEN: soft. Nontender on exam. obese. non-distended, normoactive bowel sounds. No palpable organomegaly. MUSCULOSKELETAL: No joint swelling or deformity. EXTREMITIES: No cyanosis, clubbing, or pedal edema. NEUROLOGICAL: Gross neurological examination did not reveal any focal deficits. Diffuse weakness SKIN: No rashes. Assessment: Back pain, chronic sent in by PCP for x-ray abnormalities with concerns of osteomyelitis, osteomyelitis ruled out on MRI History of chronic T12 vertebral compression fracture L4-S1 spondylosis with stenosis with lower extremity radiculopathy and gait dysfunction Obesity with a BMI of 31.9 History of alcohol use, reports frequently per patient but not daily, no active signs of withdrawing at this time History of asthma/COPD, not in exacerbation History of heart failure with unknown EF Hypomagnesemia Hypertension Hyperlipidemia Osteoarthritis History of rheumatoid arthritis GI prophylaxis DVT prophylaxis Full code Plan: Recommend to continue with current medications and management with infectious disease and orthopedics following. patient is postoperative day #[address] Zurita for spondylosis with stenosis as patient has been having continued back pain and difficulty with ambulating and weakness with radiculopathy of the lower extremities. Will await surgical report Patient does follow with Dr. Gaviria in the outpatient setting and reports had an echo in the office, records requested and pending at this time. EKG is normal sinus and chest x-ray done showing no acute process patient is considered low to moderate risk given comorbidities risk versus benefits explained and patient willing to proceed with surgery. Patient lives alone and was independent prior to office and would recommend proceeding with intervention to enhance quality of life Recommend PT/OT therapy once cleared by orthopedics. Case management/social work consult for possible ECF for continued strength and mobility Will follow-up on repeat labs and monitor closely. Magnesium is improved at 1.3 we will give an additional 2 g. Overall prognosis is guarded given significant comorbidities The impression and plan of care has been dictated by Rochelle Gordon, Nurse Practitioner as directed. Dr. Piero MD I have performed a history and physical examination and medical decision making of this patient, discussed the same with the dictator, and agree with the dictators assessment and plan as written, documented as a scribe. Based on total visit time, I have performed more than 50% of this visit. Objective - Vital Signs Vital signs: Vital Signs Temp 99.1 F 06/02/24 08:00 Pulse 74 06/02/24 08:00 Resp 16 06/02/24 08:00 BP 111/64 06/02/24 08:00 Pulse Ox 95 06/02/24 08:00 FiO2 Intake & Output 06/01/24 06/02/24 06/02/24 18:59 06:59 18:59 Intake Total 1850 1620 Output Total 480 1900 Balance 1370 -280 Intake: IV 1600 Intake, IV Titration 250 Amount Magnesium Sulfate-D5w Pmx 200 1 gm In Dextrose/Water 1 100ml.bag @ 100 mls/hr IVPB Q1H [facility] Rx#: [id number] Vancomycin 1,250 mg In 50 Sodium Chloride 0.9% 250 ml @ 125 mls/hr IVPB Q12H [facility] Rx#:[id number] Oral 1620 Output: Urine 280 1900 Estimated Blood Loss 200 Other: Voiding Method Indwelling Catheter Indwelling Catheter # Voids 2 # Bowel Movements 2 - Labs CBC & Chem 7: 06/03/24 11:44 06/03/24 11:44 Labs: Abnormal Lab Results - Last 24 Hours (Table) 06/01/24 06/01/24 06/01/24 Range/Units 06:55 06:55 12:14 RBC 3.15 L (4.10-5.20) X 10*6/uL Hgb 11.7 L (12.0-15.0) g/dL Hct 35.8 L (37.2-46.3) % MCV 113.7 H (80.0-97.0) FL MCH 37.1 H (27.0-32.0) pg RDW 16.5 H (11.5-14.5) % Neutrophils # (1.3-7.7) k/uL Macrocytosis Sodium (137-145) mmol/L Potassium (3.5-5.1) mmol/L Chloride (98-107) mmol/L Carbon Dioxide (22-30) mmol/L BUN (7-17) mg/dL Creatinine 0.49 L (0.52-1.04) mg/dL Glucose (74-99) mg/dL POC Glucose (mg/dL) (70-110) mg/dL Calcium (8.4-10.2) mg/dL Magnesium 0.4 A* (1.5-2.4) mg/dL AST (14-36) U/L 06/01/24 06/01/24 06/01/24 Range/Units 12:14 18:05 21:20 RBC (4.10-5.20) X 10*6/uL Hgb (12.0-15.0) g/dL Hct (37.2-46.3) % MCV (80.0-97.0) FL MCH (27.0-32.0) pg RDW (11.5-14.5) % Neutrophils # (1.3-7.7) k/uL Macrocytosis Sodium 136 L (137-145) mmol/L Potassium 3.4 L (3.5-5.1) mmol/L Chloride 108 H (98-107) mmol/L Carbon Dioxide 17 L (22-30) mmol/L BUN 4 L (7-17) mg/dL Creatinine 0.48 L (0.52-1.04) mg/dL Glucose (74-99) mg/dL POC Glucose (mg/dL) 143 H (70-110) mg/dL Calcium 7.3 L (8.4-10.2) mg/dL Magnesium 1.1 L (1.5-2.4) mg/dL AST 37 H (14-36) U/L 06/02/24 06/02/24 06/02/24 Range/Units 03:31 03:31 03:31 RBC 2.87 L (4.10-5.20) X 10*6/uL Hgb 10.6 L (12.0-15.0) g/dL Hct 32.6 L (37.2-46.3) % MCV 113.6 H (80.0-97.0) FL MCH 37.1 H (27.0-32.0) pg RDW 16.4 H (11.5-14.5) % Neutrophils # 7.8 H (1.3-7.7) k/uL Macrocytosis Marked A Sodium 132 L (137-145) mmol/L Potassium (3.5-5.1) mmol/L Chloride (98-107) mmol/L Carbon Dioxide 18 L (22-30) mmol/L BUN 4 L (7-17) mg/dL Creatinine 0.50 L (0.52-1.04) mg/dL Glucose 128 H (74-99) mg/dL POC Glucose (mg/dL) (70-110) mg/dL Calcium 7.3 L (8.4-10.2) mg/dL Magnesium 1.3 L (1.5-2.4) mg/dL AST (14-36) U/L Microbiology - Last 24 Hours (Table) 05/30/24 13:06 Blood Culture - Preliminary Blood 05/30/24 13:06 Blood Culture - Preliminary Blood Assessment and Plan Time with Patient: Less than 30
--- NOTE | 2024-06-03 16:45 | P.PN ---
Subjective Progress Note Date: 06/03/24 This is a very pleasant 73-year-old female who follows with Dr. Reggie Mantilla in the outpatient setting with a past medical history of asthma, angina, heart failure, COPD, diabetes mellitus, GERD, hyperlipidemia, hypertension, liver disease, osteoarthritis, rheumatoid arthritis and chronic back pain. Patient also does have some anxiety and depression with PTSD. Patient denies smoking although reports to occasionally drinking and denies any other illicit drugs. Patient has been having increased back pain and difficulty ambulation requiring a walker. Patient reports she does live home alone and orthopedics has been consulted with concerns of abnormal findings and initially thoughts of osteomyelitis. Infectious disease following and patient is maintained on antibiotics. Plans for surgical intervention on 05/31/2024. Attempted to contact the cardiology office for recent echo. Chest x-ray showing no acute process and EKG normal sinus. Patient is considered low to moderate risk for surgical in tervention although is willing to proceed with surgery to enhance quality of life as patient is normally independent and lives alone. 06/01/2024 Patient was seen and evaluated in the morning currently n.p.o. as patient is scheduled to undergo L4-S1 POSTEROLATERAL AND INTERBODY FUSION WITH DECOMPRESS ION with orthopedics today. Will await surgical report. A.m. labs pending and will follow-up. Patient is afebrile with no reports of chest pain or shortness of breath. Patient is agreeable to proceed with the procedure 06/02/2024 Patient is eval today in follow-up on the medical floor. Patient is postoperative L4-S1 interbody fusion and decompression secondary to with concern for osteomyelitis and discitis. Patient does report back pain postoperatively states that has been controlled with the medication so far she has been resting in bed. She has been trying to use her incentive spirometer. Her labs today reveal a white blood cell count of 10.6, hemoglobin 10.6, sodium 132, BUN of 4, creatinine of 0.50, magnesium of 1.3. 06/03/2024 Patient is evaluated seen in follow-up on the medical floor she is currently postoperative day #2 L4-S1 fusion decompression and patient is also noted to have a chronic T12 vertebral compression fracture. Patient worked with physical therapy yesterday and is now sitting up in the chair today but does agree that she will be needing to go to subacute rehab. Patient has LSO brace at the bedside. Her surgical incisions are clean dry and intact. Patient is encouraged to continue to use the incentive spirometer. She is tolerating diet pass gas but has not had a bowel movement yet. Review of systems: Constitutional: No reports of fatigue, fever, or chills Cardiovascular: No reports of chest pain or palpitations Respiratory: No reports of shortness of breath or cough GI: reports of nausea, no reports of of vomiting, : No reports of dysuria or retention Neurovascular: reports of generalized weakness, and continued lower back pain All medications have been reviewed PHYSICAL EXAMINATION: GENERAL: The patient is alert and oriented x4, Well developed, well nourished. Elderly appearing, obese HEENT: Pupils are round and equally reacting to light. EOMI. no scleral icterus. No conjunctival pallor. Normocephalic, atraumatic. No pharyngeal erythema. No thyromegaly. CARDIOVASCULAR: S1 and S2 muffled PULMONARY: diminished breath sounds bilaterally with no wheezing or rhonchi noted. ABDOMEN: soft. Nontender on exam. obese. non-distended, normoactive bowel sounds. No palpable organomegaly. MUSCULOSKELETAL: No joint swelling or deformity. EXTREMITIES: No cyanosis, clubbing, or pedal edema. NEUROLOGICAL: Gross neurological examination did not reveal any focal deficits. Diffuse weakness SKIN: No rashes. Assessment: Back pain, chronic sent in by PCP for x-ray abnormalities with concerns of osteomyelitis, osteomyelitis ruled out on MRI History of chronic T12 vertebral compression fracture L4-S1 spondylosis with stenosis with lower extremity radiculopathy and gait dysfunction Obesity with a BMI of 31.9 History of alcohol use, reports frequently per patient but not daily, no active signs of withdrawing at this time History of asthma/COPD, not in exacerbation History of heart failure with unknown EF Hypomagnesemia improved Hypertension Hyperlipidemia Osteoarthritis History of rheumatoid arthritis GI prophylaxis DVT prophylaxis Full code Plan: Recommend to continue with current medications and management with infectious disease and orthopedics following. patient is postoperative day #[address] Zurita for spondylosis with stenosis as patient has be en having continued back pain and difficulty with ambulating and weakness with radiculopathy of the lower extremities. Will await surgical report Patient does follow with Dr. Gaviria in the outpatient setting and reports had an echo in the office, records requested and pending at this time. EKG is normal sinus and chest x-ray done showing no acute process patient is considered low to moderate risk given comorbidities risk versus benefits explained and patient willing to proceed with surgery. Curtis son lives alone and was independent prior to office and would recommend proceeding with intervention to enhance quality of life Recommend PT/OT therapy once cleared by orthopedics. Case management/social work consult for possible ECF for continued strength and mobility Will follow-up on repeat labs and monitor closely. Magnesium is improved at 1.3 we will give an additional 2 g. Overall prognosis is guarded given significant comorbidities Morning blood work is still pending at this time we will follow-up make adjustments to medications as needed. The impression and plan of care has been dictated by Rochelle Gordon Nurse Practitioner as directed. Dr. Piero MD I have performed a history and physical examination and medical decision making of this patient, discussed the same with the dictator, and agree with the dictators assessment and plan as written, documented as a scribe. Based on total visit time, I have performed more than 50% of this visit. Objective - Vital Signs Vital signs: Vital Signs Temp 98.5 F 06/03/24 13:43 Pulse 76 06/03/24 13:43 Resp 16 06/03/24 13:43 BP 94/65 06/03/24 13:43 Pulse Ox 95 06/03/24 13:43 FiO2 Intake & Output 06/02/24 06/03/24 06/03/24 18:59 06:59 18:59 Intake Total 780 Output Total 400 325 Balance 380 -325 Intake: Oral 780 Output: Urine 400 325 Other: Voiding Method Indwelling Catheter Indwelling Catheter Toilet Bedside Commode - Labs CBC & Chem 7: 06/03/24 11:44 06/03/24 11:44 Labs: Abnormal Lab Results - Last 24 Hours (Table) 06/03/24 06/03/24 06/03/24 Range/Units 04:09 11:44 11:44 RBC 2.58 L (3.80-5.40) m/uL Hgb 9.6 L (11.4-16.0) gm/dL Hct 29.8 L (34.0-46.0) % MCV 115.5 H (80.0-100.0) fL MCH 37.3 H (25.0-35.0) pg RDW 16.7 H (11.5-15.5) % Neutrophils # 8.1 H (1.3-7.7) k/uL Macrocytosis Marked A Sodium 128 L (137-145) mmol/L Carbon Dioxide 21 L (22-30) mmol/L Calcium 7.5 L (8.4-10.2) mg/dL Magnesium 2.5 H (1.6-2.3) mg/dL Microbiology - Last 24 Hours (Table) 05/30/24 13:06 Blood Culture - Preliminary Blood 05/30/24 13:06 Blood Culture - Preliminary Blood Assessment and Plan Time with Patient: Less than 30
[2024-06-04 01:56] VITALS: TEMP 98
[2024-06-04 07:10] LABS: African American GFR (CKD) >90 (>60 ml/min/1.73 sqM); Anion Gap 3 mmol/L; Blood Urea Nitrogen 9 mg/dL (7-17); Calcium 8.7 mg/dL (8.4-10.2); Carbon Dioxide 21 mmol/L (22-30); Chloride 108 mmol/L (98-107); Glucose 101 mg/dL (74-99); Non-African American GFR(CKD) >90 (>60 ml/min/1.73 sqM); Sodium 132 mmol/L (137-145)
[2024-06-04 07:35] VITALS: BP 91/59; PULSE 65; RESP 17
[2024-06-04] MEDS ORDERED: HYDROcodone/APAP 10-325MG 1 EACH TAB ONE ×4 (08:00→21:04)
[2024-06-04] MEDS ORDERED: THIAMINE 100 MG TAB ONE (08:00)
[2024-06-04] MEDS ORDERED: GABAPENTIN 300 MG CAP ONE ×3 (08:00→21:04)
[2024-06-04] MEDS ORDERED: CYCLOBENZAPRINE 5 MG TAB ONE ×3 (08:00→21:04)
[2024-06-04] MEDS ORDERED: HYDROcodone/APAP 5-325MG 1 EACH TAB ONE ×2 (12:33)
[2024-06-04] MEDS ORDERED: SENNOSIDES 8.6 MG TAB ONE (12:33)
[2024-06-04] MEDS ORDERED: HEPARIN SODIUM,PORCINE 5,000 UNIT/ML 1 ML VIAL ONE ×2 (21:04→23:59)
[2024-06-04] MEDS ORDERED: VENLAFAXINE HCL ER 150 MG CAP PO ONE (23:59)
[2024-06-04] MEDS ORDERED: PANTOPRAZOLE 40 MG TABLET PO ONE (23:59)
[2024-06-04] MEDS ORDERED: busPIRone HCl 10 MG TAB ONE (23:59)
[2024-06-05] MEDS ORDERED: HYDROcodone/APAP 10-325MG 1 EACH TAB ONE ×6 (01:14→20:14)
[2024-06-05] MEDS ORDERED: busPIRone HCl 10 MG TAB ONE (07:51)
[2024-06-05] MEDS ORDERED: HEPARIN SODIUM,PORCINE 5,000 UNIT/ML 1 ML VIAL ONE ×2 (07:51→20:14)
[2024-06-05] MEDS ORDERED: GABAPENTIN 300 MG CAP ONE ×3 (07:51→20:14)
[2024-06-05] MEDS ORDERED: CYCLOBENZAPRINE 5 MG TAB ONE ×3 (07:51→20:13)
[2024-06-05] MEDS ORDERED: PANTOPRAZOLE 40 MG TABLET PO ONE (07:51)
[2024-06-05] MEDS ORDERED: THIAMINE 100 MG TAB ONE (07:52)
[2024-06-05] MEDS ORDERED: SENNOSIDES 8.6 MG TAB ONE (14:41)
[2024-06-05] MEDS ORDERED: VENLAFAXINE HCL ER 150 MG CAP PO ONE (23:59)
[2024-06-06] MEDS ORDERED: HYDROcodone/APAP 10-325MG 1 EACH TAB ONE ×6 (01:10→20:19)
[2024-06-06] MEDS ORDERED: PANTOPRAZOLE 40 MG TABLET PO ONE (10:56)
[2024-06-06] MEDS ORDERED: HEPARIN SODIUM,PORCINE 5,000 UNIT/ML 1 ML VIAL ONE ×2 (10:56→20:19)
[2024-06-06] MEDS ORDERED: busPIRone HCl 10 MG TAB ONE (10:56)
[2024-06-06] MEDS ORDERED: GABAPENTIN 300 MG CAP ONE ×3 (10:57→20:18)
[2024-06-06] MEDS ORDERED: THIAMINE 100 MG TAB ONE (10:57)
[2024-06-06] MEDS ORDERED: CYCLOBENZAPRINE 5 MG TAB ONE ×3 (10:57→20:18)
[2024-06-06] MEDS ORDERED: SENNOSIDES 8.6 MG TAB ONE ×2 (12:16→23:59)
[2024-06-06] MEDS ORDERED: VENLAFAXINE HCL ER 150 MG CAP PO ONE (23:59)
[2024-06-07] MEDS ORDERED: HYDROcodone/APAP 10-325MG 1 EACH TAB ONE ×5 (01:52→17:18)
[2024-06-07] MEDS ORDERED: HEPARIN SODIUM,PORCINE 5,000 UNIT/ML 1 ML VIAL ONE (08:20)
[2024-06-07] MEDS ORDERED: busPIRone HCl 10 MG TAB ONE (08:20)
[2024-06-07] MEDS ORDERED: PANTOPRAZOLE 40 MG TABLET PO ONE (08:20)
[2024-06-07] MEDS ORDERED: CYCLOBENZAPRINE 5 MG TAB ONE ×2 (08:21→16:37)
[2024-06-07] MEDS ORDERED: THIAMINE 100 MG TAB ONE (08:21)
[2024-06-07] MEDS ORDERED: GABAPENTIN 300 MG CAP ONE ×2 (08:21→16:37)
[2024-06-07] MEDS ORDERED: SENNOSIDES 8.6 MG TAB ONE (08:21)
[2024-06-07] MEDS ORDERED: LACTULOSE 20 GM/30 ML CUP ONE ×2 (14:23)
[2024-06-27 14:23] LABS: RBC 2.48 m/uL (3.80-5.40); WBC 8.1 k/uL (3.8-10.6)
[2024-06-27 14:24] LABS: Basophils % (A) 0 %; Eosinophils % (A) 4 %; HCT 29.1 % (34.0-46.0); HGB 9.2 gm/dL (11.4-16.0); Lymphocytes % (A) 15 %; MCH 37.1 pg (25.0-35.0); MCHC 31.7 g/dL (31.0-37.0); MCV 117.2 fL (80.0-100.0); Monocytes % (A) 7 %; Neutrophils # (A) 5.9 k/uL (1.3-7.7); Neutrophils % (A) 72.8; Platelet Count 169 k/uL (150-450); RDW 16.2 % (11.5-15.5)
[2024-06-27 14:25] LABS: Eosinophils # (A) 0.3 k/uL (0-0.7); Lymphocytes # (A) 1.2 k/uL (1.0-4.8); Monocytes # (A) 0.6 k/uL (0-1.0)
== END 2024-06-07 17:28 | DRG 454 ==
LOC: EC 10:11 → 5NMEDONC 12:40
PROVIDERS: ADMIT Internal Medicine; ATTEND Internal Medicine
PROC: 0SG0071 Fusion of Lumbar Vertebral Joint with Autologous Tissue Substitute, Posterior Approach, Posterior Column, Open Approach (ICD-10-PCS; 2024-06-01)
PROC: 0SG3071 Fusion of Lumbosacral Joint with Autologous Tissue Substitute, Posterior Approach, Posterior Column, Open Approach (ICD-10-PCS; 2024-06-01)
PROC: 0SG00AJ Fusion of Lumbar Vertebral Joint with Interbody Fusion Device, Posterior Approach, Anterior Column, Open Approach (ICD-10-PCS; 2024-06-01)
PROC: 0ST20ZZ Resection of Lumbar Vertebral Disc, Open Approach (ICD-10-PCS; 2024-06-01)
PROC: 0ST40ZZ Resection of Lumbosacral Disc, Open Approach (ICD-10-PCS; 2024-06-01)
PROC: 01NB0ZZ Release Lumbar Nerve, Open Approach (ICD-10-PCS; 2024-06-01)
PROC: 01NR0ZZ Release Sacral Nerve, Open Approach (ICD-10-PCS; 2024-06-01)
PROC: 00NY0ZZ Release Lumbar Spinal Cord, Open Approach (ICD-10-PCS; 2024-06-01)
PROC: 4A11X4G Monitoring of Peripheral Nervous Electrical Activity, Intraoperative, External Approach (ICD-10-PCS; 2024-06-01)
PROC: 8E0WXBF Computer Assisted Procedure of Trunk Region, With Fluoroscopy (ICD-10-PCS; 2024-06-01)
PROC: 0SG30AJ Fusion of Lumbosacral Joint with Interbody Fusion Device, Posterior Approach, Anterior Column, Open Approach (ICD-10-PCS; principal; 2024-06-01 13:45)
DX: M46.26 Osteomyelitis of vertebra, lumbar region (principal); M48.54XA Collapsed vertebra, not elsewhere classified, thoracic region, initial encounter for fracture; M48.56XA Collapsed vertebra, not elsewhere classified, lumbar region, initial encounter for fracture; M51.16 Intervertebral disc disorders with radiculopathy, lumbar region; M47.26 Other spondylosis with radiculopathy, lumbar region; J44.9 Chronic obstructive pulmonary disease, unspecified; M47.817 Spondylosis without myelopathy or radiculopathy, lumbosacral region; Z68.31 Body mass index [BMI] 31.0-31.9, adult; E66.9 Obesity, unspecified; I11.0 Hypertensive heart disease with heart failure; E78.5 Hyperlipidemia, unspecified; M06.9 Rheumatoid arthritis, unspecified; M43.16 Spondylolisthesis, lumbar region; R53.1 Weakness; E11.69 Type 2 diabetes mellitus with other specified complication; E83.42 Hypomagnesemia; F32.A Depression, unspecified; F41.9 Anxiety disorder, unspecified; F43.10 Post-traumatic stress disorder, unspecified; G89.29 Other chronic pain; M40.204 Unspecified kyphosis, thoracic region; M48.07 Spinal stenosis, lumbosacral region; Z79.899 Other long term (current) drug therapy; Z90.710 Acquired absence of both cervix and uterus; Z96.642 Presence of left artificial hip joint; Z96.653 Presence of artificial knee joint, bilateral; Z87.19 Personal history of other diseases of the digestive system; Z88.5 Allergy status to narcotic agent; Z88.1 Allergy status to other antibiotic agents; Z91.030 Bee allergy status
CPT/HCPCS: 36415; 71045; 72100; 72131; 72146; 72148; 80048; 80053; 80202; 82565; 82607; 82747; 83605; 83735; 84443; 85025; 85652; 86140; 87040; 93005; 94760; 96365; 96367; 96375; 96376; 99285

== ENCOUNTER → 2024-12-04 | Outpatient (CLI) | payer MEDICARE, OTHER ==
--- NOTE | 2024-12-04 11:33 | US ---
EXAMINATION TYPE: US liver DATE OF EXAM: 12/04/2024 COMPARISON: NONE CLINICAL INDICATION: Female, 74 years old with history of K74.60 UNSPECIFIED CIRRHOSIS OF LIVER; cirr hosis TECHNIQUE: Grayscale and color Doppler imaging of the right upper quadrant was performed. FINDINGS: EXAM MEASUREMENTS: Liver Length: 14.3 cm Gallbladder Wall: 0.2 cm CBD: 0.3 cm Right Kidney: 8.4x4.6x5.2 cm DRAMA DIRECTOR NOTES: Pancreas: Tail obscured by overlying bowel gas Liver: macronodular, heterogenous echotexture Gallbladder: gravel like stones Evidence for sonographic Mac's sign: No CBD: wnl Right Kidney: several tiny echogenic shadowing foci exam limited by bowel gas IMPRESSION: 1. Hepatic cirrhosis without suspicious observation. 2. No evidence for acute process. 3. Cholelithiasis. [facility], , 12/04/2024 11:31 AM
== END | disposition home or self-care (01) ==
LOC: RADUSWWP 10:17
PROVIDERS: ATTEND Internal Medicine Gastroenterology
DX: K80.20 Calculus of gallbladder without cholecystitis without obstruction (principal); K74.60 Unspecified cirrhosis of liver
CPT/HCPCS: 76705

== ENCOUNTER 2025-02-06 12:07 | Inpatient (IN) | payer MEDICARE, OTHER ==
--- NOTE | 2025-02-06 12:40 | ED ---
SOB HPI - General Chief Complaint: Upper Respiratory Infection Stated Complaint: REA, chest pain Time Seen by Provider: 02/06/25 12:13 Source: patient, RN notes reviewed Mode of arrival: ambulatory Limitations: no limitations - History of Present Illness Initial Comments: This is a 74-year-old female who presents to the emergency department for shortness of breath, chest pain, coughing, and congestion. States that symptoms have been going on for about a week. Cough is described as productive. She has been around someone who was recently diagnosed with bronchitis. Denies any fevers or chills. States that she is having pain in the right upper back as well. She went to see her primary care provider today and was told that she had bronchitis and pneumonia and needed to come to the hospital. She does also note feeling very weak and having no energy. MD Complaint: shortness of breath, cough, chest pain - Related Data Home Medications Medication Instructions Recorded Confirmed Azelastine HCl [Astelin Nasal 2 spray EA NOSTRIL BID 08/21/19 02/06/25 [place]] Pantoprazole Sodium [Protonix] 40 mg PO DAILY 11/11/21 02/06/25 Furosemide [Lasix] 20 mg PO DAILY 06/14/23 02/06/25 Acetaminophen Tab [Tylenol Tab] 2,000 mg PO QID PRN 05/30/24 02/06/25 Loratadine [Claritin] 10 mg PO DAILY 05/30/24 02/06/25 Losartan Potassium 100 mg PO DAILY 05/30/24 02/06/25 busPIRone HCl [Buspar] 10 mg PO DAILY 05/30/24 02/06/25 Cholecalciferol [Vitamin D3 (125 125 mcg PO DAILY 02/06/25 02/06/25 Mcg = 5000 Iu)] Cyclobenzaprine [Flexeril] 5 mg PO HS PRN 02/06/25 02/06/25 Potassium Chloride [Klor-Con M10] 10 meq PO DAILY 02/06/25 02/06/25 Previous Rx's Medication Instructions Recorded Gabapentin [Neurontin] 300 mg PO TID 3 Days #90 cap 06/04/24 Allergies Allergy/AdvReac Type Severity Reaction Status Date / Time codeine Allergy Rash/Hives Verified 02/06/25 14:45 nicotine Allergy Swelling Verified 02/06/25 14:45 Tetracyclines Allergy Rash/Hives Verified 02/06/25 14:45 venom-honey bee Allergy Anaphylaxis Verified 02/06/25 14:45 [bee venom (honey bee)] lisinopril AdvReac Cough Verified 02/06/25 14:45 oxycodone AdvReac gi upset Verified 02/06/25 14:45 Review of Systems ROS Statement: Those systems with pertinent positive or pertinent negative responses have been documented in the HPI. ROS Other: All systems not noted in ROS Statement are negative. Past Medical History Past Medical History: Asthma, Chest Pain / Angina, Heart Failure, COPD, Diabetes Mellitus, GERD/Reflux, Hyperlipidemia, Hypertension, Liver Disease, Osteoarthritis (OA), Rheumatoid Arthritis (RA) Additional Past Medical History / Comment(s): DIET CONTROLLED DIABETES, BACK PAIN, diverticulitis,colitis, had low magnesium & potassium also, hx dysphagia w/meds, intermittent diarrhea" r/t gall stones " then constipation. a pt unaware of COPD DX. ? cirrohsis History of Any Multi-Drug Resistant Organisms: ESBL Date of last positivie culture/infection: 09/08/18 ESBL-E.coli MDRO Source:: Urine Past Surgical History: Appendectomy, Bowel Resection, Breast Surgery, Section, Hernia Repair, Hysterectomy, Joint Replacement, Tonsillectomy Additional Past Surgical History / Comment(s): 06/17/15 Total L knee arthroplasty & right knee replaced, left hip replaced, Other SX: LT BREAST BIOPSY, POLYPS REMOVED FROM THROAT, ROBOTIC INCISIONAL HERNIA REPAIR, LYSIS OF ADHESIONS. Past Anesthesia/Blood Transfusion Reactions: No Reported Reaction Additional Past Anesthesia/Blood Transfusion Reaction / Comment(s): one blood transfusion - no issues. Past Psychological History: Anxiety, Depression, PTSD Smoking Status: Never smoker Past Alcohol Use History: None Reported Past Drug Use History: None Reported - Past Family History Father Family Medical History: Deep Vein Thrombosis (DVT), Pulmonary Embolus Mother Family Medical History: Cancer Additional Family Medical History / Comment(s): breast General Exam Limitations: no limitations General appearance: alert, in no apparent distress Head exam: Present: atraumatic, normocephalic, normal inspection Respiratory exam: Present: decreased breath sounds, prolonged expiratory Cardiovascular Exam: Present: normal rhythm, tachycardia Neurological exam: Present: alert, oriented X3, CN II-XII intact Psychiatric exam: Present: normal affect, normal mood Skin exam: Present: warm, dry, intact, normal color. Absent: rash Course Vital Signs 02/06/25 02/06/25 02/06/25 12:08 14:38 14:46 Temperature 98.0 F Pulse Rate 103 H 93 93 Respiratory 21 18 Rate Blood Pressure 173/116 148/91 O2 Sat by Pulse 97 97 Oximetry 02/06/25 15:01 Temperature Pulse Rate 95 Respiratory Rate Blood Pressure O2 Sat by Pulse Oximetry Medical Decision Making - Medical Decision Making This is a 74 year old female who presents to the emergency department for shortness of breath. Was pt. sent in by a medical professional or institution? @ -Her PCP Did you speak to anyone other than the patient for history? @ -No Did you review nursing and triage notes? @ -Yes, and I agree, it is accurate with regards to the patient's symptoms. Were old charts reviewed? @ -No Differential Diagnosis? @ -Differential Dyspnea: Coronary syndrome, arrhythmia, tamponade, asthma, COPD, pulmonary embolism, pneumonia, pneumothorax, pulmonary effusion, anaphylaxis, diabetic ketoacidosis, flailed chest, pulmonary contusion, diaphragmatic rupture, anemia, neuromuscula r, this is not meant to be an all-inclusive list. EKG interpreted by me (3pts min.)? @ -EKG interpreted by me demonstrating the following: Sinus tachycardia. Ventricular rate 103 bpm, NH interval 153 ms, QRS duration 75 ms, QTc 381 ms. X-rays interpreted by me (1pt min.)? @ -Chest x-ray obtained, my interpretation identifies no localized consol idations or infiltrates. CT interpreted by me (1pt min.)? @ -Not obtained U/S interpreted by me (1pt. min.)? @ -Not obtained What testing was considered but not performed? (CT, X-rays, U/S, labs)? Why? @ -None What meds were considered but not given? Why? @ -None Did you discuss the management of the patient with other professionals? @ -Yes, Dr. Clement, who accepts the patient for admission Did you reconcile home meds? @ -Yes Was smoking cessation discussed for >3mins.? @ -No Was critical care preformed (if so, how long)? @ -No Were there social determinants of health that impacted care today? How? (Homelessness, low income, unemployed, alcoholism, drug addiction, transpo rtation, low edu. Level, literacy, decrease access to med. care, [facility], rehab)? @ -No Was there de-escalation of care discussed even if they declined? (Discuss DNR or withdrawal of care, Hospice)? @ -No What co-morbidities impacted this encounter? (DM, HTN, Smoking, COPD, CAD, Cancer, CVA, Hep., AIDS, mental health diagnosis, sleep apnea, morbid obesity)? @ -COPD, DM, HLD, HTN Was patient admitted / discharged? @ -Admitted. Lab work demonstrates a critically low magnesium of 0.9 and is otherwise unremarkable. D-dimer and troponin negative. COVID, influenza, and RSV testing negative. Urinalysis negative for signs of infection. Chest x-ray reveals no acute process. Patient's respiratory symptoms like related to a potentially viral bronchitis. However, given the critically low magnesium she was admitted to medicine for further management. 4g of magnesium sulfate administered. Case discussed with ED attending Dr. Velez. Undiagnosed new problem with uncertain prognosis? @ -None Drug Therapy requiring intensive monitoring for toxicity (Heparin, Nitro, Insulin, Cardizem)? @ -None Were any procedures done? @ -None Diagnosis/symptom? @ -Hypomagnesemia, weakness, respiratory infection Acute, or Chronic, or Acute on Chronic? @ -Acute Uncomplicated (without systemic symptoms) or Complicated (systemic symptoms)? @ -Complicated Side effects of treatment? @ -None Exacerbation, Progression, or Severe Exacerbation] @ -Not applicable Poses a threat to life or bodily function? @ -Yes, patient unable to function in current state - Lab Data Result diagrams: 02/06/25 12:20 02/06/25 12:20 Lab Results 02/06/25 02/06/25 02/06/25 Range/Units 12:20 12:20 12:20 WBC 6.82 (4.50-10.00) 10*3/uL RBC 3.33 L (4.10-5.20) 10*6/uL Hgb 11.3 L (12.0-15.0) g/dL Hct 34.4 L (37.2-46.3) % MCV 103.3 H (80.0-97.0) fL MCH 33.9 H (27.0-32.0) pg MCHC 32.8 (32.0-37.0) g/dL Plt Count 185 (140-440) 10*3/uL MPV 9.6 (9.5-12.2) fL Immature Gran % (Auto) 0.6 % Neutrophils % 69.4 % Lymphocytes % 19.6 % Monocytes % 8.2 % Eosinophils % 1.8 % Basophils % 0.4 % Immature Gran # 0.04 (0.00-0.04) 10*3/uL Neutrophils # 4.73 (1.80-7.70) 10*3/uL Lymphocytes # 1.34 (0.90-5.00) 10*3/uL Monocytes # 0.56 (0.20-1.00) 10*3/uL Eosinophils # 0.12 (0.04-0.35) 10*3/uL Basophils # 0.03 (0.00-0.10) 10*3/uL PT 11.4 (10.0-12.5) sec INR 1.0 (<1.2) APTT 23.8 (22.0-30.0) sec D-Dimer 0.57 (<0.60) mg/L FEU Sodium 139 (137-145) mmol/L Potassium 3.7 (3.5-5.1) mmol/L Chloride 103 (98-107) mmol/L Carbon Dioxide 26 (22-30) mmol/L Anion Gap 10 mmol/L BUN 9 (7-17) mg/dL Creatinine 0.54 (0.52-1.04) mg/dL Est GFR (CKD-EPI)AfAm >90 (>60 ml/min/1.73 sqM) Est GFR (CKD-EPI)NonAf >90 (>60 ml/min/1.73 sqM) Glucose 98 (74-99) mg/dL Plasma Lactic Acid Walt (0.7-2.0) mmol/L Calcium 8.9 (8.4-10.2) mg/dL Magnesium 0.9 L* (1.6-2.3) mg/dL Total Bilirubin 0.8 (0.2-1.3) mg/dL AST 50 H (14-36) U/L ALT 28 (4-34) U/L Alkaline Phosphatase 145 H (38-126) U/L Troponin I (0.000-0.034) ng/mL NT-Pro-B Natriuret Pep 111 pg/mL Total Protein 8.1 (6.3-8.2) g/dL Albumin 4.2 (3.5-5.0) g/dL Influenza Type A (PCR) (Not Detectd) Influenza Type B (PCR) (Not Detectd) RSV (PCR) (Not Detectd) SARS-CoV-2 (PCR) (Not Detectd) 02/06/25 02/06/25 02/06/25 Range/Units 12:20 12:20 12:21 WBC (4.50-10.00) 10*3/uL RBC (4.10-5.20) 10*6/uL Hgb (12.0-15.0) g/dL Hct (37.2-46.3) % MCV (80.0-97.0) fL MCH (27.0-32.0) pg MCHC (32.0-37.0) g/dL Plt Count (140-440) 10*3/uL MPV (9.5-12.2) fL Immature Gran % (Auto) % Neutrophils % % Lymphocytes % % Monocytes % % Eosinophils % % Basophils % % Immature Gran # (0.00-0.04) 10*3/uL Neutrophils # (1.80-7.70) 10*3/uL Lymphocytes # (0.90-5.00) 10*3/uL Monocytes # (0.20-1.00) 10*3/uL Eosinophils # (0.04-0.35) 10*3/uL Basophils # (0.00-0.10) 10*3/uL PT (10.0-12.5) sec INR (<1.2) APTT (22.0-30.0) sec D-Dimer (<0.60) mg/L FEU Sodium (137-145) mmol/L Potassium (3.5-5.1) mmol/L Chloride (98-107) mmol/L Carbon Dioxide (22-30) mmol/L Anion Gap mmol/L BUN (7-17) mg/dL Creatinine (0.52-1.04) mg/dL Est GFR (CKD-EPI)AfAm (>60 ml/min/1.73 sqM) Est GFR (CKD-EPI)NonAf (>60 ml/min/1.73 sqM) Glucose (74-99) mg/dL Plasma Lactic Acid Walt 1.1 (0.7-2.0) mmol/L Calcium (8.4-10.2) mg/dL Magnesium (1.6-2.3) mg/dL Total Bilirubin (0.2-1.3) mg/dL AST (14-36) U/L ALT (4-34) U/L Alkaline Phosphatase (38-126) U/L Troponin I <0.012 (0.000-0.034) ng/mL NT-Pro-B Natriuret Pep pg/mL Total Protein (6.3-8.2) g/dL Albumin (3.5-5.0) g/dL Influenza Type A (PCR) Not Detected (Not Detectd) Influenza Type B (PCR) Not Detected (Not Detectd) RSV (PCR) Not Detected (Not Detectd) SARS-CoV-2 (PCR) Not Detected (Not Detectd) - Radiology Data Radiology results: report reviewed, image reviewed Disposition Clinical Impression: Hypomagnesemia, Weakness, Respiratory infection Disposition: ADMITTED IP TO THIS HOSP
[2025-02-06 13:10] LABS: Basophils # (A) 0.03 10*3/uL (0.00-0.10); Basophils % (A) 0.4 %; Eosinophils # (A) 0.12 10*3/uL (0.04-0.35); Eosinophils % (A) 1.8 %; HCT 34.4 % (37.2-46.3); HGB 11.3 g/dL (12.0-15.0); Lymphocytes # (A) 1.34 10*3/uL (0.90-5.00); Lymphocytes % (A) 19.6 %; MCH 33.9 pg (27.0-32.0); MCHC 32.8 g/dL (32.0-37.0); MCV 103.3 fL (80.0-97.0); Mean Platelet Volume 9.6 fL (9.5-12.2); Monocytes # (A) 0.56 10*3/uL (0.20-1.00); Monocytes % (A) 8.2 %; Neutrophils # (A) 4.73 10*3/uL (1.80-7.70); Neutrophils % (A) 69.4 %; Platelet Count 185 10*3/uL (140-440); RBC 3.33 10*6/uL (4.10-5.20); RDW 14.3 % (11.5-14.5); WBC 6.82 10*3/uL (4.50-10.00)
[2025-02-06] MEDS: KETOROLAC 15 MG/ML 1 ML VIAL IVP STA (13:20)
[2025-02-06] MEDS: guaiFENesin-DM 600/30MG 1 EACH TAB.ER.12H PO SCH (13:20)
[2025-02-06] MEDS: LIDOCAINE 4% PATCH TOPICAL ONE (13:20)
[2025-02-06 13:27] LABS: ALT 28 U/L (4-34); AST 50 U/L (14-36); African American GFR (CKD) >90 (>60 ml/min/1.73 sqM); Albumin 4.2 g/dL (3.5-5.0); Alkaline Phosphatase 145 U/L (38-126); Anion Gap 10 mmol/L; Blood Urea Nitrogen 9 mg/dL (7-17); Calcium 8.9 mg/dL (8.4-10.2); Carbon Dioxide 26 mmol/L (22-30); Chloride 103 mmol/L (98-107); Glucose 98 mg/dL (74-99); Non-African American GFR(CKD) >90 (>60 ml/min/1.73 sqM); Partial Thromboplastin Time 23.8 sec (22.0-30.0); Potassium 3.7 mmol/L (3.5-5.1); Prothrombin Time 11.4 sec (10.0-12.5); Sodium 139 mmol/L (137-145); Total Bilirubin 0.8 mg/dL (0.2-1.3); Total Protein 8.1 g/dL (6.3-8.2)
[2025-02-06 13:34] LABS: NT-Pro-B-Type Natriuretic Pept 111 pg/mL
[2025-02-06 13:44] LABS: Magnesium 0.9 mg/dL (1.6-2.3)
[2025-02-06] MEDS ORDERED: Magnesium Replacement Protocol 1 EACH MISC MISCELLANE PRN ×2 (13:45→16:23)
[2025-02-06 13:46] LABS: Influenza A Not Detected (Not Detectd); Influenza B Not Detected (Not Detectd); RSV Not Detected (Not Detectd)
--- NOTE | 2025-02-06 13:46 | XR ---
EXAMINATION TYPE: XR chest 2V DATE OF EXAM: 02/06/2025 CLINICAL INDICATION: Female, 74 years old with history of difficulty breathing, TECHNIQUE: Frontal and lateral views of the chest are obtained. COMPARISON: Chest x-ray May 31, 2024 FINDINGS: Elevated right hemidiaphragm redemonstrated. There is no focal air space opacity, pleural effusion, or pneumothorax seen. Persistent mild cardiomegaly. The osseous structures are intact. IMPRESSION: Mild cardiomegaly without acute pulmonary process. [facility], , 02/06/2025 1:43 PM
[2025-02-06] MEDS ORDERED: NALOXONE 0.4 MG/ML 1 ML VIAL IV PRN (14:26)
[2025-02-06] MEDS ORDERED: ONDANSETRON 4 MG/2 ML VIAL IVP PRN (14:26)
[2025-02-06] MEDS ORDERED: IBUPROFEN 400 MG TAB PO PRN (14:26)
[2025-02-06] MEDS: MAGNESIUM SULFATE-D5W PMX 1 GM in DEXTROSE/WATER 1 100ML.BAG IVPB SCH (14:35)
[2025-02-06] MEDS ORDERED: MORPHINE SULFATE 4 MG/ML SYRINGE IVP PRN (14:35)
[2025-02-06] MEDS: BENZONATATE 100 MG CAP PO STA (14:35)
[2025-02-06] MEDS: SODIUM CHLORIDE 0.9% 1,000 ML IV SCH (14:36)
[2025-02-06] MEDS: IPRATROPIUM-ALBUTEROL 3 ML NEB INHALATION STA (14:44)
[2025-02-06] MEDS ORDERED: CYCLOBENZAPRINE 5 MG TAB PO PRN (15:06)
[2025-02-06] MEDS: GABAPENTIN 300 MG CAP PO SCH (15:33)
[2025-02-06 16:19] LABS: Appearance,Urine Clear (Clear); Bilirubin,Urine Negative (Negative); Blood,Urine Negative (Negative); Color,Urine Yellow; Glucose,Urine (UA) Negative (Negative); Ketones,Urine Negative (Negative); Leukocyte Esterase,Urine Negative (Negative); Nitrite,Urine Negative (Negative); PH, Urine 6.5 (5.0-8.0); Protein,Urine Trace (Negative); Specific Gravity,Urine 1.028 (1.001-1.035)
[2025-02-06] MEDS ORDERED: Potassium Replacement Protocol 1 EACH MISC MISCELLANE PRN (16:23)
[2025-02-06] MEDS: IPRATROPIUM-ALBUTEROL 3 ML NEB INHALATION SCH (18:40)
[2025-02-06] MEDS: AZELASTINE 137MCG/SPRAY EA NOSTRIL SCH (20:07)
[2025-02-06 20:28] LABS: Glucose,Whole Blood 184 mg/dL (70-110)
[2025-02-06] MEDS: ACETAMINOPHEN TAB 325 MG TAB PO PRN (21:16)
--- NOTE | 2025-02-07 02:48 | HP ---
HISTORY AND PHYSICAL CHIEF COMPLAINT: Upper respiratory infection, chest pain, shortness of breath as well as cough and hypomagnesemia. HISTORY OF PRESENT ILLNESS: This 74-year-old woman with a past medical history of multiple medical problems, who was admitted last year with back pain. Currently, the patient is complaining of cough and upper respiratory symptoms. The patient is complaining of severe increasing weakness and the patient came to [facility]. Magnesium of 0.9. Viral titers negative. The patient is admitted for evaluation and treatment. There is no history of fever, rigors, or chills at this time. PAST MEDICAL HISTORY: History of DJD, history of asthma, COPD, and diabetes mellitus type 2. Rest of the history and rest of the chart are also reviewed. HOME MEDICATIONS: Reviewed, include Klor-Con. Dose and rest of medications reviewed. ALLERGIES: Codeine. Rest of allergies reviewed. FAMILY HISTORY: History of DVT and pulmonary embolism in the family. SOCIAL HISTORY: No history of smoking. Occasional alcohol. REVIEW OF SYSTEMS: Fourteen-point review is negative except as mentioned earlier. PHYSICAL EXAMINATION: VITAL SIGNS: Pulse is 93, blood pressure 140/91, and respirations 18. HEENT: Conjunctivae normal. NECK: No JVD. CARDIOVASCULAR: S1 and S2. RESPIRATIONS: Breath sounds diminished at the bases. Few scattered rhonchi and crackles. ABDOMEN: Soft and nontender. LEGS: No edema. NERVOUS SYSTEM. Nonfocal. LABORATORY DATA: Reviewed. IMAGING DATA: Chest x-ray which I reviewed personally. Increased bronchovascular markings. ASSESSMENT: 1. Generalized weakness and tiredness, possibly secondary to severe hypomagnesemia. 2. Chronic obstructive pulmonary disease acute exacerbation. 3. History of congestive heart failure. 4. Gastroesophageal reflux disease. 5. Hypertension. 6. Hyperlipidemia. 7. Diabetes type 2. 8. History of liver disease. 9. History of rheumatoid arthritis. 10.History of asthma. RECOMMENDATION: This 74-year-old woman, presented with multiple complex medical issues. I recommend to continue the current medications and continue symptomatic treatment. The patient has severe hypomagnesemia, undetermined etiology. I would recommend replace magnesium and continue to monitor. Otherwise PT/OT evaluation. The patient also had some cough. I recommend bronchodilators. Viral titers are negative. There is no evidence of pneumonia. Resume the home medications once they are confirmed. Prognosis guarded because of multiple complex medical issues. Further recommendations to follow. The patient is to start on small dose of Lasix. MMODL / IJN: [id number] /
[2025-02-07] MEDS: KETOROLAC 15 MG/ML 1 ML VIAL IVP PRN (03:21)
[2025-02-07 06:54] LABS: Glucose,Whole Blood 114 mg/dL (70-110)
[2025-02-07] MEDS: PANTOPRAZOLE 40 MG/10 ML VIAL IV SCH (08:25)
[2025-02-07] MEDS: LOSARTAN 50 MG TAB PO SCH (08:26)
[2025-02-07] MEDS: POTASSIUM CHLORIDE ER 10 MEQ TAB.ER.PRT PO SCH (08:27)
[2025-02-07] MEDS: CHOLECALCIFEROL 125 MCG (5000 IU) TABLET PO SCH (08:27)
[2025-02-07] MEDS: busPIRone HCl 10 MG TAB PO SCH (08:27)
[2025-02-07] MEDS: LORATADINE 10 MG TAB PO SCH (08:28)
[2025-02-07] MEDS: FUROSEMIDE 20 MG TAB PO SCH (08:28)
[2025-02-07 08:37] LABS: HCT 35.1 % (37.2-46.3); MCH 33.1 pg (27.0-32.0); MCHC 31.3 g/dL (32.0-37.0); MCV 105.7 FL (80.0-97.0); Mean Platelet Volume 9.2 FL (9.5-12.2); NRBC Per 100 WBC 0 X 10*3/uL (0.00-0.01); Platelet Count 167 X 10*3/uL (140-440); RBC 3.32 X 10*6/uL (4.10-5.20); RDW 14.5 % (11.5-14.5); WBC 6.58 X 10*3/uL (4.50-10.00)
[2025-02-07 08:51] LABS: ALT 28 U/L (8-44); AST 45 U/L (13-35); Albumin 3.9 g/dL (3.8-4.9); Albumin/Globulin Ratio 1.08 Ratio (1.60-3.17); Alkaline Phosphatase 124 U/L (41-126); Blood Urea Nitrogen 5.4 mg/dL (9.0-27.0); Calcium 8.4 mg/dL (8.7-10.3); Carbon Dioxide 29.3 mmol/L (21.6-31.8); Chloride 102 mmol/L (96-109); Globulin 3.6 g/dL (1.6-3.3); Glucose 126 mg/dL (70-110); Magnesium 1.8 mg/dL (1.5-2.4); Potassium 3.3 mmol/L (3.5-5.5); Sodium 140 mmol/L (135-145); Total Bilirubin 0.6 mg/dL (0.3-1.2); Total Protein 7.5 g/dL (6.2-8.2)
[2025-02-07] MEDS ORDERED: PANTOPRAZOLE 40 MG TABLET PO SCH (09:00)
[2025-02-07 10:11] LABS: Basophils # (A) 0.03 X 10*3/uL (0.00-0.10); Basophils % (A) 0.5 %; Eosinophils # (A) 0.13 X 10*3/uL (0.04-0.35); Lymphocytes # (A) 1.16 X 10*3/uL (0.90-5.00); Lymphocytes % (A) 17.6 %; Macrocytosis (M) 2+ (None Seen); Monocytes # (A) 0.58 X 10*3/uL (0.20-1.00); Monocytes % (A) 8.8 %; Neutrophils # (A) 4.64 X 10*3/uL (1.80-7.70); Neutrophils % (A) 70.5 %
[2025-02-07 12:06] LABS: Glucose,Whole Blood 134 mg/dL (70-110)
[2025-02-07] MEDS: MAGNESIUM SULFATE-D5W PMX 1 GM in DEXTROSE/WATER 1 100ML.BAG IVPB ONE (12:17)
[2025-02-07] MEDS: guaiFENesin-DM 100-10MG/5ML 10 ML CUP PO SCH (12:17)
[2025-02-07] MEDS: POTASSIUM CHLORIDE ER 20 MEQ TAB.ER PO STA (12:17)
--- NOTE | 2025-02-07 12:26 | P.PN ---
Subjective This is a pleasant 74 years old female who presents because of dyspnea. Patient was sent by her PCP Dr. Colindres because of her respiratory problems In the emergency room patient was found to have generally weak and magnesium critically low 0.9 so she was admitted for hypomagnesemia. Replacement was initiated and magnesium today 1.8 potassium 3.3 which have been replaced However patient is still significantly short of breath and significantly w heezing and she has a lot of dry cough while she is taking Robitussin DM. She makes a green phlegm She denies chest pain or abdominal pain. No other GI also symptom. Patient states she is never smoked but all her household family were smoking except for her in her diet. She thinks that might be contributing to her presentation. She is not on oxygen at home. She is hemodynamically stable, tachypneic, mildly tachycardic. Labs reviewed. WBC normal 6.5 hemoglobin 11. Platelet count normal. Creatinine normal at 0.5. L liver enzymes not elevated. Urinalysis not suspicious for infection. Checks x-ray: Cardiomegaly, mild. Without acute cardiopulmonary process. I reviewed chest x-ray by myself and agree with these findings. proBNP is 111 influenza and COVID and RSV were negative. Review of systems CONSTITUTIONAL: No fever, no malaise, no fatigue. GASTROINTESTINAL: No diarrhea, no nausea, no vomiting, no abdominal pain. Normoactive bowel sounds. NEUROLOGICAL: No headaches, no weakness, no numbness. HEMATOLOGICAL: Denies any bleeding or petechiae. GENITOURINARY: Denies any burning micturition, frequency, or urgency. MUSCULOSKELETAL/RHEUMATOLOGICAL: Denies any joint pain, swelling, or any muscle pain. ENDOCRINE: Denies any polyuria or polydipsia. Active Medications Generic Name Dose Route Start Last Admin Trade Name Freq PRN Reason Stop Dose Admin Acetaminophen 650 mg 02/06/25 14:26 02/07/25 08:27 Acetaminophen Tab 325 Mg Tab PO 650 mg Q6HR PRN Administration Mild Pain or Fever > 100.5 Albuterol/Ipratropium 3 ml 02/06/25 20:00 02/07/25 11:57 Ipratropium-Albuterol 3 Ml Neb INHALATION 3 ml RT-QID BIRD Administration Albuterol/Ipratropium 3 ml 02/06/25 16:22 Ipratropium-Albuterol 3 Ml Neb INHALATION RT-QID PRN Shortness Of Breath Or Wheezing Azelastine HCl 2 spray 02/06/25 21:00 02/07/25 08:28 Azelastine 137mcg/[place] EA NOSTRIL 2 spray BID BIRD Administration Buspirone HCl 10 mg 02/07/25 09:00 02/07/25 08:27 Buspirone Hcl 10 Mg Tab PO 10 mg DAILY BIRD Administration Cholecalciferol 125 mcg 02/07/25 09:00 02/07/25 08:27 Cholecalciferol 125 Mcg (5000 Iu) Tablet PO 125 mcg DAILY BIRD Administration Cyclobenzaprine HCl 5 mg 02/06/25 15:06 Cyclobenzaprine 5 Mg Tab PO HS PRN Muscle Spasm Gabapentin 300 mg 02/06/25 16:00 02/07/25 08:26 Gabapentin 300 Mg Cap PO 300 mg TID BIRD Administration Guaifenesin/Dextromethorphan 10 ml 02/07/25 12:00 02/07/25 12:17 Guaifenesin-Dm 100-10mg/5ml 10 Ml Cup PO 10 ml Q6HR BIRD Administration Magnesium Sulfate/Dextrose 1 100 mls @ 100 mls/hr 02/07/25 11:52 02/07/25 12:17 gm/ IV Solution IVPB 02/07/25 12:51 100 mls/hr ONCE ONE Administration Ibuprofen 400 mg 02/06/25 14:26 Ibuprofen 400 Mg Tab PO Q6HR PRN Moderate Pain or Fever > 100.5 Ketorolac Tromethamine 15 mg 02/06/25 14:26 02/07/25 09:14 Ketorolac 15 Mg/Ml 1 Ml Vial IVP 02/09/25 14:27 15 mg Q6HR PRN Administration Severe Pain (Scale 7 to 10) Loratadine 10 mg 02/07/25 09:00 02/07/25 08:28 Loratadine 10 Mg Tab PO 10 mg DAILY BIRD Administration Losartan Potassium 100 mg 02/07/25 09:00 02/07/25 08:26 Losartan 50 Mg Tab PO 100 mg DAILY BIRD Administration Magnesium Oxide 400 mg 02/07/25 21:00 Magnesium Oxide 400 Mg Tab PO 02/10/25 20:59 BID [facility] Methylprednisolone Sodium Succinate 40 mg 02/07/25 12:22 Methylprednisolone Sod Succi 40 Mg/Ml 1 Ml Vial IV Q8HR [facility] Miscellaneous Information 1 each 02/06/25 13:45 Magnesium Replacement Protocol 1 Each Misc MISCELLANE DAILY PRN Per Protocol Protocol Miscellaneous Information 1 each 02/06/25 16:23 Magnesium Replacement Protocol 1 Each Misc MISCELLANE DAILY PRN Per Protocol Protocol Miscellaneous Information 1 each 02/06/25 16:23 Potassium Replacement Protocol 1 Each Misc MISCELLANE DAILY PRN Per Protocol Protocol Morphine Sulfate 4 mg 02/06/25 14:35 Morphine Sulfate 4 Mg/Ml Syringe IVP Q4HR PRN Severe Pain (Scale 7 to 10) Naloxone HCl 0.2 mg 02/06/25 14:26 Naloxone 0.4 Mg/Ml 1 Ml Vial IV Q2M PRN Opioid Reversal Ondansetron HCl 4 mg 02/06/25 14:26 Ondansetron 4 Mg/2 Ml Vial IVP Q8HR PRN Nausea And Vomiting Pantoprazole Sodium 40 mg 02/08/25 07:30 Pantoprazole 40 Mg Tablet PO AC-BRKFST [facility] Potassium Chloride 10 meq 02/07/25 09:00 02/07/25 08:27 Potassium Chloride Er 10 Meq Tab.Er.Prt PO 10 meq DAILY BIRD Administration Objective - Vital Signs Vital signs: Vital Signs Temp 98.1 F 02/07/25 11:23 Pulse 80 02/07/25 12:12 Resp 16 02/07/25 11:23 BP 124/80 02/07/25 11:23 Pulse Ox 92 L 02/07/25 11:23 FiO2 Intake & Output 02/06/25 02/07/25 02/07/25 18:59 06:59 18:59 Intake Total 480 Output Total 2800 Balance -2800 480 Weight 84.822 kg Intake: Oral 480 Output: Urine 2800 Other: Voiding Method Toilet Bedside Commode - Exam GENERAL: The patient is alert and oriented x3, not in any acute distress. Well developed, well nourished. HEENT: Pupils are round and equally reacting to light. EOMI. No scleral icterus. No conjunctival pallor. Normocephalic, atraumatic. No pharyngeal erythema. No thyromegaly. CARDIOVASCULAR: S1 and S2 present. No murmurs, rubs, or gallops. -PULMONARY: Chest is clear to auscultation, bilateral expiratory wheezing , no crackles. Tachypneic. Coughing ABDOMEN: Soft, nontender, nondistended, normoactive bowel sounds. No palpable organomegaly. MUSCULOSKELETAL: No joint swelling or deformity. EXTREMITIES: No cyanosis, clubbing, or pedal edema. NEUROLOGICAL: Gross neurological examination did not reveal any focal deficits. SKIN: No rashes. no petechiae. - Labs CBC & Chem 7: 02/07/25 03:02/07/25 03: Labs: Abnormal Lab Results - Last 24 Hours (Table) 02/06/25 02/06/25 02/06/25 Range/Units 12:20 12:20 16:00 RBC 3.33 L (4.10-5.20) 10*6/uL Hgb 11.3 L (12.0-15.0) g/dL Hct 34.4 L (37.2-46.3) % MCV 103.3 H (80.0-97.0) fL MCH 33.9 H (27.0-32.0) pg MCHC (32.0-37.0) g/dL MPV (9.5-12.2) FL Macrocytosis (manual) (None Seen) Potassium (3.5-5.5) mmol/L BUN (9.0-27.0) mg/dL Creatinine (0.6-1.5) mg/dL BUN/Creatinine Ratio (12.00-20.00) Ratio Glucose (70-110) mg/dL POC Glucose (mg/dL) (70-110) mg/dL Calcium (8.7-10.3) mg/dL Magnesium 0.9 L* (1.6-2.3) mg/dL AST 50 H (14-36) U/L Alkaline Phosphatase 145 H (38-126) U/L Globulin (1.6-3.3) g/dL Albumin/Globulin Ratio (1.60-3.17) Ratio Urine Protein Trace H (Negative) 02/06/25 02/07/25 02/07/25 Range/Units 20:24 03:29 03:29 RBC 3.32 L (4.10-5.20) 10*6/uL Hgb 11.0 L (12.0-15.0) g/dL Hct 35.1 L (37.2-46.3) % MCV 105.7 H (80.0-97.0) fL MCH 33.1 H (27.0-32.0) pg MCHC 31.3 L (32.0-37.0) g/dL MPV 9.2 L (9.5-12.2) FL Macrocytosis (manual) 2+ A (None Seen) Potassium 3.3 L (3.5-5.5) mmol/L BUN 5.4 L (9.0-27.0) mg/dL Creatinine 0.5 L (0.6-1.5) mg/dL BUN/Creatinine Ratio 10.80 L (12.00-20.00) Ratio Glucose 126 H (70-110) mg/dL POC Glucose (mg/dL) 184 H (70-110) mg/dL Calcium 8.4 L (8.7-10.3) mg/dL Magnesium (1.6-2.3) mg/dL AST 45 H (14-36) U/L Alkaline Phosphatase (38-126) U/L Globulin 3.6 H (1.6-3.3) g/dL Albumin/Globulin Ratio 1.08 L (1.60-3.17) Ratio Urine Protein (Negative) 02/07/25 02/07/25 Range/Units 06:53 12:04 RBC (4.10-5.20) 10*6/uL Hgb (12.0-15.0) g/dL Hct (37.2-46.3) % MCV (80.0-97.0) fL MCH (27.0-32.0) pg MCHC (32.0-37.0) g/dL MPV (9.5-12.2) FL Macrocytosis (manual) (None Seen) Potassium (3.5-5.5) mmol/L BUN (9.0-27.0) mg/dL Creatinine (0.6-1.5) mg/dL BUN/Creatinine Ratio (12.00-20.00) Ratio Glucose (70-110) mg/dL POC Glucose (mg/dL) 114 H 134 H (70-110) mg/dL Calcium (8.7-10.3) mg/dL Magnesium (1.6-2.3) mg/dL AST (14-36) U/L Alkaline Phosphatase (38-126) U/L Globulin (1.6-3.3) g/dL Albumin/Globulin Ratio (1.60-3.17) Ratio Urine Protein (Negative) Assessment and Plan Assessment: Acute bronchitis Generalized weakness Hypomagnesemia Secondary hand smoker Obesity with BMI 34.8 Plan: Continue replacing magnesium and potassium Discontinue oral Lasix 20 mg daily for hypomagnesemia Start short course of oral magnesium Start Solu-Medrol Continue bronchodilator and cough medicine Consult pulmonary team GI DVT prophylaxis PT/OT evaluate the patient Prognosis remains guarded
[2025-02-07] MEDS: methylPREDNISolone SOD SUCCI 40 MG/ML 1 ML VIAL IV SCH ×2 (13:13→17:59)
--- NOTE | 2025-02-07 15:08 | P.CNPUL ---
History of Present Illness Consult date: 02/07/25 Requesting physician: José Clement Reason for consult: dyspnea, cough, asthma Chief complaint: Shortness of breath, cough, congestion History of present illness: This is a pleasant 74-year-old female patient with a known history of mild intermittent chronic bronchial asthma, gastroesophageal reflux disease, hypertension. Room yesterday after being seen by her PCP who felt the patient may have bronchitis and pneumonia. She had a 1 week history of cough and chest congestion with some chest pain. Chest x-ray reveals mild cardiomegaly without acute pulmonary process. White count 6.5. Hemoglobin 11.0. Platelets 167. Sodium 140.Potassium 3.3. Bicarb 29. BUN 5. Creatinine 0.5. Glucose 126. Sascha negative x 1. proBNP 111. Viral screen negative. She is seen today in consultation on the regular medical floor. She is currently resting in bed. Awake and alert in no acute distress. She does have a loose congested cough. She states occasional green sputum. No fever or chills. No chest pain currently. She is maintaining O2 saturations in the 90s on room air. She has been afebrile. Hemodynamically stable. Review of Systems REVIEW OF SYSTEMS: CONSTITUTIONAL: Denies any recent significant weight loss or weight gain. EYES: Denies change in vision. EARS, NOSE, MOUTH, THROAT: Denies headaches, denies sore throat. CARDIOVASCULAR: Positive for chest pain, no palpitations or syncopal episodes. RESPIRATORY: Positive for shortness of breath, cough, congestion no hemoptysis. GASTROINTESTINAL: Denies change in appetite, denies abdominal pain GENITOURINARY: Denies hematuria, denies infections. MUSKULOSKELETAL: Denies pain, denies swelling. INTEGUMENTARY: Denies rash, denies eczema. NEUROLOGICAL: Denies recent memory loss, no recent seizure activity. PSYCHIATRIC: Denies anxiety, denies depression. HEMATOLOGIC/LYMPHATIC: Denies anemia, denies enlarged lymph nodes. Past Medical History Past Medical History: Asthma, Chest Pain / Angina, Heart Failure, COPD, Diabetes Mellitus, GERD/Reflux, Hyperlipidemia, Hypertension, Liver Disease, Osteoarthritis (OA), Rheumatoid Arthritis (RA) Additional Past Medical History / Comment(s): DIET CONTROLLED DIABETES, BACK PAIN, diverticulitis,colitis, had low magnesium & potassium also, hx dysphagia w/meds, intermittent diarrhea" r/t gall stones " then constipation. a pt unaware of COPD DX. ? cirrohsis History of Any Multi-Drug Resistant Organisms: ESBL Date of last positivie culture/infection: 09/08/18 ESBL-E.coli MDRO Source:: Urine Past Surgical History: Appendectomy, Bowel Resection, Breast Surgery, Section, Hernia Repair, Hysterectomy, Joint Replacement, Tonsillectomy Additional Past Surgical History / Comment(s): 06/17/15 Total L knee arthroplasty & right knee replaced, left hip replaced, Other SX: LT BREAST BIOPSY, POLYPS REMOVED FROM THROAT, ROBOTIC INCISIONAL HERNIA REPAIR, LYSIS OF ADHESIONS. Past Anesthesia/Blood Transfusion Reactions: No Reported Reaction Additional Past Anesthesia/Blood Transfusion Reaction / Comment(s): one blood transfusion - no issues. Past Psychological History: Anxiety, Depression, PTSD Smoking Status: Never smoker Past Alcohol Use History: None Reported Past Drug Use History: None Reported - Past Family History Father Family Medical History: Deep Vein Thrombosis (DVT), Pulmonary Embolus Mother Family Medical History: Cancer Additional Family Medical History / Comment(s): breast Medications and Allergies Home Medications Medication Instructions Recorded Confirmed Type Azelastine HCl [Astelin Nasal 2 spray EA NOSTRIL BID 08/21/19 02/06/25 History Chambers] Pantoprazole Sodium [Protonix] 40 mg PO DAILY 11/11/21 02/06/25 History Furosemide [Lasix] 20 mg PO DAILY 06/14/23 02/06/25 History Acetaminophen Tab [Tylenol Tab] 2,000 mg PO QID PRN 05/30/24 02/06/25 History Loratadine [Claritin] 10 mg PO DAILY 05/30/24 02/06/25 History Losartan Potassium 100 mg PO DAILY 05/30/24 02/06/25 History busPIRone HCl [Buspar] 10 mg PO DAILY 05/30/24 02/06/25 History Gabapentin [Neurontin] 300 mg PO TID 3 Days #90 cap 06/04/24 02/06/25 Rx Cholecalciferol [Vitamin D3 (125 125 mcg PO DAILY 02/06/25 02/06/25 History Mcg = 5000 Iu)] Cyclobenzaprine [Flexeril] 5 mg PO HS PRN 02/06/25 02/06/25 History Potassium Chloride [Klor-Con M10] 10 meq PO DAILY 02/06/25 02/06/25 History Allergies Allergy/AdvReac Type Severity Reaction Status Date / Time codeine Allergy Rash/Hives Verified 02/06/25 14:45 nicotine Allergy Swelling Verified 02/06/25 14:45 Tetracyclines Allergy Rash/Hives Verified 02/06/25 14:45 venom-honey bee Allergy Anaphylaxis Verified 02/06/25 14:45 [bee venom (honey bee)] lisinopril AdvReac Cough Verified 02/06/25 14:45 oxycodone AdvReac gi upset Verified 02/06/25 14:45 Physical Exam Vitals: Vital Signs Temp Pulse Pulse Resp BP BP BP 02/07/25 14:34 98.1 F 86 16 124/74 131/68 131/82 02/07/25 12:12 80 02/07/25 11:57 82 02/07/25 11:23 98.1 F 94 16 130/76 138/78 124/80 02/07/25 10:58 18 02/07/25 09:19 84 02/07/25 09:07 86 02/07/25 06:55 98.4 F 90 16 132/84 142/82 131/82 02/07/25 01:37 98.6 F 105 H 16 02/06/25 20:15 135/82 140/80 130/85 02/06/25 20:00 98.3 F 111 H 16 02/06/25 19:30 111 H 16 02/06/25 18:50 96 02/06/25 18:40 92 02/06/25 17:20 98.1 F 98 18 02/06/25 15:01 95 BP Pulse Ox 02/07/25 14:34 94 L 02/07/25 12:12 02/07/25 11:57 02/07/25 11:23 92 L 02/07/25 10:58 02/07/25 09:19 02/07/25 09:07 96 02/07/25 06:55 96 02/07/25 01:37 153/92 94 L 02/06/25 20:15 02/06/25 20:00 94 L 02/06/25 19:30 02/06/25 18:50 02/06/25 18:40 02/06/25 17:20 136/84 95 02/06/25 15:01 Intake and Output 02/06/25 02/07/25 02/07/25 22:59 06:59 14:59 Intake Total 1800 Output Total 2800 2000 Balance -2800 -200 Intake: Oral 1800 Output: Urine 2800 1999 Other: Voiding Method Toilet Bedside Commode # Bowel Movements 1 Weight 84.822 kg GENERAL EXAM: Alert, does not 74-year-old female, on room air oxygen, fairly comfortable in no apparent distress. HEAD: Normocephalic. EYES: Normal reaction of pupils, equal size. NOSE: Clear with pink turbinates. THROAT: No erythema or exudates. NECK: No masses, no JVD. CHEST: No chest wall deformity. LUNGS: Equal air entry with bilateral wheeze, few scattered rhonchi. CVS: S1 and S2 normal with no audible murmur, regular rhythm. ABDOMEN: No hepatosplenomegaly, normal bowel sounds, no guarding or rigidity. SPINE: No scoliosis or deformity SKIN: No rashes CENTRAL NERVOUS SYSTEM: No focal deficits, tone is normal in all 4 extremities. EXTREMITIES: There is no peripheral edema. No clubbing, no cyanosis. Peripheral pulses are intact. Results - Laboratory Findings CBC and BMP: 02/07/25 03:29 02/07/25 03:29 PT/INR, D-dimer PT 11.4 sec (10.0-12.5) 02/06/25 12:20 INR 1.0 (<1.2) 02/06/25 12:20 D-Dimer 0.57 mg/L FEU (<0.60) 02/06/25 12:20 Abnormal lab findings: Abnormal Labs 02/06/25 02/06/25 02/06/25 12:20 12:20 16:00 RBC 3.33 L Hgb 11.3 L Hct 34.4 L MCV 103.3 H MCH 33.9 H MCHC MPV Macrocytosis (manual) Potassium BUN Creatinine BUN/Creatinine Ratio Glucose POC Glucose (mg/dL) Calcium Magnesium 0.9 L* AST 50 H Alkaline Phosphatase 145 H Globulin Albumin/Globulin Ratio Urine Protein Trace H 02/06/25 02/07/25 02/07/25 20:24 03:29 03:29 RBC 3.32 L Hgb 11.0 L Hct 35.1 L MCV 105.7 H MCH 33.1 H MCHC 31.3 L MPV 9.2 L Macrocytosis (manual) 2+ A Potassium 3.3 L BUN 5.4 L Creatinine 0.5 L BUN/Creatinine Ratio 10.80 L Glucose 126 H POC Glucose (mg/dL) 184 H Calcium 8.4 L Magnesium AST 45 H Alkaline Phosphatase Globulin 3.6 H Albumin/Globulin Ratio 1.08 L Urine Protein 02/07/25 02/07/25 06:53 12:04 RBC Hgb Hct MCV MCH MCHC MPV Macrocytosis (manual) Potassium BUN Creatinine BUN/Creatinine Ratio Glucose POC Glucose (mg/dL) 114 H 134 H Calcium Magnesium AST Alkaline Phosphatase Globulin Albumin/Globulin Ratio Urine Protein - Diagnostic Findings Chest x-ray: image reviewed Assessment and Plan Assessment: Acute exacerbation of mild intermittent chronic bronchial asthma secondary to purulent tracheobronchitis and acid reflux History of mild intermittent chronic bronchial asthma, not on treatment in the outpatient setting History of gastroesophageal reflux disease maintained on Protonix daily History of congestive heart failure maintained on Lasix in the outpatient setting Hypomagnesemia secondary to diuretics, corrected Hypokalemia secondary to diuretics, corrected Hypertension Anxiety/depression Lifelong non-smoker Plan: The patient was seen and evaluated Chest x-ray, labs and medications reviewed Remains stable and on room air Add azithromycin 500 mg x 3 days Add Symbicort Increase Solu-Medrol to 40 mg every 6 hours Increase Protonix to twice daily Continue DuoNeb inhalations Resume home medications Increase her activity as tolerated Plan of care discussed with the patient who verbalized understanding and is agreeable to the plan We will continue to follow and make further recommendations based on her clinical status I have personally seen and examined the patient, performed the documentation and the assessment and plan as written. Number of minutes spent on the visit: 20 Dictation was produced using [employer] dictation software. Please excuse any grammatical, word or spelling errors. Time with Patient: Greater than 30
[2025-02-07] MEDS: AZITHROMYCIN 500 MG TAB PO SCH (15:38)
[2025-02-07] MEDS: PANTOPRAZOLE 40 MG TABLET PO SCH (16:28)
[2025-02-07 16:37] LABS: Glucose,Whole Blood 176 mg/dL (70-110)
[2025-02-07] MEDS: SYMBICORT 160-4.5 MCG INHALER INHALATION SCH (18:32)
[2025-02-07 20:03] LABS: Glucose,Whole Blood 204 mg/dL (70-110)
[2025-02-07] MEDS: MAGNESIUM OXIDE 400 MG TAB PO SCH (20:52)
[2025-02-08 06:54] LABS: Glucose,Whole Blood 184 mg/dL (70-110)
[2025-02-08] MEDS ORDERED: PANTOPRAZOLE 40 MG TABLET PO SCH (07:30)
[2025-02-08 08:20] LABS: Blood Urea Nitrogen 8.2 mg/dL (9.0-27.0); Calcium 9.2 mg/dL (8.7-10.3); Chloride 99 mmol/L (96-109); Glucose 181 mg/dL (70-110); Potassium 4.2 mmol/L (3.5-5.5); Sodium 136 mmol/L (135-145)
[2025-02-08 08:32] LABS: Basophils # (A) 0.01 X 10*3/uL (0.00-0.10); Basophils % (A) 0.1 %; Eosinophils # (A) 0 X 10*3/uL (0.04-0.35); Eosinophils % (A) 0 %; HCT 36.5 % (37.2-46.3); HGB 11.9 g/dL (12.0-15.0); Lymphocytes # (A) 0.93 X 10*3/uL (0.90-5.00); Lymphocytes % (A) 9.8 %; MCHC 32.6 g/dL (32.0-37.0); MCV 104.3 FL (80.0-97.0); Mean Platelet Volume 10.1 FL (9.5-12.2); Monocytes % (A) 1.1 %; NRBC Per 100 WBC 0 X 10*3/uL (0.00-0.01); Neutrophils # (A) 8.32 X 10*3/uL (1.80-7.70); Neutrophils % (A) 87.6 %; Platelet Count 183 X 10*3/uL (140-440); RDW 14.5 % (11.5-14.5); WBC 9.49 X 10*3/uL (4.50-10.00)
[2025-02-08 12:04] LABS: Glucose,Whole Blood 198 mg/dL (70-110)
--- NOTE | 2025-02-08 13:33 | P.PN ---
Subjective Progress Note Date: 02/08/25 This is a pleasant 74-year-old female patient with a known history of mild intermittent chronic bronchial asthma, gastroesophageal reflux disease, hypertension. Room yesterday after being seen by her PCP who felt the patient may have bronchitis and pneumonia. She had a 1 week history of cough and chest congestion with some chest pain. Chest x-ray reveals mild cardiomegaly without acute pulmonary process. White count 6.5. Hemoglobin 11.0. Platelets 167. Sodium 140.Potassium 3.3. Bicarb 29. BUN 5. Creatinine 0.5. Glucose 126. Sascha negative x 1. proBNP 111. Viral screen negative. She is seen today in consultation on the regular medical floor. She is currently resting in bed. Awake and alert in no acute distress. She does have a loose congested cough. She states occasional green sputum. No fever or chills. No chest pain currently. She is maintaining O2 saturations in the 90s on room air. She has been afebrile. Hemodynamically stable. The patient is seen today February 08, 2025 in follow-up on the regular medical floor. She is currently awake and alert in no acute distress. Resting comfortably in bed. Feeling better today compared to yesterday. Maintaining good O2 saturations in the 90s on room air oxygen. She still has a cough and some congestion. White count 9.4. Hemoglobin 11.9. Platelets 183. Sodium 136. Potassium 4.2. Bicarb 25. BUN 8. Creatinine 0.5. Glucose 181. She remains on DuoNeb inhalations, Symbicort, Solu-Medrol. Antibiotics in the form of azithromycin. Objective - Vital Signs Vital signs: Vital Signs Temp 98.3 F 02/08/25 11:47 Pulse 101 H 02/08/25 11:47 Resp 16 02/08/25 11:47 BP 151/89 02/08/25 11:47 Pulse Ox 91 L 02/08/25 11:47 FiO2 21 02/08/25 08:08 Intake & Output 02/07/25 02/08/25 02/08/25 18:59 06:59 18:59 Intake Total 2040 240 Output Total 3000 2800 Balance -960 -2800 240 Weight 81.5 kg Intake: Oral 2040 240 Output: Urine 3000 2800 Other: Voiding Method External Catheter # Bowel Movements 1 1 - Exam GENERAL EXAM: Alert, active, pleasant 74-year-old female, on room air oxygen, comfortable in no apparent distress. HEAD: Normocephalic. EYES: Normal reaction of pupils, equal size. NOSE: Clear with pink turbinates. THROAT: No erythema or exudates. NECK: No masses, no JVD. CHEST: No chest wall deformity. LUNGS: Equal air entry with few scattered rhonchi. CVS: S1 and S2 normal with no audible murmur, regular rhythm. ABDOMEN: No hepatosplenomegaly, normal bowel sounds, no guarding or rigidity. SPINE: No scoliosis or deformity SKIN: No rashes CENTRAL NERVOUS SYSTEM: No focal deficits, tone is normal in all 4 extremities. EXTREMITIES: There is no peripheral edema. No clubbing, no cyanosis. Peripheral pulses are intact. - Labs CBC & Chem 7: 02/08/25 04:02/08/25 04: Labs: Abnormal Lab Results - Last 24 Hours (Table) 02/07/25 02/07/25 02/08/25 Range/Units 16:36 20:02 04:27 RBC 3.50 L (4.10-5.20) X 10*6/uL Hgb 11.9 L (12.0-15.0) g/dL Hct 36.5 L (37.2-46.3) % MCV 104.3 H (80.0-97.0) FL MCH 34.0 H (27.0-32.0) pg Immature Gran # 0.13 H (0.00-0.04) X 10*3/uL Neutrophils # 8.32 H (1.80-7.70) X 10*3/uL Monocytes # 0.10 L (0.20-1.00) X 10*3/uL Eosinophils # 0 L (0.04-0.35) X 10*3/uL BUN (9.0-27.0) mg/dL Creatinine (0.6-1.5) mg/dL Glucose (70-110) mg/dL POC Glucose (mg/dL) 176 H 204 H (70-110) mg/dL 02/08/25 02/08/25 02/08/25 Range/Units 04: 06:53 12:03 RBC (4.10-5.20) X 10*6/uL Hgb (12.0-15.0) g/dL Hct (37.2-46.3) % MCV (80.0-97.0) FL MCH (27.0-32.0) pg Immature Gran # (0.00-0.04) X 10*3/uL Neutrophils # (1.80-7.70) X 10*3/uL Monocytes # (0.20-1.00) X 10*3/uL Eosinophils # (0.04-0.35) X 10*3/uL BUN 8.2 L (9.0-27.0) mg/dL Creatinine 0.5 L (0.6-1.5) mg/dL Glucose 181 H (70-110) mg/dL POC Glucose (mg/dL) 184 H 198 H (70-110) mg/dL Assessment and Plan Assessment: Acute exacerbation of mild intermittent chronic bronchial asthma secondary to purulent tracheobronchitis and acid reflux History of mild intermittent chronic bronchial asthma, not on treatment in the outpatient setting History of gastroesophageal reflux disease maintained on Protonix daily History of congestive heart failure maintained on Lasix in the outpatient setting Hypomagnesemia secondary to diuretics, corrected Hypokalemia secondary to diuretics, corrected Hypertension Anxiety/depression Lifelong non-smoker Plan: The patient was seen and evaluated Labs and medications reviewed Remains stable and on room air Continue azithromycin Continue Symbicort Continue Solu-Medrol Continue Protonix Continue DuoNeb inhalations Increase her activity as tolerated Probable discharge in the a.m. We will continue to follow I have personally seen and examined the patient, performed the documentation and the assessment and plan as written. Number of minutes spent on the visit: 10 Dictation was produced using [employer] dictation software. Please excuse any grammatical, word or spelling errors.
[2025-02-08 17:18] LABS: Glucose,Whole Blood 227 mg/dL (70-110)
[2025-02-08 20:14] LABS: Glucose,Whole Blood 226 mg/dL (70-110)
[2025-02-08] MEDS: IPRATROPIUM-ALBUTEROL 3 ML NEB INHALATION PRN (23:53)
--- NOTE | 2025-02-09 06:08 | P.PN ---
Subjective Progress Note Date: 02/08/25 This is a pleasant 74 years old female who presents because of dyspnea. Patient was sent by her PCP Dr. Colindres because of her respiratory problems In the emergency room patient was found to have generally weak and magnesium critically low 0.9 so she was admitted for hypomagnesemia. Replacement was initiated and magnesium today 1.8 potassium 3.3 which have been replaced However patient is still significantly short of breath and significantly wheezing and she has a lot of dry cough while she is taking Robitussin DM. She makes a green phlegm She denies chest pain or abdominal pain. No other GI also symptom. Patient states she is never smoked but all her household family were smoking except for her in her diet. She thinks that might be contributing to her presentation. She is not on oxygen at home. She is hemodynamically stable, tachypneic, mildly tachycardic. Labs reviewed. WBC normal 6.5 hemoglobin 11. Platelet count normal. Creatinine normal at 0.5. L liver enzymes not elevated. Urinalysis not suspicious for infection. Checks x-ray: Cardiomegaly, mild. Without acute cardiopulmonary process. I reviewed chest x-ray by myself and agree with these findings. proBNP is 111 influenza and COVID and RSV were negative. 02/08/2025 Patient is seen in follow-up today currently receiving a breathing treatment maintained on DuoNeb treatment along with Zithromax and steroids with pulmonary following closely. Pulmonary recommending monitoring overnight with probable discharge in 24 hours as patient is improving. Patient reports to feeling somewhat improved although continues to have coughing with mild expiratory wheezing noted. Encouraged increase activity as tolerated and sitting up in the chair more frequently. Review of systems: Constitutional: No reports of fatigue, fever, or chills Cardiovascular: No reports of chest pain or palpitations Respiratory: reports of intermittent shortness of breath and continued cough GI: No reports of nausea, vomiting, or diarrhea : No reports of dysuria or retention Neurovascular: No reports of weakness or numbness All medications have been reviewed Physical exam: Gen: This is a 74-year-old female who is awake, alert and oriented x 3, well- developed, elderly appearing, obese HEENT: Head is atraumatic, normocephalic. Pupils equal, round. Sclerae is anicteric. NECK: Supple. No JVD. No lymphadenopathy. No thyromegaly. LUNGS: Diminished breath sounds bilaterally with a few expiratory wheezes and coarse rhonchi noted. No intercostal retractions. HEART: S1, S2 are muffled. ABDOMEN: Soft. Obese. Bowel sounds are present. No masses. No tenderness. EXTREMITIES: No pedal edema. No calf tenderness. NEUROLOGICAL: Patient is awake, alert and oriented x3. Cranial nerves 2 through 12 are grossly intact. Assessment: Shortness of breath with cough secondary to chronic bronchial asthma with purulent tracheobronchitis History of chronic bronchial asthma with acute bronchitis, present on admission GERD History of hypertension Obesity with a BMI of 33.4 generalized weakness Hypomagnesemia secondary to diuretic use Secondary hand smoker, lifelong non-smoker GI prophylaxis DVT prophylaxis Full code Plan: Continue with current medication regimen including steroids and DuoNeb treatments. Will transition to a prednisone taper on discharge Continue Zithromax per pulmonary Magnesium and potassium replaced and improved and will continue holding diuretics at this time Continue with breathing treatments and as needed symptomatic support for cough Encouraged increase activity as tolerated with PT/OT therapy evaluation Patient reports plans on returning home and possibly discharge planning for tomorrow. Will discuss with pulmonary and recommend outpatient follow-up with pulmonary on discharge The impression and plan of care has been dictated by Cary Solorzano, Nurse Practitioner as directed. Dr. Piero MD I have performed a history and examination and MDM of this patient, discussed the same with the dictator, and agree with the dictator's assessment and plan as written ,documented as a scribe. Based on total visit time, I have performed more than 50% of the visit. Objective - Vital Signs Vital signs: Vital Signs Temp 98.1 F 02/08/25 07:14 Pulse 88 02/08/25 08:21 Resp 16 02/08/25 07:14 BP 155/92 02/08/25 07:14 Pulse Ox 94 L 02/08/25 08:08 FiO2 21 02/08/25 08:08 Intake & Output 02/07/25 02/08/25 02/08/25 18:59 06:59 18:59 Intake Total 2040 Output Total 3000 2800 Balance -960 -2800 Weight 81.5 kg Intake: Oral 2040 Output: Urine 3000 2800 Other: Voiding Method External Catheter # Bowel Movements 1 1 - Labs CBC & Chem 7: 02/08/25 04:27 02/08/25 04:27 Labs: Abnormal Lab Results - Last 24 Hours (Table) 02/07/25 02/07/25 02/07/25 Range/Units 03:29 12:04 16:36 RBC (4.10-5.20) X 10*6/uL Hgb (12.0-15.0) g/dL Hct (37.2-46.3) % MCV (80.0-97.0) FL MCH (27.0-32.0) pg Immature Gran # (0.00-0.04) X 10*3/uL Neutrophils # (1.80-7.70) X 10*3/uL Monocytes # (0.20-1.00) X 10*3/uL Eosinophils # (0.04-0.35) X 10*3/uL Macrocytosis (manual) 2+ A (None Seen) BUN (9.0-27.0) mg/dL Creatinine (0.6-1.5) mg/dL Glucose (70-110) mg/dL POC Glucose (mg/dL) 134 H 176 H (70-110) mg/dL 02/07/25 02/08/25 02/08/25 Range/Units 20:02 04:27 04:27 RBC 3.50 L (4.10-5.20) X 10*6/uL Hgb 11.9 L (12.0-15.0) g/dL Hct 36.5 L (37.2-46.3) % MCV 104.3 H (80.0-97.0) FL MCH 34.0 H (27.0-32.0) pg Immature Gran # 0.13 H (0.00-0.04) X 10*3/uL Neutrophils # 8.32 H (1.80-7.70) X 10*3/uL Monocytes # 0.10 L (0.20-1.00) X 10*3/uL Eosinophils # 0 L (0.04-0.35) X 10*3/uL Macrocytosis (manual) (None Seen) BUN 8.2 L (9.0-27.0) mg/dL Creatinine 0.5 L (0.6-1.5) mg/dL Glucose 181 H (70-110) mg/dL POC Glucose (mg/dL) 204 H (70-110) mg/dL 02/08/25 Range/Units 06:53 RBC (4.10-5.20) X 10*6/uL Hgb (12.0-15.0) g/dL Hct (37.2-46.3) % MCV (80.0-97.0) FL MCH (27.0-32.0) pg Immature Gran # (0.00-0.04) X 10*3/uL Neutrophils # (1.80-7.70) X 10*3/uL Monocytes # (0.20-1.00) X 10*3/uL Eosinophils # (0.04-0.35) X 10*3/uL Macrocytosis (manual) (None Seen) BUN (9.0-27.0) mg/dL Creatinine (0.6-1.5) mg/dL Glucose (70-110) mg/dL POC Glucose (mg/dL) 184 H (70-110) mg/dL
[2025-02-09 07:07] LABS: Glucose,Whole Blood 184 mg/dL (70-110)
[2025-02-09 12:08] LABS: Glucose,Whole Blood 191 mg/dL (70-110)
--- NOTE | 2025-02-09 12:27 | P.PN ---
Subjective Progress Note Date: 02/09/25 This is a pleasant 74-year-old female patient with a known history of mild intermittent chronic bronchial asthma, gastroesophageal reflux disease, hypertension. Room yesterday after being seen by her PCP who felt the patient may have bronchitis and pneumonia. She had a 1 week history of cough and chest congestion with some chest pain. Chest x-ray reveals mild cardiomegaly without acute pulmonary process. White count 6.5. Hemoglobin 11.0. Platelets 167. Sodium 140.Potassium 3.3. Bicarb 29. BUN 5. Creatinine 0.5. Glucose 126. Sascha negative x 1. proBNP 111. Viral screen negative. She is seen today in consultation on the regular medical floor. She is currently resting in bed. Awake and alert in no acute distress. She does have a loose congested cough. She states occasional green sputum. No fever or chills. No chest pain currently. She is maintaining O2 saturations in the 90s on room air. She has been afebrile. Hemodynamically stable. The patient is seen today February 08, 2025 in follow-up on the regular medical floor. She is currently awake and alert in no acute distress. Resting comfortably in bed. Feeling better today compared to yesterday. Maintaining good O2 saturations in the 90s on room air oxygen. She still has a cough and some congestion. White count 9.4. Hemoglobin 11.9. Platelets 183. Sodium 136. Potassium 4.2. Bicarb 25. BUN 8. Creatinine 0.5. Glucose 181. She remains on DuoNeb inhalations, Symbicort, Solu-Medrol. Antibiotics in the form of azithromycin. The patient is seen today February 09, 2025 in follow-up on the regular medical fl oor. She is currently sitting up in bed. Awake and alert in no acute distress. Denies any worsening shortness of breath, cough or congestion. No fever or chills. She has been afebrile. Hemodynamically stable. Maintaining O2 saturations in the 90s on room air. Glucose 191. She remains on DuoNeb inhalations, Symbicort, Solu-Medrol. Completed azithromycin. Currently in a - 2.3 L balance. Objective - Vital Signs Vital signs: Vital Signs Temp 98.0 F 02/09/25 07:08 Pulse 99 02/09/25 12:08 Resp 20 02/09/25 07:08 BP 159/87 02/09/25 07:08 Pulse Ox 92 L 02/09/25 07:08 FiO2 21 02/08/25 08:08 Intake & Output 02/08/25 02/09/25 02/09/25 18:59 06:59 18:59 Intake Total 2160 Output Total 500 4001 Balance 1660 -4001 Weight 86.5 kg Intake: Oral 2160 Output: Urine 500 4000 Stool 1 Other: Voiding Method External Catheter External Catheter - Exam GENERAL EXAM: Alert, 74-year-old female, on room air oxygen, in no apparent distress. HEAD: Normocephalic. EYES: Normal reaction of pupils, equal size. NOSE: Clear with pink turbinates. THROAT: No erythema or exudates. NECK: No masses, no JVD. CHEST: No chest wall deformity. LUNGS: Equal air entry with few scattered rhonchi. CVS: S1 and S2 normal with no audible murmur, regular rhythm. ABDOMEN: No hepatosplenomegaly, normal bowel sounds, no guarding or rigidity. SPINE: No scoliosis or deformity SKIN: No rashes CENTRAL NERVOUS SYSTEM: No focal deficits, tone is normal in all 4 extremities. EXTREMITIES: There is no peripheral edema. No clubbing, no cyanosis. Peripheral pulses are intact. - Labs CBC & Chem 7: 02/08/25 04:27 02/08/25 04:27 Labs: Abnormal Lab Results - Last 24 Hours (Table) 02/08/25 02/08/25 02/09/25 Range/Units 17:17 20:13 07:06 POC Glucose (mg/dL) 227 H 226 H 184 H (70-110) mg/dL 02/09/25 Range/Units 12:06 POC Glucose (mg/dL) 191 H (70-110) mg/dL Assessment and Plan Assessment: Acute exacerbation of mild intermittent chronic bronchial asthma secondary to purulent tracheobronchitis and acid reflux History of mild intermittent chronic bronchial asthma, not on treatment in the outpatient setting History of gastroesophageal reflux disease maintained on Protonix daily History of congestive heart failure maintained on Lasix in the outpatient setting Hypomagnesemia secondary to diuretics, corrected Hypokalemia secondary to diuretics, corrected Hypertension Anxiety/depression Lifelong non-smoker Plan: The patient was seen and evaluated Labs and medications reviewed Remains stable and on room air Completed azithromycin Continue Symbicort Discontinue Solu-Medrol Complete a Medrol Dosepak Continue Protonix Recommend albuterol HFA as needed Cleared for discharge from a pulmonary standpoint I have personally seen and examined the patient, performed the documentation and the assessment and plan as written. Number of minutes spent on the visit: 10 Dictation was produced using [employer] dictation software. Please excuse any grammatical, word or spelling errors.
[2025-02-09 14:13] VITALS: BP 150/84; PULSE 101; RESP 16; TEMP 98.3
[2025-02-10] MEDS ORDERED: methylPREDNISolone 4 MG TAB TAPER PO SCH (09:00)
--- NOTE | 2025-02-11 22:56 | P.DS ---
Providers Date of admission: 02/06/25 14:54 Attending physician: Gabino Mantilla Consults: 02/07/25 12:19 Consult Physician Routine Consulting Provider: Jarad García Consult Reason/Comments: bronchitis Do you want consulting provider notified?: Yes Primary care physician: Shahla Lambert [place] Hospital Course: Final Diagnosis Shortness of breath with cough secondary to chronic bronchial asthma with purulent tracheobronchitis History of chronic bronchial asthma with acute bronchitis, present on admission GERD History of hypertension Obesity with a BMI of 33.4 generalized weakness Hypomagnesemia secondary to diuretic use Secondary hand smoker, lifelong non-smoker Discharge Disposition Patient stable for discharge home. She will continue on oral prednisone taper as well as albuterol inhaler as needed. Patient to follow-up with pulmonology in office in 1 week. Hospital Course This is a pleasant 74 years old female who presents because of dyspnea. Patient was sent by her PCP Dr. Colindres because of her respiratory problems In the emergency room patient was found to have generally weak and magnesium critically low 0.9 so she was admitted for hypomagnesemia. Replacement was initiated and magnesium today 1.8 potassium 3.3 which have been replaced However patient is still significantly short of breath and significantly wheezing and she has a lot of dry cough while she is taking Robitussin DM. She makes a green phlegm She denies chest pain or abdominal pain. No other GI also symptom. Patient states she is never smoked but all her household family were smoking except for her in her diet. She thinks that might be contributing to her presentation. She is not on oxygen at home. She is hemodynamically stable, tachypneic, mildly tachycardic. Labs reviewed. WBC normal 6.5 hemoglobin 11. Platelet count normal. Creatinine normal at 0.5. L liver enzymes not elevated. Urinalysis not suspicious for infection. Checks x-ray: Cardiomegaly, mild. Without acute cardiopulmonary process. I rev iewed chest x-ray by myself and agree with these findings. proBNP is 111 influenza and COVID and RSV were negative. 02/08/2025 Patient is seen in follow-up today currently receiving a breathing treatment maintained on DuoNeb treatment along with Zithromax and steroids with pulmonary following closely. Pulmonary recommending monitoring overnight with probable discharge in 24 hours as patient is improving. Patient reports to feeling somewhat improved although continues to have coughing with mild expiratory wheezing noted. Encouraged increase activity as tolerated and sitting up in the chair more frequently. 02/09/2025 Patient is evaluated in follow-up on the medical floor. Pulmonology has cleared the patient for discharge. She is up ambulating without difficulty and is significantly less shortness of breath and not having any further wheezing noted on examination. Patient will discharge home on a prednisone Dosepak as well as albuterol inhaler. Patient to follow-up with Dr. Foreman in 1 week. Please see medication reconciliation for a list of current medications. Thank you for allowing us to participate in the care of this patient. The impression and plan of care has been dictated by Rochelle Gordon, Nurse Practitioner as directed. Dr. Piero MD I have performed a history and physical examination and medical decision making of this patient, discussed the same with the dictator, and agree with the dictators assessment and plan as written, documented as a scribe. Based on total visit time, I have performed more than 50% of this visit. Patient Condition at Discharge: Stable Plan - Discharge Summary Discharge Rx Participant: Yes New Discharge Prescriptions: New methylPREDNISolone [Medrol Dose Pack] 0 mg PO DIRECTED #1 packet Albuterol Inhaler [Ventolin Hfa Inhaler] 1 puff INHALATION QID PRN #8 gm PRN Reason: Shortness Of Breath Or Wheezing Continue Azelastine HCl [Astelin Nasal [place]] 2 spray EA NOSTRIL BID Acetaminophen Tab [Tylenol] 2,000 mg PO QID PRN PRN Reason: Pain Losartan Potassium 100 mg PO DAILY Cyclobenzaprine [Flexeril] 5 mg PO HS PRN PRN Reason: Muscle Spasm Pantoprazole Sodium [Protonix] 40 mg PO DAILY Furosemide [Lasix] 20 mg PO DAILY busPIRone HCl [Buspar] 10 mg PO DAILY Loratadine [Claritin] 10 mg PO DAILY Gabapentin [Neurontin] 300 mg PO TID 3 Days #90 cap Cholecalciferol [Vitamin D3 (125 Mcg = 5000 Iu)] 125 mcg PO DAILY Potassium Chloride [Klor-Con M10] 10 meq PO DAILY Discharge Medication List Azelastine HCl [Astelin Nasal [place]] 2 spray EA NOSTRIL BID 08/21/19 [History] Pantoprazole Sodium [Protonix] 40 mg PO DAILY 11/11/21 [History] Furosemide [Lasix] 20 mg PO DAILY 06/14/23 [History] Acetaminophen Tab [Tylenol] 2,000 mg PO QID PRN 05/30/24 [History] Loratadine [Claritin] 10 mg PO DAILY 05/30/24 [History] Losartan Potassium 100 mg PO DAILY 05/30/24 [History] busPIRone HCl [Buspar] 10 mg PO DAILY 05/30/24 [History] Gabapentin [Neurontin] 300 mg PO TID 3 Days #90 cap 06/04/24 [Rx] Cholecalciferol [Vitamin D3 (125 Mcg = 5000 Iu)] 125 mcg PO DAILY 02/06/25 [History] Cyclobenzaprine [Flexeril] 5 mg PO HS PRN 02/06/25 [History] Potassium Chloride [Klor-Con M10] 10 meq PO DAILY 02/06/25 [History] Albuterol Inhaler [Ventolin Hfa Inhaler] 1 puff INHALATION QID PRN #8 gm 02/09/25 [Rx] methylPREDNISolone [Medrol Dose Pack] 0 mg PO DIRECTED #1 packet 02/09/25 [Rx] Follow up Appointment(s)/Referral(s): Shahla Lambert MD [Primary Care Provider] - 1-2 days Jarad García MD [STAFF PHYSICIAN] - 1 Week Ambulatory/Diagnostic Orders: Basic Metabolic Panel [LAB.AMB] Location: None Selected Complete Blood Count w/diff [LAB.AMB] Time Frame: 3 Days, Location: None Selected Patient Instructions/Handouts: Albuterol (By breathing), Methylprednisolone (By mouth), Asthma (DC), Acute Bronchitis (GEN) Discharge Disposition: HOME SELF-CARE
== END 2025-02-09 14:05 | disposition home or self-care (01) | DRG 202 ==
LOC: EC 12:07 → 5NMEDONC 14:54
PROVIDERS: ADMIT Hospitalist; ATTEND Hospitalist
DX: J45.21 Mild intermittent asthma with (acute) exacerbation (principal); J44.0 Chronic obstructive pulmonary disease with (acute) lower respiratory infection; I11.0 Hypertensive heart disease with heart failure; I50.9 Heart failure, unspecified; M06.9 Rheumatoid arthritis, unspecified; E11.9 Type 2 diabetes mellitus without complications; Z68.34 Body mass index [BMI] 34.0-34.9, adult; F32.A Depression, unspecified; K76.9 Liver disease, unspecified; J44.1 Chronic obstructive pulmonary disease with (acute) exacerbation; J20.9 Acute bronchitis, unspecified; F43.10 Post-traumatic stress disorder, unspecified; K21.9 Gastro-esophageal reflux disease without esophagitis; F41.9 Anxiety disorder, unspecified; E83.42 Hypomagnesemia; Z77.22 Contact with and (suspected) exposure to environmental tobacco smoke (acute) (chronic); E87.6 Hypokalemia; T50.2X5A Adverse effect of carbonic-anhydrase inhibitors, benzothiadiazides and other diuretics, initial encounter; Z79.899 Other long term (current) drug therapy; Z96.642 Presence of left artificial hip joint; Z96.653 Presence of artificial knee joint, bilateral; Z88.1 Allergy status to other antibiotic agents; Z88.5 Allergy status to narcotic agent; Z88.8 Allergy status to other drugs, medicaments and biological substances
CPT/HCPCS: 36415; 71046; 80048; 80053; 81003; 83605; 83735; 83880; 84484; 85025; 85379; 85610; 85730; 87636; 93005; 94640; 94760; 96365; 96366; 96375; 99285

== ENCOUNTER → 2025-03-14 | Outpatient (CLI) | payer MEDICARE, OTHER ==
--- NOTE | 2025-03-14 14:53 | US ---
EXAMINATION TYPE: US thyroid st tissue head/neck DATE OF EXAM: 03/14/2025 COMPARISON: NONE CLINICAL INDICATION: Female, 74 years old with history of R93.89 ABNORMAL FINDINGS ON DX IMAGING OF O TH BODY; Abnormal CKR per order TECHNIQUE: Grayscale and color Doppler imaging of the thyroid gland. FINDINGS: GLAND SIZE: Right Lobe: 4.7 x 1.8 x 1.4 cm Overall Parenchyma: homogeneous Left Lobe: 4.2 x 1.4 x 1.3 cm Overall Parenchyma: homogeneous Isthmus Thickness: 0.3 cm NODULES RIGHT: # of nodules measured on right: 0 LEFT: # of nodules measured on left: 0 ISTHMUS: # of nodules measured in the isthmus: 0 Bilateral neck scanned, no evidence of lymphadenopathy. IMPRESSION: Normal ultrasound appearance to the thyroid gland. No discrete nodules. [facility], Workstation: [email or web address], 03/14/2025 2:51 PM
== END | disposition home or self-care (01) ==
LOC: RADUSWWP 14:03
PROVIDERS: ATTEND Family Medicine
DX: R93.89 Abnormal findings on diagnostic imaging of other specified body structures (principal)
CPT/HCPCS: 76536

== ENCOUNTER → 2025-05-14 | Outpatient (CLI) | payer MEDICARE, OTHER ==
[2025-05-14 19:25] LABS: ALT 19 U/L (8-44); AST 29 U/L (13-35); Albumin 4.4 g/dL (3.8-4.9); Albumin/Globulin Ratio 1.29 Ratio (1.60-3.17); Alkaline Phosphatase 79 U/L (41-126); Anion Gap 13.60 mmol/L (4.00-12.00); BUN/Creat Ratio 20.86 Ratio (12.00-20.00); Blood Urea Nitrogen 14.6 mg/dL (9.0-27.0); Calcium 9.2 mg/dL (8.7-10.3); Carbon Dioxide 19.4 mmol/L (21.6-31.8); Chloride 105 mmol/L (96-109); Globulin 3.4 g/dL (1.6-3.3); Glucose 106 mg/dL (70-110); Potassium 4.0 mmol/L (3.5-5.5); Sodium 138 mmol/L (135-145); Total Protein 7.8 g/dL (6.2-8.2)
[2025-05-14 19:30] LABS: HCT 36.0 % (37.2-46.3); HGB 11.5 g/dL (12.0-15.0); MCH 34.3 pg (27.0-32.0); MCHC 31.9 g/dL (32.0-37.0); MCV 107.5 FL (80.0-97.0); NRBC Per 100 WBC 0 X 10*3/uL (0.00-0.01); Platelet Count 137 X 10*3/uL (140-440); RBC 3.35 X 10*6/uL (4.10-5.20); RDW 15.2 % (11.5-14.5); WBC 3.44 X 10*3/uL (4.50-10.00)
[2025-05-14 19:31] LABS: Basophils # (A) 0.02 X 10*3/uL (0.00-0.10); Basophils % (A) 0.6 %; Eosinophils # (A) 0.12 X 10*3/uL (0.04-0.35); Eosinophils % (A) 3.5 %; Immature Grans, Automated 0.60 %; Lymphocytes # (A) 1.14 X 10*3/uL (0.90-5.00); Lymphocytes % (A) 33.1 %; Monocytes # (A) 0.36 X 10*3/uL (0.20-1.00); Monocytes % (A) 10.5 %; Neutrophils # (A) 1.78 X 10*3/uL (1.80-7.70); Neutrophils % (A) 51.7 %
== END | disposition home or self-care (01) ==
LOC: LABWHC1 12:37
PROVIDERS: ATTEND Nurse Practitioner Family
DX: K74.60 Unspecified cirrhosis of liver (principal)
CPT/HCPCS: 36415; 80053; 82105; 85025